=== PATIENT | female | born 1955 | race Caucasian/White ===

== ENCOUNTER 2018-04-22 00:53 | Outpatient (CLI) | payer OTHER | END 2018-04-22 00:54 | disposition critical access hospital (66) | LOC: EMS 00:53 | PROVIDERS: ATTEND Surgery | DX: R06.00 Dyspnea, unspecified (principal); R60.0 Localized edema | CPT/HCPCS: A0425; A0427 ==

== ENCOUNTER 2018-04-22 01:07 | Emergency (ER) | payer BC, OTHER ==
--- NOTE | 2018-04-22 01:58 | ED Physician Documentation ---
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 no apparent inciting event, BIBA, given iv benadryl 50 mg and IM epinephrine Review of Systems Constitutional: reports: Reviewed and negative Throat: reports: Sore throat (I think from coughing, per patient) Cardiac: reports: Reviewed and negative Respiratory: reports: Dyspnea, Cough GI: reports: Reviewed and negative Skin: denies: Rash PD PAST MEDICAL HISTORY - Past Medical History Cardiovascular: Hypertension, High cholesterol Respiratory: Asthma GI: GERD, GI bleed, Ulcers Musculoskeletal: Gout, Chronic back pain Derm: Rosacea - Past Surgical History General: Appendectomy HEENT: Tonsil/Adenoidectomy - Present Medications Home Medications: Ambulatory Orders Medication Instructions Recorded Confirmed Albuterol Sulfate [Proair Hfa 2 puffs IH Q4HR PRN 04/22/18 04/22/18 Inhaler] Carvedilol 1 tab PO BID 04/22/18 04/22/18 Epinephrine [Epipen 2-Zac] 0.3 mg IJ ONCE PRN #1 auto.injct 04/22/18 Fluticasone 220 Mcg [Flovent] 1 puffs IH BID PRN 04/22/18 04/22/18 Lisinopril 1 tab PO DAILY 04/22/18 04/22/18 predniSONE [Deltasone] 10 mg PO [id number] #42 tab 04/22/18 - Allergies Allergies/Adverse Reactions: Allergies Allergy/AdvReac Type Severity Reaction Status Date / Time No Known Drug Allergies Allergy Verified 04/22/18 01:14 PD ED PE NORMAL - Vitals Vital signs reviewed: Yes - General General: Alert and oriented X 3, No acute distress, Well developed/nourished, Other (speaks in quiet, muffled voice) - HEENT HEENT: Moist mucous membranes, Other (posterior pharyngeal edema without erythema or asymmetry) - Neck Neck: Supple, no meningeal sign, No adenopathy, Thyroid normal - Cardiac Cardiac: RRR, No murmur - Respiratory Respiratory: No respiratory distress, Other (transmitted breath sounds; mild stridor) - Abdomen Abdomen: Soft, Non tender - Derm Derm: Normal color, Warm and dry, No rash - Extremities Extremities: No edema Results - Vitals Vitals: Vital Signs - 24 hr 04/22/18 04/22/18 04/22/18 01:03 02:21 03:16 Temperature 36.2 C L Heart Rate 73 83 83 Respiratory 19 20 27 H Rate Blood Pressure 172/113 H 129/94 H 114/80 O2 Saturation 97 95 97 04/22/18 04:25 Temperature Heart Rate 71 Respiratory 16 Rate Blood Pressure 146/103 H O2 Saturation 95 Oxygen O2 Source Room air - Labs Labs: Laboratory Tests 04/22/18 04/22/18 04/22/18 02:25 02:25 02:25 WBC 7.9 RBC 4.06 L Hgb 14.3 Hct 42.1 MCV 103.8 H MCH 35.4 H MCHC 34.1 RDW 13.9 Plt Count 154 MPV 7.2 L Neut # (Auto) 5.7 Lymph # (Auto) 1.1 L [place] # (Auto) 0.4 Eos # (Auto) 0.3 Baso # (Auto) 0.3 H Absolute Nucleated RBC 0.00 Nucleated RBC % 0.0 Sodium 134 L Potassium 3.8 Chloride 96 L Carbon Dioxide 26 Anion Gap 12.0 BUN 20 Creatinine 0.9 Estimated GFR (MDRD) 63 L Glucose 146 H Calcium 9.5 TSH 5.02 - Rads (name of study) chest xray Radiology: Prelim report reviewed, See rad report PD MEDICAL DECISION MAKING - ED course Complexity details: reviewed results, re-evaluated patient, considered differential, d/w patient ED course: on reevaluation, after tests returned and iv decadron and pepcid, patient reports significant improvement. stridor has resolved and she speaks with quiet but clear voice (no longer muffled and noticeably greater volume than on initial presentation). posterior pharynx with mild residual symmetric swelling. Departure - Departure Disposition: 01 Home, Self Care Clinical Impression: Angioedema Condition: Good Instructions: ED Angioedema Follow-Up: HOANG TAMEZ [Primary Care Provider] - (Call this morning to arrange for next available appointment) Prescriptions: Epinephrine [Epipen 2-Zac] 0.3 mg IJ ONCE PRN #1 auto.injct PRN Reason: Anaphylaxis predniSONE [Deltasone] 10 mg PO [id number] #42 tab Comments: As we discussed, Lisinopril might have caused your symptoms tonight and thus I would recommend stopping the lisinopril until and unless your doctor recommends otherwise. I also recommend you take benadryl 25-50mg by mouth every 6 hours today, and then (starting tomorrow) every 6 hours as needed for symptoms. Discharge Date/Time: 04/22/18 04:39
[2018-04-22] MEDS ORDERED: FAMOTIDINE 20 MG/50 ML 50 ML IV STA (02:18)
[2018-04-22] MEDS ORDERED: DEXAMETHASONE 10 MG/ML VIAL IVP STA (02:18)
[2018-04-22 02:34] LABS: BASOPHILS # (AUTO) 0.3 10^3/uL (0.0-0.1); BASOPHILS % (AUTO) 3.9 %; EOSINOPHILS # (AUTO) 0.3 10^3/uL (0.0-0.7); EOSINOPHILS % (AUTO) 3.6 %; HGB - HEMOGLOBIN 14.3 g/dL (12.0-16.0); LYMPHOCYTES # (AUTO) 1.1 10^3/uL (1.5-3.5); MEAN CORPUSCULAR HEMOGLOBIN 35.4 pg (27.0-31.0); MEAN CORPUSCULAR HGB CONC 34.1 g/dL (32.0-36.0); MEAN CORPUSCULAR VOLUME 103.8 fL (81.0-99.0); MEAN PLATELET VOLUME 7.2 fL (7.9-10.8); MONOCYTES # (AUTO) 0.4 10^3/uL (0.0-1.0); MONOCYTES % (AUTO) 5.5 %; NEUTROPHILS # (AUTO) 5.7 10^3/uL (1.5-6.6); PLT - PLATELET COUNT 154 10^3/uL (130-450); RED BLOOD COUNT 4.06 10^6/uL (4.20-5.40); RED CELL DISTRIBUTION WIDTH 13.9 % (12.0-15.0); WHITE BLOOD COUNT 7.9 x10^3/uL (4.8-10.8)
[2018-04-22 02:40] LABS: CALCIUM 9.5 mg/dL (8.5-10.3); CREATININE 0.9 mg/dL (0.4-1.0)
--- NOTE | 2018-04-22 03:40 | XRAY Report ---
Reason: dyspnea Procedure Date: 04/22/2018 Accession Number: [id number] / [id number] Procedure: XR - Chest 2 View X-Ray CPT Code: 99605 FULL RESULT: EXAM: CHEST RADIOGRAPHY EXAM DATE: 04/22/2018 03:29 AM. CLINICAL HISTORY: Dyspnea. COMPARISON: None. TECHNIQUE: 2 views. FINDINGS: Lungs/Pleura: No focal opacities evident. No pleural effusion. No pneumothorax. Normal volumes. Mediastinum: Normal heart size. Questionably mildly enlarged central pulmonary arteries. Other: None. IMPRESSION: No acute process seen in the chest. RADIA
[2018-04-22 04:25] VITALS: BP 146/103
== END 2018-04-22 04:39 | disposition home or self-care (01) ==
LOC: EDUNIT# → ED 01:07
DX: T78.3XXA Angioneurotic edema, initial encounter (principal); I10 Essential (primary) hypertension; E78.00 Pure hypercholesterolemia, unspecified
CPT/HCPCS: 36415; 71046; 80048; 84443; 85025; 96374; 99283; 99284

== ENCOUNTER 2019-05-22 16:37 | Observation (INO) | payer MEDICARE, OTHER ==
[2019-05-22] MEDS ORDERED: methylPREDNISolone SUCCINATE 125 MG/2 ML VIAL IVP STA (16:46)
--- NOTE | 2019-05-22 16:49 | ED Physician Documentation ---
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 Her physician told her to continue using lisinopril as the problem was not persistent so does not feel like it was relevant. Today about 3 PM developed sudden right sided tongue swelling and some difficulty speaking without shortness of breath similar to prior episode.) Review of Systems Ten Systems: 10 systems reviewed and negative Constitutional: reports: Reviewed and negative Cardiac: reports: Reviewed and negative Respiratory: reports: Reviewed and negative PD PAST MEDICAL HISTORY - Past Medical History Cardiovascular: Hypertension, High cholesterol Respiratory: Asthma GI: GERD, GI bleed, Ulcers Musculoskeletal: Gout, Chronic back pain Derm: Rosacea - Past Surgical History General: Appendectomy HEENT: Tonsil/Adenoidectomy - Present Medications Home Medications: Ambulatory Orders Medication Instructions Recorded Confirmed Albuterol Sulfate [Proair Hfa 2 puffs IH Q4HR PRN 04/22/18 05/22/19 Inhaler] Fluticasone 220 Mcg [Flovent] 1 puffs IH BID PRN 04/22/18 05/22/19 Lisinopril 1 tab PO DAILY 04/22/18 05/22/19 carvediloL [Carvedilol] 1 tab PO BID 04/22/18 05/22/19 - Allergies Allergies/Adverse Reactions: Allergies Allergy/AdvReac Type Severity Reaction Status Date / Time No Known Drug Allergies Allergy Verified 04/22/18 01:14 - Social History Does the pt smoke?: Yes Smoking Status: Current every day smoker Does the pt drink ETOH?: No Does the pt have substance abuse?: No - Immunizations Immunizations are current?: Yes - POLST Patient has POLST: No PD ED PE NORMAL - Vitals Vital signs reviewed: Yes - General General: Alert and oriented X 3, Other (Slightly muffled voice, the right side of the tongue is edematous and elevated, maintaining her airway currently.) - HEENT HEENT: PERRL, EOMI - Neck Neck: Supple, no meningeal sign, No bony TTP - Cardiac Cardiac: RRR, No murmur - Respiratory Respiratory: No respiratory distress, Clear bilaterally - Abdomen Abdomen: Soft, Non tender - Back Back: No CVA TTP, No spinal TTP - Derm Derm: Normal color, Warm and dry - Extremities Extremities: No edema, No calf tenderness / cord - Neuro Neuro: Alert and oriented X 3, Normal speech Results - Vitals Vitals: Vital Signs - 24 hr 05/22/19 16:44 Heart Rate 85 Respiratory 18 Rate Blood Pressure 188/134 H O2 Saturation 98 Oxygen O2 Source Room air - Labs Labs: Laboratory Tests 05/22/19 05/22/19 05/22/19 16:54 16:54 16:54 WBC 7.0 RBC 4.22 Hgb 15.0 Hct 44.0 MCV 104.3 H MCH 35.5 H MCHC 34.1 RDW 13.3 Plt Count 121 L MPV 8.7 Neut # (Auto) 4.5 Lymph # (Auto) 1.7 [place] # (Auto) 0.5 Eos # (Auto) 0.1 Baso # (Auto) 0.0 Absolute Nucleated RBC 0.00 Nucleated RBC % 0.0 Sodium 131 L Potassium 4.6 Chloride 92 L Carbon Dioxide 26 Anion Gap 13.0 BUN 18 Creatinine 0.9 Estimated GFR (MDRD) 63 L Glucose 115 H Calcium 9.1 Blood Type Recheck O POSITIVE PD MEDICAL DECISION MAKING - ED course ED course: This is a 63-year-old woman with 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 She is administered Solu-Medrol here. Of note she already took 2 Benadryl prior to arrival. Given the significant angioedema she will be placed in observation for airway monitoring. Spoke with Dr. Medrano for same at 4:48 PM. Subsequent to my emergency department evaluation, I was called to the floor around 7 PM. The patient had lost her airway, anesthesia was there as well as the on-call surgeon. Anesthesia had already tried both direct laryngoscopy as well as video laryngoscopy and an attempt at nasal fiberoptic. We are able to bag her. I tried a couple of times at glide scope, her cords were so swollen that landmarks were basically invisible and there was a lot of blood in the airway. Several attempts were made without success. She never really signific antly desaturated and the decision was made to perform a cricothyrotomy. Most of this was performed by the on-call surgeon but I did assist. - Critical Care Time(min): 80 Time Includes: Direct patient care, Review records, Reassess patient, Document care, Coordinate care, Medical consult, Family consult for tx dec Data interpretation: Labs, Pulse ox Procedures excluded from critical care time: Intubation Departure - Departure Disposition: ED Place in Observation Clinical Impression: Angioedema Qualifiers: Encounter type: initial encounter Qualified Code(s): T78.3XXA - Angioneurotic edema, initial encounter Condition: Serious Discharge Date/Time: 05/22/19 17:26
[2019-05-22] MEDS ORDERED: SODIUM CHLORIDE FLUSH 0.9% 10 ML SYRINGE IVP PRN ×2 (16:55→18:13)
[2019-05-22 16:59] LABS: BASOPHILS % (AUTO) 0.4 %; EOSINOPHILS # (AUTO) 0.1 10^3/uL (0.0-0.7); EOSINOPHILS % (AUTO) 1.4 %; LYMPHOCYTES # (AUTO) 1.7 10^3/uL (1.5-3.5); LYMPHOCYTES % (AUTO) 24.9 %; MEAN CORPUSCULAR HEMOGLOBIN 35.5 pg (27.0-31.0); MEAN CORPUSCULAR HGB CONC 34.1 g/dL (32.0-36.0); MEAN CORPUSCULAR VOLUME 104.3 fL (81.0-99.0); MEAN PLATELET VOLUME 8.7 fL (7.9-10.8); MONOCYTES # (AUTO) 0.5 10^3/uL (0.0-1.0); MONOCYTES % (AUTO) 7.8 %; NEUTROPHILS # (AUTO) 4.5 10^3/uL (1.5-6.6); NEUTROPHILS % (AUTO) 64.8 %; PLT - PLATELET COUNT 121 10^3/uL (130-450); RED BLOOD COUNT 4.22 10^6/uL (4.20-5.40); RED CELL DISTRIBUTION WIDTH 13.3 % (12.0-15.0)
[2019-05-22] MEDS ORDERED: SODIUM CHLORIDE FLUSH 0.9% 10 ML SYRINGE IVP SCH (17:00)
[2019-05-22 17:07] LABS: CALCIUM 9.1 mg/dL (8.5-10.3); CREATININE 0.9 mg/dL (0.4-1.0)
--- NOTE | 2019-05-22 18:20 | HISTORY & PHYSICAL EXAMINATION ---
Chief Complaint - Chief Complaint Chief Complaint: Facial and tongue swelling History of Present Illness - Admitted From Admitted From:: Home - History Obtained From Records Reviewed: Yes History obtained from: Patient, Spouse, ER Physician, EMR Exam Limitations: Throat pain limiting ability to speak - History of Present Illness HPI Comment/Other: This is a 63-year-old female with a past medical history significant for ast hma/COPD and hypertension who presents today complaining of sudden onset facial swelling and tongue swelling. She reports she had similar episode approximately 1 year ago. This was attributed to her lisinopril. She was treated in the emergency department with Benadryl and steroids and discharged home. She was told to discontinue her lisinopril but her primary care physician continue to her on it. She states she has been on lisinopril for total of a year and a half now. She was doing well and has been taking it daily up until today. The swelling began around 3 PM when she first noticed her tongue was tingling. Then very quickly the right side of her face became swollen and she had difficulty speaking due to throat pain. She came to the emergency department where she was given Solu-Medrol 125 mg IV. She reports no fever, chills, chest pain. She denies shortness of breath but complains of throat swelling and pain with swallowing. She reports no known drug allergies. She reports no allergies to bees or animals. She denies any recent insect bites. She reports no recent sick contacts. Given her angioedema, medicine was consulted for admission to observe her overnight. History - Past Medical History Cardiovascular: reports: Hypertension, High cholesterol Respiratory: reports: Asthma GI: reports: GERD, GI bleed, Ulcers Musculoskeletal: reports: Gout, Chronic back pain Derm: reports: Rosacea MRSA Hx?: No Other Past Medical History: TIARA inhibitor induced angioedema - Past Surgical History General: reports: Appendectomy HEENT: reports: Tonsil/Adenoidectomy - Family & Social History Family History Comment/Other: She reports her mother had asthma and coronary artery disease. She from a myocardial infarction. Living arrangement: At home Living Situation: With spouse/s.o. 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 She lives at home with her . They have 1 dog. She reports smoking a pack a day for nearly 40 years. - Substance History Use: Uses substance without health or social issues: Tobacco - POLST Patient has POLST: No Meds/Allgy - Home Medications Home Medications: Ambulatory Orders Medication Instructions Recorded Confirmed Albuterol Sulfate [Proair Hfa 2 puffs IH Q4HR PRN 04/22/18 05/22/19 Inhaler] Fluticasone 220 Mcg [Flovent] 1 puffs IH BID PRN 04/22/18 05/22/19 Lisinopril 1 tab PO DAILY 04/22/18 05/22/19 carvediloL [Carvedilol] 1 tab PO BID 04/22/18 05/22/19 - Allergies Allergies/Adverse Reactions: Allergies Allergy/AdvReac Type Severity Reaction Status Date / Time No Known Drug Allergies Allergy Verified 04/22/18 01:14 Review of Systems - Constitutional Constitutional: denies: Fatigue, Fever, Chills, Weakness - Ears, Nose & Throat Ears, Nose & Throat: reports: Sore throat, Hoarseness, Other (Pain with swallowing. Throat swelling. Tongue swelling.) - Cardiovascular Cariovascular: denies: Chest pain - Respiratory Respiratory: denies: Cough, Wheezing, SOB at rest, SOB with exertion - Gastrointestinal Gastrointestinal: denies: Abdominal pain, Nausea, Vomiting - Genitourinary Genitourinary: denies: Dysuria, Frequency, Urgency - Musculoskeletal Musculoskeletal: denies: Muscle weakness - Integumentary Integumentary: denies: Rash - Neurological Neurological: denies: General weakness, Focal weakness - All Other Systems All Other Systems: reports: Reviewed and negative Prior Level of Functionality: She is independent with her ADLs Exam - Vital Signs Reviewed Vital Signs: Yes Vital Signs: Vital Signs x48h Temp Pulse Pulse Resp BP BP Pulse Ox 05/22/19 17:59 36.8 C 85 19 162/102 H 99 05/22/19 16:44 85 18 188/134 H 98 - Physical Exam General Appearance: positive: Alert, Mild distress Eyes Bilateral: positive: Normal inspection ENT: positive: ENT inspection nml, Other (She has right-sided tongue swelling. Unable to visualize the oropharynx well due to the swelling.) Neck: positive: Other (She has significant right-sided facial swelling across the mandible and inferior to it. She does have poor dentition. There is also left-sided mandibular swelling although this is not as prominent as the right side. The swelling is tender. No erythema noted.) Respiratory: positive: No respiratory distress, Other (No stridor.). negative: Wheezes, Rales Cardiovascular: positive: Regular rate & rhythm, No murmur. negative: Systolic murmur, Diastolic murmur Abdomen: positive: Non-tender, No distention. negative: Tenderness, Guarding, Rebound Skin: positive: No rash, Warm, Dry Extremities: positive: Full ROM, No pedal edema Neurologic/Psychiatric: positive: Oriented x3, Motor nml. 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 Her swelling continues to progress and although she initially was going to be observed on the floor, will transfer to the ICU due to her worsening swelling and symptoms. She is a very low threshold for intubation and will call anesthesia to discuss this. We will give her 2 units of fresh frozen plasma. We will continue IV steroids. Will consider obtaining a CT of the neck to rule out other causes of her edema. She should not be on an TIARA inhibitor on discharge. (2) Hypertension Conclusion/Plan: She is hypertensive. Will resume her home oral medications. (3) Asthma Conclusion/Plan: Stable and not in exacerbation. - Lab Results Lab results reviewed: Yes Eliseo Bones: 05/22/19 16:54 05/22/19 16:54 Core Measures - Anticipated LOS I expect patient to be DC'd or transferred within 96 hours.: Yes - Issues Hospital Issues and Management Plan: TIARA inhibitor induced angioedema requiring observation and possible airway protection. - DVT/VTE - Prophylaxis VTE/DVT Device ordered at admit?: Yes VTE/DVT Prophylaxis med ordered at admit?: Yes
[2019-05-22] MEDS ORDERED: LIDOCAINE MPF 2%-EPI 1:200000 20 ML VIAL ONE (19:27)
[2019-05-22] MEDS ORDERED: SUCCINYLCHOLINE 200 MG/10 ML VIAL ONE (19:29)
[2019-05-22] MEDS: PROPOFOL 1000 MG/100 ML 100 ML IV SCH ×2 (20:05→22:39)
[2019-05-22] MEDS ORDERED: SODIUM CHLORIDE 0.9% 1,000 ML IV ONE ×2 (20:33→22:20)
--- NOTE | 2019-05-22 20:43 | POST OP PROGRESS NOTE ---
Subjective - General Admit Date: 05/22/19 Procedure Date: 05/22/19 Post Op Days: 0 Procedure Performed: Emergency tracheostomy / 7Fr Shiley trach tube - Review of Systems Wound/Incisions: positive: Dressing dry and intact Drain Type: NGT General: positive: Other (Acute respiratory failure secondary to allergic angioedema Re: Lisinopril) Pulmonary: positive: Other (Acute respiratory failure / obstructive) All Other Systems: positive: Reviewed and negative Surgery Impression Plan - FEN FEN: Acute airway compromise requiring emergency tracheostomy. 7 Shiley trach tube placed following emergency access via cricothyroid membrane.
[2019-05-22] MEDS ORDERED: CHLORHEXIDINE GLUCONATE 15 ML UDC PO SCH (21:00)
[2019-05-22] MEDS ORDERED: HEPARIN 5,000 UNIT/ML VIAL SUBQ SCH (21:00)
--- NOTE | 2019-05-22 21:01 | Discharge Plan ---
Discharge Plan Problem Reviewed?: Yes Disposition: 02 Transfer Acute Care Hosp Condition: Stable No Smoking: If you smoke, Please STOP! Call for help.
--- NOTE | 2019-05-22 21:06 | DISCHARGE SUMMARY ---
"Discharge Summary Admit Date: 05/22/19 Discharge Date: 05/22/19 Discharging Provider: Sejal Cristobal Primary Care Provider: THOMAS Ortega Code Status: Attempt Resuscitation Condition at Discharge: Serious Discharge Disposition: 02 Transfer Acute Care Hosp - DIAGNOSES Discharge Diagnoses with Status of Each Condition: 1. Airway Compromise 2. Angioneurotic edema due to TIARA 3. HTN 4. Asthma without exacerbation - HPI History of Present Illness: This is a 63-year-old female with a past medical history significant for asthma/COPD and hypertension who presents today complaining of sudden onset facial swelling and tongue swelling. She reports she had similar episode approximately 1 year ago. This was attributed to her lisinopril. She was treated in the emergency department with Benadryl and steroids and discharged home. She was told to discontinue her lisinopril but her primary care physician continue to her on it. She states she has been on lisinopril for total of a year and a half now. She was doing well and has been taking it daily up until today. The swelling began around 3 PM when she first noticed her tongue was tingling. Then very quickly the right side of her face became swollen and she had difficulty speaking due to throat pain. She came to the emergency department where she was given Solu-Medrol 125 mg IV. She reports no fever, chills, chest pain. She denies shortness of breath but complains of throat swelling and pain with swallowing. She reports no known drug allergies. She reports no allergies to bees or animals. She denies any recent insect bites. She reports no recent sick contacts. Given her angioedema, medicine was consulted for admission to observe her overnight. History - Past Medical History Cardiovascular: reports: Hypertension, High cholesterol Respiratory: reports: Asthma GI: reports: GERD, GI bleed, Ulcers Musculoskeletal: reports: Gout, Chronic back pain Derm: reports: Rosacea MRSA Hx?: No Other Past Medical History: TIARA inhibitor induced angioedema - Past Surgical History General: reports: Appendectomy HEENT: reports: Tonsil/Adenoidectomy - CONSULTS | PROCEDURES Consultations: 1. Anesthesia 2. General Surgery Procedures: 1. Failed ET intubation 2. Emergency tracheostomy - HOSPITAL COURSE Hospital Course: After receiving steroids and oxygen in the ER she was transferred to ICU for airway monitoring. As she was speaking to the admitting hospitalist she described worsening throat tightening now on both sides of throat with increased pain. She was speaking less and less with more tachycardia and as such we requested urgent intubation from anesthesia. Both anesthesia and General surgery responded to our request and 2-3 attempts were made with a Strunk Scope to intubated. Emergency room physician also came to the bedside to make an attempt. She eventually had to have an emergency tracheostomy placed. At all times her oxygen saturations were adequate. A 7 cuffed devika was placed and Surgery asked for transfer to a higher level of care with ER MD concurring. As such I contacted Alexa Yung and she was transferred to the care of Dr. Fuchs who accepted the patient in transfer. She has received solumedrol in the ER and Dr. Fuchs requested decadron 4 mg IV q6h. She is now on versed and propofol to keep her sedated. - ALLERGIES Allergies/Adverse Reactions: Allergies Allergy/AdvReac Type Severity Reaction Status Date / Time No Known Drug Allergies Allergy Verified 04/22/18 01:14 - MEDICATIONS Home Medications: Ambulatory Orders Medication Instructions Recorded Confirmed Albuterol Sulfate [Proair Hfa 2 puffs IH Q4HR PRN 04/22/18 05/22/19 Inhaler] Fluticasone 220 Mcg [Flovent] 1 puffs IH BID PRN 04/22/18 05/22/19 Lisinopril 1 tab PO DAILY 04/22/18 05/22/19 carvediloL [Carvedilol] 1 tab PO BID 04/22/18 05/22/19 - PHYSICAL EXAM AT DISCHARGE General Appearance: positive: Other (on propofol and still trying to sit up so versed being added) Eyes Bilateral: positive: PERRL, EOMI ENT: positive: Other (left lower facial edema with tongue severely enlarged.) Neck: positive: No JVD, Other (tracheostomy in place) Respiratory: positive: Chest non-tender, Rhonchi (bilateral and diffuse (she may have had blood into her lungs from the trach)). negative: Wheezes, Rales Cardiovascular: positive: Regular rate & rhythm. negative: Systolic murmur, Gallop/S4 Peripheral Pulses: positive: 1+ Abdomen: positive: Non-tender, No organomegaly, Nml bowel sounds, No distention Extremities: positive: Full ROM, No pedal edema Neurologic/Psychiatric: positive: Other (on versed and propofol, moving all extrem with purpose.) - LABS Result Diagrams: 05/22/19 16:54 05/22/19 16:54 - TIME SPENT Time Spent in Discharge (Minutes): 35"
[2019-05-22] MEDS ORDERED: DEXAMETHASONE 4 MG/ML VIAL IVP STA (21:10)
[2019-05-22] MEDS ORDERED: MIDAZOLAM 50 MG/10 ML VIAL ONE (21:23)
--- NOTE | 2019-05-22 21:44 | CONSULTATION NOTE ---
Consultation Report: call or contact centre coach anesthesia provider received a call from Dr Medrano at about 1800 requesting to see the patient who may need endotracheal intubation secondary to increasing air way edema due to to allergic reaction to lisinopril. up on examining the patient, pt is sitting up, spontaneously breathing, reporting increasing difficulty speaking and breathing. mumbling when trying to speak. Patient has some facial edema and has unilateral edema to her tongue able to follow commands, opens her mouth well and appeared to be mallapati 2. Anesthesia provider and the Dr Medrano spoke with the patient and her and made them aware that it is very important to secure the airway before the edema gets any worse. Consent was signed and patient was connected to the standard monitors. preoxygenated her 5 minutes. Gave propopfol 250mg ( in incremental doses) versed 10 mg, ketamine 50 mg for sedation and succinylcholine 140. DL attempted x2 with a Mackey failed and then we moved to FO, but with significant edematous airway tissue FO attempt failed to secure the airway as well. We were able to mask the patient and maintain her sats adequately. But it was increasing getting difficult to des her. ER doc came into and attemped DL with Glidescope a few times with out any success. General surgeon was called in and the patient eventually had to have an emergency tracheostomy placed. At all times her oxygen saturations were adequately mainted. Her vital signed were continuously monitored and maintained. Pt is stable on the vent in the icu.
[2019-05-22] MEDS ORDERED: methylPREDNISolone SUCCINATE 40 MG/ML VIAL IVP SCH (22:00)
[2019-05-22] MEDS ORDERED: MIDAZOLAM DRIP 50 MG/100 ML BAG IV SCH (22:00)
--- NOTE | 2019-05-22 22:01 | XRAY Report ---
Reason: trach Procedure Date: 05/22/2019 Accession Number: [id number] / [id number] Procedure: XR - Chest for Line Placement CPT Code: Final Report FULL RESULT: EXAM: CHEST RADIOGRAPHY EXAM DATE: 05/22/2019 09:27 PM. CLINICAL HISTORY: Tracheostomy. COMPARISON: CHEST 2 VIEW 04/22/2018 2:41 AM. TECHNIQUE: 1 view. FINDINGS: Lungs/Pleura: There is pulmonary vascular distention. No overt edema or focal consolidation. No pleural effusion or pneumothorax. Mediastinum: Within exam limitations, the cardiomediastinal contour is normal. Other: Interval tracheostomy. There is subcutaneous emphysema at the base of the neck. IMPRESSION: 1. Interval tracheostomy noting subcutaneous emphysema at the base of the neck. 2. No definite pneumothorax or pneumomediastinum. 3. Pulmonary venous congestion without overt edema or focal airspace disease. RADIA
[2019-05-22 22:19] VITALS: BP 78/51
[2019-05-22] MEDS ORDERED: SODIUM CHLORIDE 0.9% 500 ML IV ONE (22:19)
[2019-05-23] MEDS ORDERED: PANTOPRAZOLE 40 MG VIAL IVP SCH (07:00)
--- NOTE | 2019-05-23 18:26 | OPERATIVE REPORT ---
DATE OF SERVICE: 05/23/2019 Physician: Gustavo Morrow DO HISTORY: The patient is a 63-year-old white female who was having respiratory distress based on obst ructive airway as the result of angioedema, allergic reaction to lisinopril, apparently. I was manley d to come and see the patient in the intensive care unit to evaluate for the possible need of a crico thyroidotomy and/or tracheostomy. Upon arrival, the patient was in significant distress, but was being oxygenated by bag valve mask wit h an oropharyngeal airway in place. Anesthesia was actively trying to intubate the patient and using a small flexible scope to assist in visualization. This had been going on for some time apparently and to no avail. I asked that the emergency room physician, Dr. Iniguez, come to assist me and he the n attempted several intubations. Again, the patient was maintained at an oxygen level between 85 and 95 at all the times I observed the monitor. After a prolonged and unfruitful endotracheal tube intu bation, we decided it was best to go ahead and do a bedside tracheostomy. PROCEDURE IN DETAIL: The tracheostomy tray was opened as was the disposable cricothyroidotomy tray. After sterile prep and drape, the patient's larynx was identified and a Xylocaine local instilled jus t below this. Incision was made and carried down through the skin and subcutaneous tissue until the trachea was digitally felt. The cricothyroid membrane was identified digitally and a Jelco catheter placed through this and a wire through the Jelco catheter down into the trachea. The Jelco was then removed, the dilator placed over the wire and a cricoid tube placed. This, however, did not have a b alloon associated with it, and so I ended up removing that and replacing it with a 7-Vietnamese Shiley tr acheostomy tube. This was quite satisfactory. The patient was then ventilated easily through this, and the capnography was positive. Subsequently, the tracheostomy tube was sutured in place with 0 si lk. The tracheostomy tube was then secured with a Velcro strap, specific for this purpose. At this time, the patient was then deemed to be in satisfactory condition and I left the intensive ca re unit room to do the charting. The patient was then flown to [facility] in [place] to my understanding. TD: 05/23/2019 12:07
--- NOTE | 2019-05-26 11:10 | ANESTHESIA PROCEDURE NOTE ---
Anesthesia Intubation Template - Intubation Blade: positive: Mackey Tube: Other Route: Oral, Nasal Placement Confirmation: End tidal CO2 Complications: Other (This is a late note for intubation attempts on 05/22/19. I was called by my Fatmata OXIDATION OPERATOR to assist him with this difficult airway secondary to casimiro inhibior induced angioedema. Patient was awake with adequate oxygenation upon my arrival. I assisted Fatmata Hsu with Mackey view and then did one DVL myself with MGrath, tissues very swollen, one attempt at intubation by me that was esophageal. Easy FM, maintaining O2 sats. Airway localized with 4cc 4% atomizer via right nare. 30 Nasal trumpet to right nare. Attempts at FOB with poor view due to swollen anatomy and some nasal bleeding. Sats above 90, patient spontaonously breathing and sedated. I asked Hospitalist to call General Surgeon sustainability consultant for back up tracheotomy. Dr. Molina and Dr. Iniguez at bedside. After prolonged attempts at FOB intubation Dr. Iniguez made attempts with ER Glidescope to no avail, esophageal tube left in place and stomach emptied. FOB again attempted while neck was prepped for percutanous tracheotomy that was placed by Dr. Molina and Dr. Iniguez assisting. Patients sats did not go below high 80's throughout entire procedure. I spoke with patients family and oncoming hospitalist. I accessed the chart on 05/23/19 to see if there was any complications from this difficult airway management and for peer proctoring reasons.)
== END 2019-05-22 22:30 | disposition short-term general hospital (02) ==
LOC: ED 16:37 → MS2 16:55 → ICU 18:28
PROVIDERS: ADMIT Internal Medicine; ATTEND Specialist
DX: T78.3XXA Angioneurotic edema, initial encounter (principal); T46.4X5A Adverse effect of angiotensin-converting-enzyme inhibitors, initial encounter; Y92.9 Unspecified place or not applicable; I10 Essential (primary) hypertension; J44.9 Chronic obstructive pulmonary disease, unspecified; F17.200 Nicotine dependence, unspecified, uncomplicated; E78.00 Pure hypercholesterolemia, unspecified; K21.9 Gastro-esophageal reflux disease without esophagitis; M10.9 Gout, unspecified; G89.29 Other chronic pain; M54.9 Dorsalgia, unspecified; Z79.51 Long term (current) use of inhaled steroids
CPT/HCPCS: 31605; 36415; 80048; 85025; 86850; 86900; 86901; 87150; 94002; 96374; 99291; 99292; G0378; J0330; P9017; 71045; 82803; 94770; 96365; 96375; 96376

== ENCOUNTER 2019-05-22 22:22 | Outpatient (CLI) | payer MEDICARE, OTHER | END 2019-05-22 22:23 | disposition short-term general hospital (02) | LOC: EMS 22:22 | PROVIDERS: ATTEND Surgery | DX: T78.3XXA Angioneurotic edema, initial encounter (principal); T46.4X5A Adverse effect of angiotensin-converting-enzyme inhibitors, initial encounter | CPT/HCPCS: A0425; A0426 ==

== ENCOUNTER 2019-06-06 20:08 | Outpatient (CLI) | payer MEDICARE, OTHER | END 2019-06-06 20:09 | disposition critical access hospital (66) | LOC: EMS 20:08 | PROVIDERS: ATTEND Surgery | DX: R42 Dizziness and giddiness (principal); R53.1 Weakness; K92.1 Melena | CPT/HCPCS: A0425; A0427 ==

== ENCOUNTER 2019-06-06 20:18 | Inpatient (IN) | payer MEDICARE, OTHER ==
--- NOTE | 2019-06-06 20:25 | ED Physician Documentation ---
History of Present Illness - Stated complaint Stated Complaint: TRACH REMOVED, DIZZY, BLOODY STOOLS, HYPOTENSIVE - History obtained from History obtained from: Patient, Family, EMS - History of Present Illness Timing: Yesterday Pain level now: 4 (abdominal pain) Improved by: nothing Worsened by: movement, exertion Associated symptoms: generalized weakness, dizziness/lightheadedness, fatigue, - Additonal information Additional information: BIBA. c/o fatigue, dizziness, generalized weakness since yesterday. These symptoms have progressed since yesterday such that she is unable to sit up tonight. Patient was admitted to [facility] 2 weeks ago for angioedema thought to be due to ACEI. Shortly after admission, she had rapid worsening of symptoms with unsuccessful attempts at intubation, and thus required cricothyrotomy and subsequently was transferred to [facility]. She was discharged from [facility] this past Friday (5 days ago), and trach was removed prior to discharge. Family says patient has been slowly recuperating at home but since yesterday has had the above symptoms and tonight was too weak to even sit up in bed. EMS found patient to be hypotensive on their arrival with SBP in the 70s, but improved to 100s on ED arrival after 1 liter IV fluid (two IVs have been established and NS is running through both of these). EMS also reports that patient had large, bloody BM during their assessment. Patient says she had bloody diarrhea as a single episode 2 days ago. Review of Systems Constitutional: reports: Fatigue. denies: Fever, Chills, Sweats Eyes: reports: Reviewed and negative Ears: reports: Reviewed and negative Nose: reports: Reviewed and negative Throat: reports: Reviewed and negative Cardiac: reports: Reviewed and negative Respiratory: reports: Reviewed and negative GI: reports: Abdominal Pain, Bloody / black stool. denies: Nausea, Vomiting : reports: Hematuria. denies: Dysuria, Frequency Skin: reports: Reviewed and negative Musculoskeletal: reports: Reviewed and negative Neurologic: reports: Generalized weakness. denies: Focal weakness, Numbness PD PAST MEDICAL HISTORY - Past Medical History Cardiovascular: Hypertension, High cholesterol Respiratory: Asthma GI: GERD, GI bleed, Ulcers Musculoskeletal: Gout, Chronic back pain Derm: Rosacea - Past Surgical History General: Appendectomy HEENT: Tonsil/Adenoidectomy - Present Medications Home Medications: Ambulatory Orders Medication Instructions Recorded Confirmed Albuterol Sulfate [Proair Hfa 2 puffs IH Q4HR PRN 04/22/18 05/22/19 Inhaler] carvediloL [Carvedilol] 1 tab PO BID 04/22/18 05/22/19 - Allergies Allergies/Adverse Reactions: Allergies Allergy/AdvReac Type Severity Reaction Status Date / Time lisinopril Allergy Severe Respiratory Verified 06/06/19 22:40 - Social History Does the pt smoke?: Yes Smoking Status: Current every day smoker Does the pt drink ETOH?: No Does the pt have substance abuse?: No - Immunizations Immunizations are current?: Yes - POLST Patient has POLST: No PD ED PE NORMAL - Vitals Vital signs reviewed: Yes - General General: Alert and oriented X 3, Well developed/nourished, Other (markedly pale, appears anxious, answers slowly and quietly but appropriately ) - HEENT HEENT: PERRL, EOMI, Moist mucous membranes - Neck Neck: Supple, no meningeal sign - Cardiac Cardiac: No murmur - Respiratory Respiratory: No respiratory distress, Clear bilaterally - Abdomen Abdomen: Soft, Non distended, Other (mild generalized tenderness) - Extremities Extremities: No edema PD ED PE EXPANDED - HEENT HEENT: Other (pale conjunctiva) - Cardiac Cardiac: Tachy, Irregularly irregular - Rectal Rectal: Other (small BM which is grossly bloody (dark red); as central supply is no longer stocking hemoccult in the emergency department, I was unable to test sample at bedside. she subsequently passed small/moderate amount of liquid dark red/maroon material that appeared to be blood) - Derm Derm: Pale Results - Vitals Vitals: Vital Signs - 24 hr 06/06/19 06/06/19 20:21 21:01 Temperature 36.9 C Heart Rate 103 H 99 Respiratory 16 22 Rate Blood Pressure 101/51 L 96/51 L O2 Saturation 100 98 Oxygen O2 Source Room air - Labs Labs: Microbiology 06/06/19 21:06 Occult Blood - Final Stool Laboratory Tests 06/06/19 06/06/19 06/06/19 00:00 20:30 20:30 WBC 12.1 H RBC 1.19 L Hgb 4.1 L* Hct 13.3 L* MCV 111.8 H MCH 34.5 H MCHC 30.8 L RDW 13.2 Plt Count 213 MPV 8.9 Neut # (Auto) 9.9 H Lymph # (Auto) 1.0 L Rush # (Auto) 0.7 Eos # (Auto) 0.1 Baso # (Auto) 0.0 Absolute Nucleated RBC 0.00 Nucleated RBC % 0.0 Manual Slide Review Indicated Platelet Estimate NORMAL (130-450,000) Platelet Morphology NORMAL APPEARANCE RBC Morph Micro Appear 2+ MACROCYTOSIS PT 15.5 H INR 1.4 H APTT 23.9 L Sodium Potassium Chloride Carbon Dioxide Anion Gap BUN Creatinine Estimated GFR (MDRD) Glucose Calcium Total Bilirubin AST ALT Alkaline Phosphatase Total Protein Albumin Globulin Albumin/Globulin Ratio Lipase Nasal Screen MRSA (PCR) NEGATIVE Blood Type Antibody Screen Crossmatch IS Only 06/06/19 06/06/19 06/06/19 20:30 21:05 21:05 WBC RBC Hgb Hct MCV MCH MCHC RDW Plt Count MPV Neut # (Auto) Lymph # (Auto) Rush # (Auto) Eos # (Auto) Baso # (Auto) Absolute Nucleated RBC Nucleated RBC % Manual Slide Review Platelet Estimate Platelet Morphology RBC Morph Micro Appear PT INR APTT Sodium 133 L Potassium 3.9 Chloride 103 Carbon Dioxide 26 Anion Gap 4.0 L BUN 23 H Creatinine 0.9 Estimated GFR (MDRD) 63 L Glucose 139 H Calcium 6.9 L Total Bilirubin 0.5 AST 17 ALT 11 Alkaline Phosphatase 57 Total Protein 4.3 L Albumin 1.5 L Globulin 2.8 Albumin/Globulin Ratio 0.5 L Lipase 82 H Nasal Screen MRSA (PCR) Blood Type O POSITIVE Cancelled Antibody Screen NEGATIVE Cancelled Crossmatch IS Only See Detail See Detail - Rads (name of study) CT A/P angio Radiology: Prelim report reviewed, See rad report PD MEDICAL DECISION MAKING - ED course Complexity details: reviewed old records, reviewed results, re-evaluated patient, considered differential, d/w patient, d/w family - Critical Care Time(min): 60 Time Includes: Direct patient care, Review records, Reassess patient, Document care, Coordinate care, Medical consult, Family consult for tx dec, See progress note Data interpretation: Labs, Pulse ox, See progress note Procedures included in critical care time: See progress note Procedures excluded from critical care time: EKG, See progress note Departure - Departure Disposition: 66 [facility] DC/Xfer Clinical Impression: Lower gastrointestinal bleeding Condition: Serious Discharge Date/Time: 06/06/19 23:07
[2019-06-06 20:54] LABS: ALBUMIN 1.5 g/dL (3.2-5.5); ALBUMIN/GLOBULIN RATIO 0.5 (1.0-2.2); BILIRUBIN,TOTAL 0.5 mg/dL (0.2-1.0); CALCIUM 6.9 mg/dL (8.5-10.3); CREATININE 0.9 mg/dL (0.4-1.0); TOTAL PROTEIN 4.3 g/dL (6.7-8.2)
[2019-06-06] MEDS ORDERED: IOVERSOL 320 100 ML VIAL IVP ONE ×2 (20:54→21:36)
[2019-06-06 21:11] LABS: BASOPHILS % (AUTO) 0.2 %; EOSINOPHILS # (AUTO) 0.1 10^3/uL (0.0-0.7); EOSINOPHILS % (AUTO) 0.8 %; LYMPHOCYTES % (AUTO) 8.6 %; MEAN CORPUSCULAR HEMOGLOBIN 34.5 pg (27.0-31.0); MEAN CORPUSCULAR HGB CONC 30.8 g/dL (32.0-36.0); MEAN CORPUSCULAR VOLUME 111.8 fL (81.0-99.0); MEAN PLATELET VOLUME 8.9 fL (7.9-10.8); MONOCYTES # (AUTO) 0.7 10^3/uL (0.0-1.0); MONOCYTES % (AUTO) 5.9 %; NEUTROPHILS # (AUTO) 9.9 10^3/uL (1.5-6.6); PLT - PLATELET COUNT 213 10^3/uL (130-450); RED BLOOD COUNT 1.19 10^6/uL (4.20-5.40); RED CELL DISTRIBUTION WIDTH 13.2 % (12.0-15.0); WHITE BLOOD COUNT 12.1 x10^3/uL (4.8-10.8)
[2019-06-06 21:14] LABS: HGB - HEMOGLOBIN 4.1 g/dL (12.0-16.0)
[2019-06-06 21:20] LABS: INR 1.4 (0.8-1.2); PT - PROTHROMBIN TIME 15.5 secs (9.9-12.6)
[2019-06-06 21:27] LABS: PARTIAL THROMBOPLASTIN TIME 23.9 secs (24.9-33.3)
[2019-06-06 21:36] LABS: PLATELET ESTIMATE, MANUAL NORMAL (130-450,000) (NORMAL); PLATELET MORPHOLOGY NORMAL APPEARANCE (NORMAL)
--- NOTE | 2019-06-06 22:07 | CT Report ---
Reason: abd. pain, gi bleed Procedure Date: 06/06/2019 Accession Number: [id number] / [id number] Procedure: CT - ANGIO ABDOMEN/PELVIS W CPT Code: Final Report FULL RESULT: EXAM: CT ANGIOGRAM ABDOMEN AND PELVIS WITH CONTRAST EXAM DATE: 06/06/2019 09:30 PM. CLINICAL HISTORY: Abdominal pain COMPARISONS: None. TECHNIQUE: Routine helical CT angiogram imaging was performed through the abdomen and pelvis in the arterial phase. IV contrast: OPTI 320 100ML. Enteric contrast: No. Reconstructions: Coronal, sagittal, and 3D MIP reconstructions. In accordance with CT protocol optimization, one or more of the following dose reduction techniques were utilized for this exam: automated exposure control, adjustment of mA and/or KV based on patient size, or use of iterative reconstructive technique. 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 The superior mesenteric artery and its visualized branches are within normal limits. No acute renal artery abnormalities are seen. The aorta demonstrates no evidence of aneurysm or dissection. The iliac and visualized femoral arteries are within normal limits. Lung Bases: There is a small left pleural effusion. Abdominal Solid Organs: The liver demonstrates no acute abnormality. There are splenic calcifications. There is heterogeneous hypodensity within the pancreatic head region. There is some adjacent fat stranding. The adrenal glands and kidneys demonstrate no acute abnormality. Peritoneal Cavity: There is suggestion of mild duodenal wall thickening. There is adjacent fat stranding. There is wall thickening of the sigmoid colon. There is no evidence of appendicitis. No small bowel obstruction. No enlarged mesenteric or retroperitoneal lymph nodes are seen. Pelvic Organs: No acute pelvic organ abnormalities. Bones: Remote L4 compression fracture with vertebroplasty. Other: None. IMPRESSION: 1. There is heterogeneous hypodensity of the pancreatic head with some adjacent fat stranding. This could represent pancreatitis. Differential consideration would be pancreatic head mass. 2. Differential consideration for the peripancreatic fat stranding would be duodenitis; there is suggestion of mild duodenal wall thickening. 3. There is likely mild wall thickening of the sigmoid colon with some adjacent fat stranding (for example image 159 series 4). Differential considerations include colitis or diverticulitis. 4. There is no definite intraluminal enteric arterial enhancement. 5. 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 The superior mesenteric artery and branches are within normal limits. There is no evidence of aortic dissection or aneurysm. 6. There is a small left pleural effusion. RADIA
[2019-06-06] MEDS ORDERED: ONDANSETRON 4 MG/2 ML VIAL IVP PRN (22:32)
[2019-06-06] MEDS ORDERED: MORPHINE 2 MG/ML CARPUJECT IVP PRN (22:32)
--- NOTE | 2019-06-06 23:33 | HISTORY & PHYSICAL EXAMINATION ---
Chief Complaint - Chief Complaint Chief Complaint: Blood in stool History of Present Illness - Admitted From Admitted From:: Home - History Obtained From Records Reviewed: Yes History obtained from: Patient, Family, ER Physician, EMR - History of Present Illness HPI Comment/Other: This is a 63-year-old female with a past medical history significant for atrial fibrillation, hypertension, asthma who presents today complaining of bleeding. She was admitted here on the 22 of May for angioedema. Her edema progressed quickly and there was concern for airway compromise and a tracheostomy was emergently placed as anesthesia was unable to intubate her due to the significant edema. She was then transferred to [facility] in [place] where she was hospitalized until this past Friday. She states her trach was removed exactly 1 week ago. She has a bandage in place over her stoma which she is replacing as needed and usually this is done twice a day. Since she has been home, she has been eating a little bit more each day. Today, she became dizzy and lightheaded. She was also complaining of abdominal pain and nausea. She then noticed she had blood in her stool. She cannot recall if it was a lot of blood or not. Her family reports that she had significant bleeding and more than one episode. They are concerned it may have been going on for longer than today but that the patient did not report it. Her tells me that there was concern for bleeding while she is at [facility] and they noticed blood in her urine. It was attributed to a catheter which was removed. The patient does have a history of gastric ulcers many years ago which required hospitalization for significant bleed. At that time she was taking a lot of ibuprofen. She reports no recent NSAID use. She also reports no blood thinners including aspirin. She states she did have a little nosebleed a couple of days ago but otherwise no other bleeding. She has never had a colonoscopy. She does not drink alcohol. She reports no chest pain, dyspnea, fevers. When EMS first evaluated the patient, she is on the hypotensive with systolic blood pressure in the 70s. She was given IV fluids and brought to emergency department. Upon initial evaluation here, she was hypotensive with systolics in the 90s. Tachycardic in the low 100s. She was afebrile and not tachypneic. She is also saturating well on room air. She was given a total of 2 L of saline. Her labs revealed a hemoglobin of 4.1. Her INR was 1.4. Her BUN was elevated at 23 with a normal creatinine. Lactic acid is normal. An angiogram T of the abdomen and pelvis was performed which did not show active extravasation. There was concern for possible pancreatitis as well as duodenitis. There is also mild wall thickening of the sigmoid colon. Given these findings, medicine was consulted for admission. I did discuss goals of care with the patient and she would like to be a full code. History - Past Medical History Cardiovascular: reports: Hypertension, High cholesterol, Atrial fibrillation Respiratory: reports: Asthma GI: reports: GERD, GI bleed, Ulcers Musculoskeletal: reports: Gout, Chronic back pain Derm: reports: Rosacea MRSA Hx?: No - Past Surgical History General: reports: Appendectomy HEENT: reports: Tonsil/Adenoidectomy, Tracheostomy - Family & Social History Family History Comment/Other: She reports her mother had asthma and coronary artery disease. She from a myocardial infarction. Social History Notes: She is currently retired but was previously employed at a [employer]. She lives at home with her . They have 1 dog. She reports smoking a pack a day for nearly 50 years. Denies alcohol use. - Substance History Use: Uses substance without health or social issues: Tobacco - POLST Patient has POLST: No Meds/Allgy - Home Medications Home Medications: Ambulatory Orders Medication Instructions Recorded Confirmed Albuterol Sulfate [Proair Hfa 2 puffs IH Q4HR PRN 04/22/18 05/22/19 Inhaler] carvediloL [Carvedilol] 1 tab PO BID 04/22/18 05/22/19 - Allergies Allergies/Adverse Reactions: Allergies Allergy/AdvReac Type Severity Reaction Status Date / Time lisinopril Allergy Severe Respiratory Verified 06/06/19 22:40 Review of Systems - Constitutional Constitutional: reports: Fatigue, Malaise, Weakness. denies: Fever, Chills - Cardiovascular Cariovascular: reports: Lightheadedness. denies: Palpitations, Chest pain, Edema, Exertional dyspnea, Decr. exercise tolerance - Respiratory Respiratory: denies: Cough, SOB at rest, SOB with exertion - Gastrointestinal Gastrointestinal: reports: Abdominal pain, Rectal bleeding, Bloody stools, Nausea, Poor appetite. denies: Diarrhea, Vomiting, Rom blood emesis, Coffee grounds emesis - Genitourinary Genitourinary: denies: Dysuria, Frequency - Musculoskeletal Musculoskeletal: denies: Muscle weakness - Integumentary Integumentary: denies: Rash - Neurological Neurological: reports: General weakness, Dizziness. denies: Focal weakness - All Other Systems All Other Systems: reports: Reviewed and negative Prior Level of Functionality: She is independent with her ADLs. Exam - Vital Signs Vital Signs: Vital Signs x48h Temp Pulse Resp BP Pulse Ox 06/06/19 22:50 37.1 C 91 21 95/51 L 06/06/19 22:41 36.9 C 91 23 85/43 L 06/06/19 21:01 99 22 96/51 L 98 06/06/19 20:21 36.9 C 103 H 16 101/51 L 100 - Physical Exam General Appearance: positive: Alert, Mild distress Eyes Bilateral: positive: Normal inspection, Conjunctivae nml ENT: positive: ENT inspection nml Neck: positive: Nml inspection, Other (Stoma is present with dressing in place. The area surrounding the stoma is without erythema and the incision appears to be healing well.) Respiratory: positive: No respiratory distress, Other (Diminished breath sounds.). negative: Wheezes, Rales Cardiovascular: positive: No murmur, Irregularly irregular, Tachycardia. negative: Systolic murmur, Diastolic murmur Abdomen: positive: No organomegaly, Tenderness (Diffuse tenderness that is most severe in right lower quadrant.), Abnml bowel sounds (Hyperactive). negative: Guarding, Rebound, Hepatomegaly, Splenomegaly Skin: positive: No rash, Warm, Dry, Pallor Extremities: positive: Full ROM, No pedal edema Neurologic/Psychiatric: positive: Oriented x3, Motor nml. negative: Disoriented to person, Disoriented to place, Disoriented to time, Weakness Conclusion/Plan - Problem List (1) Lower gastrointestinal bleeding Conclusion/Plan: Suspect this bleed is diverticular in nature or possibly ischemic colitis although her lactic acid is normal. She presents with maroon-colored stool per rectum. She does have a history of upper GI bleed secondary to NSAID use in the past. She continues to have bleeding in the emergency department but the volume of blood has decreased. A CT angiogram of the abdomen and pelvis did not show an active bleed. There was concern for possible mild colitis and mild duodenitis. Given the duodenitis, will start her on Protonix 40 mg IV twice a day. Given the colitis, will also start her on Zosyn IV prophylactically. She will be n.p.o. Continue IV hydration and morphine as needed for pain control. Consult general surgery. (2) Acute blood loss anemia Conclusion/Plan: This is secondary to the GI bleed. She presents with hypotension and a hemoglobin of 4.1. She is currently being transfused 3 units of packed red blood cells. We will transfuse her to a goal hemoglobin of 7. Will monitor H&H every 8 hours. 2 more units of blood will be on hold. Will use SCDs for DVT prophylaxis. No chemical DVT prophylaxis. (3) Hypotension due to blood loss Conclusion/Plan: She initially presented hypotensive and tachycardic. This is believed to be secondary to her lower GI bleed. She has received 2 L of IV fluids and her blood pressure is relatively stable in the 90s/50s. Her heart rate has also slightly improved from arrival to the emergency department after receiving fluid and blood. Will monitor her in the ICU and continue IV hydration. Continue to transfuse packed red blood cells for goal hemoglobin greater than 7. Will try and hold off on initiating vasopressors unless her hypertension becomes more severe and she does not respond to transfusions. (4) Paroxysmal atrial fibrillation Conclusion/Plan: She was initially in sinus tachycardia with heart rate in the low 100s. She is now in atrial fibrillation but is rate controlled after receiving IV fluids and one packed red blood cell. She is on carvedilol at home which she will continue to hold given the hypotension. We can consider the use of amiodarone if she develops rapid ventricular response. She is not a candidate for anti- coagulation at this time. (5) Asthma Conclusion/Plan: Stable and not in exacerbation. Continue albuterol as needed. (6) Hypertension Conclusion/Plan: She is currently hypotensive secondary to the GI bleed. We will continue to hold her home antihypertensives at this time. (7) History of tracheostomy Conclusion/Plan: She had a tracheostomy emergently placed approximately 2 weeks ago for angioedema. She was decannulated about 1 week ago. We will continue dressing changes as needed. - Lab Results Lab results reviewed: Yes Fish Bones: 06/06/19 20:30 06/06/19 20:30 - Diagnostic Imaging Results Diagnostic Imaging Results: positive: Final report reviewed - EKG Results EKG Interpreted Independently: Yes EKG Findings: EKG showed sinus tachycardia with heart rate in the low 100s. QTC is 466. There are nonspecific ST segment changes in leads V4 to V6. Core Measures - Anticipated LOS I expect patient to be DC'd or transferred within 96 hours.: Yes - Issues Hospital Issues and Management Plan: Hemorrhagic shock secondary to lower GI bleed. Suspect diverticular source. Also has acute blood loss anemia requiring multiple transfusions of packed red blood cells. - DVT/VTE - Prophylaxis VTE/DVT Device ordered at admit?: Yes VTE/DVT Prophylaxis med ordered at admit?: No Not Ordered - Medical Reason: Contraindicated
[2019-06-06] MEDS ORDERED: SODIUM CHLORIDE 0.9% 500 ML IV PRN (23:57)
[2019-06-06] MEDS: SODIUM CHLORIDE 0.9% 1,000 ML IV SCH (23:59)
[2019-06-07] MEDS: PANTOPRAZOLE 40 MG VIAL IVP SCH ×3 (00:02→20:37)
[2019-06-07] MEDS: SODIUM CHLORIDE FLUSH 0.9% 10 ML SYRINGE IVP PRN ×3 (00:02→09:19)
[2019-06-07] MEDS: PIPERACILLIN/TAZOBACTAM 3.375 GM in SODIUM CHLORIDE 0.9% MINIBAG 100 ML IV SCH ×5 (00:04→22:42)
[2019-06-07] MEDS: SODIUM CHLORIDE FLUSH 0.9% 10 ML SYRINGE IVP SCH ×3 (00:05→16:34)
[2019-06-07] MEDS ORDERED: ALBUTEROL NEB 2.5 MG/3 ML INH PRN (00:32)
[2019-06-07] MEDS: SODIUM CHLORIDE 0.9% 1,000 ML IV SCH ×2 (04:01→15:33)
[2019-06-07 04:35] LABS: BASOPHILS % (AUTO) 0.3 %; EOSINOPHILS # (AUTO) 0.1 10^3/uL (0.0-0.7); EOSINOPHILS % (AUTO) 0.6 %; LYMPHOCYTES # (AUTO) 1.3 10^3/uL (1.5-3.5); LYMPHOCYTES % (AUTO) 11.7 %; MEAN CORPUSCULAR HGB CONC 32.3 g/dL (32.0-36.0); MEAN CORPUSCULAR VOLUME 99.1 fL (81.0-99.0); MEAN PLATELET VOLUME 9.2 fL (7.9-10.8); MONOCYTES # (AUTO) 0.8 10^3/uL (0.0-1.0); MONOCYTES % (AUTO) 6.9 %; NEUTROPHILS # (AUTO) 8.8 10^3/uL (1.5-6.6); PLT - PLATELET COUNT 209 10^3/uL (130-450); RED BLOOD COUNT 2.19 10^6/uL (4.20-5.40); RED CELL DISTRIBUTION WIDTH 18.2 % (12.0-15.0); WHITE BLOOD COUNT 11.3 x10^3/uL (4.8-10.8)
[2019-06-07 04:40] LABS: INR 1.3 (0.8-1.2); PT - PROTHROMBIN TIME 14.3 secs (9.9-12.6)
[2019-06-07 05:04] LABS: MAGNESIUM 1.7 mg/dL (1.7-2.8); PHOSPHORUS 4.3 mg/dL (2.5-4.6)
[2019-06-07 05:12] LABS: ALBUMIN 1.6 g/dL (3.2-5.5); CALCIUM 7.7 mg/dL (8.5-10.3)
[2019-06-07 07:14] LABS: CALCIUM 7.5 mg/dL (8.5-10.3); CREATININE 0.8 mg/dL (0.4-1.0)
--- NOTE | 2019-06-07 07:18 | CONSULTATION NOTE ---
Referring Provider Name of Referring Provider:: Dr. Андрей Toney Consult Date: 06/07/19 Chief Complaint - Chief Complaint Chief Complaint: GI Hemorrhage/Colitis History of Present Illness - Admitted From Admitted From:: ED - History Obtained From Records Reviewed: Providers reports, prior admissions History obtained from: Patient and providers Exam Limitations: None - History of Present Illness HPI Comment/Other: This is a 63-year-old female with a past medical history significant for atrial fibrillation, hypertension, asthma who presents today complaining of bleeding. She was admitted here on the 22 of May for angioedema. Her edema progressed quickly and there was concern for airway compromise and a tracheostomy was emergently placed as anesthesia was unable to intubate her due to the significant edema. She was then transferred to [facility] in [place] where she was hospitalized until this past Friday. She states her trach was removed exactly 1 week ago. She has a bandage in place over her stoma which she is replacing as needed and usually this is done twice a day. Since she has been home, she has been eating a little bit more each day. Today, she became dizzy and lightheaded. She was also complaining of abdominal pain and nausea. She then noticed she had blood in her stool. She cannot recall if it was a lot of blood or not. Her family reports that she had significant bleeding and more than one episode. They are concerned it may have been going on for longer than today but that the patient did not report it. Her tells me that there was concern for bleeding while she is at [facility] and they noticed blood in her urine. It was attributed to a catheter which was removed. The patient does have a history of gastric ulcers many years ago which required hospitalization for significant bleed. At that time she was taking a lot of ibuprofen. She reports no recent NSAID use. She also reports no blood thinners including aspirin. She states she did have a little nosebleed a couple of days ago but otherwise no other bleeding. She has never had a colonoscopy. She does not drink alcohol. She reports no chest pain, dyspnea, fevers. When EMS first evaluated the patient, she is on the hypotensive with systolic blood pressure in the 70s. She was given IV fluids and brought to emergency department. Upon initial evaluation here, she was hypotensive with systolics in the 90s. Tachycardic in the low 100s. She was afebrile and not tachypneic. She is also saturating well on room air. She was given a total of 2 L of saline. Her labs revealed a hemoglobin of 4.1. Her INR was 1.4. Her BUN was elevated at 23 with a normal creatinine. Lactic acid is normal. An CT angiogram of the abdomen and pelvis was performed which did not show active extravasation. There was concern for possible pancreatitis as well as duodenitis. There is also mild wall thickening of the sigmoid colon. She reports she has never had a colonoscopy and has no family history of colon cancer. She reports her abdomen feels "sore and painful" and hurts when she coughs. She is in good spirits and laughing and talking during our examination. History - Past Medical History Cardiovascular: reports: Hypertension, High cholesterol, Atrial fibrillation Respiratory: reports: Asthma Neuro: reports: None Endocrine/Autoimmune: reports: None GI: reports: GERD, GI bleed, Ulcers : reports: None Psych: reports: None Musculoskeletal: reports: Gout, Chronic back pain Derm: reports: Rosacea MRSA Hx?: No - Past Surgical History General: reports: Appendectomy HEENT: reports: Tonsil/Adenoidectomy, Tracheostomy - Family & Social History Family History Comment/Other: She reports her mother had asthma and coronary artery disease. She from a myocardial infarction. 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 She lives at home with her . They have 1 dog. She reports smoking a pack a day for nearly 50 years. Denies alcohol use. - Substance History Use: Uses substance without health or social issues: Tobacco - POLST Patient has POLST: No Meds/Allgy - Home Medications Home Medications: Ambulatory Orders Medication Instructions Recorded Confirmed Albuterol Sulfate [Proair Hfa 2 puffs IH Q4HR PRN 04/22/18 05/22/19 Inhaler] carvediloL [Carvedilol] 1 tab PO BID 04/22/18 05/22/19 - Allergies Allergies/Adverse Reactions: Allergies Allergy/AdvReac Type Severity Reaction Status Date / Time lisinopril Allergy Severe Respiratory Verified 06/06/19 22:40 Review of Systems - Constitutional Constitutional: reports: Fatigue, Weakness, Poor appetite - Eyes Eyes: denies: Pain, Blurred vision - Ears, Nose & Throat Ears, Nose & Throat: reports: Vertigo. denies: Tinnitus - Cardiovascular Cariovascular: reports: Irregular heart rate, Palpitations, Lightheadedness, Exertional dyspnea, Decr. exercise tolerance. denies: Chest pain, Edema, Syncope, Orthopnea - Respiratory Respiratory: reports: Cough. denies: Wheezing, Snoring, Orthopnea - Gastrointestinal Gastrointestinal: reports: Abdominal pain, Diarrhea, Change in bowel habits, Black stools, Bloody stools. denies: Nausea, Vomiting - Genitourinary Genitourinary: denies: Dysuria, Frequency - Musculoskeletal Musculoskeletal: denies: Back pain - Integumentary Integumentary: denies: Rash, Pruritis - Neurological Neurological: denies: Focal weakness - Endocrine Endocrine: denies: Polyuria, Polydypsia - All Other Systems All Other Systems: reports: Reviewed and negative Exam - Vital Signs Reviewed Vital Signs: Yes Vital Signs: Vital Signs x48h Temp Pulse Pulse Resp BP BP Pulse Ox 06/07/19 07:16 37.0 C 89 21 104/61 06/07/19 06:00 37.1 C 85 22 101/72 96 06/07/19 05:00 37.3 C 85 19 105/66 96 06/07/19 04:45 37.3 C 85 19 105/66 06/07/19 04:35 37.3 C 90 18 106/63 96 06/07/19 04:30 37.3 C 90 85 18 106/63 110/56 L 96 06/07/19 04:28 37.3 C 85 21 110/56 L 06/07/19 04:00 37.3 C 82 19 97/64 96 06/07/19 03:57 37.3 C 76 76 18 104/60 104/60 96 06/07/19 03:00 79 18 102/59 L 97 06/07/19 02:00 84 17 103/59 L 97 06/07/19 01:25 79 17 88/50 L 97 06/07/19 00:40 36.8 C 84 84 19 96/63 96/63 99 06/07/19 00:30 36.8 C 85 85 20 81/61 L 81/61 L 99 06/07/19 00:21 37.2 C 87 87 24 94/57 L 94/57 L 100 06/07/19 00:12 37.2 C 87 87 17 90/50 L 90/50 L 98 - Physical Exam General Appearance: positive: Alert, Mild distress Eyes Bilateral: positive: Normal inspection, PERRL, EOMI ENT: positive: ENT inspection nml, Pharynx nml, No signs of dehydration Neck: positive: Nml inspection, Thyroid nml, No JVD, Trachea midline, Thyromegaly Respiratory: positive: Chest non-tender, No respiratory distress, Breath sounds nml Cardiovascular: positive: Regular rate & rhythm, No murmur Peripheral Pulses: positive: 0 Abdomen: positive: Tenderness (Tender to palpation in the right upper and lower quadrants as well as the suprapubic region and left lower quadrant. Minimal voluntary guarding.) Back: negative: CVA tenderness (R), CVA tenderness (L) Skin: positive: Color nml, No rash Extremities: positive: Non-tender Neurologic/Psychiatric: positive: Oriented x3, CN's nml (2-12) Conclusion and Plan - Lab Results Microbiology Results 06/06/19 21:06 Stool Occult Blood - Final Laboratory Results 06/07/19 04:57: Sodium 136, Potassium 4.1, Chloride 107, Carbon Dioxide 22, Anion Gap 7.0, BUN 28 H, Creatinine 0.8, Estimated GFR (MDRD) 72 L, Glucose 105 H, Calcium 7.5 L 06/07/19 04:26: Potassium 4.1, Calcium 7.7 L, Albumin 1.6 L 06/07/19 04:26: Phosphorus 4.3, Magnesium 1.7 06/07/19 04:26: PT 14.3 H, INR 1.3 H 06/07/19 04:26: WBC 11.3 H, RBC 2.19 L, Hgb 7.0 L*, Hct 21.7 L, MCV 99.1 H, MCH 32.0 H, MCHC 32.3, RDW 18.2 H, Plt Count 209, MPV 9.2, Neut # (Auto) 8.8 H, Lymph # (Auto) 1.3 L, Winn # (Auto) 0.8, Eos # (Auto) 0.1, Baso # (Auto) 0.0, Absolute Nucleated RBC 0.00, Nucleated RBC % 0.0 06/06/19 22:52: Lactic Acid 1.4 06/06/19 21:05: Blood Type Cancelled, Antibody Screen Cancelled, Crossmatch IS Only See Detail 06/06/19 21:05: Blood Type O POSITIVE, Antibody Screen NEGATIVE, Crossmatch IS Only See Detail 06/06/19 20:30: Sodium 133 L, Potassium 3.9, Chloride 103, Carbon Dioxide 26, Anion Gap 4.0 L, BUN 23 H, Creatinine 0.9, Estimated GFR (MDRD) 63 L, Glucose 139 H, Calcium 6.9 L, Total Bilirubin 0.5, AST 17, ALT 11, Alkaline Phosphatase 57, Total Protein 4.3 L, Albumin 1.5 L, Globulin 2.8, Albumin/Globulin Ratio 0.5 L, Lipase 82 H 06/06/19 20:30: PT 15.5 H, INR 1.4 H, APTT 23.9 L 06/06/19 20:30: WBC 12.1 H, RBC 1.19 L, Hgb 4.1 L*, Hct 13.3 L*, MCV 111.8 H, MCH 34.5 H, MCHC 30.8 L, RDW 13.2, Plt Count 213, MPV 8.9, Neut # (Auto) 9.9 H, Lymph # (Auto) 1.0 L, Winn # (Auto) 0.7, Eos # (Auto) 0.1, Baso # (Auto) 0.0, Absolute Nucleated RBC 0.00, Nucleated RBC % 0.0, Manual Slide Review Indicated, Platelet Estimate NORMAL (130-450,000), Platelet Morphology NORMAL APPEARANCE, RBC Morph Micro Appear 2+ MACROCYTOSIS 06/06/19 00:00: Nasal Screen MRSA (PCR) NEGATIVE - Diagnostic Imaging Results Diagnostic Imaging Results: positive: Final report reviewed Diagnostic Imaging Results Comments: Final Report PT NAME: MARIELY LEBLANC MR#: [id number] REG ER/ED AGE: 63 CI DT/TM: 06[birth year]/1907/25/2106 PCP: : 1955 ATT: SEX: F ORD: Castro pepe MD EXAM: [id number] CT/ABPEANG ([id number]) Reason: abd. pain, gi bleed Procedure Date: 06/06/2019 Accession Number: [id number] / [id number] Procedure: CT - ANGIO ABDOMEN/PELVIS W CPT Code: Final Report FULL RESULT: EXAM: CT ANGIOGRAM ABDOMEN AND PELVIS WITH CONTRAST EXAM DATE: 06/06/2019 09:30 PM. CLINICAL HISTORY: Abdominal pain COMPARISONS: None. TECHNIQUE: Routine helical CT angiogram imaging was performed through the abdomen and pelvis in the arterial phase. IV contrast: OPTI 320 100ML. Enteric contrast: No. Reconstructions: Coronal, sagittal, and 3D MIP reconstructions. In accordance with CT protocol optimization, one or more of the following dose reduction techniques were utilized for this exam: automated exposure control, adjustment of mA and/or KV based on patient size, or use of iterative reconstructive technique. 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 The superior mesenteric artery and its visualized branches are within normal limits. No acute renal artery abnormalities are seen. The aorta demonstrates no evidence of aneurysm or dissection. The iliac and visualized femoral arteries are within normal limits. Lung Bases: There is a small left pleural effusion. Abdominal Solid Organs: The liver demonstrates no acute abnormality. There are splenic calcifications. There is heterogeneous hypodensity within the pancreatic head region. There is some adjacent fat stranding. The adrenal glands and kidneys demonstrate no acute abnormality. Peritoneal Cavity: There is suggestion of mild duodenal wall thickening. There is adjacent fat stranding. There is wall thickening of the sigmoid colon. There is no evidence of appendicitis. No small bowel obstruction. No enlarged mesenteric or retroperitoneal lymph nodes are seen. Pelvic Organs: No acute pelvic organ abnormalities. Bones: Remote L4 compression fracture with vertebroplasty. Other: None. IMPRESSION: 1. There is heterogeneous hypodensity of the pancreatic head with some adjacent fat stranding. This could represent pancreatitis. Differential consideration would be pancreatic head mass. 2. Differential consideration for the peripancreatic fat stranding would be duodenitis; there is suggestion of mild duodenal wall thickening. 3. There is likely mild wall thickening of the sigmoid colon with some adjacent fat stranding (for example image 159 series 4). Differential considerations include colitis or diverticulitis. 4. There is no definite intraluminal enteric arterial enhancement. 5. 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 The superior mesenteric artery and branches are within normal limits. There is no evidence of aortic dissection or aneurysm. 6. There is a small left pleural effusion. [facility] Laboratory Equipment: Reading Radiologist: Devante Krishna MD Releasing Radiologist: Devante Krishna MD Released Date Time: 06/06/192158 Report 58 cc: Castro Benitez MD - Diagnosis Diagnosis: Gastrointestinal hemorrhage - likely lower GI tract origin. - Plan Plan: 1. History of ulcer in the past with findings on the recent CT that could be consistent with duodenitis. Recommend EGD when the patient is medically stable. This could certainly be done as an outpatient 2. Lower GI hemorrhage - CT confirms thickening of the sigmoid colon with findings consistent with colitis or diverticulitis. Differential includes malignancy, diverticulitis with diverticular hemorrhage, and colitis - either infectious or ishcemic. I agree with trasfusion and broad spectrum antibiotic therapy. Recommend colonoscopy at some appropriate time in the future, either during this admission or as an outpatient. She has responded appropriately to transfusion though she continues to have blood per rectum. If the problem becomes more acute, consider transfer for bleeding scan and possible IR procedure.
[2019-06-07 09:56] LABS: HGB - HEMOGLOBIN 8.9 g/dL (12.0-16.0)
--- NOTE | 2019-06-07 13:14 | PROVIDER PROGRESS NOTE ---
Subjective - Prog Note Date Prog Note Date: 06/07/19 Prog Note Time: 13:10 - Subjective Pt reports feeling: Improved Subjective: she feels less dizzy. Did get up to bathroom and one BM with clots. mild right sided abd pain but more diffuse now that admission. denies cp, sob Current Medications - Current Medications Current Medications: Active Medications Albuterol () 2.5 mg INH RTQ4H PRN PRN Reason: Wheezing Sodium Chloride (Normal Saline 0.9%) 1,000 mls @ 100 mls/hr IV .Q10H [facility] [place] Last Infusion: 06/07/19 11:32 Dose: 100 mls/hr Piperacillin Sod/Tazobactam (Sod 3.375 gm/ Sodium Chloride) 100 mls @ 200 mls/hr IV Q6H [facility] [place] Last Infusion: 06/07/19 11:32 Dose: Infused Sodium Chloride (Normal Saline 0.9%) 500 mls @ 0 mls/hr IV Q24H PRN PRN Reason: TKO RATE Morphine Sulfate (Morphine (Carpuject)) 2 mg IVP Q2HR PRN PRN Reason: Pain 8 to 10 Ondansetron HCl (Zofran Inj) 4 mg IVP Q6HR PRN PRN Reason: Nausea / Vomiting Pantoprazole Sodium (Protonix) 40 mg IVP BID [facility] [place] Last Admin: 06/07/19 09:19 Dose: 40 mg Sodium Chloride (Normal Saline Flush 0.9%) 10 ml IVP 0100,0900,1700 [facility] [place] Last Admin: 06/07/19 09:19 Dose: 10 ml Sodium Chloride (Normal Saline Flush 0.9%) 10 ml IVP PRN PRN PRN Reason: NEEDED PER PROVIDER ORDERS Last Admin: 06/07/19 09:19 Dose: 10 ml Albuterol Sulfate [Proair Hfa Inhaler] 2 puffs IH Q4HR PRN 04/22/18 carvediloL [Carvedilol] 1 tab PO BID 04/22/18 Objective - Vital Signs/Intake & Output Reviewed Vital Signs: Yes Vital Signs: Vital Signs Temp Pulse Resp BP BP Pulse Ox 06/07/19 12:00 36.7 C 89 20 97/59 L 98 06/07/19 11:00 91 25 H 101/66 98 06/07/19 10:00 76 18 100/64 95 Intake & Output: Intake & Output 06/04/19 06/05/19 06/06/19 06/07/19 23:59 23:59 23:59 23:59 Intake Total 2496.666 Output Total 1200 Balance 1296.666 - Objective General Appearance: positive: No acute distress, Alert Eyes Bilateral: positive: PERRL ENT: positive: Other (trach hole closing. no redness or drainage. vocalizing) Neck: positive: No JVD. negative: Stiff neck Respiratory: positive: Chest non-tender, Rhonchi (from her trach). negative: Wheezes, Rales Cardiovascular: positive: Regular rate & rhythm, Systolic murmur. negative: Gallop/S4, Friction rub Abdomen: positive: No organomegaly, No distention, Tenderness (right abd > left abdomen but it's less than last night), Abnml bowel sounds (hypoactive). negative: Guarding, Rebound Skin: positive: Warm, Dry Extremities: positive: Non-tender, Full ROM, No pedal edema Neurologic/Psychiatric: positive: Oriented x3, CN's nml (2-12), Motor nml, Sensation nml - Lab Results Fish Bones: 06/07/19 09:50 06/07/19 04:57 Other Labs: Lab Results x24hrs 06/07/19 06/07/19 06/07/19 Range/Units 09:50 04:57 04:26 WBC (4.8-10.8) x10^3/uL RBC (4.20-5.40) 10^6/uL Hgb 8.9 L (12.0-16.0) g/dL Hct 26.6 L (37.0-47.0) % MCV (81.0-99.0) fL MCH (27.0-31.0) pg MCHC (32.0-36.0) g/dL RDW (12.0-15.0) % Plt Count (130-450) 10^3/uL MPV (7.9-10.8) fL Neut # (Auto) (1.5-6.6) 10^3/uL Lymph # (Auto) (1.5-3.5) 10^3/uL [place] # (Auto) (0.0-1.0) 10^3/uL Eos # (Auto) (0.0-0.7) 10^3/uL Baso # (Auto) (0.0-0.1) 10^3/uL Absolute Nucleated RBC x10^3/uL Nucleated RBC % /100WBC Manual Slide Review Platelet Estimate (NORMAL) Platelet Morphology (NORMAL) RBC Morph Micro Appear (NORMAL) PT (9.9-12.6) secs INR (0.8-1.2) APTT (24.9-33.3) secs Sodium 136 (135-145) mmol/L Potassium 4.1 4.1 (3.5-5.0) mmol/L Chloride 107 (101-111) mmol/L Carbon Dioxide 22 (21-32) mmol/L Anion Gap 7.0 (6-13) BUN 28 H (6-20) mg/dL Creatinine 0.8 (0.4-1.0) mg/dL Estimated GFR (MDRD) 72 L (>89) Glucose 105 H (70-100) mg/dL Lactic Acid (0.5-2.2) mmol/L Calcium 7.5 L 7.7 L (8.5-10.3) mg/dL Phosphorus (2.5-4.6) mg/dL Magnesium (1.7-2.8) mg/dL Total Bilirubin (0.2-1.0) mg/dL AST (10-42) IU/L ALT (10-60) IU/L Alkaline Phosphatase (42-121) IU/L Total Protein (6.7-8.2) g/dL Albumin 1.6 L (3.2-5.5) g/dL Globulin (2.1-4.2) g/dL Albumin/Globulin Ratio (1.0-2.2) Lipase (22-51) U/L Nasal Screen MRSA (PCR) (NEGATIVE) Blood Type Antibody Screen Crossmatch IS Only 06/07/19 06/07/19 06/07/19 Range/Units 04:26 04:26 04:26 WBC 11.3 H (4.8-10.8) x10^3/uL RBC 2.19 L (4.20-5.40) 10^6/uL Hgb 7.0 L* (12.0-16.0) g/dL Hct 21.7 L (37.0-47.0) % MCV 99.1 H (81.0-99.0) fL MCH 32.0 H (27.0-31.0) pg MCHC 32.3 (32.0-36.0) g/dL RDW 18.2 H (12.0-15.0) % Plt Count 209 (130-450) 10^3/uL MPV 9.2 (7.9-10.8) fL Neut # (Auto) 8.8 H (1.5-6.6) 10^3/uL Lymph # (Auto) 1.3 L (1.5-3.5) 10^3/uL [place] # (Auto) 0.8 (0.0-1.0) 10^3/uL Eos # (Auto) 0.1 (0.0-0.7) 10^3/uL Baso # (Auto) 0.0 (0.0-0.1) 10^3/uL Absolute Nucleated RBC 0.00 x10^3/uL Nucleated RBC % 0.0 /100WBC Manual Slide Review Platelet Estimate (NORMAL) Platelet Morphology (NORMAL) RBC Morph Micro Appear (NORMAL) PT 14.3 H (9.9-12.6) secs INR 1.3 H (0.8-1.2) APTT (24.9-33.3) secs Sodium (135-145) mmol/L Potassium (3.5-5.0) mmol/L Chloride (101-111) mmol/L Carbon Dioxide (21-32) mmol/L Anion Gap (6-13) BUN (6-20) mg/dL Creatinine (0.4-1.0) mg/dL Estimated GFR (MDRD) (>89) Glucose (70-100) mg/dL Lactic Acid (0.5-2.2) mmol/L Calcium (8.5-10.3) mg/dL Phosphorus 4.3 (2.5-4.6) mg/dL Magnesium 1.7 (1.7-2.8) mg/dL Total Bilirubin (0.2-1.0) mg/dL AST (10-42) IU/L ALT (10-60) IU/L Alkaline Phosphatase (42-121) IU/L Total Protein (6.7-8.2) g/dL Albumin (3.2-5.5) g/dL Globulin (2.1-4.2) g/dL Albumin/Globulin Ratio (1.0-2.2) Lipase (22-51) U/L Nasal Screen MRSA (PCR) (NEGATIVE) Blood Type Antibody Screen Crossmatch IS Only 06/06/19 06/06/19 06/06/19 Range/Units 22:52 21:05 21:05 WBC (4.8-10.8) x10^3/uL RBC (4.20-5.40) 10^6/uL Hgb (12.0-16.0) g/dL Hct (37.0-47.0) % MCV (81.0-99.0) fL MCH (27.0-31.0) pg MCHC (32.0-36.0) g/dL RDW (12.0-15.0) % Plt Count (130-450) 10^3/uL MPV (7.9-10.8) fL Neut # (Auto) (1.5-6.6) 10^3/uL Lymph # (Auto) (1.5-3.5) 10^3/uL [place] # (Auto) (0.0-1.0) 10^3/uL Eos # (Auto) (0.0-0.7) 10^3/uL Baso # (Auto) (0.0-0.1) 10^3/uL Absolute Nucleated RBC x10^3/uL Nucleated RBC % /100WBC Manual Slide Review Platelet Estimate (NORMAL) Platelet Morphology (NORMAL) RBC Morph Micro Appear (NORMAL) PT (9.9-12.6) secs INR (0.8-1.2) APTT (24.9-33.3) secs Sodium (135-145) mmol/L Potassium (3.5-5.0) mmol/L Chloride (101-111) mmol/L Carbon Dioxide (21-32) mmol/L Anion Gap (6-13) BUN (6-20) mg/dL Creatinine (0.4-1.0) mg/dL Estimated GFR (MDRD) (>89) Glucose (70-100) mg/dL Lactic Acid 1.4 (0.5-2.2) mmol/L Calcium (8.5-10.3) mg/dL Phosphorus (2.5-4.6) mg/dL Magnesium (1.7-2.8) mg/dL Total Bilirubin (0.2-1.0) mg/dL AST (10-42) IU/L ALT (10-60) IU/L Alkaline Phosphatase (42-121) IU/L Total Protein (6.7-8.2) g/dL Albumin (3.2-5.5) g/dL Globulin (2.1-4.2) g/dL Albumin/Globulin Ratio (1.0-2.2) Lipase (22-51) U/L Nasal Screen MRSA (PCR) (NEGATIVE) Blood Type Cancelled O POSITIVE Antibody Screen Cancelled NEGATIVE Crossmatch IS Only See Detail See Detail 06/06/19 06/06/19 06/06/19 Range/Units 20:30 20:30 20:30 WBC 12.1 H (4.8-10.8) x10^3/uL RBC 1.19 L (4.20-5.40) 10^6/uL Hgb 4.1 L* (12.0-16.0) g/dL Hct 13.3 L* (37.0-47.0) % MCV 111.8 H (81.0-99.0) fL MCH 34.5 H (27.0-31.0) pg MCHC 30.8 L (32.0-36.0) g/dL RDW 13.2 (12.0-15.0) % Plt Count 213 (130-450) 10^3/uL MPV 8.9 (7.9-10.8) fL Neut # (Auto) 9.9 H (1.5-6.6) 10^3/uL Lymph # (Auto) 1.0 L (1.5-3.5) 10^3/uL [place] # (Auto) 0.7 (0.0-1.0) 10^3/uL Eos # (Auto) 0.1 (0.0-0.7) 10^3/uL Baso # (Auto) 0.0 (0.0-0.1) 10^3/uL Absolute Nucleated RBC 0.00 x10^3/uL Nucleated RBC % 0.0 /100WBC Manual Slide Review Indicated Platelet Estimate NORMAL (130-450,000) (NORMAL) Platelet Morphology NORMAL APPEARANCE (NORMAL) RBC Morph Micro Appear 2+ MACROCYTOSIS (NORMAL) PT 15.5 H (9.9-12.6) secs INR 1.4 H (0.8-1.2) APTT 23.9 L (24.9-33.3) secs Sodium 133 L (135-145) mmol/L Potassium 3.9 (3.5-5.0) mmol/L Chloride 103 (101-111) mmol/L Carbon Dioxide 26 (21-32) mmol/L Anion Gap 4.0 L (6-13) BUN 23 H (6-20) mg/dL Creatinine 0.9 (0.4-1.0) mg/dL Estimated GFR (MDRD) 63 L (>89) Glucose 139 H (70-100) mg/dL Lactic Acid (0.5-2.2) mmol/L Calcium 6.9 L (8.5-10.3) mg/dL Phosphorus (2.5-4.6) mg/dL Magnesium (1.7-2.8) mg/dL Total Bilirubin 0.5 (0.2-1.0) mg/dL AST 17 (10-42) IU/L ALT 11 (10-60) IU/L Alkaline Phosphatase 57 (42-121) IU/L Total Protein 4.3 L (6.7-8.2) g/dL Albumin 1.5 L (3.2-5.5) g/dL Globulin 2.8 (2.1-4.2) g/dL Albumin/Globulin Ratio 0.5 L (1.0-2.2) Lipase 82 H (22-51) U/L Nasal Screen MRSA (PCR) (NEGATIVE) Blood Type Antibody Screen Crossmatch IS Only 06/06/19 Range/Units 00:00 WBC (4.8-10.8) x10^3/uL RBC (4.20-5.40) 10^6/uL Hgb (12.0-16.0) g/dL Hct (37.0-47.0) % MCV (81.0-99.0) fL MCH (27.0-31.0) pg MCHC (32.0-36.0) g/dL RDW (12.0-15.0) % Plt Count (130-450) 10^3/uL MPV (7.9-10.8) fL Neut # (Auto) (1.5-6.6) 10^3/uL Lymph # (Auto) (1.5-3.5) 10^3/uL [place] # (Auto) (0.0-1.0) 10^3/uL Eos # (Auto) (0.0-0.7) 10^3/uL Baso # (Auto) (0.0-0.1) 10^3/uL Absolute Nucleated RBC x10^3/uL Nucleated RBC % /100WBC Manual Slide Review Platelet Estimate (NORMAL) Platelet Morphology (NORMAL) RBC Morph Micro Appear (NORMAL) PT (9.9-12.6) secs INR (0.8-1.2) APTT (24.9-33.3) secs Sodium (135-145) mmol/L Potassium (3.5-5.0) mmol/L Chloride (101-111) mmol/L Carbon Dioxide (21-32) mmol/L Anion Gap (6-13) BUN (6-20) mg/dL Creatinine (0.4-1.0) mg/dL Estimated GFR (MDRD) (>89) Glucose (70-100) mg/dL Lactic Acid (0.5-2.2) mmol/L Calcium (8.5-10.3) mg/dL Phosphorus (2.5-4.6) mg/dL Magnesium (1.7-2.8) mg/dL Total Bilirubin (0.2-1.0) mg/dL AST (10-42) IU/L ALT (10-60) IU/L Alkaline Phosphatase (42-121) IU/L Total Protein (6.7-8.2) g/dL Albumin (3.2-5.5) g/dL Globulin (2.1-4.2) g/dL Albumin/Globulin Ratio (1.0-2.2) Lipase (22-51) U/L Nasal Screen MRSA (PCR) NEGATIVE (NEGATIVE) Blood Type Antibody Screen Crossmatch IS Only Assessment/Plan - Problem List (1) Lower gastrointestinal bleeding Impression: Suspect this bleed is diverticular in nature or possibly ischemic colitis although her lactic acid is normal. She presents with maroon-colored stool per rectum. She does have a history of upper GI bleed secondary to NSAID use in the past. She continues to have bleeding in the emergency department but the volume of blood has decreased. Had one more clot filled BM this am. A CT angiogram of the abdomen and pelvis did not show an active bleed. There was concern for possible mild colitis and mild duodenitis. Given the duodenitis, will start her on Protonix 40 mg IV twice a day. Given the colitis, will also start her on Zosyn IV prophylactically. She will be n.p.o. Continue IV hydr ation and morphine as needed for pain control. General Surgery saw her this am, and Dr. Pollock hoping to avoid intervention while she is here. Does feel it's lower GI as well. Plan for outpatient colonoscopy. -continue to monitor Hgb/Hct. If she has no more bleeding and stable Hgb/Hct today, may be able to go home tomorrow. She will need outpat cipro and flagyl -continue protonix -continue zosyn Day #2 (2) Acute blood loss anemia Conclusion/Plan: This is secondary to the GI bleed. She presents with hypotension and a hemoglobin of 4.1. She is currently being transfused 3 units of packed red blood cells. We will transfuse her to a goal hemoglobin of 7. Hgb 4.1> 7.0> 8.9 Will monitor H&H every 8 hours. 2 more units of blood still on hold. Will use SCDs for DVT prophylaxis. No chemical DVT prophylaxis. (3) Hypotension due to blood loss Conclusion/Plan: She initially presented hypotensive and tachycardic. This is believed to be secondary to her lower GI bleed. She has received 2 L of IV fluids and her blood pressure is relatively stable in the 90s/50s. Her heart rate has also slightly improved from arrival to the emergency department after receiving fluid and blood. Will monitor her in the ICU and continue IV hydration. Even after 3 units she is 90's systolic but UOP adequate and she is not dizzy. Will try and hold off on initiating vasopressors unless her hypertension becomes more severe and she does not respond to transfusions. (4) Paroxysmal atrial fibrillation, present on admission. Not a new diagnosis. Conclusion/Plan: She was initially in sinus tachycardia with heart rate in the low 100s. She is now in atrial fibrillation but is rate controlled after receiving IV fluids and one packed red blood cell. She is on carvedilol at home which we will continue to hold given the hypotension. We can consider the use of amiodarone if she develops rapid ventricular response. She is not a candidate for anti- coagulation at this time. (5) Asthma Conclusion/Plan: Stable and not in exacerbation. Continue albuterol as needed. (6) Hypertension Conclusion/Plan: She is currently hypotensive secondary to the GI bleed. We will continue to hold her home antihypertensives at this time. (7) History of tracheostomy Conclusion/Plan: She had a tracheostomy emergently placed approximately 2 weeks ago for angioedema. She was decannulated about 1 week ago. We will continue dressing changes as needed.
[2019-06-07] MEDS: MAGNESIUM OXIDE 400 MG TABLET PO SCH ×2 (15:31→20:37)
[2019-06-07 18:35] LABS: HGB - HEMOGLOBIN 8.2 g/dL (12.0-16.0)
[2019-06-08] MEDS: SODIUM CHLORIDE FLUSH 0.9% 10 ML SYRINGE IVP SCH ×4 (00:28→22:52)
[2019-06-08 02:11] LABS: HGB - HEMOGLOBIN 7.3 g/dL (12.0-16.0)
[2019-06-08] MEDS: PIPERACILLIN/TAZOBACTAM 3.375 GM in SODIUM CHLORIDE 0.9% MINIBAG 100 ML IV SCH ×4 (04:44→22:15)
[2019-06-08 04:50] LABS: BASOPHILS % (AUTO) 0.2 %; EOSINOPHILS # (AUTO) 0.1 10^3/uL (0.0-0.7); EOSINOPHILS % (AUTO) 0.8 %; HGB - HEMOGLOBIN 7.3 g/dL (12.0-16.0); LYMPHOCYTES # (AUTO) 1.2 10^3/uL (1.5-3.5); LYMPHOCYTES % (AUTO) 14.6 %; MEAN CORPUSCULAR HEMOGLOBIN 30.7 pg (27.0-31.0); MEAN CORPUSCULAR HGB CONC 32.3 g/dL (32.0-36.0); MEAN PLATELET VOLUME 8.7 fL (7.9-10.8); MONOCYTES # (AUTO) 0.6 10^3/uL (0.0-1.0); NEUTROPHILS # (AUTO) 6.2 10^3/uL (1.5-6.6); NEUTROPHILS % (AUTO) 75.6 %; PLT - PLATELET COUNT 214 10^3/uL (130-450); RED BLOOD COUNT 2.38 10^6/uL (4.20-5.40); RED CELL DISTRIBUTION WIDTH 20.1 % (12.0-15.0); WHITE BLOOD COUNT 8.3 x10^3/uL (4.8-10.8)
[2019-06-08 05:04] LABS: ALBUMIN 1.7 g/dL (3.2-5.5); CALCIUM 7.5 mg/dL (8.5-10.3); CREATININE 0.8 mg/dL (0.4-1.0); MAGNESIUM 1.5 mg/dL (1.7-2.8); PHOSPHORUS 3.8 mg/dL (2.5-4.6)
[2019-06-08 05:07] LABS: PLATELET ESTIMATE, MANUAL NORMAL (130-450,000) (NORMAL); PLATELET MORPHOLOGY NORMAL APPEARANCE (NORMAL)
[2019-06-08] MEDS: SODIUM CHLORIDE FLUSH 0.9% 10 ML SYRINGE IVP PRN ×4 (05:22→20:19)
[2019-06-08] MEDS: MAGNESIUM OXIDE 400 MG TABLET PO SCH ×2 (05:57→11:40)
[2019-06-08] MEDS: PANTOPRAZOLE 40 MG VIAL IVP SCH ×2 (09:07→20:19)
--- NOTE | 2019-06-08 12:47 | PROVIDER PROGRESS NOTE ---
Assessment/Plan - Problem List (1) Acute blood loss anemia Assessment/Plan: She required several U of blood transfused at admission for Hgb of 4. The Hgb tray and is starting to drop again. RN is reporting she is still having maroon BMs. Will transfer out of ICU. Monitor Hgb daily. General surgery (Dr Campbell) following along and will schedule scope while here, prep to start tonight. (2) Lower gastrointestinal bleeding Assessment/Plan: Related to presumed diverticulitis. (3) Diverticulitis Assessment/Plan: She is on iv antibx. Will plan for po Cipro and Flagyl eventually (4) History of tracheostomy Assessment/Plan: This has been decannulated, but has a cloth protective cover. (5) Paroxysmal atrial fibrillation Assessment/Plan: When she is in Afib, her HR has been controlled, ever since resuming Carvedilol Continue telemetry (6) Hypertension Assessment/Plan: She was hypotensive and required admission to ICU, all BP meds were on hold, until Carvedilol resumed today. (7) History of angioedema Assessment/Plan: She developed angioedema to Lisinopril, and even needed an emergency tracheostomy done here, approx 2 weeks ago. Today, I reviewed with her, the and a sister at bedside, that she should not ever take an TIARA-I in the future. She had not heard this recommendation yet. I printed the recommendation, as stated in UpToDate and wrote up a list of TIARA- I's that are used in the [facility], with their generic and trade names, and gave her the list. - Current Meds Current Meds: Current Medications Generic Name Dose Route Start Last Admin Trade Name Freq PRN Reason Stop Dose Admin Piperacillin Sod/Tazobactam 100 mls @ 200 mls/hr 06/06/19 23:00 06/08/19 12:05 Sod 3.375 gm/ Sodium Chloride IV Infused Q6H [facility] Infusion Pantoprazole Sodium 40 mg 06/06/19 23:00 06/08/19 09:07 Protonix IVP 40 mg BID [facility] Administration Sodium Chloride 10 ml 06/07/19 01:00 06/08/19 09:09 Normal Saline Flush 0.9% IVP 20 ml 0100,0900,1700 [facility] Administration Sodium Chloride 10 ml 06/06/19 22:32 06/08/19 12:15 Normal Saline Flush 0.9% IVP 10 ml PRN PRN Administration NEEDED PER PROVIDER ORDERS - Lab Result Fish Bone Diagrams: 06/08/19 10:18 06/08/19 04:41 Subjective - Subjective Patient Reports: Feeling Better Nursing Reports: Other (RN reported a morning maroon stool) Objective Vital Signs: Vital Signs - 24 hr 06/07/19 06/07/19 06/07/19 13:00 14:00 15:00 Temperature Heart Rate [ 93 96 78 Monitoring electrodes] Respiratory 21 21 21 Rate Blood Pressure 111/62 92/54 L 94/50 L [Left Brachial artery] O2 Saturation 92 98 96 06/07/19 06/07/19 06/07/19 16:00 17:00 18:00 Temperature 36.6 C Heart Rate [ 83 92 83 Monitoring electrodes] Respiratory 21 17 23 Rate Blood Pressure 93/46 L 102/75 113/53 L [Left Brachial artery] O2 Saturation 99 95 100 06/07/19 06/07/19 06/07/19 19:00 19:33 20:00 Temperature 37.0 C Heart Rate [ 90 91 89 Monitoring electrodes] Respiratory 21 21 23 Rate Blood Pressure 103/63 111/61 [Left Brachial artery] O2 Saturation 99 100 100 06/07/19 06/07/19 06/07/19 21:00 22:00 23:00 Temperature Heart Rate [ 91 91 91 Monitoring electrodes] Respiratory 20 20 17 Rate Blood Pressure 102/69 104/69 99/61 [Left Brachial artery] O2 Saturation 100 96 95 06/08/19 06/08/19 06/08/19 00:00 01:00 02:00 Temperature Heart Rate [ 88 89 93 Monitoring electrodes] Respiratory 19 17 22 Rate Blood Pressure 94/56 L 115/60 115/72 [Left Brachial artery] O2 Saturation 96 94 96 06/08/19 06/08/19 06/08/19 03:00 04:00 05:00 Temperature Heart Rate [ 92 90 87 Monitoring electrodes] Respiratory 16 18 20 Rate Blood Pressure 108/57 L 112/65 112/69 [Left Brachial artery] O2 Saturation 93 95 97 06/08/19 06/08/19 06/08/19 06:00 07:00 08:00 Temperature 37.1 C Heart Rate [ 94 86 100 Monitoring electrodes] Respiratory 20 21 22 Rate Blood Pressure 96/79 112/65 126/76 [Left Brachial artery] O2 Saturation 100 97 98 06/08/19 06/08/19 06/08/19 09:00 10:00 11:00 Temperature Heart Rate [ 97 86 75 Monitoring electrodes] Respiratory 16 19 19 Rate Blood Pressure 106/71 127/67 97/47 L [Left Brachial artery] O2 Saturation 98 99 97 06/08/19 12:00 Temperature 37.3 C Heart Rate [ 101 H Monitoring electrodes] Respiratory 25 H Rate Blood Pressure 97/47 L [Left Brachial artery] O2 Saturation 92 Oxygen O2 Source Room air I&O (Last 24 Hrs): Intake and Output Totals x24h 06/06/19 06/07/19 06/08/19 23:59 23:59 23:59 Intake Total 3993.333 1260 Output Total 2095 1 Balance 4752.924 9003 General: Alert, Oriented x3 HEENT: Mucous membr. moist/pink, Other (Poor dentition) Neck: Other (Cloth cover on anterior neck, over trach) Neuro: Non Focal Cardiovascular: Other (Irreg) Respiratory: No respiratory distress Abdomen: Soft Extremities: No edema - Results Results: Laboratory Results WBC 8.3 x10^3/uL (4.8-10.8) 06/08/19 04:41 RBC 2.38 10^6/uL (4.20-5.40) L 06/08/19 04:41 Hgb 8.0 g/dL (12.0-16.0) L 06/08/19 10:18 Hct 24.5 % (37.0-47.0) L 06/08/19 10:18 MCV 95.0 fL (81.0-99.0) 06/08/19 04:41 MCH 30.7 pg (27.0-31.0) 06/08/19 04:41 MCHC 32.3 g/dL (32.0-36.0) 06/08/19 04:41 RDW 20.1 % (12.0-15.0) H 06/08/19 04:41 Plt Count 214 10^3/uL (130-450) 06/08/19 04:41 MPV 8.7 fL (7.9-10.8) 06/08/19 04:41 Neut # (Auto) 6.2 10^3/uL (1.5-6.6) 06/08/19 04:41 Lymph # (Auto) 1.2 10^3/uL (1.5-3.5) L 06/08/19 04:41 [place] # (Auto) 0.6 10^3/uL (0.0-1.0) 06/08/19 04:41 Eos # (Auto) 0.1 10^3/uL (0.0-0.7) 06/08/19 04:41 Baso # (Auto) 0.0 10^3/uL (0.0-0.1) 06/08/19 04:41 Absolute Nucleated RBC 0.00 x10^3/uL 06/08/19 04:41 Nucleated RBC % 0.0 /100WBC 06/08/19 04:41 Manual Slide Review Indicated 06/08/19 04:41 WBC Morphology NORMAL APPEARANCE (NORMAL) 06/08/19 04:41 Platelet Estimate NORMAL (130-450,000) (NORMAL) 06/08/19 04:41 Platelet Morphology NORMAL APPEARANCE (NORMAL) 06/08/19 04:41 RBC Morph Micro Appear 2+ HYPOCHROMASIA (NORMAL) 2+ MACROCYTOSIS (NORMAL) 06/06/19 20:30 RBC Morph Micro Appear 1+ HYPOCHROMASIA (NORMAL) 1+ MICROCYTOSIS (NORMAL) 1+ POLYCHROMASIA (NORMAL) 06/08/19 04:41 RBC Morph Micro Appear 1+ HYPOCHROMASIA (NORMAL) 1+ MICROCYTOSIS (NORMAL) 1+ POLYCHROMASIA (NORMAL) 06/08/19 04:41 RBC Morph Micro Appear 1+ HYPOCHROMASIA (NORMAL) 1+ MICROCYTOSIS (NORMAL) 1+ POLYCHROMASIA (NORMAL) 06/08/19 04:41 PT 14.3 secs (9.9-12.6) H 06/07/19 04:26 INR 1.3 (0.8-1.2) H 06/07/19 04:26 APTT 23.9 secs (24.9-33.3) L 06/06/19 20:30 Sodium 137 mmol/L (135-145) 06/08/19 04:41 Potassium 3.9 mmol/L (3.5-5.0) 06/08/19 04:41 Chloride 109 mmol/L (101-111) 06/08/19 04:41 Carbon Dioxide 22 mmol/L (21-32) 06/08/19 04:41 Anion Gap 6.0 (6-13) 06/08/19 04:41 BUN 19 mg/dL (6-20) 06/08/19 04:41 Creatinine 0.8 mg/dL (0.4-1.0) 06/08/19 04:41 Estimated GFR (MDRD) 72 (>89) L 06/08/19 04:41 Glucose 90 mg/dL (70-100) 06/08/19 04:41 Lactic Acid 1.4 mmol/L (0.5-2.2) 06/06/19 22:52 Calcium 7.5 mg/dL (8.5-10.3) L 06/08/19 04:41 Phosphorus 3.8 mg/dL (2.5-4.6) 06/08/19 04:41 Magnesium 1.5 mg/dL (1.7-2.8) L 06/08/19 04:41 Total Bilirubin 0.5 mg/dL (0.2-1.0) 06/06/19 20:30 AST 17 IU/L (10-42) 06/06/19 20:30 ALT 11 IU/L (10-60) 06/06/19 20:30 Alkaline Phosphatase 57 IU/L (42-121) 06/06/19 20:30 Total Protein 4.3 g/dL (6.7-8.2) L 06/06/19 20:30 Albumin 1.7 g/dL (3.2-5.5) L 06/08/19 04:41 Globulin 2.8 g/dL (2.1-4.2) 06/06/19 20:30 Albumin/Globulin Ratio 0.5 (1.0-2.2) L 06/06/19 20:30 Lipase 82 U/L (22-51) H 06/06/19 20:30 Nasal Screen MRSA (PCR) NEGATIVE (NEGATIVE) 06/06/19 00:00 Stl C. diff Tox B Gene NEGATIVE (NEGATIVE) 06/07/19 11:30 Blood Type O POSITIVE 06/06/19 21:05 Antibody Screen NEGATIVE 06/06/19 21:05 Crossmatch IS Only See Detail 06/06/19 21:05
[2019-06-08] MEDS ORDERED: PEG 3350/NA SULF,BICARB,CL/KCL 4,000 ML BOTTLE PO ONE (13:59)
--- NOTE | 2019-06-08 17:34 | PROVIDER PROGRESS NOTE ---
Subjective - Prog Note Date Prog Note Date: 06/08/19 Prog Note Time: 17:29 - Subjective Pt reports feeling: Improved Subjective: Snehal says she is feeling better. She denies any abdominal pain now and says her stools have decreased in frequency and are more normal in color today. She is in good spirits. Objective - Vital Signs/Intake & Output Reviewed Vital Signs: Yes Vital Signs: Vital Signs x48h Temp Pulse Resp BP BP Pulse Ox 06/08/19 16:41 37 C 85 25 H 130/79 98 06/08/19 12:00 37.3 C 101 H 25 H 97/47 L 92 06/08/19 11:00 75 19 97/47 L 97 06/08/19 10:00 86 19 127/67 99 Intake & Output: Intake & Output 06/05/19 06/06/19 06/07/19 06/08/19 23:59 23:59 23:59 23:59 Intake Total 3993.333 1390 Output Total 2095 1 Balance 9088.760 0566 - Objective General Appearance: positive: No acute distress, Alert Eyes Bilateral: positive: Normal inspection, PERRL, EOMI Abdomen: positive: Non-tender, Nml bowel sounds, No distention. negative: Guarding, Rebound - Lab Results Fish Bones: 06/08/19 10:18 06/08/19 04:41 Other Labs: Lab Results x24hrs 06/08/19 06/08/19 06/08/19 Range/Units 10:18 04:41 04:41 WBC 8.3 (4.8-10.8) x10^3/uL RBC 2.38 L (4.20-5.40) 10^6/uL Hgb 8.0 L 7.3 L (12.0-16.0) g/dL Hct 24.5 L 22.6 L (37.0-47.0) % MCV 95.0 (81.0-99.0) fL MCH 30.7 (27.0-31.0) pg MCHC 32.3 (32.0-36.0) g/dL RDW 20.1 H (12.0-15.0) % Plt Count 214 (130-450) 10^3/uL MPV 8.7 (7.9-10.8) fL Neut # (Auto) 6.2 (1.5-6.6) 10^3/uL Lymph # (Auto) 1.2 L (1.5-3.5) 10^3/uL [place] # (Auto) 0.6 (0.0-1.0) 10^3/uL Eos # (Auto) 0.1 (0.0-0.7) 10^3/uL Baso # (Auto) 0.0 (0.0-0.1) 10^3/uL Absolute Nucleated RBC 0.00 x10^3/uL Nucleated RBC % 0.0 /100WBC Manual Slide Review Indicated WBC Morphology NORMAL APPEARANCE (NORMAL) Platelet Estimate NORMAL (130-450,000) (NORMAL) Platelet Morphology NORMAL APPEARANCE (NORMAL) RBC Morph Micro Appear 1+ POLYCHROMASIA (NORMAL) Sodium 137 (135-145) mmol/L Potassium 3.9 (3.5-5.0) mmol/L Chloride 109 (101-111) mmol/L Carbon Dioxide 22 (21-32) mmol/L Anion Gap 6.0 (6-13) BUN 19 (6-20) mg/dL Creatinine 0.8 (0.4-1.0) mg/dL Estimated GFR (MDRD) 72 L (>89) Glucose 90 (70-100) mg/dL Calcium 7.5 L (8.5-10.3) mg/dL Phosphorus 3.8 (2.5-4.6) mg/dL Magnesium 1.5 L (1.7-2.8) mg/dL Albumin 1.7 L (3.2-5.5) g/dL 06/08/19 06/07/19 Range/Units 01:59 18:27 WBC (4.8-10.8) x10^3/uL RBC (4.20-5.40) 10^6/uL Hgb 7.3 L 8.2 L (12.0-16.0) g/dL Hct 23.1 L 25.5 L (37.0-47.0) % MCV (81.0-99.0) fL MCH (27.0-31.0) pg MCHC (32.0-36.0) g/dL RDW (12.0-15.0) % Plt Count (130-450) 10^3/uL MPV (7.9-10.8) fL Neut # (Auto) (1.5-6.6) 10^3/uL Lymph # (Auto) (1.5-3.5) 10^3/uL [place] # (Auto) (0.0-1.0) 10^3/uL Eos # (Auto) (0.0-0.7) 10^3/uL Baso # (Auto) (0.0-0.1) 10^3/uL Absolute Nucleated RBC x10^3/uL Nucleated RBC % /100WBC Manual Slide Review WBC Morphology (NORMAL) Platelet Estimate (NORMAL) Platelet Morphology (NORMAL) RBC Morph Micro Appear (NORMAL) Sodium (135-145) mmol/L Potassium (3.5-5.0) mmol/L Chloride (101-111) mmol/L Carbon Dioxide (21-32) mmol/L Anion Gap (6-13) BUN (6-20) mg/dL Creatinine (0.4-1.0) mg/dL Estimated GFR (MDRD) (>89) Glucose (70-100) mg/dL Calcium (8.5-10.3) mg/dL Phosphorus (2.5-4.6) mg/dL Magnesium (1.7-2.8) mg/dL Albumin (3.2-5.5) g/dL Assessment/Plan - Problem List (1) Lower gastrointestinal bleeding Impression: I have recommended EGD and colonoscopy. This could be done as an inpatient or as an outpatient but, given the severity of symptoms and degree of blood loss, I would favor completing the study while she is admitted. I have discussed the risks and benefits of the procedure with the patient and she has expressed a desire to follow through. I have written for bowel prep and NPO status.
[2019-06-08 18:31] LABS: HGB - HEMOGLOBIN 8.2 g/dL (12.0-16.0)
[2019-06-09 02:29] LABS: HGB - HEMOGLOBIN 7.7 g/dL (12.0-16.0)
[2019-06-09] MEDS: SODIUM CHLORIDE FLUSH 0.9% 10 ML SYRINGE IVP PRN ×4 (04:22→20:54)
[2019-06-09] MEDS: PIPERACILLIN/TAZOBACTAM 3.375 GM in SODIUM CHLORIDE 0.9% MINIBAG 100 ML IV SCH ×4 (04:22→20:58)
[2019-06-09 04:57] LABS: ALBUMIN 1.8 g/dL (3.2-5.5); CALCIUM 7.9 mg/dL (8.5-10.3); CREATININE 0.8 mg/dL (0.4-1.0); MAGNESIUM 1.5 mg/dL (1.7-2.8); PHOSPHORUS 3.7 mg/dL (2.5-4.6)
[2019-06-09 05:03] LABS: BASOPHILS % (AUTO) 0.1 %; EOSINOPHILS # (AUTO) 0.1 10^3/uL (0.0-0.7); EOSINOPHILS % (AUTO) 1.1 %; HGB - HEMOGLOBIN 7.3 g/dL (12.0-16.0); LYMPHOCYTES # (AUTO) 1.2 10^3/uL (1.5-3.5); LYMPHOCYTES % (AUTO) 16.6 %; MEAN CORPUSCULAR HEMOGLOBIN 30.8 pg (27.0-31.0); MEAN CORPUSCULAR VOLUME 96.2 fL (81.0-99.0); MONOCYTES # (AUTO) 0.5 10^3/uL (0.0-1.0); MONOCYTES % (AUTO) 6.3 %; NEUTROPHILS # (AUTO) 5.6 10^3/uL (1.5-6.6); NEUTROPHILS % (AUTO) 74.6 %; PLT - PLATELET COUNT 243 10^3/uL (130-450); RED BLOOD COUNT 2.37 10^6/uL (4.20-5.40); RED CELL DISTRIBUTION WIDTH 19.5 % (12.0-15.0); WHITE BLOOD COUNT 7.5 x10^3/uL (4.8-10.8)
[2019-06-09] MEDS ORDERED: SODIUM CHLORIDE 0.9% 500 ML ONE (08:12)
[2019-06-09] MEDS ORDERED: LIDOCAINE 2% 10 ML MDV SUBQ ONE (08:58)
[2019-06-09] MEDS ORDERED: MIDAZOLAM 2 MG/2 ML VIAL IVP ONE (08:58)
[2019-06-09] MEDS ORDERED: NEOSTIGMINE 1 MG/1 ML 10 ML MDV IVP ONE (08:58)
[2019-06-09] MEDS: PANTOPRAZOLE 40 MG VIAL IVP SCH ×2 (09:28→20:54)
[2019-06-09] MEDS ORDERED: PHENYLEPHRINE 10 MG/ML VIAL IV ONE (09:37)
--- NOTE | 2019-06-09 11:13 | ANESTHESIA ---
Pre-Anesthesia VS, & Labs - Diagnosis Diagnosis Gastrointestinal hemorrhage - likely lower GI tract origin. - Procedure colonoscopy, EGD Vital Signs: Temp Pulse Resp BP Pulse Ox 37.2 C 78 24 113/67 100 06/09/19 10:09 06/09/19 10:09 06/09/19 10:09 06/09/19 10:09 06/09/19 09:17 Height 5 ft 5 in Weight (kg) 80 kg Body Mass Index 30.9 - Is Patient ?: No - Lab Results Current Lab Results: Laboratory Tests 06/09/19 04:30: Sodium 140, Potassium 3.4 L, Chloride 107, Carbon Dioxide 25, Anion Gap 8.0, BUN 10, Creatinine 0.8, Estimated GFR (MDRD) 72 L, Glucose 90, Calcium 7.9 L, Phosphorus 3.7, Magnesium 1.5 L, Albumin 1.8 L 06/09/19 04:30: WBC 7.5, RBC 2.37 L, Hgb 7.3 L, Hct 22.8 L, MCV 96.2, MCH 30.8, MCHC 32.0, RDW 19.5 H, Plt Count 243, MPV 9.0, Neut # (Auto) 5.6, Lymph # (Auto) 1.2 L, [place] # (Auto) 0.5, Eos # (Auto) 0.1, Baso # (Auto) 0.0, Absolute Nucleated RBC 0.00, Nucleated RBC % 0.0 06/09/19 02:20: Hgb 7.7 L, Hct 24.5 L 06/08/19 18:26: Hgb 8.2 L, Hct 25.2 L 06/08/19 10:18: Hgb 8.0 L, Hct 24.5 L 06/08/19 04:41: Sodium 137, Potassium 3.9, Chloride 109, Carbon Dioxide 22, Anion Gap 6.0, BUN 19, Creatinine 0.8, Estimated GFR (MDRD) 72 L, Glucose 90, Calcium 7.5 L, Phosphorus 3.8, Magnesium 1.5 L, Albumin 1.7 L 06/08/19 04:41: WBC 8.3, RBC 2.38 L, Hgb 7.3 L, Hct 22.6 L, MCV 95.0, MCH 30.7, MCHC 32.3, RDW 20.1 H, Plt Count 214, MPV 8.7, Neut # (Auto) 6.2, Lymph # (Auto) 1.2 L, [place] # (Auto) 0.6, Eos # (Auto) 0.1, Baso # (Auto) 0.0, Absolute Nucleated RBC 0.00, Nucleated RBC % 0.0, Manual Slide Review Indicated, WBC Morphology NORMAL APPEARANCE, Platelet Estimate NORMAL (130-450,000), Platelet Morphology NORMAL APPEARANCE, RBC Morph Micro Appear 1+ POLYCHROMASIA 06/08/19 01:59: Hgb 7.3 L, Hct 23.1 L 06/07/19 18:27: Hgb 8.2 L, Hct 25.5 L 06/07/19 09:50: Hgb 8.9 L, Hct 26.6 L 06/07/19 04:57: Sodium 136, Potassium 4.1, Chloride 107, Carbon Dioxide 22, Anion Gap 7.0, BUN 28 H, Creatinine 0.8, Estimated GFR (MDRD) 72 L, Glucose 105 H, Calcium 7.5 L 06/07/19 04:26: Potassium 4.1, Calcium 7.7 L, Albumin 1.6 L 06/07/19 04:26: Phosphorus 4.3, Magnesium 1.7 06/07/19 04:26: PT 14.3 H, INR 1.3 H 06/07/19 04:26: WBC 11.3 H, RBC 2.19 L, Hgb 7.0 L*, Hct 21.7 L, MCV 99.1 H, MCH 32.0 H, MCHC 32.3, RDW 18.2 H, Plt Count 209, MPV 9.2, Neut # (Auto) 8.8 H, Lymph # (Auto) 1.3 L, [place] # (Auto) 0.8, Eos # (Auto) 0.1, Baso # (Auto) 0.0, Absolute Nucleated RBC 0.00, Nucleated RBC % 0.0 06/06/19 22:52: Lactic Acid 1.4 06/06/19 21:05: Blood Type Cancelled, Antibody Screen Cancelled, Crossmatch IS Only See Detail 06/06/19 21:05: Blood Type O POSITIVE, Antibody Screen NEGATIVE, Crossmatch IS Only See Detail 06/06/19 20:30: Sodium 133 L, Potassium 3.9, Chloride 103, Carbon Dioxide 26, Anion Gap 4.0 L, BUN 23 H, Creatinine 0.9, Estimated GFR (MDRD) 63 L, Glucose 139 H, Calcium 6.9 L, Total Bilirubin 0.5, AST 17, ALT 11, Alkaline Phosphatase 57, Total Protein 4.3 L, Albumin 1.5 L, Globulin 2.8, Albumin/Globulin Ratio 0.5 L, Lipase 82 H 06/06/19 20:30: PT 15.5 H, INR 1.4 H, APTT 23.9 L 06/06/19 20:30: WBC 12.1 H, RBC 1.19 L, Hgb 4.1 L*, Hct 13.3 L*, MCV 111.8 H, MCH 34.5 H, MCHC 30.8 L, RDW 13.2, Plt Count 213, MPV 8.9, Neut # (Auto) 9.9 H, Lymph # (Auto) 1.0 L, [place] # (Auto) 0.7, Eos # (Auto) 0.1, Baso # (Auto) 0.0, Absolute Nucleated RBC 0.00, Nucleated RBC % 0.0, Manual Slide Review Indicated, Platelet Estimate NORMAL (130-450,000), Platelet Morphology NORMAL APPEARANCE, RBC Morph Micro Appear 2+ MACROCYTOSIS Fish Bones: 06/09/19 04:30 06/09/19 04:30 Home Medications and Allergies Active Medications Albuterol () 2.5 mg INH RTQ4H PRN PRN Reason: Wheezing Piperacillin Sod/Tazobactam (Sod 3.375 gm/ Sodium Chloride) 100 mls @ 200 mls/hr IV Q6H [facility] Last Infusion: 06/09/19 05:10 Dose: Infused Morphine Sulfate (Morphine (Carpuject)) 2 mg IVP Q2HR PRN PRN Reason: Pain 8 to 10 Ondansetron HCl (Zofran Inj) 4 mg IVP Q6HR PRN PRN Reason: Nausea / Vomiting Pantoprazole Sodium (Protonix) 40 mg IVP BID [facility] Last Admin: 06/09/19 09:28 Dose: 40 mg Sodium Chloride (Normal Saline Flush 0.9%) 10 ml IVP 0100,0900,1700 [facility] Last Admin: 06/08/19 22:52 Dose: 10 ml Sodium Chloride (Normal Saline Flush 0.9%) 10 ml IVP PRN PRN PRN Reason: NEEDED PER PROVIDER ORDERS Last Admin: 06/09/19 09:28 Dose: 20 ml Albuterol Sulfate [Proair Hfa Inhaler] 2 puffs IH Q4HR PRN 04/22/18 carvediloL [Carvedilol] 1 tab PO BID 04/22/18 Allergies/Adverse Reactions: Allergies Allergy/AdvReac Type Severity Reaction Status Date / Time TIARA Inhibitors Allergy Severe Respiratory Verified 06/09/19 08:08 lisinopril Allergy Severe Respiratory Verified 06/06/19 22:40 Anes History & Medical History - Anesthetic History Anesthesia Complications: reports: No previous complications Family history of Anesthesia Complications: Denies Family history of Malignant Hyperthermia: Denies - Medical History Cardiovascular: reports: Hypertension, High cholesterol, Atrial fibrillation Pulmonary: reports: Asthma Gastrointestinal: reports: GERD, GI bleed, Ulcers Urinary: reports: None Neuro: reports: None Musculoskeletal: reports: Gout, Chronic back pain Endocrine/Autoimmune: reports: None Blood Disorders: reports: None Skin: reports: Rosacea Smoking Status: Current every day smoker Psychosocial: reports: No issues indicated - Surgical History General: Appendectomy Eyes Ears Nose Throat (EENT): Tonsil/Adenoidectomy Exam General: Alert, Oriented x3, Cooperative, No acute distress Dental: WNL Mouth Openin Fingerbreadth Neck Mobility: Normal Mallampati classification: II Thyromental Distance: 4-6 cm Respiratory: Lungs clear, Normal breath sounds, No respiratory distress, No accessory muscle use Cardiovascular: Other (irregular HR/rhythm) Abdomen: Normal bowel sounds, Soft, No tenderness, No hepatospenomegaly, No masses Extremities: No clubbing, No cyanosis, No edema, Normal pulses, No tenderness/swelling Neurological: Normal gait, Normal speech, Strength at 5/5 X4 ext, Normal tone, Sensation intact, Cranial nerves 3-12 NL, Reflexes 2+ Mental/Cognitive Status: Alert/Oriented X3, Normal for patient Cognitive Status: Within normal limits Plan Anesthesia Type: MAC Consent for Procedure(s) Verified and Reviewed: Yes Code Status: Attempt Resuscitation ASA classification: 2-Mild systemic disease Is this case an emergency?: Yes
[2019-06-09] MEDS: SODIUM CHLORIDE FLUSH 0.9% 10 ML SYRINGE IVP SCH ×2 (11:35→16:29)
[2019-06-09] MEDS: LACTATED RINGERS 1,000 ML IV ONE (11:38)
[2019-06-09] MEDS ORDERED: LACTATED RINGERS 1,000 ML IV ONE (11:52)
--- NOTE | 2019-06-09 14:17 | PROVIDER PROGRESS NOTE ---
Assessment/Plan - Problem List (1) Acute blood loss anemia Assessment/Plan: Hgb dropped to 7.3 this a.m, another 1U of PRBCs was ordered to be transfused. Follow CBC daily, until stabilized. Start po iron replacement after scopes are done (2) Lower gastrointestinal bleeding Assessment/Plan: She had a prep for scoping today, and underwent colonoscopy and EGD. There were no active sites of bleeding anywhere, there were colonic polyps which were biopsied, and there was diverticulosis seen, and also a DEYA test was sent. The general surgeon did recommend a repeat colonoscopy in 3-4 mos. Will transition to o antibiotics. (3) Diverticulitis Assessment/Plan: Will transition to po antibiotics. Probable discharge tomorrow. (4) History of tracheostomy Assessment/Plan: Decannulated and has a cloth covering the opened site (5) Paroxysmal atrial fibrillation Assessment/Plan: NSR currently (6) Hypertension Assessment/Plan: BP was low and BP meds have been on hold (7) History of angioedema Assessment/Plan: This was a recent event. Yesterday, she was told about the TIARA-I's class to never be on. - Current Meds Current Meds: Current Medications Generic Name Dose Route Start Last Admin Trade Name Freq PRN Reason Stop Dose Admin Piperacillin Sod/Tazobactam 100 mls @ 200 mls/hr 06/06/19 23:00 06/09/19 14:15 Sod 3.375 gm/ Sodium Chloride IV 200 mls/hr Q6H PEDRO Administration Pantoprazole Sodium 40 mg 06/06/19 23:00 06/09/19 09:28 Protonix IVP 40 mg BID PEDRO Administration Sodium Chloride 10 ml 06/07/19 01:00 06/09/19 11:35 Normal Saline Flush 0.9% IVP 10 ml 0100,0900,1700 PEDRO Administration Sodium Chloride 10 ml 06/06/19 22:32 06/09/19 11:26 Normal Saline Flush 0.9% IVP 10 ml PRN PRN Administration NEEDED PER PROVIDER ORDERS - Lab Result Fish Bone Diagrams: 06/09/19 04:30 06/09/19 04:30 - Additional Planning My Orders: My Active Orders 06/08/19 16:54 Telemetry- [RC] Q4HR 06/09/19 16:00 Lactobacillus Rhamnosus GG [Culturelle] 1 cap PO DAILY 06/09/19 Lunch DIET [Regular Diet] [DIET] Subjective - Subjective Patient Reports: Feeling Better, Resting Comfortably Objective Vital Signs: Vital Signs - 24 hr 06/08/19 06/08/19 06/08/19 16:41 18:00 20:09 Temperature 37 C Heart Rate Heart Rate [ 85 84 108 H Monitoring electrodes] Respiratory 25 H 22 24 Rate Blood Pressure Blood Pressure [Left Brachial artery] Blood Pressure 130/79 136/78 H 123/77 [Right Brachial artery] O2 Saturation 98 96 06/09/19 06/09/19 06/09/19 02:36 04:25 09:17 Temperature 36.9 C 37.1 C 37.1 C Heart Rate Heart Rate [ 79 91 96 Monitoring electrodes] Respiratory 20 20 18 Rate Blood Pressure Blood Pressure [Left Brachial artery] Blood Pressure 119/63 118/75 118/65 [Right Brachial artery] O2 Saturation 96 96 100 06/09/19 06/09/19 06/09/19 09:45 09:51 10:09 Temperature 37.1 C 37.2 C Heart Rate 77 80 78 Heart Rate [ Monitoring electrodes] Respiratory 16 20 24 Rate Blood Pressure 113/67 Blood Pressure [Left Brachial artery] Blood Pressure [Right Brachial artery] O2 Saturation 06/09/19 13:00 Temperature 36.5 C Heart Rate Heart Rate [ 82 Monitoring electrodes] Respiratory 16 Rate Blood Pressure Blood Pressure 121/72 [Left Brachial artery] Blood Pressure [Right Brachial artery] O2 Saturation 98 Oxygen O2 Source Room air I&O (Last 24 Hrs): Intake and Output Totals x24h 06/07/19 06/08/19 06/09/19 23:59 23:59 23:59 Intake Total 3993.333 0 100 Output Total 2094 1 Balance 9455.363 9447 100 General: Alert, Oriented x3 HEENT: Mucous membr. moist/pink Neck: Other (Trach, covered by a cloth) Neuro: Alert, Non Focal Cardiovascular: Regular rate Respiratory: No respiratory distress Abdomen: Normal bowel sounds, Soft, No tenderness Extremities: No edema - Results Results: Laboratory Results WBC 7.5 x10^3/uL (4.8-10.8) 06/09/19 04:30 RBC 2.37 10^6/uL (4.20-5.40) L 06/09/19 04:30 Hgb 7.3 g/dL (12.0-16.0) L 06/09/19 04:30 Hct 22.8 % (37.0-47.0) L 06/09/19 04:30 MCV 96.2 fL (81.0-99.0) 06/09/19 04:30 MCH 30.8 pg (27.0-31.0) 06/09/19 04:30 MCHC 32.0 g/dL (32.0-36.0) 06/09/19 04:30 RDW 19.5 % (12.0-15.0) H 06/09/19 04:30 Plt Count 243 10^3/uL (130-450) 06/09/19 04:30 MPV 9.0 fL (7.9-10.8) 06/09/19 04:30 Neut # (Auto) 5.6 10^3/uL (1.5-6.6) 06/09/19 04:30 Lymph # (Auto) 1.2 10^3/uL (1.5-3.5) L 06/09/19 04:30 [place] # (Auto) 0.5 10^3/uL (0.0-1.0) 06/09/19 04:30 Eos # (Auto) 0.1 10^3/uL (0.0-0.7) 06/09/19 04:30 Baso # (Auto) 0.0 10^3/uL (0.0-0.1) 06/09/19 04:30 Absolute Nucleated RBC 0.00 x10^3/uL 06/09/19 04:30 Nucleated RBC % 0.0 /100WBC 06/09/19 04:30 Manual Slide Review Indicated 06/08/19 04:41 WBC Morphology NORMAL APPEARANCE (NORMAL) 06/08/19 04:41 Platelet Estimate NORMAL (130-450,000) (NORMAL) 06/08/19 04:41 Platelet Morphology NORMAL APPEARANCE (NORMAL) 06/08/19 04:41 RBC Morph Micro Appear 2+ HYPOCHROMASIA (NORMAL) 2+ MACROCYTOSIS (NORMAL) 06/06/19 20:30 RBC Morph Micro Appear 1+ HYPOCHROMASIA (NORMAL) 1+ MICROCYTOSIS (NORMAL) 1+ POLYCHROMASIA (NORMAL) 06/08/19 04:41 RBC Morph Micro Appear 1+ HYPOCHROMASIA (NORMAL) 1+ MICROCYTOSIS (NORMAL) 1+ POLYCHROMASIA (NORMAL) 06/08/19 04:41 RBC Morph Micro Appear 1+ HYPOCHROMASIA (NORMAL) 1+ MICROCYTOSIS (NORMAL) 1+ POLYCHROMASIA (NORMAL) 06/08/19 04:41 PT 14.3 secs (9.9-12.6) H 06/07/19 04:26 INR 1.3 (0.8-1.2) H 06/07/19 04:26 APTT 23.9 secs (24.9-33.3) L 06/06/19 20:30 Sodium 140 mmol/L (135-145) 06/09/19 04:30 Potassium 3.4 mmol/L (3.5-5.0) L 06/09/19 04:30 Chloride 107 mmol/L (101-111) 06/09/19 04:30 Carbon Dioxide 25 mmol/L (21-32) 06/09/19 04:30 Anion Gap 8.0 (6-13) 06/09/19 04:30 BUN 10 mg/dL (6-20) 06/09/19 04:30 Creatinine 0.8 mg/dL (0.4-1.0) 06/09/19 04:30 Estimated GFR (MDRD) 72 (>89) L 06/09/19 04:30 Glucose 90 mg/dL (70-100) 06/09/19 04:30 Lactic Acid 1.4 mmol/L (0.5-2.2) 06/06/19 22:52 Calcium 7.9 mg/dL (8.5-10.3) L 06/09/19 04:30 Phosphorus 3.7 mg/dL (2.5-4.6) 06/09/19 04:30 Magnesium 1.5 mg/dL (1.7-2.8) L 06/09/19 04:30 Total Bilirubin 0.5 mg/dL (0.2-1.0) 06/06/19 20:30 AST 17 IU/L (10-42) 06/06/19 20:30 ALT 11 IU/L (10-60) 06/06/19 20:30 Alkaline Phosphatase 57 IU/L (42-121) 06/06/19 20:30 Total Protein 4.3 g/dL (6.7-8.2) L 06/06/19 20:30 Albumin 1.8 g/dL (3.2-5.5) L 06/09/19 04:30 Globulin 2.8 g/dL (2.1-4.2) 06/06/19 20:30 Albumin/Globulin Ratio 0.5 (1.0-2.2) L 06/06/19 20:30 Lipase 82 U/L (22-51) H 06/06/19 20:30 Nasal Screen MRSA (PCR) NEGATIVE (NEGATIVE) 06/06/19 00:00 Stl C. diff Tox B Gene NEGATIVE (NEGATIVE) 06/07/19 11:30 Blood Type O POSITIVE 06/06/19 21:05 Antibody Screen NEGATIVE 06/06/19 21:05 Crossmatch IS Only See Detail 06/06/19 21:05
[2019-06-09] MEDS: LACTOBACILLUS RHAMNOSUS GG CAPSULE PO SCH (16:29)
[2019-06-09] MEDS: FERROUS GLUCONATE 324 MG TABLET PO SCH (17:10)
[2019-06-10] MEDS: SODIUM CHLORIDE FLUSH 0.9% 10 ML SYRINGE IVP SCH ×2 (01:14→10:08)
[2019-06-10] MEDS: PIPERACILLIN/TAZOBACTAM 3.375 GM in SODIUM CHLORIDE 0.9% MINIBAG 100 ML IV SCH ×2 (05:23→13:15)
[2019-06-10 05:48] LABS: CALCIUM 7.9 mg/dL (8.5-10.3); CREATININE 0.8 mg/dL (0.4-1.0)
[2019-06-10 06:03] LABS: BASOPHILS % (AUTO) 0.2 %; EOSINOPHILS # (AUTO) 0.1 10^3/uL (0.0-0.7); EOSINOPHILS % (AUTO) 1.1 %; HGB - HEMOGLOBIN 8.8 g/dL (12.0-16.0); LYMPHOCYTES # (AUTO) 1.1 10^3/uL (1.5-3.5); LYMPHOCYTES % (AUTO) 13.8 %; MEAN CORPUSCULAR HEMOGLOBIN 29.7 pg (27.0-31.0); MEAN CORPUSCULAR HGB CONC 31.4 g/dL (32.0-36.0); MEAN CORPUSCULAR VOLUME 94.6 fL (81.0-99.0); MEAN PLATELET VOLUME 8.9 fL (7.9-10.8); MONOCYTES # (AUTO) 0.5 10^3/uL (0.0-1.0); MONOCYTES % (AUTO) 6.1 %; NEUTROPHILS # (AUTO) 6.3 10^3/uL (1.5-6.6); NEUTROPHILS % (AUTO) 77.7 %; PLT - PLATELET COUNT 240 10^3/uL (130-450); RED BLOOD COUNT 2.96 10^6/uL (4.20-5.40); WHITE BLOOD COUNT 8.2 x10^3/uL (4.8-10.8)
[2019-06-10] MEDS ORDERED: PROPOFOL 200 MG/20 ML VIAL IVP ONE (09:20)
--- NOTE | 2019-06-10 09:26 | Discharge Plan ---
Discharge Plan Problem Reviewed?: Yes Disposition: Home, Self Care Condition: Stable Diet: Regular Shower Restrictions: No Driving Restrictions: No Weight Bearing: Full Weight Instruction Topics: Diverticulosis Diverticulitis, Anemia Iron Deficiency Ch Health Concerns: You were admitted with low blood pressure from GI blood loss anemia. The endoscopies done yesterday showed diverticulitis, but no bleeding source. Plan of Treatment: Finish a course of antibiotics for the diverticulitis. Two antibiotics (Cipro a nd Flagyl) have been ordered for this plus a probiotic. The prescriptions have been electronically sent to your pharmacy. Resume your inhaler medication, but do not go back on your Carvedilol for high blood pressure treatment, because your BP has been low. See your PCP in follow-up, before resuming Carvedilol, and for a potential referral to a GI specialist. Care Goals: Healing and stabilization of symptoms are the goals. Assessment: The patient understands. Additional Instructions or Follow Up instructions: See your PCP at [facility] in follow-up in the next 5-10 days. No Smoking: If you smoke, Please STOP! Call for help. Follow-up with: HASEEB PARDO ARNP [Primary Care Provider] -
[2019-06-10] MEDS: LACTOBACILLUS RHAMNOSUS GG CAPSULE PO SCH (09:29)
[2019-06-10] MEDS: FERROUS GLUCONATE 324 MG TABLET PO SCH (09:30)
[2019-06-10] MEDS: PANTOPRAZOLE 40 MG VIAL IVP SCH (10:08)
--- NOTE | 2019-06-10 10:08 | PHARMACY PROGRESS NOTE ---
- Best Possible Medication History Admit Date and Time: 06/06/198 Processed by: Pharmacy Medication History completed: Yes Patient Interview: Completed As the person ultimately responsible for medication therapy, providers are able to order a medication from an existing home medication list in [facility] via the "Reconcile Routine" prior to Confirmation of that medication by telecommunications support. Such practice is discouraged except when the physician, in their clinical arnoldo gment, deems that a medical need exists for a medication without regard to previous use.
[2019-06-10] MEDS ORDERED: PROCHLORPERAZINE 10 MG/2 ML VIAL IVP PRN (12:17)
[2019-06-10 12:44] LABS: BASOPHILS % (AUTO) 0.3 %; EOSINOPHILS # (AUTO) 0.1 10^3/uL (0.0-0.7); HGB - HEMOGLOBIN 7.6 g/dL (12.0-16.0); LYMPHOCYTES % (AUTO) 11.5 %; MEAN CORPUSCULAR HGB CONC 31.9 g/dL (32.0-36.0); MEAN CORPUSCULAR VOLUME 97.1 fL (81.0-99.0); MEAN PLATELET VOLUME 8.8 fL (7.9-10.8); MONOCYTES # (AUTO) 0.5 10^3/uL (0.0-1.0); MONOCYTES % (AUTO) 5.6 %; NEUTROPHILS # (AUTO) 7.2 10^3/uL (1.5-6.6); NEUTROPHILS % (AUTO) 80.5 %; PLT - PLATELET COUNT 230 10^3/uL (130-450); RED BLOOD COUNT 2.45 10^6/uL (4.20-5.40); RED CELL DISTRIBUTION WIDTH 19.8 % (12.0-15.0); WHITE BLOOD COUNT 8.9 x10^3/uL (4.8-10.8)
[2019-06-10] MEDS ORDERED: FAMOTIDINE 20 MG/2 ML VIAL IVP SCH (13:00)
[2019-06-10] MEDS ORDERED: DEXTROSE 5%-0.9% NACL 1,000 ML IV SCH (13:00)
--- NOTE | 2019-06-10 13:42 | Discharge Plan ---
Discharge Plan Problem Reviewed?: Yes Disposition: 02 Transfer Acute Care Hosp Condition: Serious No Smoking: If you smoke, Please STOP! Call for help. Follow-up with: HASEEB PARDO ARNP [Primary Care Provider] -
--- NOTE | 2019-06-10 13:43 | DISCHARGE SUMMARY ---
"Discharge Summary Admit Date: 06/06/19 Discharge Date: 06/10/19 Discharging Provider: Dr Seda Padron Primary Care Provider: PUNEET Rodriguez Code Status: Attempt Resuscitation Condition at Discharge: Serious Discharge Disposition: 02 Transfer Acute Care Hosp Discharge Facility Name: [facility] - DIAGNOSES Admission Diagnoses: (1) Lower gastrointestinal bleeding (2) Acute blood loss anemia (3) Hypotension due to blood loss (4) Paroxysmal atrial fibrillation (5) Asthma (6) Hx of hypertension (7) History of tracheostomy Discharge Diagnoses with Status of Each Condition: See below - HPI History of Present Illness: From the admission H&P of Dr нАдрей Toney: This is a 63-year-old female with a past medical history significant for atrial fibrillation, hypertension, and asthma who presents today complaining of bleeding. She was admitted here on the 22 of May for angioedema. Her throat swelling progressed quickly and there was concern for airway compromise and a tracheostomy was emergently placed as anesthesia was unable to intubate her due to the significant edema. She was then transferred to [facility] where she was hospitalized until this past Friday. She states her trach was removed exactly 1 week ago. She has a bandage in place over her stoma which she is replacing as needed and usually this is done twice a day. Since she has been home, she has been eating a little bit more each day. Today, she became dizzy and lightheaded. She was also complaining of abdominal pain and nausea. She then noticed she had blood in her stool. She cannot recall if it was a lot of blood or not. Her family reports that she had significant bleeding and more than one episode. They are concerned it may have been going on for longer than today but that the patient did not report it. Her tells me that there was concern for bleeding while she was at [facility] and they noticed blood in her urine. It was attributed to a catheter which was removed. The patient does have a history of gastric ulcers many years ago which required hospitalization for significant bleed. At that time she was taking a lot of ibuprofen. She reports no recent NSAID use or blood thinners including aspirin. She states she did have a little nosebleed a couple of days ago but otherwise no other bleeding. She has never had a colonoscopy. She does not drink alcohol. She reports no chest pain, dyspnea, fevers. When EMS first evaluated the patient, she was hypotensive with systolic blood pressure in the 70s. She was given IV fluids and brought to emergency department. Upon initial evaluation here, she was still hypotensive with systolics in the 90s, tachycardic in the low 100s. She was afebrile and not tachypneic and saturating well on room air. She was given a total of 2 L of saline. Her labs revealed a hemoglobin of 4.1. Her INR was 1.4. Her BUN was elevated at 23 with a normal creatinine. Lactic acid was normal. An CT angiogram of the abdomen and pelvis was performed which did not show active extravasation. There was concern for possible pancreatitis as well as duodenitis. There was also mild wall thickening of the sigmoid colon. She was initially in sinus tachycardia, then went into atrial fibrillation but is rate controlled, after receiving IV fluids and one packed red blood cell, and she was taking Carvedilol (for HTN). She was admitted to the ICU. - CONSULTS | PROCEDURES Consultations: Dr Linda Campbell Procedures: EGD and colonoscopy - HOSPITAL COURSE Hospital Course: 1) Hemorrhagic shock Her BP stabilized to 100-120's systolic with saline and several blood transfusions. 2) Acute blood loss anemia She received 4U PRBCs and Hgb improved to 8. The CBC was monitored daily. The Hgb again dropped to 7.3 and she got another Unit. On the day of transfer (see below), 2 more U of PRBCs were ordered. 3) Recurrent GI bleed After admission, she had no BMs for several days. Her diet was advanced. When her Hgb dropped again, she was seen in consult by Dr Campbell who planned upper endocopy and colonoscopy. These were done and showed no areas of bleeding, she had 3 polyps in the colon which were biopsied. On the day of planned discharge, she complained of queeziness, then dizziness when she was on the toilet, and had a brown-red bowel movement. Orthostatic BP check showed she dropped to 69 systolic with standing. She had another BM 5 min later which was a large volume of current-jelly, maroon stool. This Hospitalist called several hospitals to have her transferred for higher level of care (many hospitals had no open beds). We had no nuclear compound to perform a tagged RBC scan, which was recommended by the GI specialist, who was contacted at [facility]. And she was accepted in urgent transfer to [facility], where she was sent by helicopter, with stable VS. 4) Diverticulitis Since the first CT imaging suggested colon wall edema, she was treated empirically with iv Zosyn and Flagyl. 5) Paroxysmal Afib There were no episodes of RVR. She was not on her Carvedilol, due to low BP, and on no blood thinners while here. 6) Hx of tracheostomy Her trach site was managed as before this admission. 7) Hx of angioedema She was advised to avoid all TIARA-I's, as per UpToDate, and got reading material on this. 8) Hx HTN All her home BP meds were on hold while here. 9) Hx asthma There was no exacerbation and inhalers were only ordered prn. - ALLERGIES Allergies/Adverse Reactions: Allergies Allergy/AdvReac Type Severity Reaction Status Date / Time TIARA Inhibitors Allergy Severe Respiratory Verified 06/09/19 08:08 lisinopril Allergy Severe Respiratory Verified 06/06/19 22:40 - MEDICATIONS Home Medications: Ambulatory Orders Medication Instructions Recorded Confirmed Albuterol Sulfate [Proair Hfa 2 puffs IH Q4HR PRN 04/22/18 06/07/19 Inhaler] carvediloL [Carvedilol] 1 tab PO BID 04/22/18 06/07/19 - PHYSICAL EXAM AT DISCHARGE General Appearance: positive: Mild distress Eyes Bilateral: positive: Normal inspection, PERRL, EOMI ENT: positive: Other (Cloth bandage loosely covering her trach site) Neck: positive: No JVD Respiratory: positive: No respiratory distress, Breath sounds nml Cardiovascular: positive: Regular rate & rhythm, No murmur Abdomen: positive: Nml bowel sounds, No distention, Other (Mildy tender in mid- abdomen) Skin: positive: Pallor Extremities: positive: No pedal edema Neurologic/Psychiatric: positive: Oriented x3, Depressed mood/affect, Other (Grossly intact ) - LABS Result Diagrams: 06/10/19 12:33 06/10/19 05:20 - DIAGNOSTIC IMAGING Diagnostic Imaging Results: Final report reviewed - FOLLOW UP Follow Up: This will be determined after her stay at [facility]. - TIME SPENT Time Spent in Discharge (Minutes): 70"
[2019-06-10 14:25] VITALS: BP 112/65
== END 2019-06-10 15:45 | disposition short-term general hospital (02) | DRG 811 ==
LOC: EDUNIT# → ED 20:18 → ICU 22:32 → MS2 06-08 12:05 → ICU 06-09 13:22 → MS2 06-09 13:22 → ICU 06-10 12:31 → MS2 06-10 12:31 → UNDODISIN 06-10 15:45
PROVIDERS: ADMIT Internal Medicine; ATTEND Internal Medicine
PROC: 30233N1 Transfusion of Nonautologous Red Blood Cells into Peripheral Vein, Percutaneous Approach (ICD-10-PCS; principal; 2019-06-07)
PROC: 0DBL8ZZ Excision of Transverse Colon, Via Natural or Artificial Opening Endoscopic (ICD-10-PCS; 2019-06-09)
PROC: 0DB98ZX Excision of Duodenum, Via Natural or Artificial Opening Endoscopic, Diagnostic (ICD-10-PCS; 2019-06-09)
PROC: 0DB78ZX Excision of Stomach, Pylorus, Via Natural or Artificial Opening Endoscopic, Diagnostic (ICD-10-PCS; 2019-06-09)
PROC: 0DBH8ZZ Excision of Cecum, Via Natural or Artificial Opening Endoscopic (ICD-10-PCS; 2019-06-09 12:15)
DX: K92.1 Melena (principal); D62 Acute posthemorrhagic anemia; E78.00 Pure hypercholesterolemia, unspecified; R57.8 Other shock; F17.200 Nicotine dependence, unspecified, uncomplicated; K57.32 Diverticulitis of large intestine without perforation or abscess without bleeding; I48.0 Paroxysmal atrial fibrillation; I10 Essential (primary) hypertension; J45.909 Unspecified asthma, uncomplicated; F17.210 Nicotine dependence, cigarettes, uncomplicated; D12.0 Benign neoplasm of cecum; D12.3 Benign neoplasm of transverse colon; K64.4 Residual hemorrhoidal skin tags; K64.8 Other hemorrhoids; K21.9 Gastro-esophageal reflux disease without esophagitis; M10.9 Gout, unspecified; G89.29 Other chronic pain; M54.9 Dorsalgia, unspecified; Z88.8 Allergy status to other drugs, medicaments and biological substances; Z79.51 Long term (current) use of inhaled steroids; Z79.899 Other long term (current) drug therapy; Z87.11 Personal history of peptic ulcer disease
CPT/HCPCS: 36415; 74174; 80048; 80053; 82040; 82272; 82310; 83605; 83690; 83735; 84100; 84132; 85014; 85018; 85025; 85610; 85730; 86850; 86900; 86901; 86920; 87081; 87150; 87493; 93005; 99285; 99291; A9270; J7120; P9016; Q9967; 85027

== ENCOUNTER 2022-03-07 22:57 | Outpatient (CLI) | payer MEDICARE, OTHER | END 2022-03-07 22:58 | disposition left against medical advice (07) | LOC: EMS 22:57 | DX: R53.1 Weakness (principal) ==

== ENCOUNTER 2022-04-26 19:00 | Outpatient (CLI) | payer MEDICARE, OTHER | END 2022-04-26 19:01 | disposition critical access hospital (66) | LOC: EMS 19:00 | DX: K92.1 Melena (principal) | CPT/HCPCS: A0425; A0429 ==

== ENCOUNTER 2022-04-26 19:11 | Inpatient (IN) | payer MEDICARE, OTHER ==
[2022-04-26 19:29] LABS: BASOPHILS % (AUTO) 0.3 %; EOSINOPHILS % (AUTO) 0.5 %; HCT - HEMATOCRIT 23.6 % (37.0-47.0); HGB - HEMOGLOBIN 7.2 g/dL (12.0-16.0); LYMPHOCYTES % (AUTO) 11.4 %; MEAN CORPUSCULAR HGB CONC 30.5 g/dL (32.0-36.0); MEAN CORPUSCULAR VOLUME 108.3 fL (81.0-99.0); MEAN PLATELET VOLUME 8.5 fL (7.9-10.8); MONOCYTES # (AUTO) 0.7 10^3/uL (0.0-1.0); MONOCYTES % (AUTO) 7.3 %; PLT - PLATELET COUNT 165 10^3/uL (130-450); RED BLOOD COUNT 2.18 10^6/uL (4.20-5.40); RED CELL DISTRIBUTION WIDTH 14.4 % (12.0-15.0); WHITE BLOOD COUNT 8.9 x10^3/uL (4.8-10.8)
[2022-04-26 19:37] LABS: INR 1.2 (0.8-1.2); PT - PROTHROMBIN TIME 12.8 secs (9.9-12.6)
[2022-04-26 19:42] LABS: ALBUMIN 2.2 g/dL (3.2-5.5); ALBUMIN/GLOBULIN RATIO 0.6 (1.0-2.2); BILIRUBIN,TOTAL 0.7 mg/dL (0.2-1.0); CALCIUM 8.2 mg/dL (8.5-10.3); CREATININE 0.9 mg/dL (0.4-1.0); POTASSIUM 4.8 mmol/L (3.5-5.0); TOTAL PROTEIN 6.1 g/dL (6.7-8.2)
[2022-04-26 19:44] LABS: PARTIAL THROMBOPLASTIN TIME 29.2 secs (24.9-33.3)
--- NOTE | 2022-04-26 20:00 | ED Physician Documentation ---
PD HPI GI BLEED - Stated complaint Stated Complaint: GI BLEED - Chief complaint Chief Complaint: Abd Pain - History obtained from History obtained from: Patient - History of Present Illness Timing - onset: Today Timing - duration: Days (1/2) Timing - details: Abrupt onset, Still present Associated symptoms: Maroon stool, Black/tarry stool (initially melena several times over few hours, then maroon to dark purple color. General feeling of weakness and lightheaded. No near syncope. Mild upper abd pains.). No: Vomiting, Coffee ground emesis, Constipation, Fever Contributing factors: NSAID use (Ibuprofen 1-2 daily for back pain.). No: Sick contact, Bad food, Recent antibiotics Improved by: No: Eating, Vomiting Worsened by: No: Eating Similar symptoms before: Diagnosis (duodenal ulcer treated with EGD and clips/cautery at [facility] after EGD/colonoscopy here did not find bleeding source. This was Jun 2019. discharge summary obtained.) Recently seen: Not recently seen Review of Systems Constitutional: denies: Fever, Chills Nose: denies: Rhinorrhea / runny nose, Congestion Throat: denies: Sore throat Respiratory: denies: Cough GI: reports: Abdominal Pain (mild epigastric), Bloody / black stool. denies: Nausea, Vomiting, Constipation, Diarrhea : denies: Dysuria, Frequency Neurologic: reports: Generalized weakness. denies: Focal weakness, Numbness, Near syncope, Altered mental status Psychiatric: denies: Depressed, Anxiety PD PAST MEDICAL HISTORY - Past Medical History Cardiovascular: Hypertension, High cholesterol, Atrial fibrillation Respiratory: Asthma Neuro: None Endocrine/Autoimmune: None GI: GERD, GI bleed, Ulcers : None Psych: None Musculoskeletal: Gout, Chronic back pain Derm: Rosacea - Past Surgical History General: Appendectomy HEENT: Tonsil/Adenoidectomy - Present Medications Home Medications: Ambulatory Orders Medication Instructions Recorded Confirmed Albuterol Sulfate [Proair Hfa 2 puffs IH Q4HR PRN 04/22/18 06/07/19 Inhaler] carvediloL [Carvedilol] 1 tab PO BID 04/22/18 06/07/19 - Allergies Allergies/Adverse Reactions: Allergies Allergy/AdvReac Type Severity Reaction Status Date / Time TIARA Inhibitors Allergy Severe Respiratory Verified 04/26/22 19:30 lisinopril Allergy Severe Respiratory Verified 04/26/22 19:30 - Living Situation Living Situation: reports: With family Living Arrangement: reports: At home - Social History Does the pt smoke?: Yes Smoking Status: Current every day smoker Does the pt drink ETOH?: No Does the pt have substance abuse?: No - Family History Family history: reports: Non contributory - Immunizations Immunizations are current?: Yes - POLST Patient has POLST: No PD ED PE NORMAL - Vitals Vital signs reviewed: Yes - General General: Alert and oriented X 3, No acute distress, Well developed/nourished - HEENT HEENT: Pharynx benign - Neck Neck: Supple, no meningeal sign, No adenopathy - Cardiac Cardiac: RRR, No murmur - Respiratory Respiratory: No respiratory distress, Clear bilaterally - Abdomen Abdomen: Normal bowel sounds, Soft, Non distended, No organomegaly, Other (some tenderness epigastric to mid abd area without guarding nor percussion tenderness. ) - Rectal Rectal: Deferred, Other (she had small stool output in toilet hat and it was purple/black and sample sent to lab. ) - Derm Derm: Normal color, Warm and dry - Extremities Extremities: Normal ROM s pain, No edema, No calf tenderness / cord - Neuro Neuro: Alert and oriented X 3, No motor deficit, Normal speech Eye Opening: Spontaneous Motor: Obeys Commands Verbal: Oriented GCS Score: 15 Results - Vitals Vitals: Vital Signs - 24 hr 04/26/22 04/26/22 04/26/22 19:23 19:30 20:00 Temperature 36.1 C L Heart Rate 75 76 74 Respiratory 22 22 23 Rate Blood Pressure 137/66 H 127/66 121/72 O2 Saturation 96 97 96 04/26/22 04/26/22 04/26/22 20:30 21:00 21:41 Temperature Heart Rate 76 78 78 Respiratory 23 21 22 Rate Blood Pressure 139/78 H 136/78 H 117/79 O2 Saturation 97 97 96 04/26/22 04/26/22 22:00 22:30 Temperature Heart Rate 76 77 Respiratory 21 22 Rate Blood Pressure 127/58 L 110/52 L O2 Saturation 97 99 Oxygen O2 Source Room air - Labs Labs: Microbiology 04/26/22 21:35 Occult Blood - Final Stool Laboratory Tests 04/26/22 04/26/22 04/26/22 19:22 19:22 19:22 WBC 8.9 RBC 2.18 L Hgb 7.2 L Hct 23.6 L MCV 108.3 H MCH 33.0 H MCHC 30.5 L RDW 14.4 Plt Count 165 MPV 8.5 Neut # (Auto) 7.0 H Lymph # (Auto) 1.0 L [facility] # (Auto) 0.7 Eos # (Auto) 0.0 Baso # (Auto) 0.0 Absolute Nucleated RBC 0.00 Nucleated RBC % 0.0 PT 12.8 H INR 1.2 APTT 29.2 Sodium Potassium Chloride Carbon Dioxide Anion Gap BUN Creatinine Estimated GFR (MDRD) Glucose Calcium Total Bilirubin AST ALT Alkaline Phosphatase Total Protein Albumin Globulin Albumin/Globulin Ratio Lipase SARS-CoV-2 (PCR) Blood Type O POSITIVE Antibody Screen NEGATIVE Crossmatch IS Only See Detail 04/26/22 04/26/22 04/26/22 19:22 21:12 21:13 WBC RBC Hgb 6.4 L* Hct 20.8 L MCV MCH MCHC RDW Plt Count MPV Neut # (Auto) Lymph # (Auto) [facility] # (Auto) Eos # (Auto) Baso # (Auto) Absolute Nucleated RBC Nucleated RBC % PT INR APTT Sodium 135 Potassium 4.8 Chloride 99 L Carbon Dioxide 27 Anion Gap 9.0 BUN 39 H Creatinine 0.9 Estimated GFR (MDRD) 62 L Glucose 163 H Calcium 8.2 L Total Bilirubin 0.7 AST 34 ALT 14 Alkaline Phosphatase 201 H Total Protein 6.1 L Albumin 2.2 L Globulin 3.9 Albumin/Globulin Ratio 0.6 L Lipase 73 H SARS-CoV-2 (PCR) NOT DETECTED Blood Type Antibody Screen Crossmatch IS Only - Rads (name of study) abd/pelvic CT Radiology: Prelim report reviewed (wall thickening of gastrum, duodenum, and proximal jujenum. Possible peripancreatic stranding. ), See rad report PD MEDICAL DECISION MAKING - ED course Complexity details: reviewed results, re-evaluated patient, d/w client care consultant (Surgery, Dr. Heaton, who will consult on patient. Available overnight if needed, otherwise plan scope tomorrow. ) - Critical Care Time(min): 45 Comments: assess vitals, exam, repeated blood count, need for transfusion. Consult surgery and hospitalist. Reassess patient often. Time Includes: Direct patient care, Reassess patient, Document care, Coordinate care Data interpretation: Labs, Pulse ox Procedures excluded from critical care time: EKG Departure - Departure Disposition: 66 [facility] DC/Xfer Clinical Impression: Anemia, Acute upper abdominal pain GI bleeding Qualifiers: GI bleed type/associated pathology: melena Qualified Code(s): K92.1 - Melena Condition: Stable
[2022-04-26] MEDS ORDERED: SODIUM CHLORIDE 0.9% 1,000 ML IV STA (20:03)
[2022-04-26] MEDS ORDERED: PANTOPRAZOLE 40 MG VIAL IVP STA (20:16)
[2022-04-26] MEDS ORDERED: iohexoL-300 100 ML VIAL ONE (20:29)
[2022-04-26] MEDS ORDERED: iohexoL-300 100 ML VIAL IVP ONE (21:01)
[2022-04-26 21:18] LABS: HCT - HEMATOCRIT 20.8 % (37.0-47.0)
[2022-04-26 21:21] LABS: HGB - HEMOGLOBIN 6.4 g/dL (12.0-16.0)
--- NOTE | 2022-04-26 21:31 | CT Report ---
PROCEDURE: ABDOMEN/PELVIS W INDICATIONS: upper abd pain; GI bleeding CONTRAST: 100 ml OMNI 300 TECHNIQUE: After the administration of IV contrast, 5 mm thick sections acquired from the diaphragms to the symp hysis. 5 mm thick coronal and sagittal reformats were acquired. For radiation dose reduction, the f ollowing was used: automated exposure control, adjustment of mA and/or kV according to patient size. COMPARISON: CT angiogram of abdomen and pelvis dated 06/06/[address] of abdomen and pelvis dated . FINDINGS: Image quality: Excellent. ABDOMEN: Lung bases: Lung bases are clear. Heart size is mildly enlarged. Solid organs: There is hepatomegaly. Moderate hepatic steatosis is seen, no discrete hepatic lesions. Spleen is normal in size. Numerous calcified granulomata are seen scattered in splenic parenchyma. G allbladder is contracted and shows no gross abnormality. Biliary system is non dilated. Pancreas en hances normally. Questionable mild peripancreatic fat stranding is seen, no definite peripancreatic fluid collection or discrete pancreatic mass is noted. No adrenal nodules. Kidneys demonstrate mila l size and enhancement, without hydronephrosis. Peritoneum and bowel: There is a small hiatal hernia. Questionable mild diffuse gastric wall thickeni ng is seen. There is suggestion of wall thickening involving the duodenum and proximal jejunum. No ot her area of abnormal small bowel wall thickening. There is suggestion of colonic wall thickening invo lving ascending colon and hepatic flexure. No abscess collection. No free fluid or free air. A few si gmoid diverticuli are seen, no definite sigmoid colon wall thickening or pericolonic fat stranding. Nodes and vessels: No retroperitoneal or mesenteric adenopathy by size criteria. Aorta and inferior vena cava are normal in size. Moderate atherosclerotic calcifications in abdominal aorta and bilate ral iliac arteries are seen. Miscellaneous: No ventral hernias. PELVIS: Genitourinary: Bladder wall thickness is normal. Miscellaneous: No inguinal hernias or adenopathy. Bones: No suspicious bony lesions. No acute vertebral body compression fractures. Degenerative dis c disease throughout lower thoracic and lumbar spine is again seen. Chronic appearing anterior wedge compression deformity at L4 vertebral body is again seen and unchanged. IMPRESSION: 1. Questionable peripancreatic fat stranding concerning for pancreatitis, please correlate with patie nt's amylase and lipase levels. No peripancreatic fluid collection. 2. Wall thickening involving stomach, duodenum and proximal jejunum, which may indicate reactive infl ammatory changes from adjacent pancreatitis versus gastroenteritis. 3. Suggestion of right-sided colonic wall thickening and may represent mild colitis. No abscess colle ction. No bowel obstruction. No free fluid or free air. 4. Hepatomegaly and moderate hepatic steatosis. 5. Chronic anterior wedge compression deformity at L4 level. No acute vertebral body compression frac ture. Reviewed by: Aguilar Francois MD on 04/26/2022 9:30 PM PDT Approved by: Aguilar Francois MD on 04/26/2022 9:30 PM PDT Station ID: [id number]
[2022-04-26] MEDS ORDERED: TRANEXAMIC ACID 1,000 MG in SODIUM CHLORIDE 0.9% 100ML 100 ML IV STA (22:08)
[2022-04-26] MEDS ORDERED: TRANEXAMIC ACID 1,000 MG/10 ML VIAL ONE (22:12)
--- NOTE | 2022-04-26 22:28 | HISTORY & PHYSICAL EXAMINATION ---
Chief Complaint - Chief Complaint Chief Complaint: Abdominal pain and bleeding in stool History of Present Illness - Admitted From Admitted From:: ER - History Obtained From Records Reviewed: Yes History obtained from: Patient Exam Limitations: Telemedicine - History of Present Illness HPI Comment/Other: Snehal is a pleasant 66 year old elderly woman who comes to the ER with complaints of abdominal pain and some nausea which started at around noon time today patient also had some bloody bowel movements. Patient has had history of lower GI bleed in the past period patient started feeling weak and tired with any chest pain no shortness of breath no dizziness she comes to the yard due to this. Patient has got a complex medical history which includes history of [employer] axis to asymmetries causing angioedema and requiring intuition three years ago, history of: polyps, history of GI bleed, history of non stemi, history of obesity, A fib, HTN, Dyslipidemia, Hypoalbuminemia .patient is retired lives with her has got two grown up children. Patient sister Alise is with her in the ER. Patient does not drive. [place] device any other active complaints she does take medicines for her heart which includes carvedilol and Cardizem. patient does not take any antacids she has been using a lot of ibu profen because of chronic back pain she has been having over 15 years she has seen a lot of physicians. 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 Add a nice lengthy discussion with the patient and her sister had to inform them the plan of care for tonight History - Past Medical History Cardiovascular: reports: Hypertension, High cholesterol, Atrial fibrillation Respiratory: reports: Asthma Neuro: reports: None Endocrine/Autoimmune: reports: None GI: reports: GERD, GI bleed, Ulcers : reports: None Psych: reports: None Musculoskeletal: reports: Gout, Chronic back pain Derm: reports: Rosacea MRSA Hx?: No - Past Surgical History General: reports: Appendectomy HEENT: reports: Tonsil/Adenoidectomy - Family & Social History Family History Comment/Other: She reports her mother had asthma and coronary artery disease. She from a myocardial infarction. 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 She lives at home with her . They have 1 dog. She reports smoking a pack a day for nearly 50 years. Denies alcohol use. - Substance History Use: Uses substance without health or social issues: Tobacco - POLST Patient has POLST: No Meds/Allgy - Home Medications Home Medications: Ambulatory Orders Medication Instructions Recorded Confirmed Albuterol Sulfate [Proair Hfa 2 puffs IH Q4HR PRN 04/22/18 06/07/19 Inhaler] carvediloL [Carvedilol] 1 tab PO BID 04/22/18 06/07/19 - Allergies Allergies/Adverse Reactions: Allergies Allergy/AdvReac Type Severity Reaction Status Date / Time TIARA Inhibitors Allergy Severe Respiratory Verified 04/26/22 19:30 lisinopril Allergy Severe Respiratory Verified 04/26/22 19:30 Review of Systems - Constitutional Constitutional: reports: Fatigue, Weakness - Cardiovascular Cariovascular: reports: Palpitations - Gastrointestinal Gastrointestinal: reports: Abdominal pain, Black stools, Bloody stools, Nausea - Musculoskeletal Musculoskeletal: reports: Back pain Prior Level of Functionality: Independent with ADL Exam - Vital Signs Vital Signs: Vital Signs x48h Temp Pulse Resp BP Pulse Ox 04/26/22 22:00 76 21 127/58 L 97 04/26/22 21:41 78 22 117/79 96 04/26/22 21:00 78 21 136/78 H 97 04/26/22 20:30 76 23 139/78 H 97 04/26/22 20:00 74 23 121/72 96 04/26/22 19:30 76 22 127/66 97 04/26/22 19:23 36.1 C L 75 22 137/66 H 96 - Physical Exam General Appearance: positive: No acute distress Eyes Bilateral: positive: Normal inspection, PERRL, EOMI ENT: positive: Pharynx nml, No signs of dehydration Neck: positive: No JVD, Trachea midline Respiratory: positive: No respiratory distress, Breath sounds nml Cardiovascular: positive: Tachycardia Abdomen: positive: Non-tender Skin: positive: Color nml, Pallor Extremities: positive: Non-tender Neurologic/Psychiatric: positive: Oriented x3, CN's nml (2-12) Sepsis Event Note (H) - Evaluation Current Stage of Sepsis: Ruled out Conclusion/Plan - Problem List (1) Acute upper abdominal pain Conclusion/Plan: NPO and pain meds if needed would use morphine or oxycodone (2) GI bleeding Conclusion/Plan: Admit to ICU. IV protonix NPO except meds will need EGD+/_ colonoscopy 2 big bore 20 g IV line, gentle hydratration, transfuse 2 untis of PRB check CEA work up for hypoalbuminemia Qualifiers: GI bleed type/associated pathology: melena Qualified Code(s): K92.1 - Melena (3) Acute blood loss anemia Conclusion/Plan: Transfuse PRBC (4) Angioedema Conclusion/Plan: No ACEI or ARB as patient has Anaphylaxis Qualifiers: Encounter type: initial encounter Qualified Code(s): T78.3XXA - Angion eurotic edema, initial encounter (5) Asthma Conclusion/Plan: No Wheezing appreciated sats are good, continue to monitor, mild intermittent Asthma Albuterol PRN (6) CAD (coronary artery disease) Conclusion/Plan: Baselin eEKG to be obtained by ER MD discussed with Dr Scott Continue Coreg (7) Diverticulitis Conclusion/Plan: Currently stable her CT scan is concerning for pancreatitis check lipase and amylase and discuss with radiology in am (8) Hypertension Conclusion/Plan: Coreg (9) Paroxysmal atrial fibrillation Conclusion/Plan: CHeck Baseline EKG (10) DVT prophylaxis Conclusion/Plan: SCD (11) Obesity (BMI 30.0-34.9) Conclusion/Plan: Diet and Lifestyle modification - Lab Results Fish Bones: 04/26/22 21:12 04/26/22 19:22 - Diagnostic Imaging Results Diagnostic Imaging Results: positive: Final report reviewed - EKG Results EKG Interpreted Independently: No Telemedicine Consult Details - Provider Location & Consult Time Telemedicine consultation conducted via videoconferencing?: Yes List names and roles of persons who participated in consult:: Patient her bedside nurse, her sister Alise and myself Telemedicine provider location:: [place] Time Telemedicine consult began:: 21:43 Time Telemedicine consult completed:: 23:10
[2022-04-26] MEDS ORDERED: oxyCODONE 5 MG TABLET PO PRN (22:47)
[2022-04-26] MEDS ORDERED: TEMAZEPAM 15 MG CAPSULE PO PRN (22:47)
[2022-04-26] MEDS ORDERED: MORPHINE 2 MG/ML CARPUJECT IVP PRN (22:47)
[2022-04-26] MEDS ORDERED: ACETAMINOPHEN 325 MG TABLET PO PRN (22:47)
[2022-04-26] MEDS ORDERED: ONDANSETRON 4 MG/2 ML VIAL IVP PRN (22:47)
[2022-04-26] MEDS ORDERED: ALBUTEROL NEB 2.5 MG/3 ML INH PRN (22:47)
--- NOTE | 2022-04-26 23:24 | PROVIDER PROGRESS NOTE ---
Hospitalist Cross-cover Note - Cross-Cover Note Cross-Cover Note: I was called by ER stating we are out of ICU beds and ok to admit patient to [facility] with Telemetry, patient vital signs have been stable, ok to downgrade to telemetry, please call our team if any hemodyanmic changes or concerns overnight.
[2022-04-27] MEDS: SODIUM CHLORIDE FLUSH 0.9% 10 ML SYRINGE IVP SCH ×3 (03:25→15:37)
[2022-04-27] MEDS: SODIUM CHLORIDE 0.9% 1,000 ML IV SCH ×2 (03:25→17:03)
--- NOTE | 2022-04-27 03:34 | PROVIDER PROGRESS NOTE ---
Hospitalist Cross-cover Note - Cross-Cover Note Cross-Cover Note: Updated admission order per RN request to "med surg" as indicated by Dr Crandall and ER physician conversation at time of admission. Discussed with nursing gasket supervisor.
[2022-04-27 04:25] LABS: BASOPHILS % (AUTO) 0.3 %; EOSINOPHILS # (AUTO) 0.1 10^3/uL (0.0-0.7); HCT - HEMATOCRIT 22.5 % (37.0-47.0); HGB - HEMOGLOBIN 7.2 g/dL (12.0-16.0); LYMPHOCYTES # (AUTO) 1.2 10^3/uL (1.5-3.5); LYMPHOCYTES % (AUTO) 14.6 %; MEAN CORPUSCULAR HEMOGLOBIN 33.2 pg (27.0-31.0); MEAN CORPUSCULAR VOLUME 103.7 fL (81.0-99.0); MEAN PLATELET VOLUME 8.7 fL (7.9-10.8); MONOCYTES # (AUTO) 0.7 10^3/uL (0.0-1.0); MONOCYTES % (AUTO) 8.9 %; NEUTROPHILS # (AUTO) 5.8 10^3/uL (1.5-6.6); NEUTROPHILS % (AUTO) 73.9 %; NRBC ABSOLUTE COUNT (AUTO) 0.02 x10^3/uL; NUCLEATED RED BLOOD CELLS AUTO 0.3 /100WBC; PLT - PLATELET COUNT 124 10^3/uL (130-450); RED BLOOD COUNT 2.17 10^6/uL (4.20-5.40); RED CELL DISTRIBUTION WIDTH 15.7 % (12.0-15.0); WHITE BLOOD COUNT 7.9 x10^3/uL (4.8-10.8)
[2022-04-27 04:40] LABS: ALBUMIN/GLOBULIN RATIO 0.6 (1.0-2.2); BILIRUBIN,TOTAL 0.9 mg/dL (0.2-1.0); CREATININE 0.9 mg/dL (0.4-1.0); MAGNESIUM 1.3 mg/dL (1.7-2.8); PHOSPHORUS 2.5 mg/dL (2.5-4.6); POTASSIUM 4.3 mmol/L (3.5-5.0); TOTAL PROTEIN 5.4 g/dL (6.7-8.2)
[2022-04-27] MEDS ORDERED: MAGNESIUM SULFATE 2 GRAM 2 GM/50 ML BAG IV ONE (07:26)
--- NOTE | 2022-04-27 07:44 | CONSULTATION NOTE ---
Surgery Consult - Admit Date Hospital Admission Date: 04/26/22 - Consult Date Consult Date: 04/27/22 Requesting Provider: Dr. Gaming - Chief Complaint Chief Complaint: Acute GI blood loss - Home Meds/Allergies Home Medications: Patient History Medication Instructions Recorded Confirmed Albuterol Sulfate [Proair Hfa 2 puffs IH Q4HR PRN 04/22/18 06/07/19 Inhaler] carvediloL [Carvedilol] 1 tab PO BID 04/22/18 06/07/19 Allergies/Adverse Reactions: Allergies Allergy/AdvReac Type Severity Reaction Status Date / Time TIARA Inhibitors Allergy Severe Respiratory Verified 04/26/22 19:30 lisinopril Allergy Severe Respiratory Verified 04/26/22 19:30 - Vital Signs Vital Signs: Last Vital Signs Temp 98.4 F 04/27/22 07:15 Pulse 93 04/27/22 07:15 Resp 19 04/27/22 07:15 BP 131/83 H 04/27/22 07:15 Pulse Ox 96 04/27/22 07:15 O2 Flow Rate Intake & Output: Intake & Output 04/24/22 04/25/22 04/26/22 04/27/22 23:59 23:59 23:59 23:59 Intake Total 1110 300 Balance 1110 300 - Lab Results Result Diagrams: 04/27/22 04:14 04/27/22 04:14 - Consultation Note Consultation Note: S: Snehal is a 66 year old female whom I am asked to see in consultation from Dr. Gaming for clinical evidence of a recurrent UGI bleed. Snehal has chronic back pain and has been using Ibprofen for several weeks. recently she has felt tired and weak and yesterday she notice that her stools were somewhat black and blood stained. She denies abdominal pain, SOB, Chest pain, or emesis. She came to the ED and was found to be hemodynamically stable but anemic (Hgb 6.4). She was admitted to the [facility] and transfused a unit of blood which has elevated her HGB to 7.2). I am asked to assist in her evaluation and management. Snehal has a history of previous UGI bleeding due to a duodenal ulcer that was treated with endoscopic clips. She was also found to have angiodysplasia of the small bowel identified on capsule endoscopy and she tells me these were also treated endoscopically. She does not take antacids with her use of Ibuprofen. 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 O: VSS, afeb; HEENT normal; Neck with healed anterior surgical scar; Lungs clear; Heart - NSR; Radial pulse 2+; Abdomen soft, non-distended, no mass; Extremities normal A: Acute GI blood loss likely due to chronic NSAID ulcer. There is no clinical evidence that she is actively bleeding at this point in time. Recommendations: 1) Transfuse a second unit of blood 2) IV PPI 3) EGD this morning Consent: Snehal has been counseled for the procedure (Upper endoscopy), it's indications, risks, benefits and expected outcome as well as alternative therapies. We specifically discussed risks associated with anesthesia, respiratory issues, and possible injuries to the UGI tract. We also discussed the possible need for a blood transfusion with its risks and benefits. Leah requests that we proceed with the procedure as outlined in our discussion. In my medical opinion, considering (1) the potential harm to the patient's health and well-being, including the risks associated with the patient u ndergoing a procedure and delaying the procedure during the COVID-19 pandemic, and (2) the health care resources available to the patient in the hospital and the broader community during and after the procedure, I recommend that the patient proceed with the procedure. Leah understands, agrees, and consents to the proposed operative strategy and requests that we proceed with the procedure as outlined in our discussion. Danielito Heaton MD, [facility] General Surgery Service
[2022-04-27] MEDS ORDERED: CARVEDILOL 25 MG PO SCH (09:00)
[2022-04-27] MEDS ORDERED: carvediloL 12.5 MG TABLET PO SCH (09:00)
[2022-04-27] MEDS ORDERED: PANTOPRAZOLE 40 MG VIAL IVP SCH (09:00)
--- NOTE | 2022-04-27 10:10 | PROVIDER PROGRESS NOTE ---
Assessment/Plan - Problem List (1) GI bleeding Qualifiers: GI bleed type/associated pathology: melena Qualified Code(s): K92.1 - Melena Assessment/Plan: There is a history of a prior bleeding duodenal ulcer and bleeding AVMs (in 2019, when she needed to be transferred from here to a larger hospital ). She presented now with melanotic BMs then maroon and red stools. She is still having red BMs today. General surgery is consulting and will take her for EGD today. Will transfuse her another 1U, while she is actively bleeding and follow hemoglobin every 6 hours. Will give IV Protonix bid empirically. Will avoid antiplatelet agents and anticoagulants. 2) Symptomatic anemia Will transfuse her another 1U today, while she is actively bleeding and follow hemoglobin every 6 hours. 3) HTN BP meds are on hold since she is bleeding. 4) Hx CAD She has not been on antiplatelet agents. We are holding blood pressure meds. 5) Alcohol use Daughter informed the pt's RN that the patient's alcohol abuse is not known or is not being addressed, as a potential component of her recurring ulcers. The daughter stated that she falls frequently at home and it is mostly related to alcohol use. I then questioned the patient regarding her EtOH use: She said she drinks rum, 2-4 drinks a day and that she has never gone through withdrawal. Her LFTs, plts and INR are unremarkable, but her MCV is very high Will order a CIWA protocol. Will order daily Thiamine Will order B12 & folate levels with a.m. labs Will order PT evaluation regarding her balance - Current Meds Current Meds: Current Medications Generic Name Dose Route Start Last Admin Trade Name Dave PRN Reason Stop Dose Admin Sodium Chloride 1,000 mls @ 100 mls/hr 04/26/22 23:00 04/27/22 03:25 Normal Saline 0.9% IV 100 mls/hr .Q10H PEDRO Administration Sodium Chloride 10 ml 04/27/22 01:00 04/27/22 03:25 Sodium Chloride Flush 0.9% 10 Ml Syringe IVP 10 ml 0100,0900,1700 PEDRO Administration - Lab Result Fish Bone Diagrams: 04/27/22 14:01 04/27/22 04:14 - Additional Planning My Orders: My Active Orders 04/27/22 07:25 Miscellaenous Nursing Order [RC] ONCE 04/27/22 10:00 CBC W/O DIFF (HEMOGRAM) [HEME] Q8H 04/27/22 18:00 CBC W/O DIFF (HEMOGRAM) [HEME] Q8H 04/28/22 02:00 CBC W/O DIFF (HEMOGRAM) [HEME] Q8H 04/28/22 10:00 CBC W/O DIFF (HEMOGRAM) [HEME] Q8H Subjective - Subjective Patient Reports: Diarrhea (red and maroon BMs continue) Objective Vital Signs: Vital Signs - 24 hr 04/26/22 04/26/22 04/26/22 19:23 19:30 20:00 Temperature 36.1 C L Heart Rate 75 76 74 Heart Rate [ Brachial] Heart Rate [ Monitoring electrodes] Respiratory 23 Rate Blood Pressure 137/66 H 127/66 121/72 Blood Pressure [Left Brachial artery] Blood Pressure [Right Brachial artery] O2 Saturation 96 97 96 04/26/22 04/26/22 04/26/22 20:30 21:00 21:41 Temperature Heart Rate 76 78 78 Heart Rate [ Brachial] Heart Rate [ Monitoring electrodes] Respiratory Rate Blood Pressure 139/78 H 136/78 H 117/79 Blood Pressure [Left Brachial artery] Blood Pressure [Right Brachial artery] O2 Saturation 97 97 96 04/26/22 04/26/22 04/26/22 22:00 22:30 22:56 Temperature 36.9 C Heart Rate 76 77 Heart Rate [ Brachial] Heart Rate [ 75 Monitoring electrodes] Respiratory Rate Blood Pressure 127/58 L 110/52 L Blood Pressure [Left Brachial artery] Blood Pressure 128/86 H [Right Brachial artery] O2 Saturation 97 99 97 04/26/22 04/26/22 04/26/22 23:12 23:27 23:57 Temperature 36.9 C 36.8 C 36.9 C Heart Rate Heart Rate [ Brachial] Heart Rate [ 78 79 76 Monitoring electrodes] Respiratory Rate Blood Pressure Blood Pressure [Left Brachial artery] Blood Pressure 132/104 H 123/54 L 148/83 H [Right Brachial artery] O2 Saturation 96 97 95 04/27/22 04/27/22 04/27/22 00:27 00:57 01:57 Temperature 36.8 C 36.9 C 36.8 C Heart Rate Heart Rate [ 86 Brachial] Heart Rate [ 83 72 Monitoring electrodes] Respiratory 22 17 22 Rate Blood Pressure Blood Pressure 159/73 H [Left Brachial artery] Blood Pressure 141/79 H 136/68 H [Right Brachial artery] O2 Saturation 94 96 95 04/27/22 04/27/22 04/27/22 02:15 05:00 07:15 Temperature 36.7 C 36.8 C 36.9 C Heart Rate Heart Rate [ 79 93 Brachial] Heart Rate [ 93 Monitoring electrodes] Respiratory 20 20 19 Rate Blood Pressure Blood Pressure 135/76 H [Left Brachial artery] Blood Pressure 127/53 L 131/83 H [Right Brachial artery] O2 Saturation 94 95 96 04/27/22 04/27/22 09:39 09:46 Temperature 36.8 C Heart Rate Heart Rate [ 92 93 Brachial] Heart Rate [ Monitoring electrodes] Respiratory 18 18 Rate Blood Pressure Blood Pressure [Left Brachial artery] Blood Pressure 140/58 H 138/59 H [Right Brachial artery] O2 Saturation 96 95 Oxygen O2 Source Room air I&O (Last 24 Hrs): Intake and Output Totals x24h 04/25/22 04/26/22 04/27/22 23:59 23:59 23:59 Intake Total 1110 300 Balance 1110 300 General: Alert, Oriented x3, Other (Pale) HEENT: Mucous membr. moist/pink Neck: Supple Neuro: Alert, Non Focal Cardiovascular: Regular rate Respiratory: No respiratory distress Abdomen: Soft, No tenderness Extremities: No clubbing, No edema - Results Results: Laboratory Results WBC 7.9 x10^3/uL (4.8-10.8) 04/27/22 04:14 RBC 2.17 10^6/uL (4.20-5.40) L 04/27/22 04:14 Hgb 7.2 g/dL (12.0-16.0) L 04/27/22 04:14 Hct 22.5 % (37.0-47.0) L 04/27/22 04:14 MCV 103.7 fL (81.0-99.0) H 04/27/22 04:14 MCH 33.2 pg (27.0-31.0) H 04/27/22 04:14 MCHC 32.0 g/dL (32.0-36.0) 04/27/22 04:14 RDW 15.7 % (12.0-15.0) H 04/27/22 04:14 Plt Count 124 10^3/uL (130-450) L 04/27/22 04:14 MPV 8.7 fL (7.9-10.8) 04/27/22 04:14 Neut # (Auto) 5.8 10^3/uL (1.5-6.6) 04/27/22 04:14 Lymph # (Auto) 1.2 10^3/uL (1.5-3.5) L 04/27/22 04:14 [place] # (Auto) 0.7 10^3/uL (0.0-1.0) 04/27/22 04:14 Eos # (Auto) 0.1 10^3/uL (0.0-0.7) 04/27/22 04:14 Baso # (Auto) 0.0 10^3/uL (0.0-0.1) 04/27/22 04:14 Absolute Nucleated RBC 0.02 x10^3/uL 04/27/22 04:14 Nucleated RBC % 0.3 /100WBC 04/27/22 04:14 PT 12.8 secs (9.9-12.6) H 04/26/22 19:22 INR 1.2 (0.8-1.2) 04/26/22 19:22 APTT 29.2 secs (24.9-33.3) 04/26/22 19:22 Sodium 138 mmol/L (135-145) 04/27/22 04:14 Potassium 4.3 mmol/L (3.5-5.0) 04/27/22 04:14 Chloride 104 mmol/L (101-111) 04/27/22 04:14 Carbon Dioxide 25 mmol/L (21-32) 04/27/22 04:14 Anion Gap 9.0 (6-13) 04/27/22 04:14 BUN 44 mg/dL (6-20) H 04/27/22 04:14 Creatinine 0.9 mg/dL (0.4-1.0) 04/27/22 04:14 Estimated GFR (MDRD) 62 (>89) L 04/27/22 04:14 Glucose 114 mg/dL (70-100) H 04/27/22 04:14 Calcium 8.0 mg/dL (8.5-10.3) L 04/27/22 04:14 Phosphorus 2.5 mg/dL (2.5-4.6) 04/27/22 04:14 Magnesium 1.3 mg/dL (1.7-2.8) L 04/27/22 04:14 Total Bilirubin 0.9 mg/dL (0.2-1.0) 04/27/22 04:14 AST 26 IU/L (10-42) 04/27/22 04:14 ALT 12 IU/L (10-60) 04/27/22 04:14 Alkaline Phosphatase 161 IU/L (42-121) H 04/27/22 04:14 Troponin I High Sens 10.4 ng/L (2.3-14.8) 04/26/22 23:06 Total Protein 5.4 g/dL (6.7-8.2) L 04/27/22 04:14 Albumin 2.0 g/dL (3.2-5.5) L 04/27/22 04:14 Globulin 3.4 g/dL (2.1-4.2) 04/27/22 04:14 Albumin/Globulin Ratio 0.6 (1.0-2.2) L 04/27/22 04:14 Lipase 73 U/L (22-51) H 04/26/22 19:22 Carcinoembryonic Ag 4.8 ng/mL 04/26/22 23:06 SARS-CoV-2 (PCR) NOT DETECTED 04/26/22 21:13 Blood Type O POSITIVE 04/26/22 19:22 Antibody Screen NEGATIVE 04/26/22 19:22 Crossmatch IS Only See Detail 04/26/22 19:22 - Procedures Procedures: Procedures EXCISION OF CECUM, ENDO (06/06/19) EXCISION OF DUODENUM, ENDO, DIAGN (06/06/19) EXCISION OF STOMACH, PYLORUS, ENDO, DIAGN (06/06/19) EXCISION OF TRANSVERSE COLON, ENDO (06/06/19) TRANSFUSE NONAUT RED BLOOD CELLS IN PERIPH VEIN, PERC (06/06/19) Sepsis Event Note (H) - Evaluation Current Stage of Sepsis: Ruled out
--- NOTE | 2022-04-27 11:27 | ANESTHESIA ---
Pre-Anesthesia VS, & Labs - Diagnosis GI bleed - Procedure EGD Vital Signs: Temp Pulse Resp BP Pulse Ox O2 Flow Rate 36.9 C 86 18 140/56 H 92 04/27/22 10:37 04/27/22 10:15 04/27/22 10:15 04/27/22 10:15 04/27/22 10:15 Height: 5 ft 5 in Weight (kg): 86.5 kg Body Mass Index: 31.7 BMI Classification: Obese - NPO >8 hours - Is Patient ?: No - Lab Results Current Lab Results: Laboratory Tests 04/27/22 04:14: Sodium 138, Potassium 4.3, Chloride 104, Carbon Dioxide 25, Anion Gap 9.0, BUN 44 H, Creatinine 0.9, Estimated GFR (MDRD) 62 L, Glucose 114 H, Calcium 8.0 L, Phosphorus 2.5, Magnesium 1.3 L, Total Bilirubin 0.9, AST 26, ALT 12, Alkaline Phosphatase 161 H, Total Protein 5.4 L, Albumin 2.0 L, Globulin 3.4, Albumin/Globulin Ratio 0.6 L 04/27/22 04:14: WBC 7.9, RBC 2.17 L, Hgb 7.2 L, Hct 22.5 L, MCV 103.7 H, MCH 33.2 H, MCHC 32.0, RDW 15.7 H, Plt Count 124 L, MPV 8.7, Neut # (Auto) 5.8, Lymph # (Auto) 1.2 L, [place] # (Auto) 0.7, Eos # (Auto) 0.1, Baso # (Auto) 0.0, Absolute Nucleated RBC 0.02, Nucleated RBC % 0.3 04/26/22 23:06: Carcinoembryonic Ag 4.8 04/26/22 23:06: Troponin I High Sens 10.4 04/26/22 21:12: Hgb 6.4 L*, Hct 20.8 L 04/26/22 19:22: Sodium 135, Potassium 4.8, Chloride 99 L, Carbon Dioxide 27, An ion Gap 9.0, BUN 39 H, Creatinine 0.9, Estimated GFR (MDRD) 62 L, Glucose 163 H, Calcium 8.2 L, Total Bilirubin 0.7, AST 34, ALT 14, Alkaline Phosphatase 201 H, Total Protein 6.1 L, Albumin 2.2 L, Globulin 3.9, Albumin/Globulin Ratio 0.6 L, Lipase 73 H 04/26/22 19:22: PT 12.8 H, INR 1.2, APTT 29.2 04/26/22 19:22: WBC 8.9, RBC 2.18 L, Hgb 7.2 L, Hct 23.6 L, MCV 108.3 H, MCH 33.0 H, MCHC 30.5 L, RDW 14.4, Plt Count 165, MPV 8.5, Neut # (Auto) 7.0 H, Lymph # (Auto) 1.0 L, [place] # (Auto) 0.7, Eos # (Auto) 0.0, Baso # (Auto) 0.0, Absolute Nucleated RBC 0.00, Nucleated RBC % 0.0 04/26/22 19:22: Blood Type O POSITIVE, Antibody Screen NEGATIVE, Crossmatch IS Only See Detail Fish Bones: 04/27/22 04:14 04/27/22 04:14 Home Medications and Allergies Active Medications Acetaminophen (Acetaminophen 325 Mg Tablet) 650 mg PO Q4HR PRN PRN Reason: Pain 1 to 4, or Fever Albuterol (Albuterol Neb 2.5 Mg/3 Ml) 2.5 mg INH Q4HR PRN PRN Reason: Wheezing Carvedilol (Carvedilol 12.5 Mg Tablet) 25 mg PO BID [facility] Last Admin: 04/27/22 10:40 Dose: Not Given Sodium Chloride (Normal Saline 0.9%) 1,000 mls @ 100 mls/hr IV .Q10H [facility] Last Infusion: 04/27/22 09:45 Dose: 15 mls/hr Morphine Sulfate (Morphine 2 Mg/Ml Carpuject) 2 mg IVP Q2HR PRN PRN Reason: Pain 8 to 10 Ondansetron HCl (Ondansetron 4 Mg/2 Ml Vial) 4 mg IVP Q6HR PRN PRN Reason: Nausea / Vomiting Oxycodone HCl (Oxycodone 5 Mg Tablet) 5 mg PO Q4HR PRN PRN Reason: Pain 5 to 7 Pantoprazole Sodium (Pantoprazole 40 Mg Vial) 40 mg IVP BID [facility] Last Admin: 04/27/22 10:45 Dose: 40 mg Sodium Chloride (Sodium Chloride Flush 0.9% 10 Ml Syringe) 10 ml IVP 0100,0900,1700 PEDRO Last Admin: 04/27/22 10:45 Dose: 10 ml Sodium Chloride (Sodium Chloride Flush 0.9% 10 Ml Syringe) 10 ml IVP PRN PRN PRN Reason: NEEDED PER PROVIDER ORDERS Temazepam (Temazepam 15 Mg Capsule) 15 mg PO QPM PRN PRN Reason: Insomnia Albuterol Sulfate [Proair Hfa Inhaler] 2 puffs IH Q4HR PRN 04/22/18 carvediloL [Carvedilol] 1 tab PO BID 04/22/18 Allergies/Adverse Reactions: Allergies Allergy/AdvReac Type Severity Reaction Status Date / Time TIARA Inhibitors Allergy Severe Respiratory Verified 04/26/22 19:30 lisinopril Allergy Severe Respiratory Verified 04/26/22 19:30 Anes History & Medical History - Anesthetic History Anesthesia Complications: reports: No previous complications - Medical History Cardiovascular: reports: Hypertension, High cholesterol, Atrial fibrillation Pulmonary: reports: Asthma Gastrointestinal: reports: GERD, GI bleed, Ulcers Urinary: reports: None Neuro: reports: None Musculoskeletal: reports: Gout, Chronic back pain Endocrine/Autoimmune: reports: None Blood Disorders: reports: None Skin: reports: Rosacea Smoking Status: Current every day smoker - Surgical History General: reports: Appendectomy Eyes Ears Nose Throat (EENT): reports: Tonsil/Adenoidectomy Exam General: Alert, Oriented x3 Dental: WNL Mouth Opening: Greater than 4 Fingerbreadths Neck Mobility: Normal Mallampati classification: II Respiratory: Lungs clear Cardiovascular: Regular rate Plan Anesthesia Type: Total IV Consent for Procedure(s) Verified and Reviewed: Yes Code Status: Attempt Resuscitation ASA classification: 3-Severe systemic disease Is this case an emergency?: Yes
[2022-04-27] MEDS ORDERED: LIDOCAINE-PF 2% 10 ML AMP SUBQ ONE (11:30)
[2022-04-27] MEDS ORDERED: PROPOFOL 200 MG/20 ML VIAL IVP ONE ×2 (11:30→11:55)
[2022-04-27] MEDS ORDERED: EPINEPHrine ABBOJECT 1 MG/10 ML SYRINGE ONE (11:57)
[2022-04-27] MEDS ORDERED: EPINEPHrine 1 MG/ML AMP IJ ONE (11:58)
--- NOTE | 2022-04-27 12:10 | OPERATIVE REPORT ---
Operative Report - General Admit Date: 04/26/22 Procedure Date: 04/27/22 Planned Procedure: EGD Pre-Op Diagnosis: UGI bleed Procedure Performed: EGD, epi injection of ulcer, biopsy antrum x 4 Post Op Diagnosis: Non-actively bleeding duodenal ulcer - Procedure Note Primary Surgeon: Mehdi Heaton MD Anesthesia Technique: Moderate sedation Indications: Acute blood loss anemia (melena) while on NSAID with history of PUD Findings: Non-actively bleeding duodenal ulcer - Other Other Information/Narrative: PROCEDURE DATE: 04/27/2022 SURGEON: Danielito Heaton MD, FACS PREOPERATIVE DIAGNOSIS: Acute GI blood loss anemia - suspect PUD POSTOPERATIVE DIAGNOSIS: Non-actively bleeding duodenal ulcer NAME OF PROCEDURE: Esophagogastroduodenoscopy with raymundo-ulcer epinephrine injection and random biopsy of the gastric antrum to search for HP ANESTHESIA: IV sedation DESCRIPTION OF PROCEDURE FOLLOWS: After consent for the procedure was obtained, the patient was brought to the operating room where, in the supine position moderate IV sedation was administered. The patient was placed into the left lateral decubitus position with the head of the bed raised. The throat was anesthetized with Cetacaine. A Pentax upper endoscope was gently inserted into the esophagus and the examination was begun. The esophageal mucosa was normal. The Z line was at 38 cm. There was no evidence of esophagitis, neoplasms, tumors, ulcers, erosions, strictures, varices, fresh or old blood, or Muniz's. The stomach was entered and insufflated. There was no fresh or old blood in the gastric lumen. The antrum was normal. The pylorus was intubated and in the first portion of the duodenum was an 8 cm, deep ulceration without active bleeding or clot. There appeared to be a lesion in the center of the ulcer that might represent a visible vessel but there was no pulsation or bleeding from this area. The second portion of the duodenum was normal. I decided to inject epinephrine in 3 quadrants about the ulcer to minimize the risk of re-bleeding during her healing process. I chose to not use clips as I was unsure if the lesion in the center of the ulcer was actually a vessel. The scope was brought back into the stomach and retroflexed view of the gastroesophageal junction was unremarkable. The scope was reflexed into normal position. Four mucosal biopsy specimens were taken from the gastric antrum for HP evaluation. The stomach was deflated of air. The scope was removed. The patient tolerated the procedure well. ASSESSMENT: Recurrent duodenal ulcer likely due to NSAID use. No active bleeding RECOMMENDATION: 1) PPI IV then switch to oral 2) Carafate orally 3) May have clear liquids 4) Avoid NSAIDs 5) If re-bleeding occurs, attempt at endoscopic control will be offered. If that fails, exploratory laparotomy with oversew of the ulcer will be performed.
--- NOTE | 2022-04-27 12:56 | ANESTHESIA POST OP EVALUATION ---
Anesthesia Post Eval - Post Anesthesia Eval Vitals: Last Vital Signs Temp 37.2 C 04/27/22 12:23 Pulse 85 04/27/22 12:23 Resp 18 04/27/22 12:23 BP 95/45 L 04/27/22 12:23 Pulse Ox 93 04/27/22 12:23 O2 Flow Rate CV Function Including HR & BP: Stable Pain Control: Satisfactory Nausea & Vomiting: Negative Mental Status: Baseline Respiratory Status: Airway Patent Hydration Status: Satisfactory Anesthesia Complications: None
[2022-04-27] MEDS ORDERED: MORPHINE 2 MG/ML CARPUJECT IVP PRN (13:47)
[2022-04-27 14:04] LABS: HGB - HEMOGLOBIN 8.3 g/dL (12.0-16.0); MEAN CORPUSCULAR HEMOGLOBIN 32.7 pg (27.0-31.0); MEAN CORPUSCULAR HGB CONC 33.2 g/dL (32.0-36.0); MEAN CORPUSCULAR VOLUME 98.4 fL (81.0-99.0); MEAN PLATELET VOLUME 8.8 fL (7.9-10.8); RED BLOOD COUNT 2.54 10^6/uL (4.20-5.40); RED CELL DISTRIBUTION WIDTH 16.6 % (12.0-15.0); WHITE BLOOD COUNT 8.6 x10^3/uL (4.8-10.8)
[2022-04-27] MEDS ORDERED: LORazepam 2 MG/ML VIAL IVP PRN (16:24)
--- NOTE | 2022-04-27 16:36 | PHARMACY PROGRESS NOTE ---
- Best Possible Medication History Admit Date and Time: 04/26/22 2240 Processed by: Pharmacy Medication History completed: Yes Patient Interview: Completed Secondary Source(s): Insurance records As the person ultimately responsible for medication therapy, providers are able to order a medication from an existing home medication list in [facility] via the "Reconcile Routine" prior to Confirmation of that medication by office support. Such practice is discouraged except when the physician, in their clinical judgment, deems that a medical need exists for a medication without regard to previous use.
[2022-04-27] MEDS: SUCRALFATE 1 GM/10 ML UDC PO SCH ×2 (17:11→21:03)
--- NOTE | 2022-04-27 19:59 | PROVIDER PROGRESS NOTE ---
Progress Note Snehal is comfortable. She has no abdominal pain. Her VSS; Abd is soft and nontender. Hgb after 2nd unit of blood is ~8. A: Acute GI blood loss due to NSAID associated duodenal ulcer - clinically stable. P: Continue IV PPI; serial H&H; Offer EGD if re-bleds. Mehdi Heaton MD General Surgery Service
[2022-04-27] MEDS: PANTOPRAZOLE 40 MG VIAL IV SCH (21:03)
[2022-04-27] MEDS: carvediloL 12.5 MG TABLET PO SCH (21:03)
[2022-04-27 23:05] LABS: HCT - HEMATOCRIT 22.3 % (37.0-47.0); HGB - HEMOGLOBIN 7.2 g/dL (12.0-16.0); MEAN CORPUSCULAR HEMOGLOBIN 32.7 pg (27.0-31.0); MEAN CORPUSCULAR HGB CONC 32.3 g/dL (32.0-36.0); MEAN CORPUSCULAR VOLUME 101.4 fL (81.0-99.0); MEAN PLATELET VOLUME 8.8 fL (7.9-10.8); RED BLOOD COUNT 2.2 10^6/uL (4.20-5.40); RED CELL DISTRIBUTION WIDTH 17.1 % (12.0-15.0); WHITE BLOOD COUNT 7.1 x10^3/uL (4.8-10.8)
[2022-04-28] MEDS: SODIUM CHLORIDE 0.9% 1,000 ML IV SCH ×3 (03:05→23:14)
[2022-04-28] MEDS: SODIUM CHLORIDE FLUSH 0.9% 10 ML SYRINGE IVP SCH ×4 (03:53→23:27)
[2022-04-28 05:01] LABS: HGB - HEMOGLOBIN 7.2 g/dL (12.0-16.0); MEAN CORPUSCULAR HEMOGLOBIN 32.3 pg (27.0-31.0); MEAN CORPUSCULAR HGB CONC 31.3 g/dL (32.0-36.0); MEAN CORPUSCULAR VOLUME 103.1 fL (81.0-99.0); MEAN PLATELET VOLUME 8.9 fL (7.9-10.8); RED BLOOD COUNT 2.23 10^6/uL (4.20-5.40); RED CELL DISTRIBUTION WIDTH 17.4 % (12.0-15.0); WHITE BLOOD COUNT 7.8 x10^3/uL (4.8-10.8)
[2022-04-28 05:42] LABS: FOLATE 6.34 ng/mL (5.90 - >24.8)
[2022-04-28] MEDS: SUCRALFATE 1 GM/10 ML UDC PO SCH ×4 (06:26→21:07)
--- NOTE | 2022-04-28 07:45 | PROVIDER PROGRESS NOTE ---
Assessment/Plan - Problem List (1) GI bleeding Qualifiers: GI bleed type/associated pathology: melena Qualified Code(s): K92.1 - Melena Assessment/Plan: There is a history of a prior bleeding duodenal ulcer and bleeding AVMs (in 2019, when she needed to be transferred from here to a larger hospital ). She presented now with melanotic BMs then maroon and red stools. General surgery is consulting and took her for EGD yesterday and found a non-bleeding duodenal ulcer, that was injected. Antral bx done to check for H pylori and were sent out, are pending. Etiology was suspected to be NSAID use, but last night the daughter shared that the pt drinks alot of alcohol. Surg recommended IV Protonix bid, will continue this Avoid antiplatelet agents and anticoagulants. Surg recommended clear liquids,they were started after surg. Today, because of nausea, Surg recommends continue with clear liquids and add Ensure. 2) Symptomatic anemia She received 2U of blood yesterday, while she was actively bleeding. We are following Hgb every 6-12 hours yet today. If Hgb falls below 7, will again order a transfusion. Will order OOB to start and orthostatic VS checks. 3) HTN BP meds are ordered with holding parameters. 4) Hx CAD She has not been on antiplatelet agents because of Hx of GI bleed. 5) Alcohol use Daughter informed the pt's RN yesterday, that the patient's alcohol abuse is not known or is not being addressed, as a potential component of her recurring ulcers. The daughter stated that she falls frequently at home and it is mostly related to alcohol use. I then questioned the patient regarding her EtOH use: She said she drinks rum, 2-4 drinks a day and that she has never gone through withdrawal. Her LFTs, plts and INR are unremarkable, but her MCV is very high Ordered a CIWA protocol Started daily Thiamine po B12 & folate levels are OK Will check an ammonia level, given her slow response when we discussed alcohol, which may have been reluctance to speak about it, since she said "My daughter makes too much out of it". Will order PT evaluation regarding her Hx of falls (today is Sun and no PT here, except Mon-Sat) 6) Hypomagnesemia She needed iv Mg rider replaced yesterday for Mg level of 1.3. Following Mg, Ca and PO4 intermittently now and replace if low. - Current Meds Current Meds: Current Medications Generic Name Dose Route Start Last Admin Trade Name Dave PRN Reason Stop Dose Admin Carvedilol 25 mg 04/27/22 13:46 04/27/22 21:03 Carvedilol 12.5 Mg Tablet PO 25 mg BID PEDRO Administration Sodium Chloride 1,000 mls @ 100 mls/hr 04/26/22 23:00 04/28/22 03:05 Normal Saline 0.9% IV 100 mls/hr .Q10H PEDRO Administration Pantoprazole Sodium 40 mg 04/27/22 21:00 04/27/22 21:03 Pantoprazole 40 Mg Vial IV 40 mg BID PEDRO Administration Sodium Chloride 10 ml 04/27/22 01:00 04/28/22 03:53 Sodium Chloride Flush 0.9% 10 Ml Syringe IVP Not Given 0100,0900,1700 PEDRO Sucralfate 1 gm 04/27/22 16:00 04/28/22 06:26 Sucralfate 1 Gm/10 Ml Udc PO 1 gm 0700,1100,1600,2200 PEDRO Administration - Lab Result Fish Bone Diagrams: 04/28/22 09:57 04/28/22 08:08 - Additional Planning My Orders: My Active Orders 04/27/22 13:46 carvediloL [Coreg] 25 mg PO BID 04/27/22 13:47 Morphine Inj (Carpuject) [Morphine (Carpuject)] 2 mg IVP Q6HR PRN 04/27/22 16:24 CIWA - AR Score Card [RC] Q4HR Social Work Consult [CONS] Routine LORazepam INJ [Ativan Inj (Vial)] 1 mg IVP Q30M PRN 04/27/22 21:00 Pantoprazole [Protonix] 40 mg IV BID 04/28/22 07:34 Miscellaenous Nursing Order [RC] QSHIFT 04/28/22 07:36 Orthostatic [Vital Signs - Orthostatic] [RC] DAILY 04/28/22 09:00 Thiamine [Vitamin B-1] 100 mg PO DAILY 04/28/22 10:00 CBC W/O DIFF (HEMOGRAM) [HEME] Q8H 04/28/22 Lunch DIET [Dysphagia - Puree] [DIET] 04/28/22 Dinner DIET [Soft (Low Fiber) Diet] [DIET] 04/29/22 Evaluate and Treat PT [PT] Routine 04/29/22 05:00 BMP - BASIC METABOLIC PANEL [CHEM] DAILYLAB CBC - COMP BLD CT W/AUTO DIFF [HEME] DAILYLAB Subjective - Subjective Patient Reports: Nausea, Pain (slt pain in abd after clear liquid breakfast) Objective Vital Signs: Vital Signs - 24 hr 04/27/22 04/27/22 04/27/22 09:39 09:46 10:15 Temperature 36.8 C Heart Rate [ 92 93 86 Brachial] Heart Rate [ Monitoring electrodes] Respiratory 18 18 18 Rate Blood Pressure 140/58 H 138/59 H 140/56 H [Right Brachial artery] O2 Saturation 96 95 92 04/27/22 04/27/22 04/27/22 10:37 12:23 15:36 Temperature 36.9 C 37.2 C 37.1 C Heart Rate [ 86 94 Brachial] Heart Rate [ 85 Monitoring electrodes] Respiratory 18 16 Rate Blood Pressure 95/45 L 151/98 H [Right Brachial artery] O2 Saturation 93 95 04/27/22 04/27/22 04/28/22 21:02 23:41 04:16 Temperature 37.3 C 37.0 C 37.0 C Heart Rate [ 95 88 91 Brachial] Heart Rate [ Monitoring electrodes] Respiratory 16 20 20 Rate Blood Pressure 135/58 H 123/61 132/62 H [Right Brachial artery] O2 Saturation 94 91 L 91 L 04/28/22 07:26 Temperature 37.0 C Heart Rate [ 89 Brachial] Heart Rate [ Monitoring electrodes] Respiratory 18 Rate Blood Pressure 132/56 H [Right Brachial artery] O2 Saturation 95 Oxygen O2 Source Room air I&O (Last 24 Hrs): Intake and Output Totals x24h 04/26/22 04/27/22 04/28/22 23:59 23:59 23:59 Intake Total 1110 2002.75 1000 Output Total 0 Balance 1110 2002.75 1000 General: Alert, Oriented x3 HEENT: EOMI, Mucous membr. moist/pink Neck: Supple, No JVD Neuro: Alert, Non Focal Cardiovascular: Regular rate, No murmurs Respiratory: No respiratory distress, Breath sounds nml Abdomen: Soft, No tenderness Extremities: No clubbing, No edema - Results Results: Laboratory Results WBC 7.8 x10^3/uL (4.8-10.8) 04/28/22 04:23 RBC 2.23 10^6/uL (4.20-5.40) L 04/28/22 04:23 Hgb 7.2 g/dL (12.0-16.0) L 04/28/22 04:23 Hct 23.0 % (37.0-47.0) L 04/28/22 04:23 MCV 103.1 fL (81.0-99.0) H 04/28/22 04:23 MCH 32.3 pg (27.0-31.0) H 04/28/22 04:23 MCHC 31.3 g/dL (32.0-36.0) L 04/28/22 04:23 RDW 17.4 % (12.0-15.0) H 04/28/22 04:23 Plt Count 130 10^3/uL (130-450) 04/28/22 04:23 MPV 8.9 fL (7.9-10.8) 04/28/22 04:23 Neut # (Auto) 5.8 10^3/uL (1.5-6.6) 04/27/22 04:14 Lymph # (Auto) 1.2 10^3/uL (1.5-3.5) L 04/27/22 04:14 [place] # (Auto) 0.7 10^3/uL (0.0-1.0) 04/27/22 04:14 Eos # (Auto) 0.1 10^3/uL (0.0-0.7) 04/27/22 04:14 Baso # (Auto) 0.0 10^3/uL (0.0-0.1) 04/27/22 04:14 Absolute Nucleated RBC 0.02 x10^3/uL 04/27/22 04:14 Nucleated RBC % 0.3 /100WBC 04/27/22 04:14 PT 12.8 secs (9.9-12.6) H 04/26/22 19:22 INR 1.2 (0.8-1.2) 04/26/22 19:22 APTT 29.2 secs (24.9-33.3) 04/26/22 19:22 Sodium 138 mmol/L (135-145) 04/27/22 04:14 Potassium 4.3 mmol/L (3.5-5.0) 04/27/22 04:14 Chloride 104 mmol/L (101-111) 04/27/22 04:14 Carbon Dioxide 25 mmol/L (21-32) 04/27/22 04:14 Anion Gap 9.0 (6-13) 04/27/22 04:14 BUN 44 mg/dL (6-20) H 04/27/22 04:14 Creatinine 0.9 mg/dL (0.4-1.0) 04/27/22 04:14 Estimated GFR (MDRD) 62 (>89) L 04/27/22 04:14 Glucose 114 mg/dL (70-100) H 04/27/22 04:14 Calcium 8.0 mg/dL (8.5-10.3) L 04/27/22 04:14 Phosphorus 2.5 mg/dL (2.5-4.6) 04/27/22 04:14 Magnesium 1.3 mg/dL (1.7-2.8) L 04/27/22 04:14 Total Bilirubin 0.9 mg/dL (0.2-1.0) 04/27/22 04:14 AST 26 IU/L (10-42) 04/27/22 04:14 ALT 12 IU/L (10-60) 04/27/22 04:14 Alkaline Phosphatase 161 IU/L (42-121) H 04/27/22 04:14 Troponin I High Sens 10.4 ng/L (2.3-14.8) 04/26/22 23:06 Total Protein 5.4 g/dL (6.7-8.2) L 04/27/22 04:14 Albumin 2.0 g/dL (3.2-5.5) L 04/27/22 04:14 Globulin 3.4 g/dL (2.1-4.2) 04/27/22 04:14 Albumin/Globulin Ratio 0.6 (1.0-2.2) L 04/27/22 04:14 Lipase 73 U/L (22-51) H 04/26/22 19:22 Carcinoembryonic Ag 4.8 ng/mL 04/26/22 23:06 Vitamin B12 235 pg/mL (180-914) 04/28/22 04:23 Folate 6.34 ng/mL (5.90 - >24.8) 04/28/22 04:23 SARS-CoV-2 (PCR) NOT DETECTED 04/26/22 21:13 Blood Type O POSITIVE 04/26/22 19:22 Antibody Screen NEGATIVE 04/26/22 19:22 Crossmatch IS Only See Detail 04/26/22 19:22 - Procedures Procedures: Procedures EXCISION OF CECUM, ENDO (06/06/19) EXCISION OF DUODENUM, ENDO, DIAGN (06/06/19) EXCISION OF STOMACH, PYLORUS, ENDO, DIAGN (06/06/19) EXCISION OF TRANSVERSE COLON, ENDO (06/06/19) TRANSFUSE NONAUT RED BLOOD CELLS IN PERIPH VEIN, PERC (06/06/19) Sepsis Event Note (H) - Evaluation Current Stage of Sepsis: Ruled out
[2022-04-28 08:39] LABS: CALCIUM 8.4 mg/dL (8.5-10.3); CREATININE 0.8 mg/dL (0.4-1.0); POTASSIUM 3.6 mmol/L (3.5-5.0)
[2022-04-28] MEDS: PANTOPRAZOLE 40 MG VIAL IV SCH ×2 (08:58→21:08)
[2022-04-28] MEDS: THIAMINE 100 MG TABLET PO SCH (08:59)
[2022-04-28] MEDS: carvediloL 12.5 MG TABLET PO SCH ×2 (08:59→21:08)
[2022-04-28 10:02] LABS: HCT - HEMATOCRIT 22.2 % (37.0-47.0); MEAN CORPUSCULAR HEMOGLOBIN 32.1 pg (27.0-31.0); MEAN CORPUSCULAR HGB CONC 31.1 g/dL (32.0-36.0); MEAN CORPUSCULAR VOLUME 103.3 fL (81.0-99.0); MEAN PLATELET VOLUME 8.6 fL (7.9-10.8); RED BLOOD COUNT 2.15 10^6/uL (4.20-5.40); RED CELL DISTRIBUTION WIDTH 17.3 % (12.0-15.0); WHITE BLOOD COUNT 7.1 x10^3/uL (4.8-10.8)
[2022-04-28 10:11] LABS: HGB - HEMOGLOBIN 6.9 g/dL (12.0-16.0)
--- NOTE | 2022-04-28 10:36 | PROVIDER PROGRESS NOTE ---
Subjective - General Admit Date: 04/26/22 Procedure Date: 04/27/22 Post Op Days: 1 Procedure Performed: EGD with epi injection of duodenal ulcer - Other Other Information/Narrative: Patient denies abdominal pain but states she continues to feel weak. She states she has felt week for several months, and when she presented to the hospital could not even sit up. Today, she is resting comfortably on the side of the bed. Denies feeling lightheaded. Some nausea with PO intake last night and this morning. No vomiting. Objective - Patient Data Reviewed Vital Signs: Yes Vital Signs: Vital Signs x48h Temp Pulse Resp BP Pulse Ox 04/28/22 07:26 37.0 C 89 18 132/56 H 95 04/28/22 04:16 37.0 C 91 20 132/62 H 91 L Weight: Weight 04/26/22 04/27/22 04/28/22 23:59 23:59 23:59 Weight (kg) 90.265 kg 86.5 kg 85.5 kg Intake & Output: Intake and Output Totals x24h 04/26/22 04/27/22 04/28/22 23:59 23:59 23:59 Intake Total 1110 2003.75 1480 Output Total 0 Balance 1110 2003.75 1480 - Lab Results Lab Results: 04/28/22 09:57 04/28/22 08:08 Other Lab Results: Lab Results x24hrs 04/28/22 04/28/22 04/28/22 Range/Units 09:57 08:08 08:08 WBC 7.1 (4.8-10.8) x10^3/uL RBC 2.15 L (4.20-5.40) 10^6/uL Hgb 6.9 L* (12.0-16.0) g/dL Hct 22.2 L (37.0-47.0) % MCV 103.3 H (81.0-99.0) fL MCH 32.1 H (27.0-31.0) pg MCHC 31.1 L (32.0-36.0) g/dL RDW 17.3 H (12.0-15.0) % Plt Count 103 L (130-450) 10^3/uL MPV 8.6 (7.9-10.8) fL Sodium (135-145) mmol/L Potassium (3.5-5.0) mmol/L Chloride (101-111) mmol/L Carbon Dioxide (21-32) mmol/L Anion Gap (6-13) BUN (6-20) mg/dL Creatinine (0.4-1.0) mg/dL Estimated GFR (MDRD) (>89) Glucose (70-100) mg/dL Calcium (8.5-10.3) mg/dL Phosphorus 3.5 (2.5-4.6) mg/dL Magnesium (1.7-2.8) mg/dL Ammonia 36.8 H (7-35) umol/L Vitamin B12 (180-914) pg/mL Folate (5.90 - >24.8) ng/mL Blood Type Antibody Screen Crossmatch IS Only 04/28/22 04/28/22 04/28/22 Range/Units 08:08 08:08 04:23 WBC (4.8-10.8) x10^3/uL RBC (4.20-5.40) 10^6/uL Hgb (12.0-16.0) g/dL Hct (37.0-47.0) % MCV (81.0-99.0) fL MCH (27.0-31.0) pg MCHC (32.0-36.0) g/dL RDW (12.0-15.0) % Plt Count (130-450) 10^3/uL MPV (7.9-10.8) fL Sodium 142 (135-145) mmol/L Potassium 3.6 (3.5-5.0) mmol/L Chloride 108 (101-111) mmol/L Carbon Dioxide 25 (21-32) mmol/L Anion Gap 9.0 (6-13) BUN 24 H (6-20) mg/dL Creatinine 0.8 (0.4-1.0) mg/dL Estimated GFR (MDRD) 71 L (>89) Glucose 99 (70-100) mg/dL Calcium 8.4 L (8.5-10.3) mg/dL Phosphorus (2.5-4.6) mg/dL Magnesium 1.4 L (1.7-2.8) mg/dL Ammonia (7-35) umol/L Vitamin B12 235 (180-914) pg/mL Folate 6.34 (5.90 - >24.8) ng/mL Blood Type Antibody Screen Crossmatch IS Only 04/28/22 04/27/22 04/27/22 Range/Units 04:23 22:43 14:01 WBC 7.8 7.1 8.6 (4.8-10.8) x10^3/uL RBC 2.23 L 2.20 L 2.54 L (4.20-5.40) 10^6/uL Hgb 7.2 L 7.2 L 8.3 L (12.0-16.0) g/dL Hct 23.0 L 22.3 L 25.0 L (37.0-47.0) % MCV 103.1 H 101.4 H 98.4 (81.0-99.0) fL MCH 32.3 H 32.7 H 32.7 H (27.0-31.0) pg MCHC 31.3 L 32.3 33.2 (32.0-36.0) g/dL RDW 17.4 H 17.1 H 16.6 H (12.0-15.0) % Plt Count 130 120 L 143 (130-450) 10^3/uL MPV 8.9 8.8 8.8 (7.9-10.8) fL Sodium (135-145) mmol/L Potassium (3.5-5.0) mmol/L Chloride (101-111) mmol/L Carbon Dioxide (21-32) mmol/L Anion Gap (6-13) BUN (6-20) mg/dL Creatinine (0.4-1.0) mg/dL Estimated GFR (MDRD) (>89) Glucose (70-100) mg/dL Calcium (8.5-10.3) mg/dL Phosphorus (2.5-4.6) mg/dL Magnesium (1.7-2.8) mg/dL Ammonia (7-35) umol/L Vitamin B12 (180-914) pg/mL Folate (5.90 - >24.8) ng/mL Blood Type Antibody Screen Crossmatch IS Only 04/26/22 Range/Units 19:22 WBC (4.8-10.8) x10^3/uL RBC (4.20-5.40) 10^6/uL Hgb (12.0-16.0) g/dL Hct (37.0-47.0) % MCV (81.0-99.0) fL MCH (27.0-31.0) pg MCHC (32.0-36.0) g/dL RDW (12.0-15.0) % Plt Count (130-450) 10^3/uL MPV (7.9-10.8) fL Sodium (135-145) mmol/L Potassium (3.5-5.0) mmol/L Chloride (101-111) mmol/L Carbon Dioxide (21-32) mmol/L Anion Gap (6-13) BUN (6-20) mg/dL Creatinine (0.4-1.0) mg/dL Estimated GFR (MDRD) (>89) Glucose (70-100) mg/dL Calcium (8.5-10.3) mg/dL Phosphorus (2.5-4.6) mg/dL Magnesium (1.7-2.8) mg/dL Ammonia (7-35) umol/L Vitamin B12 (180-914) pg/mL Folate (5.90 - >24.8) ng/mL Blood Type O POSITIVE Antibody Screen NEGATIVE Crossmatch IS Only See Detail - Current Medications Current Medications: Current Medications Generic Name Dose Route Start Last Admin Trade Name Kamarq PRN Reason Stop Dose Admin Carvedilol 25 mg 04/27/22 13:46 04/28/22 08:59 Carvedilol 12.5 Mg Tablet PO 25 mg BID PEDRO Administration Sodium Chloride 1,000 mls @ 100 mls/hr 04/26/22 23:00 04/28/22 03:05 Normal Saline 0.9% IV 100 mls/hr .Q10H PEDRO Administration Pantoprazole Sodium 40 mg 04/27/22 21:00 04/28/22 08:58 Pantoprazole 40 Mg Vial IV 40 mg BID PEDRO Administration Sodium Chloride 10 ml 04/27/22 01:00 04/28/22 08:59 Sodium Chloride Flush 0.9% 10 Ml Syringe IVP 10 ml 0100,0900,1700 PEDRO Administration Sucralfate 1 gm 04/27/22 16:00 04/28/22 06:26 Sucralfate 1 Gm/10 Ml Udc PO 1 gm 0700,1100,1600,2200 PEDRO Administration Thiamine HCl 100 mg 04/28/22 09:00 04/28/22 08:59 Thiamine 100 Mg Tablet PO 100 mg DAILY PEDRO Administration - Physical Exam General Appearance: positive: No acute distress, Alert Eyes Bilateral: positive: PERRL, EOMI Respiratory: positive: Chest non-tender, No respiratory distress, Wheezes (B inspiratory) Cardiovascular: positive: Regular rate & rhythm, No murmur Abdomen: positive: Non-tender. negative: Guarding, Rebound Extremities: positive: Non-tender, Full ROM Neurologic/Psychiatric: positive: Oriented x3 Impression/Plan - Problem List Problem List: A: 66 y/o F with Acute GI blood loss and anemia due to NSAID associated duodenal ulcer - s/p EGD with epi injection on 04/[address] Heaton. No active bleeding at time of procedure - clinically stable. P: Continue IV PPI, PO carafate; serial H&H; recommend transfusion of 1 unit pRBC's this AM (suspect hgb around 7 is equilibration and not sign of active bleeding as it's been stable for more than 12 hours). Offer EGD vs ex lap if re-bleeds. Continue liquid diet until nausea improves. Recommend adding Ensure to improve nutrition. Patient will need to avoid NSAIDs, EtOH on discharge, recommend continued PPI and carafate on discharge. I also recommend repeat EGD in 6 weeks to assess for improvement of ulcer.
[2022-04-28] MEDS ORDERED: diphenhydrAMINE INJ 50 MG/ML VIAL IVP STA (13:10)
--- NOTE | 2022-04-28 13:20 | PROVIDER PROGRESS NOTE ---
Hospitalist Cross-cover Note - Cross-Cover Note Cross-Cover Note: At about 1315, her RN noticed that she is getting red blotchiness around her eyes and the patient complained of itching there. There is no other itching anywhere else and no other complaints. Vital signs were done and showed temperature 36.4, heart rate 84, respiratory rate 18, saturation 96%, blood pressure 143/71. I examined the patient and saw hives around her eyes but no other place. Her chest auscultation had no wheezing. Impression: Allergic transfusion reaction Plan: Stop this transfusion Give iv Benadryl 25 mg now STAT. Monitor closer for the next few hours.
[2022-04-28 18:24] LABS: HCT - HEMATOCRIT 24.3 % (37.0-47.0); HGB - HEMOGLOBIN 7.8 g/dL (12.0-16.0)
[2022-04-29 06:19] LABS: CALCIUM 7.7 mg/dL (8.5-10.3); CREATININE 0.7 mg/dL (0.4-1.0); POTASSIUM 3.1 mmol/L (3.5-5.0)
[2022-04-29 06:23] LABS: BASOPHILS % (AUTO) 0.3 %; EOSINOPHILS # (AUTO) 0.2 10^3/uL (0.0-0.7); EOSINOPHILS % (AUTO) 3.1 %; HCT - HEMATOCRIT 23.3 % (37.0-47.0); HGB - HEMOGLOBIN 7.3 g/dL (12.0-16.0); LYMPHOCYTES # (AUTO) 0.8 10^3/uL (1.5-3.5); LYMPHOCYTES % (AUTO) 12.2 %; MEAN CORPUSCULAR HEMOGLOBIN 32.7 pg (27.0-31.0); MEAN CORPUSCULAR HGB CONC 31.3 g/dL (32.0-36.0); MEAN CORPUSCULAR VOLUME 104.5 fL (81.0-99.0); MONOCYTES # (AUTO) 0.4 10^3/uL (0.0-1.0); NEUTROPHILS # (AUTO) 4.7 10^3/uL (1.5-6.6); NEUTROPHILS % (AUTO) 76.9 %; PLT - PLATELET COUNT 107 10^3/uL (130-450); RED BLOOD COUNT 2.23 10^6/uL (4.20-5.40); RED CELL DISTRIBUTION WIDTH 17.2 % (12.0-15.0); WHITE BLOOD COUNT 6.2 x10^3/uL (4.8-10.8)
[2022-04-29] MEDS: SUCRALFATE 1 GM/10 ML UDC PO SCH ×4 (06:37→21:22)
--- NOTE | 2022-04-29 07:20 | PROVIDER PROGRESS NOTE ---
Subjective - General Admit Date: 04/26/22 Procedure Date: 04/27/22 Post Op Days: 2 Procedure Performed: EGD with epi injection of duodenal ulcer - Other Other Information/Narrative: Patient continues to feel nauseated with PO intake and notes an increase in pain after eating. Denies vomiting. +BM. States she feels bloated this AM. Endorses little ambulation yesterday, and does feel lightheaded with standing. Objective - Patient Data Vital Signs: Vital Signs x48h Temp Pulse Resp BP BP Pulse Ox 04/29/22 05:14 37.0 C 80 18 135/84 H 91 L 04/28/22 23:37 36.8 C 80 18 134/82 H 94 Weight: Weight 04/27/22 04/28/22 04/29/22 23:59 23:59 23:59 Weight (kg) 86.5 kg 85.5 kg 87 kg Intake & Output: Intake and Output Totals x24h 04/27/22 04/28/22 04/29/22 23:59 23:59 23:59 Intake Total 2002.75 4006.667 Output Total 0 300 Balance 75 3706.667 - Lab Results Lab Results: 04/29/22 05:36 04/29/22 05:36 Other Lab Results: Lab Results x24hrs 04/29/22 04/29/22 04/28/22 Range/Units 05:36 05:36 18:20 WBC 6.2 (4.8-10.8) x10^3/uL RBC 2.23 L (4.20-5.40) 10^6/uL Hgb 7.3 L 7.8 L (12.0-16.0) g/dL Hct 23.3 L 24.3 L (37.0-47.0) % MCV 104.5 H (81.0-99.0) fL MCH 32.7 H (27.0-31.0) pg MCHC 31.3 L (32.0-36.0) g/dL RDW 17.2 H (12.0-15.0) % Plt Count 107 L (130-450) 10^3/uL MPV 9.0 (7.9-10.8) fL Neut # (Auto) 4.7 (1.5-6.6) 10^3/uL Lymph # (Auto) 0.8 L (1.5-3.5) 10^3/uL [place] # (Auto) 0.4 (0.0-1.0) 10^3/uL Eos # (Auto) 0.2 (0.0-0.7) 10^3/uL Baso # (Auto) 0.0 (0.0-0.1) 10^3/uL Absolute Nucleated RBC 0.00 x10^3/uL Nucleated RBC % 0.0 /100WBC Sodium 140 (135-145) mmol/L Potassium 3.1 L (3.5-5.0) mmol/L Chloride 107 (101-111) mmol/L Carbon Dioxide 23 (21-32) mmol/L Anion Gap 10.0 (6-13) BUN 15 (6-20) mg/dL Creatinine 0.7 (0.4-1.0) mg/dL Estimated GFR (MDRD) 83 L (>89) Glucose 95 (70-100) mg/dL Calcium 7.7 L (8.5-10.3) mg/dL Phosphorus (2.5-4.6) mg/dL Magnesium (1.7-2.8) mg/dL Ammonia (7-35) umol/L Blood Type Antibody Screen Crossmatch IS Only 04/28/22 04/28/22 04/28/22 Range/Units 09:57 08:08 08:08 WBC 7.1 (4.8-10.8) x10^3/uL RBC 2.15 L (4.20-5.40) 10^6/uL Hgb 6.9 L* (12.0-16.0) g/dL Hct 22.2 L (37.0-47.0) % MCV 103.3 H (81.0-99.0) fL MCH 32.1 H (27.0-31.0) pg MCHC 31.1 L (32.0-36.0) g/dL RDW 17.3 H (12.0-15.0) % Plt Count 103 L (130-450) 10^3/uL MPV 8.6 (7.9-10.8) fL Neut # (Auto) (1.5-6.6) 10^3/uL Lymph # (Auto) (1.5-3.5) 10^3/uL [place] # (Auto) (0.0-1.0) 10^3/uL Eos # (Auto) (0.0-0.7) 10^3/uL Baso # (Auto) (0.0-0.1) 10^3/uL Absolute Nucleated RBC x10^3/uL Nucleated RBC % /100WBC Sodium (135-145) mmol/L Potassium (3.5-5.0) mmol/L Chloride (101-111) mmol/L Carbon Dioxide (21-32) mmol/L Anion Gap (6-13) BUN (6-20) mg/dL Creatinine (0.4-1.0) mg/dL Estimated GFR (MDRD) (>89) Glucose (70-100) mg/dL Calcium (8.5-10.3) mg/dL Phosphorus 3.5 (2.5-4.6) mg/dL Magnesium (1.7-2.8) mg/dL Ammonia 36.8 H (7-35) umol/L Blood Type Antibody Screen Crossmatch IS Only 04/28/22 04/28/22 04/26/22 Range/Units 08:08 08:08 19:22 WBC (4.8-10.8) x10^3/uL RBC (4.20-5.40) 10^6/uL Hgb (12.0-16.0) g/dL Hct (37.0-47.0) % MCV (81.0-99.0) fL MCH (27.0-31.0) pg MCHC (32.0-36.0) g/dL RDW (12.0-15.0) % Plt Count (130-450) 10^3/uL MPV (7.9-10.8) fL Neut # (Auto) (1.5-6.6) 10^3/uL Lymph # (Auto) (1.5-3.5) 10^3/uL [place] # (Auto) (0.0-1.0) 10^3/uL Eos # (Auto) (0.0-0.7) 10^3/uL Baso # (Auto) (0.0-0.1) 10^3/uL Absolute Nucleated RBC x10^3/uL Nucleated RBC % /100WBC Sodium 142 (135-145) mmol/L Potassium 3.6 (3.5-5.0) mmol/L Chloride 108 (101-111) mmol/L Carbon Dioxide 25 (21-32) mmol/L Anion Gap 9.0 (6-13) BUN 24 H (6-20) mg/dL Creatinine 0.8 (0.4-1.0) mg/dL Estimated GFR (MDRD) 71 L (>89) Glucose 99 (70-100) mg/dL Calcium 8.4 L (8.5-10.3) mg/dL Phosphorus (2.5-4.6) mg/dL Magnesium 1.4 L (1.7-2.8) mg/dL Ammonia (7-35) umol/L Blood Type O POSITIVE Antibody Screen NEGATIVE Crossmatch IS Only See Detail - Current Medications Current Medications: Current Medications Generic Name Dose Route Start Last Admin Trade Name Freq PRN Reason Stop Dose Admin Carvedilol 25 mg 04/27/22 13:46 04/28/22 21:08 Carvedilol 12.5 Mg Tablet PO 25 mg BID PEDRO Administration Sodium Chloride 1,000 mls @ 100 mls/hr 04/26/22 23:00 04/28/22 23:14 Normal Saline 0.9% IV 100 mls/hr .Q10H PEDRO Administration Pantoprazole Sodium 40 mg 04/27/22 21:00 04/28/22 21:08 Pantoprazole 40 Mg Vial IV 40 mg BID PEDRO Administration Sodium Chloride 10 ml 04/27/22 01:00 04/28/22 23:27 Sodium Chloride Flush 0.9% 10 Ml Syringe IVP Not Given 0100,0900,1700 PEDRO Sucralfate 1 gm 04/27/22 16:00 04/29/22 06:37 Sucralfate 1 Gm/10 Ml Udc PO 1 gm 0700,1100,1600,2200 PEDRO Administration Thiamine HCl 100 mg 04/28/22 09:00 04/28/22 08:59 Thiamine 100 Mg Tablet PO 100 mg DAILY PEDRO Administration - Physical Exam General Appearance: positive: Mild distress (uncomfortable) Eyes Bilateral: positive: PERRL, EOMI Respiratory: positive: Wheezes (B inspiratory) Cardiovascular: positive: Irregularly irregular Abdomen: positive: Tenderness (mild, diffuse), Guarding (voluntary), Other (distended). negative: Rebound Extremities: positive: Full ROM Neurologic/Psychiatric: positive: Oriented x3 Impression/Plan - Problem List Problem List: A: 66 y/o F with Acute GI blood loss and anemia due to NSAID associated duodenal ulcer - s/p EGD with epi injection on 04/[address] Heaton. No active bleeding at time of procedure - increased discomfort this AM P: - obtain upright cxr and kub this AM to r/o perforation - labs wnl - Continue IV PPI, PO carafate; serial H&H; Offer EGD vs ex lap if re-bleeds. - Continue liquid diet until nausea improves. Recommend adding Ensure to improve nutrition. - Patient will need to avoid NSAIDs, EtOH on discharge, recommend continued PPI and carafate on discharge. I also recommend repeat EGD in 6 weeks to assess for improvement of ulcer.
--- NOTE | 2022-04-29 08:04 | XRAY Report ---
PROCEDURE: Chest 1 View X-Ray INDICATIONS: distension, increased abdominal pain TECHNIQUE: One view of the chest was acquired. COMPARISON: 05/22/2019 FINDINGS: Surgical changes and devices: None. Lungs and pleura: Pulmonary vascular congestion is present with perihilar airspace opacities consist ent with CHF. Mediastinum: The heart is enlarged, similar to prior x-ray. Bones and chest wall: No suspicious bony lesions. Overlying soft tissues appear unremarkable. IMPRESSION: Cardiomegaly and pulmonary vascular congestion consistent with CHF. Reviewed by: Andrei Levy on 04/29/2022 8:02 AM PDT Approved by: Andrei Levy on 04/29/2022 8:02 AM PDT Station ID: [id number]
--- NOTE | 2022-04-29 08:05 | XRAY Report ---
PROCEDURE: Abdomen 1 View X-Ray INDICATIONS: distension, abdominal pain TECHNIQUE: One view of the abdomen acquired. COMPARISON: None FINDINGS: Surgical changes and devices: Vertebral plasty changes are seen in the lumbar spine. Bowel: Bowel gas pattern is normal. No free air, pneumatosis, or portal venous gas. Soft tissues: No suspicious abdominal calcifications. Visualized solid organ contours appear normal in size. Bones: No suspicious bony lesions. IMPRESSION: No acute plain film abnormality. No free air is identified Reviewed by: Andrei Levy on 04/29/2022 8:04 AM PDT Approved by: Andrei Levy on 04/29/2022 8:04 AM PDT Station ID: [id number]
[2022-04-29] MEDS ORDERED: SIMETHICONE CHEW 80 MG TABLET PO PRN (08:17)
[2022-04-29] MEDS ORDERED: ACETAMINOPHEN 325 MG TABLET PO ONE (08:21)
[2022-04-29] MEDS ORDERED: diphenhydrAMINE 25 MG CAPSULE PO ONE (08:22)
--- NOTE | 2022-04-29 08:24 | PROVIDER PROGRESS NOTE ---
Assessment/Plan - Problem List (1) UGI bleed Assessment/Plan: There is a history of a prior bleeding duodenal ulcer and bleeding AVMs (in 2019, when she needed to be transferred from here to a larger hospital ). She presented now with abd pain and melanotic BMs then had maroon and red stools. General surgery took her for an EGD and a duodenal ulcer was found (2) Duodenal ulcer EGD found a non-bleeding duodenal ulcer, that was injected. Antral bx done to check for H pylori and were sent out, are pending. Etiology was suspected to be NSAID use, but the daughter shared that the pt drinks alot of alcohol. Surg recommended IV Protonix bid, will continue this Avoid antiplatelet agents and anticoagulants. Surg recommended clear liquids and not to advance yet due to abd pain. Today, because of abd pain, Gen Surg Dr Collazo obtained KUB and chest x-rays to check for complications (perforation). This showed no free air. The General surgeon recommends we add simethicone for gassy bloating pain 3) Symptomatic anemia She is orthostatic today with a 20 mmHg drop in syst BP when standing She initially received 2U of blood. She was getting a third U of blood yesterday, for Hgb 6.9, and had a transfusion rxn and only got 1/2 the unit transfused. We are following Hgb every 6-12 hours yet today. Gen Surg recommends that if she is orthostatic today, to give another Unit of blood or if Hgb falls below 7, will again order a transfusion. Will order OOB to start with PT today and continue orthostatic VS checks. (4) Transfusion reaction During her blood transfusion yesterday, she developed hives around her eyes. She received IV Benadryl x1, there was no further spread of the hives and she had no wheezing or hypotension. The blood bank was informed and did its entire evaluation and I was contacted that everything was done correctly. She will need a unit of blood transfused today. She will be premedicated with Benadryl and Tylenol (5) CHF Her chest x-ray today showed volume overload in the lungs. We will stop her IV fluids, Which she was getting for hypotension and orthostasisespecially since she is getting a transfusion today. Will give Lasix after the transfusion. Will order an Echo since she may have a cardiomyopathy given her alcohol abuse. 6) Alcohol abuse Daughter informed the pt's RN, that the patient's alcohol abuse is not known or is not being addressed, as a potential component of her recurring ulcers. The daughter stated that she falls frequently at home, needs to call 911 for lift assist, and ithe falls are mostly related to alcohol use. I then questioned the patient regarding her EtOH use: She slowly answered that she drinks rum, 2-4 drinks a day and that she has never gone through withdrawal. Her LFTs, plts and INR are unremarkable, but her MCV is very high We ordered a CIWA protocol with prn Ativan Started daily Thiamine po B12 & folate levels were checked, due to her elevated MCV, and are OK. Will order a vitamin Will follow ammonia level, given her slow responses when we discussed alcohol. This may have been reluctance to speak about it, since she said "My daughter makes too much out of it" and today she told Dr Collazo she has 1 drink a week. Will order PT evaluation regarding her Hx of falls as I suspect she may have alcohol-induced balance problems Will also ask SW to see re: alcohol use 7) Hx HTN BP meds were ordered, her Coreg dose was decreased and with holding parameters written. 8) Hx CAD She has not been on antiplatelet agents because of Hx of GI bleed. 9) Hypomagnesemia She needed iv Mg rider replaced yesterday for Mg level of 1.3. Following Mg, Ca and PO4 intermittently now and replace if low. 10) Hypokalemia Will replace with K riders [place] BMP at least daily - Current Meds Current Meds: Current Medications Generic Name Dose Route Start Last Admin Trade Name Dave PRN Reason Stop Dose Admin Carvedilol 25 mg 04/27/22 13:46 04/28/22 21:08 Carvedilol 12.5 Mg Tablet PO 25 mg BID PEDRO Administration Sodium Chloride 1,000 mls @ 100 mls/hr 04/26/22 23:00 04/28/22 23:14 Normal Saline 0.9% IV 100 mls/hr .Q10H PEDRO Administration Pantoprazole Sodium 40 mg 04/27/22 21:00 04/28/22 21:08 Pantoprazole 40 Mg Vial IV 40 mg BID PEDRO Administration Sodium Chloride 10 ml 04/27/22 01:00 04/28/22 23:27 Sodium Chloride Flush 0.9% 10 Ml Syringe IVP Not Given 0100,0900,1700 PEDRO Sucralfate 1 gm 04/27/22 16:00 04/29/22 06:37 Sucralfate 1 Gm/10 Ml Udc PO 1 gm 0700,1100,1600,2200 PEDRO Administration Thiamine HCl 100 mg 04/28/22 09:00 04/28/22 08:59 Thiamine 100 Mg Tablet PO 100 mg DAILY PEDRO Administration - Lab Result Fish Bone Diagrams: 04/29/22 05:36 04/29/22 05:36 - Diagnostic Imaging Results Diagnostic Imaging Results: Final report reviewed - Additional Planning My Orders: My Active Orders 04/28/22 07:34 Miscellaenous Nursing Order [RC] QSHIFT 04/28/22 07:36 Orthostatic [Vital Signs - Orthostatic] [RC] DAILY 04/28/22 09:00 Thiamine [Vitamin B-1] 100 mg PO DAILY 04/28/22 14:00 POST TX RXN HEMOLYSIS CHECK Routine POST TXRXN TEMP>37C REFLEX? Routine PRE TX RXN HEMOLYSIS CHECK Routine TXRX DISCREPANCIES Routine TXRX NOTIFICATIONS Routine TXRX PATH REVIEW COMMENT Routine TXRX PASTORA BLD COMPONENT Routine TXRX TECH/LEAD REVIEW Routine TXRXN BEDSIDE CLERICAL RECHECK Routine TXRXN XM PAPERWORK RECHECK Routine 04/29/22 Evaluate and Treat PT [PT] Routine 04/29/22 08:17 Simethicone [Mylicon] 80 mg PO 0900,1300,1800,2100 PRN 04/29/22 08:21 Transfuse RBCs Leukoreduced [RC] .ONCE Acetaminophen [Tylenol] 650 mg PO ONCE ONE 04/29/22 08:22 diphenhydrAMINE [Benadryl] 25 mg PO ONCE ONE 04/29/22 12:00 FUROSEMIDE INJ 20mg VIAL [LASIX INJ 20mg VIAL] 20 mg IVP ONCE 04/29/22 18:00 HEMOGLOBIN AND HEMATOCRIT [HEME] Timed 04/30/22 07:00 Echo Transthoracic Complete [ECHO] Routine Subjective - Subjective Patient Reports: Pain (Abd pain, unchanged from waht she had at admission. Less nausea.) Objective Vital Signs: Vital Signs - 24 hr 04/28/22 04/28/22 04/28/22 11:48 11:52 12:00 Temperature 36.8 C 36.9 C 36.7 C Heart Rate [ 83 84 87 Brachial] Heart Rate [ Monitoring electrodes] Respiratory 18 18 18 Rate Blood Pressure 127/63 132/66 H 135/69 H [Left Brachial artery] Blood Pressure [Right Brachial artery] O2 Saturation 93 94 95 04/28/22 04/28/22 04/28/22 13:00 13:13 15:46 Temperature 36.4 C L 36.4 C L 36.9 C Heart Rate [ 84 84 83 Brachial] Heart Rate [ 18 L Monitoring electrodes] Respiratory 18 18 16 Rate Blood Pressure 143/71 H [Left Brachial artery] Blood Pressure 143/71 H 139/64 H [Right Brachial artery] O2 Saturation 96 96 95 04/28/22 04/28/22 04/29/22 20:26 23:37 05:14 Temperature 37.3 C 36.8 C 37.0 C Heart Rate [ 87 80 80 Brachial] Heart Rate [ Monitoring electrodes] Respiratory 22 18 18 Rate Blood Pressure 134/82 H [Left Brachial artery] Blood Pressure 148/82 H 135/84 H [Right Brachial artery] O2 Saturation 94 94 91 L Oxygen O2 Source Room air I&O (Last 24 Hrs): Intake and Output Totals x24h 04/27/22 04/28/22 04/29/22 23:59 23:59 23:59 Intake Total 4006.667 Output Total 0 300 Balance 3706.667 General: Alert, Oriented x3, Other (Pale) HEENT: Mucous membr. moist/pink Neck: Supple, No JVD Neuro: Alert, Non Focal, Other (No asterixis or nystagmus, but has a flat affect) Cardiovascular: Regular rate Respiratory: No respiratory distress Abdomen: Soft, No tenderness Extremities: No clubbing, No edema - Results Results: Laboratory Results WBC 6.2 x10^3/uL (4.8-10.8) 04/29/22 05:36 RBC 2.23 10^6/uL (4.20-5.40) L 04/29/22 05:36 Hgb 7.3 g/dL (12.0-16.0) L 04/29/22 05:36 Hct 23.3 % (37.0-47.0) L 04/29/22 05:36 MCV 104.5 fL (81.0-99.0) H 04/29/22 05:36 MCH 32.7 pg (27.0-31.0) H 04/29/22 05:36 MCHC 31.3 g/dL (32.0-36.0) L 04/29/22 05:36 RDW 17.2 % (12.0-15.0) H 04/29/22 05:36 Plt Count 107 10^3/uL (130-450) L 04/29/22 05:36 MPV 9.0 fL (7.9-10.8) 04/29/22 05:36 Neut # (Auto) 4.7 10^3/uL (1.5-6.6) 04/29/22 05:36 Lymph # (Auto) 0.8 10^3/uL (1.5-3.5) L 04/29/22 05:36 [place] # (Auto) 0.4 10^3/uL (0.0-1.0) 04/29/22 05:36 Eos # (Auto) 0.2 10^3/uL (0.0-0.7) 04/29/22 05:36 Baso # (Auto) 0.0 10^3/uL (0.0-0.1) 04/29/22 05:36 Absolute Nucleated RBC 0.00 x10^3/uL 04/29/22 05:36 Nucleated RBC % 0.0 /100WBC 04/29/22 05:36 PT 12.8 secs (9.9-12.6) H 04/26/22 19:22 INR 1.2 (0.8-1.2) 04/26/22 19:22 APTT 29.2 secs (24.9-33.3) 04/26/22 19:22 Sodium 140 mmol/L (135-145) 04/29/22 05:36 Potassium 3.1 mmol/L (3.5-5.0) L 04/29/22 05:36 Chloride 107 mmol/L (101-111) 04/29/22 05:36 Carbon Dioxide 23 mmol/L (21-32) 04/29/22 05:36 Anion Gap 10.0 (6-13) 04/29/22 05:36 BUN 15 mg/dL (6-20) 04/29/22 05:36 Creatinine 0.7 mg/dL (0.4-1.0) 04/29/22 05:36 Estimated GFR (MDRD) 83 (>89) L 04/29/22 05:36 Glucose 95 mg/dL (70-100) 04/29/22 05:36 Calcium 7.7 mg/dL (8.5-10.3) L 04/29/22 05:36 Phosphorus 3.5 mg/dL (2.5-4.6) 04/28/22 08:08 Magnesium 1.4 mg/dL (1.7-2.8) L 04/28/22 08:08 Total Bilirubin 0.9 mg/dL (0.2-1.0) 04/27/22 04:14 AST 26 IU/L (10-42) 04/27/22 04:14 ALT 12 IU/L (10-60) 04/27/22 04:14 Alkaline Phosphatase 161 IU/L (42-121) H 04/27/22 04:14 Ammonia 36.8 umol/L (7-35) H 04/28/22 08:08 Troponin I High Sens 10.4 ng/L (2.3-14.8) 04/26/22 23:06 Total Protein 5.4 g/dL (6.7-8.2) L 04/27/22 04:14 Albumin 2.0 g/dL (3.2-5.5) L 04/27/22 04:14 Globulin 3.4 g/dL (2.1-4.2) 04/27/22 04:14 Albumin/Globulin Ratio 0.6 (1.0-2.2) L 04/27/22 04:14 Lipase 73 U/L (22-51) H 04/26/22 19:22 Carcinoembryonic Ag 4.8 ng/mL 04/26/22 23:06 Vitamin B12 235 pg/mL (180-914) 04/28/22 04:23 Folate 6.34 ng/mL (5.90 - >24.8) 04/28/22 04:23 SARS-CoV-2 (PCR) NOT DETECTED 04/26/22 21:13 Blood Type O POSITIVE 04/26/22 19:22 Antibody Screen NEGATIVE 10/21/22 19:22 Crossmatch IS Only See Detail 04/26/22 19:22 - Procedures Procedures: Procedures EXCISION OF CECUM, ENDO (06/06/19) EXCISION OF DUODENUM, ENDO, DIAGN (06/06/19) EXCISION OF STOMACH, PYLORUS, ENDO, DIAGN (06/06/19) EXCISION OF TRANSVERSE COLON, ENDO (06/06/19) TRANSFUSE NONAUT RED BLOOD CELLS IN PERIPH VEIN, PERC (06/06/19) Sepsis Event Note (H) - Evaluation Current Stage of Sepsis: Ruled out
[2022-04-29] MEDS ORDERED: carvediloL 12.5 MG TABLET PO SCH (08:48)
[2022-04-29] MEDS: carvediloL 12.5 MG TABLET PO SCH ×2 (09:05→21:21)
[2022-04-29] MEDS: PANTOPRAZOLE 40 MG VIAL IV SCH ×2 (09:05→21:21)
[2022-04-29] MEDS: THIAMINE 100 MG TABLET PO SCH (09:06)
[2022-04-29] MEDS: SODIUM CHLORIDE FLUSH 0.9% 10 ML SYRINGE IVP SCH ×2 (09:06→18:47)
[2022-04-29] MEDS ORDERED: MAGNESIUM SULFATE 2 GRAM 2 GM/50 ML BAG IV ONE (10:09)
[2022-04-29] MEDS ORDERED: FUROSEMIDE 20 MG/2 ML VIAL IVP SCH (12:00)
[2022-04-29] MEDS ORDERED: CYANOCOBALAMIN 500 MCG TABLET PO SCH (12:00)
[2022-04-29] MEDS: POTASSIUM CHLOR 10 MEQ/100 ML 10 MEQ/100 ML BAG IV SCH ×4 (13:15→16:39)
[2022-04-29] MEDS: PRENATAL VITAMIN TABLET PO SCH (17:18)
[2022-04-29] MEDS ORDERED: POTASSIUM CHLORIDE 10 MEQ CAPSULE PO ONE (19:00)
[2022-04-29] MEDS ORDERED: MAGNESIUM OXIDE 400 MG TABLET PO ONE (19:00)
[2022-04-29] MEDS: SODIUM CHLORIDE FLUSH 0.9% 10 ML SYRINGE IVP PRN (21:22)
[2022-04-30] MEDS: SODIUM CHLORIDE FLUSH 0.9% 10 ML SYRINGE IVP SCH ×3 (02:38→16:12)
[2022-04-30 05:18] LABS: HCT - HEMATOCRIT 27.2 % (37.0-47.0); HGB - HEMOGLOBIN 8.4 g/dL (12.0-16.0); MEAN CORPUSCULAR HEMOGLOBIN 32.4 pg (27.0-31.0); MEAN CORPUSCULAR HGB CONC 30.9 g/dL (32.0-36.0); MEAN PLATELET VOLUME 8.9 fL (7.9-10.8); RED BLOOD COUNT 2.59 10^6/uL (4.20-5.40); RED CELL DISTRIBUTION WIDTH 18.3 % (12.0-15.0); WHITE BLOOD COUNT 6.1 x10^3/uL (4.8-10.8)
[2022-04-30 05:37] LABS: ALBUMIN 2.1 g/dL (3.2-5.5); BILIRUBIN,DIRECT 0.2 mg/dL (0.1-0.5); BILIRUBIN,TOTAL 0.6 mg/dL (0.2-1.0); CALCIUM 7.8 mg/dL (8.5-10.3); CREATININE 0.8 mg/dL (0.4-1.0); MAGNESIUM 1.6 mg/dL (1.7-2.8); POTASSIUM 3.5 mmol/L (3.5-5.0); TOTAL PROTEIN 5.8 g/dL (6.7-8.2)
[2022-04-30] MEDS: SUCRALFATE 1 GM/10 ML UDC PO SCH ×4 (06:20→21:48)
--- NOTE | 2022-04-30 07:45 | PROVIDER PROGRESS NOTE ---
Subjective - Prog Note Date Prog Note Date: 04/30/22 Prog Note Time: 15:47 - Subjective Subjective: She was seen this morning and this afternoon. This morning she described a steady type of burning pain in her upper abdomen, and on top of that would be in termittent fleeting stabbing pain that was quite severe and would take her breath away. She had clear liquids in front of her and she says that eating made the stabbing pain worse. Yesterday she had severe bloating and surgery was worried about free air under the diaphragm. That evaluation showed no free air. The patient otherwise has no new complaints. Stools are still black and loose. She had 3 overnight and 1 this morning. She is supposed to be taking 4 ounces of clear Ensure in addition to a clear liquid diet. There is disagreement on the patient's part with regards to her alcohol abuse. She states that her daughter is over reaching and overstating. That she only drinks about 1 drink a week not to the extent that her daughter states. Physical therapy documents that she is a fall risk. Unstable on her feet due to being off balance. Current Medications - Current Medications Current Medications: Active Medications Acetaminophen (Acetaminophen 325 Mg Tablet) 650 mg PO Q4HR PRN PRN Reason: Pain 1 to 4, or Fever Carvedilol (Carvedilol 12.5 Mg Tablet) 12.5 mg PO BID [facility] Last Admin: 04/29/22 21:21 Dose: Not Given Furosemide (Furosemide 20 Mg/2 Ml Vial) 20 mg IVP ONCE [facility] Stop: 04/30/22 11:59 Last Admin: 04/29/22 12:27 Dose: 20 mg Lorazepam (Lorazepam 2 Mg/Ml Vial) 1 mg IVP Q30M PRN; Protocol PRN Reason: CIWA >8 Morphine Sulfate (Morphine 2 Mg/Ml Carpuject) 2 mg IVP Q6HR PRN PRN Reason: Pain 8 to 10 Ondansetron HCl (Ondansetron 4 Mg/2 Ml Vial) 4 mg IVP Q6HR PRN PRN Reason: Nausea / Vomiting Last Admin: 04/29/22 09:05 Dose: 4 mg Oxycodone HCl (Oxycodone 5 Mg Tablet) 5 mg PO Q4HR PRN PRN Reason: Pain 5 to 7 Pantoprazole Sodium (Pantoprazole 40 Mg Vial) 40 mg IV BID PEDRO Last Admin: 04/29/22 21:21 Dose: 40 mg Multivit/Folic Acid/Iron ( Vitamin Tablet) 1 tab PO DAILYWM [facility] Last Admin: 04/29/22 17:18 Dose: 1 tab Simethicone (Simethicone Chew 80 Mg Tablet) 80 mg PO 0900,1300,1800,2100 PRN PRN Reason: Gas Sodium Chloride (Sodium Chloride Flush 0.9% 10 Ml Syringe) 10 ml IVP 0100,0900,1700 [facility] Last Admin: 04/30/22 02:38 Dose: 10 ml Sodium Chloride (Sodium Chloride Flush 0.9% 10 Ml Syringe) 10 ml IVP PRN PRN PRN Reason: NEEDED PER PROVIDER ORDERS Last Admin: 04/29/22 21:22 Dose: 20 ml Sucralfate (Sucralfate 1 Gm/10 Ml Udc) 1 gm PO 0700,1100,1600,2200 [facility] Last Admin: 04/30/22 06:20 Dose: 1 gm Temazepam (Temazepam 15 Mg Capsule) 15 mg PO QPM PRN PRN Reason: Insomnia Thiamine HCl (Thiamine 100 Mg Tablet) 100 mg PO DAILY [facility] Last Admin: 04/29/22 09:06 Dose: 100 mg Albuterol Sulfate [Proair Hfa Inhaler] 2 puffs IH Q4HR PRN 04/22/18 carvediloL [Carvedilol] 12.5 mg PO BID 04/22/18 Fluticasone/Salmeterol [Advair Hfa 115-21 Mcg Inhaler] 2 puffs INH BID 04/27/22 dilTIAZem HCL [Diltiazem 24Hr ER (Xr)] 180 mg PO DAILY 04/27/22 Objective - Vital Signs/Intake & Output Reviewed Vital Signs: Yes Vital Signs: Vital Signs x48h Temp Pulse Resp BP Pulse Ox 04/30/22 05:00 36.6 C 57 L 16 110/58 L 92 04/30/22 00:08 36.8 C 90 16 127/73 92 Intake & Output: Intake & Output 04/27/22 04/28/22 04/29/22 04/30/22 23:59 23:59 23:59 23:59 Intake Total 4006.667 3379 Output Total 0 300 Balance 3496.667 3379 - Objective General Appearance: positive: No acute distress, Alert, Other (She was sitting upright in her chair this morning. This afternoon she was laying in bed asleep and I had to wake her up) Eyes Bilateral: positive: PERRL ENT: positive: No signs of dehydration Neck: positive: No JVD. negative: Stiff neck Respiratory: positive: No respiratory distress. negative: Wheezes, Rales, Rhonchi Cardiovascular: positive: Regular rate & rhythm Abdomen: positive: No organomegaly, Nml bowel sounds, Tenderness (Not quite epigastrium but mcc between the umbilicus and epigastrium. Mild. No rebound or guarding.) Skin: positive: Warm, Dry Extremities: positive: Full ROM, No pedal edema Neurologic/Psychiatric: positive: Oriented x3, CN's nml (2-12). negative: Motor nml (Slow to move. Sways when she stands to take the 2 steps back to bed) - Lab Results Fish Bones: 04/30/22 05:11 04/30/22 05:11 Other Labs: Lab Results x24hrs 04/30/22 04/30/22 04/30/22 Range/Units 05:11 05:11 05:11 WBC 6.1 (4.8-10.8) x10^3/uL RBC 2.59 L (4.20-5.40) 10^6/uL Hgb 8.4 L (12.0-16.0) g/dL Hct 27.2 L (37.0-47.0) % MCV 105.0 H (81.0-99.0) fL MCH 32.4 H (27.0-31.0) pg MCHC 30.9 L (32.0-36.0) g/dL RDW 18.3 H (12.0-15.0) % Plt Count 94 L (130-450) 10^3/uL MPV 8.9 (7.9-10.8) fL Sodium 136 (135-145) mmol/L Potassium 3.5 (3.5-5.0) mmol/L Chloride 106 (101-111) mmol/L Carbon Dioxide 22 (21-32) mmol/L Anion Gap 8.0 (6-13) BUN 12 (6-20) mg/dL Creatinine 0.8 (0.4-1.0) mg/dL Estimated GFR (MDRD) 71 L (>89) Glucose 98 (70-100) mg/dL Calcium 7.8 L (8.5-10.3) mg/dL Magnesium 1.6 L (1.7-2.8) mg/dL Total Bilirubin 0.6 (0.2-1.0) mg/dL Direct Bilirubin 0.2 (0.1-0.5) mg/dL AST 37 (10-42) IU/L ALT 11 (10-60) IU/L Alkaline Phosphatase 160 H (42-121) IU/L Ammonia 49.3 H (7-35) umol/L Total Protein 5.8 L (6.7-8.2) g/dL Albumin 2.1 L (3.2-5.5) g/dL Globulin 3.7 (2.1-4.2) g/dL Blood Type Antibody Screen Crossmatch IS Only 04/29/22 04/29/22 04/29/22 Range/Units 18:28 18:28 18:28 WBC (4.8-10.8) x10^3/uL RBC (4.20-5.40) 10^6/uL Hgb 9.0 L (12.0-16.0) g/dL Hct 29.0 L (37.0-47.0) % MCV (81.0-99.0) fL MCH (27.0-31.0) pg MCHC (32.0-36.0) g/dL RDW (12.0-15.0) % Plt Count (130-450) 10^3/uL MPV (7.9-10.8) fL Sodium (135-145) mmol/L Potassium 3.3 L (3.5-5.0) mmol/L Chloride (101-111) mmol/L Carbon Dioxide (21-32) mmol/L Anion Gap (6-13) BUN (6-20) mg/dL Creatinine (0.4-1.0) mg/dL Estimated GFR (MDRD) (>89) Glucose (70-100) mg/dL Calcium (8.5-10.3) mg/dL Magnesium 1.6 L (1.7-2.8) mg/dL Total Bilirubin (0.2-1.0) mg/dL Direct Bilirubin (0.1-0.5) mg/dL AST (10-42) IU/L ALT (10-60) IU/L Alkaline Phosphatase (42-121) IU/L Ammonia (7-35) umol/L Total Protein (6.7-8.2) g/dL Albumin (3.2-5.5) g/dL Globulin (2.1-4.2) g/dL Blood Type Antibody Screen Crossmatch IS Only 04/29/22 04/26/22 Range/Units 05:36 19:22 WBC (4.8-10.8) x10^3/uL RBC (4.20-5.40) 10^6/uL Hgb (12.0-16.0) g/dL Hct (37.0-47.0) % MCV (81.0-99.0) fL MCH (27.0-31.0) pg MCHC (32.0-36.0) g/dL RDW (12.0-15.0) % Plt Count (130-450) 10^3/uL MPV (7.9-10.8) fL Sodium (135-145) mmol/L Potassium (3.5-5.0) mmol/L Chloride (101-111) mmol/L Carbon Dioxide (21-32) mmol/L Anion Gap (6-13) BUN (6-20) mg/dL Creatinine (0.4-1.0) mg/dL Estimated GFR (MDRD) (>89) Glucose (70-100) mg/dL Calcium (8.5-10.3) mg/dL Magnesium 1.4 L (1.7-2.8) mg/dL Total Bilirubin (0.2-1.0) mg/dL Direct Bilirubin (0.1-0.5) mg/dL AST (10-42) IU/L ALT (10-60) IU/L Alkaline Phosphatase (42-121) IU/L Ammonia (7-35) umol/L Total Protein (6.7-8.2) g/dL Albumin (3.2-5.5) g/dL Globulin (2.1-4.2) g/dL Blood Type O POSITIVE Antibody Screen NEGATIVE Crossmatch IS Only See Detail ABX Reporting Has patient been on IV antibiotics over the past 48 hours?: No Sepsis Event Note (H) - Evaluation Current Stage of Sepsis: Ruled out Assessment/Plan - Problem List (1) UGI bleed Impression: There is a history of a prior bleeding duodenal ulcer and bleeding AVMs (in 2019, when she needed to be transferred from here to a larger hospital ). She presented now with abd pain and melanotic BMs then had maroon and red stools. General surgery took her for an EGD and a duodenal ulcer was found Hemoglobin was 7.2 on admission. Dropped to 6.4. Transfused and went up to 8.3. Drop back down to 6.9 and transfused again. She has been transfused a total of 4 units. Yesterday hemoglobin was 9. Today hemoglobin is 8.4. Still having black stools. Still having abdominal pain. Plan: She is anxious to go home but I explained to her that she needs to prove to us that she is eating. She can even tolerate a clear liquid diet right now with clear Ensure. I explained that if she can demonstrate eating even a mechanical soft diet, and maintain calories, she can go home. In the meantime continue treating the duodenal ulcer, follow her for acute blood loss anemia (2) Duodenal ulcer EGD found a non-bleeding duodenal ulcer, that was injected. Antral bx done to check for H pylori and were sent out, are still pending. Etiology was suspected to be NSAID use, but the daughter shared that the pt drinks alot of alcohol. Surg recommended IV Protonix bid, will continue this Avoid antiplatelet agents and anticoagulants. Surg recommended continue the clear liquids and not to advance yet due to continued abd pain that is most likely from her ulcer. General surgery and I both spoke to nursing and the patient that we wanted to take her sucralfate at least 45 minutes before eating. Maybe this will help the abdominal pain. 3) Symptomatic anemia She was orthostatic 04/29 with a 20 mmHg drop in syst BP when standing She initially received 2U of blood. She was getting a third U of blood 04/29, for Hgb 6.9, and had a transfusion rxn and only got 1/2 the unit transfused. Anther was ordered later in the day. We are following Hgb every 6-12 hours Gen Surg recommends that if she is orthostatic, to give another Unit of blood or if Hgb falls below 7 Today Supine blood pressure 128/72. Sitting blood pressure is 123/100. Standing blood pressure is 110/66. I think the middle blood pressure reading is an anomaly. Orthostatic blood pressure is improving. She is not tachycardic with this. Physical therapy is recommending physical therapy when she is discharged to home with home health PT and follow-up. They feel that she is a fall risk. I have ordered home health and home health PT. (4) Transfusion reaction During her blood transfusion 04/29, she developed hives around her eyes. She received IV Benadryl x1, there was no further spread of the hives and she had no wheezing or hypotension. The blood bank was informed and did its entire evaluation and I was contacted that everything was done correctly. She will need a unit of blood transfused today. She will be premedicated with Benadryl and Tylenol (5) CHF Her chest x-ray 04/29 showed volume overload in the lungs. Her IV fluids were stopped. She was getting them for hypotension and orthostatic changes. She received Lasix after that transfusion yesterday. Echo was done today and she has mild concentric left ventricular hypertrophy. Ejection fraction 55 to 60%. Calculated left ventricular ejection fraction is 59%. Mild right ventricular enlargement. Systolic function normal. Left atrial volume index is large. Mild to moderate right atrial enlargement. This is all preliminary and I will await the final report. So the fluid overload we saw on chest x-ray is not due to reduced ejection fraction. We will continue to monitor her fluid balance and give Lasix as needed 6) Alcohol abuse Daughter informed the pt's RN, that the patient's alcohol abuse is not known or is not being addressed, as a potential component of her recurring ulcers. The daughter stated that she falls frequently at home, needs to call 911 for lift assist, and ithe falls are mostly related to alcohol use. Hospitalist on service April 29 questioned the patient regarding her EtOH use: She slowly answered that she drinks rum, 2-4 drinks a day and that she has never gone through withdrawal. Her LFTs, plts and INR are unremarkable, but her MCV is very high CIWA protocol with prn Ativan ordered, started on thiamine. B12 & folate levels were checked, due to her elevated MCV, and are OK. Will order a vitamin Ammonia level on April 28 was 36.8. Today it is 49.3. We could not tell if she was just reluctant to talk about alcohol abuse or if she had encephalopathy. She said "My daughter makes too much out of it" and she told Dr Collazo she has 1 drink a week. Physical therapy has seen the patient. They recommended home health with PT due to her fall risk. Social work has been unable to see the patient so far. They last saw her April 27. Right now social work is understaffed and there is one social organization professor in the ED and 1 social organization professor on the floor 7) Hx HTN BP meds were ordered, her Coreg dose was decreased and with holding parameters written. 8) Hx CAD She has not been on antiplatelet agents because of Hx of GI bleed. 9) Hypomagnesemia She needed iv Mg rider replaced yesterday for Mg level of 1.3. Following Mg, Ca and PO4 intermittently now and replace if low. 10) Hypokalemia Will replace with K riders Follow BMP at least daily
[2022-04-30] MEDS: carvediloL 12.5 MG TABLET PO SCH ×2 (07:55→21:47)
[2022-04-30] MEDS: PRENATAL VITAMIN TABLET PO SCH (07:58)
[2022-04-30] MEDS: THIAMINE 100 MG TABLET PO SCH (07:58)
[2022-04-30] MEDS: PANTOPRAZOLE 40 MG VIAL IV SCH ×2 (07:58→21:47)
[2022-04-30] MEDS: SODIUM CHLORIDE FLUSH 0.9% 10 ML SYRINGE IVP PRN (07:59)
[2022-04-30] MEDS ORDERED: ALBUTEROL NEB 2.5 MG/3 ML INH PRN (08:30)
--- NOTE | 2022-04-30 11:32 | PROVIDER PROGRESS NOTE ---
Subjective - General Admit Date: 04/26/22 Procedure Date: 04/27/22 Post Op Days: 3 Procedure Performed: EGD with epi injection of duodenal ulcer - Other Other Information/Narrative: Patient tolerating clear liquids in small amounts. She tells me she has a lot of bloating and discomfort after eating. She also reports she has not been waiting long between receiving her carafate and eating her meals. No n/v. No acute events overnight. Objective - Patient Data Vital Signs: Vital Signs x48h Temp Pulse Pulse Resp BP Pulse Ox 04/30/22 11:18 36.3 C L 74 20 116/58 L 97 04/30/22 10:49 86 18 04/30/22 07:54 36.7 C 86 22 128/72 94 04/30/22 05:00 36.6 C 57 L 16 110/58 L 92 Weight: Weight 04/28/22 04/29/22 04/30/22 23:59 23:59 23:59 Weight (kg) 85.5 kg 87 kg 87 kg Intake & Output: Intake and Output Totals x24h 04/28/22 04/29/22 04/30/22 23:59 23:59 23:59 Intake Total 4006.667 3379 960 Output Total 300 Balance 3706.667 3379 960 - Lab Results Lab Results: 04/30/22 05:11 04/30/22 05:11 Other Lab Results: Lab Results x24hrs 04/30/22 04/30/22 04/30/22 Range/Units 05:11 05:11 05:11 WBC 6.1 (4.8-10.8) x10^3/uL RBC 2.59 L (4.20-5.40) 10^6/uL Hgb 8.4 L (12.0-16.0) g/dL Hct 27.2 L (37.0-47.0) % MCV 105.0 H (81.0-99.0) fL MCH 32.4 H (27.0-31.0) pg MCHC 30.9 L (32.0-36.0) g/dL RDW 18.3 H (12.0-15.0) % Plt Count 94 L (130-450) 10^3/uL MPV 8.9 (7.9-10.8) fL Sodium 136 (135-145) mmol/L Potassium 3.5 (3.5-5.0) mmol/L Chloride 106 (101-111) mmol/L Carbon Dioxide 22 (21-32) mmol/L Anion Gap 8.0 (6-13) BUN 12 (6-20) mg/dL Creatinine 0.8 (0.4-1.0) mg/dL Estimated GFR (MDRD) 71 L (>89) Glucose 98 (70-100) mg/dL Calcium 7.8 L (8.5-10.3) mg/dL Magnesium 1.6 L (1.7-2.8) mg/dL Total Bilirubin 0.6 (0.2-1.0) mg/dL Direct Bilirubin 0.2 (0.1-0.5) mg/dL AST 37 (10-42) IU/L ALT 11 (10-60) IU/L Alkaline Phosphatase 160 H (42-121) IU/L Ammonia 49.3 H (7-35) umol/L Total Protein 5.8 L (6.7-8.2) g/dL Albumin 2.1 L (3.2-5.5) g/dL Globulin 3.7 (2.1-4.2) g/dL 04/29/22 04/29/22 04/29/22 Range/Units 18:28 18:28 18:28 WBC (4.8-10.8) x10^3/uL RBC (4.20-5.40) 10^6/uL Hgb 9.0 L (12.0-16.0) g/dL Hct 29.0 L (37.0-47.0) % MCV (81.0-99.0) fL MCH (27.0-31.0) pg MCHC (32.0-36.0) g/dL RDW (12.0-15.0) % Plt Count (130-450) 10^3/uL MPV (7.9-10.8) fL Sodium (135-145) mmol/L Potassium 3.3 L (3.5-5.0) mmol/L Chloride (101-111) mmol/L Carbon Dioxide (21-32) mmol/L Anion Gap (6-13) BUN (6-20) mg/dL Creatinine (0.4-1.0) mg/dL Estimated GFR (MDRD) (>89) Glucose (70-100) mg/dL Calcium (8.5-10.3) mg/dL Magnesium 1.6 L (1.7-2.8) mg/dL Total Bilirubin (0.2-1.0) mg/dL Direct Bilirubin (0.1-0.5) mg/dL AST (10-42) IU/L ALT (10-60) IU/L Alkaline Phosphatase (42-121) IU/L Ammonia (7-35) umol/L Total Protein (6.7-8.2) g/dL Albumin (3.2-5.5) g/dL Globulin (2.1-4.2) g/dL - Current Medications Current Medications: Current Medications Generic Name Dose Route Start Last Admin Trade Name Freq PRN Reason Stop Dose Admin Albuterol 2.5 mg 04/30/22 08:30 04/30/22 10:47 Albuterol Neb 2.5 Mg/3 Ml INH 2.5 mg RTQ4H PRN Administration Wheezing Carvedilol 12.5 mg 04/29/22 09:00 04/30/22 07:55 Carvedilol 12.5 Mg Tablet PO Not Given BID PEDRO Furosemide 20 mg 04/29/22 12:00 04/29/22 12:27 Furosemide 20 Mg/2 Ml Vial IVP 04/30/22 11:59 20 mg ONCE PEDRO Administration Ondansetron HCl 4 mg 04/26/22 22:47 04/29/22 09:05 Ondansetron 4 Mg/2 Ml Vial IVP 4 mg Q6HR PRN Administration Nausea / Vomiting Pantoprazole Sodium 40 mg 04/27/22 21:00 04/30/22 07:58 Pantoprazole 40 Mg Vial IV 40 mg BID PEDRO Administration Multivit/Folic Acid/Iron 1 tab 04/29/22 17:00 04/30/22 07:58 Vitamin Tablet PO 1 tab DAILYWM PEDRO Administration Sodium Chloride 10 ml 04/27/22 01:00 04/30/22 07:58 Sodium Chloride Flush 0.9% 10 Ml Syringe IVP 10 ml 0100,0900,1700 PEDRO Administration Sodium Chloride 10 ml 04/26/22 22:47 04/30/22 07:59 Sodium Chloride Flush 0.9% 10 Ml Syringe IVP 10 ml PRN PRN Administration NEEDED PER PROVIDER ORDERS Sucralfate 1 gm 04/27/22 16:00 04/30/22 11:15 Sucralfate 1 Gm/10 Ml Udc PO 1 gm 0700,1100,1600,2200 PEDRO Administration Thiamine HCl 100 mg 04/28/22 09:00 04/30/22 07:58 Thiamine 100 Mg Tablet PO 100 mg DAILY PEDRO Administration Impression/Plan - Problem List Problem List: A: 66 y/o F with Acute GI blood loss and anemia due to NSAID associated duodenal ulcer - s/p EGD with epi injection on 04/[address] Heaton. No active bleeding at time of procedure - more comfortable today P: - labs stable - carafate order clarified to help with post parandial discomfort - Continue PPI, PO carafate - Continue liquid diet until nausea improves. Recommend adding Ensure to improve nutrition. - From surgery standpoint, ok to discharge when tolerating at least three Ensure or meal equivalent daily. - Patient will need to avoid NSAIDs, EtOH on discharge (concern for EtOH abuse). Recommend continued PPI and carafate on discharge. I also recommend repeat EGD in 6 weeks to assess for improvement of ulcer.
[2022-05-01] MEDS: SODIUM CHLORIDE FLUSH 0.9% 10 ML SYRINGE IVP SCH ×2 (01:00→08:22)
[2022-05-01 04:54] LABS: HCT - HEMATOCRIT 26.6 % (37.0-47.0); HGB - HEMOGLOBIN 8.3 g/dL (12.0-16.0); MEAN CORPUSCULAR HEMOGLOBIN 32.8 pg (27.0-31.0); MEAN CORPUSCULAR HGB CONC 31.2 g/dL (32.0-36.0); MEAN CORPUSCULAR VOLUME 105.1 fL (81.0-99.0); MEAN PLATELET VOLUME 9.4 fL (7.9-10.8); RED BLOOD COUNT 2.53 10^6/uL (4.20-5.40); RED CELL DISTRIBUTION WIDTH 17.7 % (12.0-15.0); WHITE BLOOD COUNT 6.4 x10^3/uL (4.8-10.8)
[2022-05-01 05:09] LABS: CALCIUM 7.9 mg/dL (8.5-10.3); CREATININE 0.9 mg/dL (0.4-1.0); MAGNESIUM 1.6 mg/dL (1.7-2.8); POTASSIUM 3.2 mmol/L (3.5-5.0)
[2022-05-01] MEDS: SUCRALFATE 1 GM/10 ML UDC PO SCH (07:04)
--- NOTE | 2022-05-01 07:46 | PROVIDER PROGRESS NOTE ---
Subjective - General Admit Date: 04/26/22 Procedure Date: 04/27/22 Post Op Days: 4 Procedure Performed: EGD with epi injection of duodenal ulcer - Other Other Information/Narrative: Patient denies pain or nausea. She feels hungry for the first time in "weeks" and feels like the carafate is helping. She is hopeful she can go home today. Objective - Patient Data Reviewed Vital Signs: Yes Vital Signs: Vital Signs x48h Temp Pulse Pulse Resp BP Pulse Ox 05/01/22 04:29 36.8 C 82 16 125/66 92 05/01/22 00:09 36.7 C 92 16 130/79 92 04/30/22 23:45 86 20 Weight: Weight 04/29/22 04/30/22 05/01/22 23:59 23:59 23:59 Weight (kg) 87 kg 87 kg 87.5 kg Intake & Output: Intake and Output Totals x24h 04/29/22 04/30/22 05/01/22 23:59 23:59 23:59 Intake Total 3379 1590 200 Balance 3379 1590 200 - Lab Results Lab Results: 05/01/22 04:19 05/01/22 04:19 Other Lab Results: Lab Results x24hrs 05/01/22 05/01/22 Range/Units 04:19 04:19 WBC 6.4 (4.8-10.8) x10^3/uL RBC 2.53 L (4.20-5.40) 10^6/uL Hgb 8.3 L (12.0-16.0) g/dL Hct 26.6 L (37.0-47.0) % MCV 105.1 H (81.0-99.0) fL MCH 32.8 H (27.0-31.0) pg MCHC 31.2 L (32.0-36.0) g/dL RDW 17.7 H (12.0-15.0) % Plt Count 124 L (130-450) 10^3/uL MPV 9.4 (7.9-10.8) fL Sodium 137 (135-145) mmol/L Potassium 3.2 L (3.5-5.0) mmol/L Chloride 106 (101-111) mmol/L Carbon Dioxide 23 (21-32) mmol/L Anion Gap 8.0 (6-13) BUN 11 (6-20) mg/dL Creatinine 0.9 (0.4-1.0) mg/dL Estimated GFR (MDRD) 62 L (>89) Glucose 92 (70-100) mg/dL Calcium 7.9 L (8.5-10.3) mg/dL Magnesium 1.6 L (1.7-2.8) mg/dL - Current Medications Current Medications: Current Medications Generic Name Dose Route Start Last Admin Trade Name Freq PRN Reason Stop Dose Admin Albuterol 2.5 mg 04/30/22 08:30 04/30/22 10:47 Albuterol Neb 2.5 Mg/3 Ml INH 2.5 mg RTQ4H PRN Administration Wheezing Carvedilol 12.5 mg 04/29/22 09:00 04/30/22 21:47 Carvedilol 12.5 Mg Tablet PO Not Given BID PEDRO Ondansetron HCl 4 mg 04/26/22 22:47 04/29/22 09:05 Ondansetron 4 Mg/2 Ml Vial IVP 4 mg Q6HR PRN Administration Nausea / Vomiting Pantoprazole Sodium 40 mg 04/27/22 21:00 04/30/22 21:47 Pantoprazole 40 Mg Vial IV 40 mg BID PEDRO Administration Multivit/Folic Acid/Iron 1 tab 04/29/22 17:00 04/30/22 07:58 Vitamin Tablet PO 1 tab DAILYWM PEDRO Administration Sodium Chloride 10 ml 04/27/22 01:00 05/01/22 01:00 Sodium Chloride Flush 0.9% 10 Ml Syringe IVP 10 ml 0100,0900,1700 PEDRO Administration Sodium Chloride 10 ml 04/26/22 22:47 04/30/22 07:59 Sodium Chloride Flush 0.9% 10 Ml Syringe IVP 10 ml PRN PRN Administration NEEDED PER PROVIDER ORDERS Sucralfate 1 gm 04/30/22 11:31 05/01/22 07:04 Sucralfate 1 Gm/10 Ml Udc PO 1 gm 0700,1100,1600,2200 PEDRO Administration Thiamine HCl 100 mg 04/28/22 09:00 04/30/22 07:58 Thiamine 100 Mg Tablet PO 100 mg DAILY PEDRO Administration - Physical Exam General Appearance: positive: No acute distress, Alert Respiratory: positive: No respiratory distress Cardiovascular: positive: Regular rate & rhythm Abdomen: positive: Non-tender. negative: Guarding, Rebound Extremities: positive: Non-tender, Full ROM Neurologic/Psychiatric: positive: Oriented x3 Impression/Plan - Problem List Problem List: A: 66 y/o F with Acute GI blood loss and anemia due to NSAID associated duodenal ulcer - s/p EGD with epi injection on 04/[address] Heaton. No active bleeding at time of procedure - more comfortable today P: - labs stable - if tolerating diet well today, ok to discharge from surgery standpoint - Continue PPI, PO carafate on discharge - From surgery standpoint, ok to discharge when tolerating at least three Ensure or meal equivalent daily. - Patient will need to avoid NSAIDs, EtOH on discharge (concern for EtOH abuse). I would like patient to follow up with me in 2 weeks and plan repeat EGD in 6 weeks to assess for improvement of ulcer.
[2022-05-01] MEDS: THIAMINE 100 MG TABLET PO SCH (08:22)
[2022-05-01] MEDS: carvediloL 12.5 MG TABLET PO SCH (08:22)
[2022-05-01] MEDS: PRENATAL VITAMIN TABLET PO SCH (08:22)
[2022-05-01] MEDS: SODIUM CHLORIDE FLUSH 0.9% 10 ML SYRINGE IVP PRN (08:22)
--- NOTE | 2022-05-01 08:51 | Discharge Plan ---
Discharge Plan Problem Reviewed?: Yes Disposition: Home, Self Care Condition: Stable Prescriptions: Sucralfate [Carafate] 1 gm PO 0700,1100,1600,2200 #120 ea Ferrous Gluconate 324 mg PO BID #60 tablet Pantoprazole [Protonix] 40 mg PO DAILY #60 tablet Multivitamin [Theragran] 1 each PO DAILY #30 tablet Diet: Regular Activity Restrictions: Activity as Tolerated Shower Restrictions: No Driving Restrictions: No Instruction Topics: Gastric Duodenal Ulcer Ch Health Concerns: You called an ambulance and you were brought in by ambulance to the emergency room from home. You to had about 6 bowel movements that day that were black, tarry stools. And then finally the last bowel movement you had contained bright red blood mixed in with the dark stool. At that time he did not have any abdominal pain but you were very weak, and confused. In addition to this, your daughter reports that you may be abusing alcohol more than you admit to the doctors. You already have a history of ulcers from when your lisinopril blood pressure medicine gave you angioneurotic edema and caused your "insides to swell" and a stomach ulcer. We found you to have gastrointestinal bleeding. A normal amount of hemoglobin in a woman is approximately 12 g of hemoglobin. We found her to have 6.4. Overall you needed 4 units of blood transfused to keep your status stable. We were finally able to get your hemoglobin to 9 g on April 29. Today at discharge you were 8.3. To diagnose where the bleeding was from our general surgeon performed an esophagogastroduodenoscopy which is a video camera that goes down your esophagus into your stomach. The video camera found to have a large ulcer in the part of your stomach called the duodenum. We have given you medicine to heal your ulcer. And now you are stable enough to go home since you have tolerated your diet And you are no longer bleeding Plan of Treatment: 1. Because of your ulcer you can never take an anti-inflammatory. So over the counter antiinflammatory pain medicines such as ibuprofen, Aleve, Naprosyn, Motrin, aspirin, diclofenac, Voltaren, Excedrin of any kind can never be taken again. Please verify this with your primary care provider so they do not make the mistake of giving you an arthritis medicine and they forget to avoid giving this to you. The only pain medicine you can take [id number] is Tylenol/acetaminophen. 2. You have disagreed with your daughter's assessment of your drinking alcohol, But in any case, you cannot drink alcohol. You cannot drink wine, beer, or hard alcohol. 3. The general surgeon would like to see you in 2 weeks in their office. Please call their office to make an appointment. The surgeon plans on scheduling you for a repeat esophagogastroduodenoscopy in 6 weeks to make sure the ulcer is healed. 4. You cannot smoke. Smoking also leads to increased ulcer risk. 5. Please see your primary care provider in follow-up in the next 1 to 2 weeks. I would like them to do a CBC which would then let us know if your hemoglobin is getting better. 6. I have prescribed a multivitamin, thiamine, and an iron tablet. Please take these for another month. This will help your bone marrow build more blood to improve your anemia. Care Goals: To have your ulcer healed and to no longer be anemic Assessment: Patient states that she understands the treatment plan and promises to follow through with her primary care provider and general surgeon. She states that she understands that she cannot have any more alcohol nor can she have any anti- inflammatories No Smoking: If you smoke, Please STOP! Call for help.
[2022-05-01] MEDS ORDERED: PANTOPRAZOLE 40 MG VIAL IVP SCH (09:00)
[2022-05-01] MEDS ORDERED: POTASSIUM CHLORIDE 20 MEQ/15 ML UDC PO SCH (09:00)
--- NOTE | 2022-05-01 09:22 | DISCHARGE SUMMARY ---
"Discharge Summary Admit Date: 04/26/22 Discharge Date: 05/01/22 Discharging Provider: Sejal Cristobal MD Primary Care Provider: Dr. Brewster, [facility] Practice Code Status: Attempt Resuscitation Condition at Discharge: Stable Discharge Disposition: 01 Home, Self Care - DIAGNOSES Discharge Diagnoses with Status of Each Condition: 1. Upper GI bleed 2. Acute blood loss anemia secondary to #1 3. Duodenal ulcer 4. Transfusion reaction 5. Fluid overload 6. Alcohol abuse 7. Hypertension 8. History of coronary artery disease 9. Hypomagnesemia 10. Hypokalemia - HPI History of Present Illness: Snehal is a pleasant 66 year old elderly woman who comes to the ER with complaints of abdominal pain and some nausea which started at around noon time today patient also had some bloody bowel movements. Patient has had history of lower GI bleed in the past period patient started feeling weak and tired with any chest pain no shortness of breath no dizziness she comes to the yard due to this. Patient has got a complex medical history which includes history of [employer] axis to asymmetries causing angioedema and requiring intuition three years ago, history of: polyps, history of GI bleed, history of non stemi, history of obesity, A fib, HTN, Dyslipidemia, Hypoalbuminemia .patient is retired lives with her has got two grown up children. Patient sister Alise is with her in the ER. Patient does not drive. [place] device any other active complaints she does take medicines for her heart which includes carvedilol and Cardizem. patient does not take any antacids she has been using a lot of ibuprofen because of chronic back pain she has been having over 15 years she has seen a lot of physicians. 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 Add a nice lengthy discussion with the patient and her sister had to inform them the plan of care for omayra History - Past Medical History Cardiovascular: reports: Hypertension, High cholesterol, Atrial fibrillation Respiratory: reports: Asthma Neuro: reports: None Endocrine/Autoimmune: reports: None GI: reports: GERD, GI bleed, Ulcers : reports: None Psych: reports: None Musculoskeletal: reports: Gout, Chronic back pain Derm: reports: Rosacea MRSA Hx?: No - Past Surgical History General: reports: Appendectomy HEENT: reports: Tonsil/Adenoidectomy - CONSULTS | PROCEDURES Consultations: General surgery, Dr. Angelica Guzman Procedures: 1. Transfusion of 4 units of blood 2. Esophagogastroduodenoscopy with biopsy - HOSPITAL COURSE Hospital Course: She presented with bloody stool, melanotic stool. Hemoglobin was 7.2 on presentation. She then dropped to 6.4. In reviewing her medical record she has had chronic anemia since 2019. She states that she had a previous history of a GI bleed due to ulcers found in her stomach. The ulcers were secondary to angioneurotic edema from an TIARA inhibitor. In June 2019 her hemoglobin was 4.1. She was transfused over the course of her stay. She required 4 units of blood and had 1 transfusion reaction.At discharge her hemoglobin was 8.3. She was started on a proton pump inhibitor, Carafate, and an EGD revealed a large duodenal ulcer that was injected. She had sharp stabbing epigastric abdominal pain after EGD. Fearing perforation a KUB was done and there is no free air. Patient's diet was gradually advanced from clears to mechanical soft. She tolerated that well and by the time of discharge was no longer having abdominal pain or nausea. Black tarry stool had resolved. At discharge temperature was 36.9. Heart rate 86. Orthostatic blood pressure checks were done. Supine she was 131/68. Sitting 139/85. Standing 136/67. Heart rate went from 86-91 with this. She was 93% on room air. She is 5 foot 5 inches tall and weighs 87 kg. An alert, comfortable female. Abdomen was soft, nontender, and all of her epigastric pain had resolved. Normal bowel sounds. No masses. She is asked to follow through with her primary care provider and get a CBC. We have asked her to stop drinking. Daughter has stated that mom has alcohol abuse issues that she refuses to identify. The patient refutes that history. In any case asked her not to drink. I have also explained to her that she can never take anti-inflammatories. Only Tylenol [id number]. She needs to take Prilosec for the next month minimum. Sucralfate is before each meal and at bedtime. She should see her primary care provider for a CBC in the next week. Take a multivitamin, thiamine, and iron. Iron has been prescribed. She also needs to see the surgeon in 2 weeks we will then schedule her for a repeat EGD in 6 weeks. Greater than 30 minutes was spent coordinating discharge - ALLERGIES Allergies/Adverse Reactions: Allergies Allergy/AdvReac Type Severity Reaction Status Date / Time TIARA Inhibitors Allergy Severe Respiratory Verified 04/26/22 19:30 lisinopril Allergy Severe Respiratory Verified 04/26/22 19:30 - MEDICATIONS Home Medications: Ambulatory Orders Medication Instructions Recorded Confirmed Albuterol Sulfate [Proair Hfa 2 puffs IH Q4HR PRN 04/22/18 04/27/22 Inhaler] carvediloL [Carvedilol] 12.5 mg PO BID 04/22/18 04/27/22 Fluticasone/Salmeterol [Advair Hfa 2 puffs INH BID 04/27/22 04/27/22 115-21 Mcg Inhaler] dilTIAZem HCL [Diltiazem 24Hr ER 180 mg PO DAILY 04/27/22 04/27/22 (Xr)] Acetaminophen [Tylenol] 650 mg PO Q4HR PRN tab 05/01/22 Ferrous Gluconate 324 mg PO BID #60 tablet 05/01/22 Multivitamin [Theragran] 1 each PO DAILY #30 tablet 05/01/22 Pantoprazole [Protonix] 40 mg PO DAILY #60 tablet 05/01/22 Sucralfate [Carafate] 1 gm PO 0700,1100,1600,2200 #120 ea 05/01/22 Thiamine [Vitamin B-1] 100 mg PO DAILY tab 05/01/22 - LABS Result Diagrams: 05/01/22 04:19 05/01/22 04:19 - SEPSIS Current Stage of Sepsis: Ruled out"
[2022-05-01 10:20] VITALS: BP 121/67
== END 2022-05-01 10:45 | disposition home or self-care (01) | DRG 378 ==
LOC: EDUNIT# → ED 19:11 → MS2 22:47
PROVIDERS: ADMIT Internal Medicine; ATTEND Specialist
PROC: 0DB78ZX Excision of Stomach, Pylorus, Via Natural or Artificial Opening Endoscopic, Diagnostic (ICD-10-PCS; 2022-04-27)
PROC: 30233N1 Transfusion of Nonautologous Red Blood Cells into Peripheral Vein, Percutaneous Approach (ICD-10-PCS; 2022-04-27)
PROC: 3E0G8GC Introduction of Other Therapeutic Substance into Upper GI, Via Natural or Artificial Opening Endoscopic (ICD-10-PCS; principal; 2022-04-27 11:30)
DX: K92.1 Melena (principal); R10.10 Upper abdominal pain, unspecified; K26.4 Chronic or unspecified duodenal ulcer with hemorrhage; I10 Essential (primary) hypertension; D62 Acute posthemorrhagic anemia; K57.92 Diverticulitis of intestine, part unspecified, without perforation or abscess without bleeding; E87.70 Fluid overload, unspecified; F10.10 Alcohol abuse, uncomplicated; I25.10 Atherosclerotic heart disease of native coronary artery without angina pectoris; Z20.822 Contact with and (suspected) exposure to COVID-19; E83.42 Hypomagnesemia; E87.6 Hypokalemia; I25.2 Old myocardial infarction; E66.9 Obesity, unspecified; G89.29 Other chronic pain; M54.9 Dorsalgia, unspecified; E78.00 Pure hypercholesterolemia, unspecified; J45.909 Unspecified asthma, uncomplicated; K21.9 Gastro-esophageal reflux disease without esophagitis; M10.9 Gout, unspecified; R10.13 Epigastric pain; F17.200 Nicotine dependence, unspecified, uncomplicated; T78.3XXA Angioneurotic edema, initial encounter; I48.0 Paroxysmal atrial fibrillation; T39.315A Adverse effect of propionic acid derivatives, initial encounter; T80.89XA Other complications following infusion, transfusion and therapeutic injection, initial encounter; L50.0 Allergic urticaria; I11.0 Hypertensive heart disease with heart failure; I50.9 Heart failure, unspecified; I95.9 Hypotension, unspecified; Z68.31 Body mass index [BMI] 31.0-31.9, adult; Z79.899 Other long term (current) drug therapy
CPT/HCPCS: 36415; 71045; 74018; 74177; 80048; 80053; 80076; 82140; 82272; 82378; 82607; 82746; 83690; 83735; 84100; 84132; 84484; 85014; 85018; 85025; 85027; 85610; 85730; 86850; 86900; 86901; 86920; 87635; 93005; 93306; 94640; 96361; 96365; 96375; 97161; 97530; 99285; 99291; A9270; J1200; P9016; Q9967

== ENCOUNTER 2022-10-14 00:26 | Outpatient (CLI) | payer MEDICARE, OTHER | END 2022-10-14 00:27 | disposition EMS.NT | LOC: EMS 00:26 | DX: Z03.89 Encounter for observation for other suspected diseases and conditions ruled out (principal) ==

== ENCOUNTER 2022-10-29 12:14 | Outpatient (CLI) | payer MEDICARE, OTHER | END 2022-10-29 12:15 | disposition EMS.NT | LOC: EMS 12:14 | DX: R53.1 Weakness (principal) ==

== ENCOUNTER 2022-12-11 11:22 | Outpatient (CLI) | payer MEDICARE, OTHER | END 2022-12-11 11:23 | disposition EMS.NT | LOC: EMS 11:22 | DX: Z03.89 Encounter for observation for other suspected diseases and conditions ruled out (principal) ==

== ENCOUNTER 2023-01-30 00:49 | Outpatient (CLI) | payer MEDICARE, OTHER | END 2023-01-30 23:59 | disposition EMS.NT | LOC: EMS 00:49 | DX: R53.1 Weakness (principal) ==

== ENCOUNTER 2023-02-07 00:48 | Outpatient (CLI) | payer MEDICARE, OTHER | END 2023-02-07 23:59 | disposition critical access hospital (66) | LOC: EMS 00:48 | DX: S50.12XA Contusion of left forearm, initial encounter (principal); S50.11XA Contusion of right forearm, initial encounter; R42 Dizziness and giddiness; R53.1 Weakness; R03.1 Nonspecific low blood-pressure reading; W01.0XXA Fall on same level from slipping, tripping and stumbling without subsequent striking against object, initial encounter; Y92.009 Unspecified place in unspecified non-institutional (private) residence as the place of occurrence of the external cause | CPT/HCPCS: A0425; A0427 ==

== ENCOUNTER 2023-02-07 01:01 | Emergency (ER) | payer MEDICARE, OTHER ==
[2023-02-07 01:39] LABS: BASOPHILS % (AUTO) 0.4 %; EOSINOPHILS # (AUTO) 0.1 10^3/uL (0.0-0.7); EOSINOPHILS % (AUTO) 1.7 %; HCT - HEMATOCRIT 24.4 % (37.0-47.0); HGB - HEMOGLOBIN 7.9 g/dL (12.0-16.0); LYMPHOCYTES # (AUTO) 1.2 10^3/uL (1.5-3.5); LYMPHOCYTES % (AUTO) 22.1 %; MEAN CORPUSCULAR HEMOGLOBIN 33.1 pg (27.0-31.0); MEAN CORPUSCULAR HGB CONC 32.4 g/dL (32.0-36.0); MEAN CORPUSCULAR VOLUME 102.1 fL (81.0-99.0); MEAN PLATELET VOLUME 10.2 fL (7.9-10.8); MONOCYTES # (AUTO) 0.6 10^3/uL (0.0-1.0); MONOCYTES % (AUTO) 12.1 %; NEUTROPHILS # (AUTO) 3.3 10^3/uL (1.5-6.6); NEUTROPHILS % (AUTO) 62.8 %; PLT - PLATELET COUNT 100 10^3/uL (130-450); RED BLOOD COUNT 2.39 10^6/uL (4.20-5.40); RED CELL DISTRIBUTION WIDTH 16.9 % (12.0-15.0); WHITE BLOOD COUNT 5.3 x10^3/uL (4.8-10.8)
[2023-02-07 01:52] LABS: ALBUMIN 2.2 g/dL (3.2-5.5); ALBUMIN/GLOBULIN RATIO 0.5 (1.0-2.2); BILIRUBIN,TOTAL 1.7 mg/dL (0.2-1.0); CALCIUM 7.3 mg/dL (8.5-10.3); CREATININE 1.6 mg/dL (0.6-1.3); POTASSIUM 3.7 mmol/L (3.5-4.5); TOTAL PROTEIN 6.8 g/dL (6.4-8.9)
--- NOTE | 2023-02-07 02:39 | ED Physician Documentation ---
History of Present Illness - Stated complaint Stated Complaint: GLF - Chief complaint Chief Complaint: Abd Pain - History obtained from History obtained from: Patient, EMS - Additonal information Additional information: BIBA. Patient brought in from home after having a fall. Patient tells me she does not know why she fell, thinks she either tripped or lost her balance. She denies loss of consciousness, denies chest pain, denies headache. She also complains of generalized abdominal pain, on certain timeframe; she says she has been seeing a assembler latches and springs for 6 months and "no one can figure it out" (per patient). Review of Systems Constitutional: reports: Reviewed and negative Cardiac: reports: Reviewed and negative Respiratory: reports: Reviewed and negative GI: reports: Abdominal Pain, Abdominal Swelling. denies: Nausea, Vomiting : denies: Dysuria, Frequency Musculoskeletal: reports: Joint pain (right knee). denies: Neck pain, Back pain, Extremity pain, Extremity swelling, Joint swelling, Pain with weight beari ng Neurologic: reports: Generalized weakness. denies: Focal weakness, Numbness, Confused, Altered mental status, Headache, Head injury, LOC PD PAST MEDICAL HISTORY - Past Medical History Past Medical History: Yes Cardiovascular: Hypertension, High cholesterol, Atrial fibrillation Respiratory: Asthma Neuro: None Endocrine/Autoimmune: None GI: GERD, GI bleed, Ulcers : None Psych: None Musculoskeletal: Gout, Chronic back pain Derm: Rosacea - Past Surgical History Past Surgical History: Yes General: Appendectomy HEENT: Tonsil/Adenoidectomy - Present Medications Home Medications: Ambulatory Orders Medication Instructions Recorded Confirmed Albuterol Sulfate [Proair Hfa 2 puffs IH Q4HR PRN 04/22/18 02/07/23 Inhaler] carvediloL [Carvedilol] 12.5 mg PO BID 04/22/18 02/07/23 Fluticasone/Salmeterol [Advair Hfa 2 puffs INH BID 04/27/22 02/07/23 115-21 Mcg Inhaler] dilTIAZem HCL [Diltiazem 24Hr ER 180 mg PO DAILY 04/27/22 02/07/23 (Xr)] Acetaminophen [Tylenol] 650 mg PO Q4HR PRN tab 05/01/22 02/07/23 Ferrous Gluconate 324 mg PO BID #60 tablet 05/01/22 02/07/23 Multivitamin [Theragran] 1 each PO DAILY #30 tablet 05/01/22 02/07/23 Pantoprazole [Protonix] 40 mg PO DAILY #60 tablet 05/01/22 02/07/23 Sucralfate [Carafate] 1 gm PO 0700,1100,1600,2200 #120 ea 05/01/22 02/07/23 Thiamine [Vitamin B-1] 100 mg PO DAILY tab 05/01/22 02/07/23 Calcium Citrate 200 mg PO BID #15 tablet 02/07/23 Magnesium Oxide [Mag Ox] 400 mg PO BID #20 tablet 02/07/23 - Allergies Allergies/Adverse Reactions: Allergies Allergy/AdvReac Type Severity Reaction Status Date / Time TIARA Inhibitors Allergy Severe Respiratory Verified 02/07/23 01:09 lisinopril Allergy Severe Respiratory Verified 02/07/23 01:09 - Social History Does the pt smoke?: Yes Smoking Status: Current every day smoker Does the pt drink ETOH?: No Does the pt have substance abuse?: No - Immunizations Immunizations are current?: Yes - POLST Patient has POLST: No PD ED PE NORMAL - Vitals Vital signs reviewed: Yes - General General: Alert and oriented X 3, No acute distress, Well developed/nourished - HEENT HEENT: Atraumatic, PERRL, EOMI, Moist mucous membranes - Neck Neck: Supple, no meningeal sign - Cardiac Cardiac: RRR - Respiratory Respiratory: No respiratory distress, Clear bilaterally - Abdomen Abdomen: Soft, Non tender, Other (marked palpable hepatomegaly) - Back Back: No CVA TTP, No spinal TTP - Derm Derm: Normal color, Warm and dry - Extremities Extremities: Other (right knee: mild swelling, echymosis; no bony tenderness and ROM is intact) - Neuro Neuro: Alert and oriented X 3, business analytics manager 2-12 intact, No motor deficit, No sensory deficit, Normal speech Eye Opening: Spontaneous Motor: Obeys Commands Verbal: Oriented GCS Score: 15 Results - Vitals Vitals: Oxygen O2 Source Room air - Labs Labs: Laboratory Tests 02/07/23 02/07/23 02/07/23 01:31 01:31 01:31 WBC 5.3 RBC 2.39 L Hgb 7.9 L Hct 24.4 L MCV 102.1 H MCH 33.1 H MCHC 32.4 RDW 16.9 H Plt Count 100 L MPV 10.2 Neut # (Auto) 3.3 Lymph # (Auto) 1.2 L [place] # (Auto) 0.6 Eos # (Auto) 0.1 Baso # (Auto) 0.0 Absolute Nucleated RBC 0.00 Nucleated RBC % 0.0 INR (Fingerstick) Sodium 133 L Potassium 3.7 Chloride 103 Carbon Dioxide 17 L Anion Gap 13.0 BUN 18 Creatinine 1.6 H Estimated GFR (MDRD) 32 L Glucose 101 Calcium 7.3 L Magnesium Total Bilirubin 1.7 H AST 120 H ALT 33 Alkaline Phosphatase 537 H Ammonia Total Protein 6.8 Albumin 2.2 L Globulin 4.6 H Albumin/Globulin Ratio 0.5 L Lipase 35 Urine Color Urine Clarity Urine pH Ur Specific [place] Urine Protein Urine Glucose (UA) Urine Ketones Urine Occult Blood Urine Nitrite Urine Bilirubin Urine Urobilinogen Ur Leukocyte Esterase Ur Microscopic Review Urine Culture Comments Ethyl Alcohol 262.0 02/07/23 02/07/23 02/07/23 05:05 05:14 05:47 WBC 4.4 L RBC 2.47 L Hgb 8.2 L Hct 25.3 L MCV 102.4 H MCH 33.2 H MCHC 32.4 RDW 16.9 H Plt Count 87 L MPV 9.9 Neut # (Auto) 2.8 Lymph # (Auto) 0.9 L [place] # (Auto) 0.5 Eos # (Auto) 0.1 Baso # (Auto) 0.0 Absolute Nucleated RBC 0.00 Nucleated RBC % 0.0 INR (Fingerstick) 1.3 H Sodium Potassium Chloride Carbon Dioxide Anion Gap BUN Creatinine Estimated GFR (MDRD) Glucose Calcium Magnesium Total Bilirubin AST ALT Alkaline Phosphatase Ammonia 64.0 H Total Protein Albumin Globulin Albumin/Globulin Ratio Lipase Urine Color Urine Clarity Urine pH Ur Specific [place] Urine Protein Urine Glucose (UA) Urine Ketones Urine Occult Blood Urine Nitrite Urine Bilirubin Urine Urobilinogen Ur Leukocyte Esterase Ur Microscopic Review Urine Culture Comments Ethyl Alcohol 02/07/23 02/07/23 02/07/23 07:18 10:29 10:29 WBC RBC Hgb 8.0 L Hct 24.6 L MCV MCH MCHC RDW Plt Count MPV Neut # (Auto) Lymph # (Auto) [place] # (Auto) Eos # (Auto) Baso # (Auto) Absolute Nucleated RBC Nucleated RBC % INR (Fingerstick) Sodium 137 Potassium 3.7 Chloride 108 Carbon Dioxide 18 L Anion Gap 11.0 BUN 16 Creatinine 1.3 Estimated GFR (MDRD) 41 L Glucose 80 Calcium 7.0 L Magnesium 1.0 L* Total Bilirubin AST ALT Alkaline Phosphatase Ammonia Total Protein Albumin Globulin Albumin/Globulin Ratio Lipase Urine Color YELLOW Urine Clarity CLEAR Urine pH 6.0 Ur Specific [place] <=1.005 Urine Protein NEGATIVE Urine Glucose (UA) NEGATIVE Urine Ketones NEGATIVE Urine Occult Blood TRACE-INTA Urine Nitrite NEGATIVE Urine Bilirubin NEGATIVE Urine Urobilinogen 1 (NORMAL) Ur Leukocyte Esterase NEGATIVE Ur Microscopic Review NOT INDICATED Urine Culture Comments NOT INDICATED Ethyl Alcohol - Rads (name of study) CT A/P Relevant Findings:: Prelim report reviewed, See rad report, Other (radiologist's interpretation includes hepatomegaly, with differential for this appearance including diffuse hepatosteatosis, diffuse neoplastic infiltration) PD Medical Decision Making - ED course Complexity details: reviewed results, re-evaluated patient, considered differential, d/w patient ED course: Notable abnormalities on tonight's blood tests include hemoglobin of 7.9. Repeat a few hours later without specific intervention shows hemoglobin has improved to 8.2. Both of these results are consistent with her baseline, based on many previous such results. I note that she was inpatient last year for upper gastrointestinal bleeding and was discharged with a hemoglobin of 8.3. Also noted is normal BUN (18) with elevated creatinine (1.6). She has a serum alcohol level of 262. Patient was c/o generalized weakness for much of her stay during my shift; plan is to hold overnight until alcohol is metabolized so she can be reassessed when sober regarding c/o weakness versus able to stand, ambulate. Departure - Departure Disposition: 01 Home, Self Care Clinical Impression: Generalized weakness, Hypomagnesemia, Hypocalcemia, Liver disease, Hypotension due to medication, Alcohol abuse Condition: Stable Follow-Up: CECILIO CHAPARRO ARNP [Primary Care Provider] - Prescriptions: Calcium Citrate 200 mg PO BID #15 tablet Magnesium Oxide [Mag Ox] 400 mg PO BID #20 tablet Comments: Avoid alcohol. Stay well-hydrated otherwise. Your blood pressure was on the low side here and may be accounting for some of your lightheadedness and weakness. I believe it is related to your medication in combination with your electrolytes etc. being off. I would have you hold your diltiazem for the next week at least. Decrease your carvedilol from 12-1/2 mg twice a day to just once a day for the next several days to a week. Your magnesium and calcium were low and could add to your symptoms and weakness. I prescribed supplements of magnesium and calcium for the next 7 to 10 days. Follow-up with your primary care early next week for reevaluation and repeat blood tests. Call today for an appointment. Use walker when up and around to help support yourself. I would anticipate improvement in your symptoms through today and tomorrow as you are electrolytes and blood pressure improved with the above measures. Follow-up with your primary return to the ER as needed. Forms: PCP List Discharge Date/Time: 02/07/23 14:54
--- OUTSIDE RECORDS SUMMARY | 2023-02-07 03:41 | EXTERNAL MEDICAL SUMMARY RPT | Continuity of Care Document ---
Author Name Unknown Address [address] [place] [address] Phone Organization [facility] Address [address] [place], [place] [id number] Phone Problems date description facility 2022-11-29 13:38 Liver disease, unspecified [facility] 2022-11-29 13:39 Atrial premature depolarization [facility] Results/Labs test date facility value unit notes
[2023-02-07 05:51] LABS: BASOPHILS % (AUTO) 0.7 %; EOSINOPHILS # (AUTO) 0.1 10^3/uL (0.0-0.7); EOSINOPHILS % (AUTO) 1.6 %; HCT - HEMATOCRIT 25.3 % (37.0-47.0); HGB - HEMOGLOBIN 8.2 g/dL (12.0-16.0); LYMPHOCYTES # (AUTO) 0.9 10^3/uL (1.5-3.5); LYMPHOCYTES % (AUTO) 21.4 %; MEAN CORPUSCULAR HEMOGLOBIN 33.2 pg (27.0-31.0); MEAN CORPUSCULAR HGB CONC 32.4 g/dL (32.0-36.0); MEAN CORPUSCULAR VOLUME 102.4 fL (81.0-99.0); MEAN PLATELET VOLUME 9.9 fL (7.9-10.8); MONOCYTES # (AUTO) 0.5 10^3/uL (0.0-1.0); MONOCYTES % (AUTO) 11.4 %; NEUTROPHILS # (AUTO) 2.8 10^3/uL (1.5-6.6); NEUTROPHILS % (AUTO) 63.8 %; PLT - PLATELET COUNT 87 10^3/uL (130-450); RED BLOOD COUNT 2.47 10^6/uL (4.20-5.40); RED CELL DISTRIBUTION WIDTH 16.9 % (12.0-15.0); WHITE BLOOD COUNT 4.4 x10^3/uL (4.8-10.8)
[2023-02-07] MEDS ORDERED: SODIUM CHLORIDE 0.9% 1,000 ML IV STA ×2 (07:27→10:16)
[2023-02-07 07:34] LABS: BILIRUBIN,URINE NEGATIVE (NEGATIVE); GLUCOSE, URINE (UA) NEGATIVE (NEGATIVE); KETONES,URINE (UA) NEGATIVE (NEGATIVE); LEUKOCYTE ESTERASE, URINE NEGATIVE (NEGATIVE); NITRITE,URINE NEGATIVE (NEGATIVE); OCCULT BLOOD,URINE TRACE-INTA (NEGATIVE); PROTEIN,URINE NEGATIVE (NEGATIVE); UROBILINOGEN,URINE 1 (NORMAL) E.U./dL (NORMAL)
[2023-02-07 07:39] LABS: CLARITY,URINE CLEAR (CLEAR)
--- NOTE | 2023-02-07 08:51 | CT Report ---
PROCEDURE: ABDOMEN/PELVIS WO INDICATIONS: abdominal pain, hypotension TECHNIQUE: A CT scan of the abdomen and pelvis was performed without the use of intravenous contrast. Images we re recorded and evaluated at appropriate window settings. Reformats: coronal and sagittal. For radiat ion dose reduction, the following was used: automated exposure control, adjustment of mA and/or kV ac cording to patient size. COMPARISON: 04/26/2022 FINDINGS: Image quality: Excellent. Lung bases and heart: Small alveolar opacity in the right medial lower lobe, chronic. Heart is slight ly enlarged. Coarse mitral annular calcification and scattered coronary artery calcification. Liver: Hepatomegaly and marked heterogeneous attenuation with geographic areas of prominent hypodensi ty and band like relative hyperdensity throughout the liver. Caudate lobe hypertrophy. Scattered calc ifications. Gallbladder and biliary tree: Partially decompressed gallbladder. No visible biliary dilatation. Spleen: Normal size spleen with several coarse calcifications consistent with healed granulomas. Pancreas: Diminutive pancreas with mild peripancreatic inflammation, similar compared to the prior st y. Adrenals: No adrenal nodule. Kidneys and ureters: Occasional punctate, nonobstructing renal calculi bilaterally. No hydronephrosis . Small left upper pole cyst. Bowel and peritoneum: There is thickening of the anterior retroperitoneal fascia bilaterally. No free fluid or free air. Stomach and bowel loops are largely decompressed. Mild long segment wall thickeni ng and mural edema involving the ascending colon, likely reactive due to adjacent acute hepatic proce ss. Lymph nodes: No central or retroperitoneal adenopathy. Vessels: Normal caliber vasculature. Moderate to heavy atherosclerotic calcification. PELVIS Reproductive organs: Unremarkable. Bladder: Normal. Pelvic lymph nodes: No pelvic adenopathy by size criteria. Bones: Chronic L4 compression fracture. Decreased mineralization. Geographic sclerotic serpiginous ch anges lungs. Femoral heads consistent with avascular necrosis. Severe disc degeneration L5-S1. Other: No significant ventral or inguinal hernia. IMPRESSION: 1. Hepatomegaly and marked hepatic heterogeneity including steatosis. Consider acute hepatitis. 2. Peripancreatic inflammation and retroperitoneal inflammation indicating mild pancreatitis. Similar compared to the prior study. Consider recurrent or chronic pancreatitis 3. Ascending colon wall thickening is presumed reactive due to adjacent hepatic pathology. 4. Moderate to heavy atherosclerotic calcification. 5. Final interpretation concordant with preliminary report. Reviewed by: Rosette Vasquez MD on 02/07/2023 8:50 AM PDT Approved by: Rosette Vasquez MD on 02/07/2023 8:50 AM PDT Station ID: [id number]
[2023-02-07 10:34] LABS: HCT - HEMATOCRIT 24.6 % (37.0-47.0)
[2023-02-07 10:56] LABS: CREATININE 1.3 mg/dL (0.6-1.3); POTASSIUM 3.7 mmol/L (3.5-4.5)
[2023-02-07] MEDS ORDERED: CALCIUM GLUC 1,000MG/50ML-NACL 1,000 MG/50 ML BAG IV STA (11:19)
[2023-02-07] MEDS ORDERED: MAGNESIUM SULFATE 2 GRAM 2 GM/50 ML BAG IV ONE (11:19)
--- NOTE | 2023-02-07 12:22 | ED Physician Documentation ---
ED Addendum - Addendum Addendum: 02/07/23 12:19 Upon change of shift, the patient is comfortable and lying relaxed. She is conversant and seems to be alert and oriented. Apparently this is improved from overnight and by verbal report. The patient states she had had just 1 drink yesterday. Her blood alcohol level reflects a higher amount and presumably she is still drinking fairly regularly. She is advised to try to stop that and to seek help for detox. Her repeat blood count was showing stable level at now 8.0. Her blood pressure had been somewhat low overnight and given some IV fluids more her blood pressure is now over 100 systolic. We will likely have her hold her diltiazem and reduce her carvedilol I did check some more blood tests and her magnesium level is actually low at 1.0. Her calcium was low on prior testing earlier and is now a bit lower at 7.0 presume dilutional with IV fluids. Both of these could give her a feeling of general weakness with some lightheaded symptoms. We gave her some calcium gluconate as well as magnesium IV supplements. She is feeling improved and seems more oriented and alert. Some of that would have been alcohol level but also some hydration and electrolytes. At this point she should be able to be discharged from the department in stable condition. S he is agreeable to that plan. We will provide supplement prescriptions for her electrolytes magnesium and calcium. Continue her other medicines except for altering the blood pressure ones as above.
[2023-02-07 15:02] VITALS: BP 109/70
== END 2023-02-07 14:54 | disposition home or self-care (01) ==
LOC: EDUNIT# → ED 01:01
DX: R53.1 Weakness (principal); F10.129 Alcohol abuse with intoxication, unspecified; Y90.8 Blood alcohol level of 240 mg/100 ml or more; I95.2 Hypotension due to drugs; T44.7X5A Adverse effect of beta-adrenoreceptor antagonists, initial encounter; T46.1X5A Adverse effect of calcium-channel blockers, initial encounter; E83.42 Hypomagnesemia; E83.51 Hypocalcemia; K76.9 Liver disease, unspecified; F17.200 Nicotine dependence, unspecified, uncomplicated
CPT/HCPCS: 36415; 74176; 80048; 80053; 81003; 82140; 83690; 83735; 85014; 85018; 85025; 85610; 96361; 96365; 96368; 99284; G0480; 80320; 81001; 87086

== ENCOUNTER 2023-02-18 07:45 | Outpatient (CLI) | payer MEDICARE, OTHER | END 2023-02-18 07:46 | disposition EMS.NT | LOC: EMS 07:45 | DX: R53.1 Weakness (principal) ==

== ENCOUNTER 2023-02-18 20:39 | Outpatient (CLI) | payer MEDICARE, OTHER | END 2023-02-18 23:59 | disposition critical access hospital (66) | LOC: EMS 20:39 | DX: S91.302A Unspecified open wound, left foot, initial encounter (principal); M79.89 Other specified soft tissue disorders; R53.1 Weakness; X58.XXXA Exposure to other specified factors, initial encounter | CPT/HCPCS: A0425; A0429 ==

== ENCOUNTER 2023-02-18 21:41 | Observation (INO) | payer MEDICARE, OTHER ==
[2023-02-18 22:34] LABS: BASOPHILS % (AUTO) 0.6 %; EOSINOPHILS # (AUTO) 0.1 10^3/uL (0.0-0.7); EOSINOPHILS % (AUTO) 1.5 %; HCT - HEMATOCRIT 22.3 % (37.0-47.0); HGB - HEMOGLOBIN 7.1 g/dL (12.0-16.0); LYMPHOCYTES % (AUTO) 14.2 %; MEAN CORPUSCULAR HEMOGLOBIN 33.3 pg (27.0-31.0); MEAN CORPUSCULAR HGB CONC 31.8 g/dL (32.0-36.0); MEAN CORPUSCULAR VOLUME 104.7 fL (81.0-99.0); MEAN PLATELET VOLUME 10.1 fL (7.9-10.8); MONOCYTES # (AUTO) 0.6 10^3/uL (0.0-1.0); MONOCYTES % (AUTO) 8.5 %; NEUTROPHILS # (AUTO) 5.3 10^3/uL (1.5-6.6); NEUTROPHILS % (AUTO) 74.4 %; PLT - PLATELET COUNT 139 10^3/uL (130-450); RED BLOOD COUNT 2.13 10^6/uL (4.20-5.40); RED CELL DISTRIBUTION WIDTH 20.9 % (12.0-15.0); WHITE BLOOD COUNT 7.2 x10^3/uL (4.8-10.8)
--- OUTSIDE RECORDS SUMMARY | 2023-02-18 22:34 | EXTERNAL MEDICAL SUMMARY RPT | Continuity of Care Document ---
Author Name Unknown Address [address] [place] [address] Phone Organization [facility] Address [address] [place], [place] [phone] Phone Problems date description facility 2022-11-29 13:38 Liver disease, unspecified [facility] 2022-11-29 13:[address] [facility] Results/Labs test date facility value unit notes
[2023-02-18 22:47] LABS: ALBUMIN 1.5 g/dL (3.2-5.5); ALBUMIN/GLOBULIN RATIO 0.3 (1.0-2.2); ALKALINE PHOSPHATASE 318 IU/L (42-121); ALT ALANINE AMINOTRANSFERASE 26 IU/L (10-60); AST ASPARTATE AMINOTRANSFERASE 86 IU/L (10-42); BILIRUBIN,TOTAL 3.3 mg/dL (0.2-1.0); BUN - BLOOD UREA NITROGEN 14 mg/dL (6-20); CALCIUM 7.8 mg/dL (8.5-10.3); CARBON DIOXIDE - CO2 22 mmol/L (21-32); CHLORIDE 108 mmol/L (101-111); ETOH - ETHANOL < 10.0 mg/dL; GFR - MDRD 55 (>89); GLUCOSE 114 mg/dL (70-100); INR 1.6 (0.8-1.2); LIPASE 37 U/L (22-51); POTASSIUM 3.1 mmol/L (3.5-5.0); PT - PROTHROMBIN TIME 17.6 secs (9.9-12.6); SODIUM 137 mmol/L (135-145); TOTAL PROTEIN 6.2 g/dL (6.7-8.2)
[2023-02-18 22:48] LABS: SLIDE REVIEW? Indicated
[2023-02-18 23:09] LABS: PLATELET ESTIMATE, MANUAL NORMAL (130-450,000) (NORMAL)
--- NOTE | 2023-02-18 23:31 | ED Physician Documentation ---
History of Present Illness - Stated complaint Stated Complaint: L TOE INFECTION - Chief complaint Chief Complaint: Ext Problem - History obtained from History obtained from: Patient, Family (Sister) - Additonal information Additional information: Patient is a 67-year-old female presenting for evaluation of wound to her left foot that she noticed today. Wound was actually noticed by her sister. Stephanie early denies any injury or trauma. Per sister patient has been weaker over the past several weeks. She has been falling. No falls in the past several days. She was seen 11 days ago in our emergency department after a fall. She has not been out of bed today. Per patient she is being evaluated for a liver problem but reports that her GI doctor is unsure of the etiology. Patient denies alcohol or drug use to me but on review of her most recent ED record she had an elevated alcohol level in the 200s. Per her sister patient does have a history of alcohol abuse but has not had any alcohol she believes in 1 week.Patient history of GI bleeds. Denies Melena or hematochezia. Review of Systems Constitutional: denies: Fever Cardiac: denies: Chest pain / pressure Respiratory: denies: Dyspnea GI: denies: Abdominal Pain Skin: reports: Other (Abscess L foot) Neurologic: reports: Generalized weakness PD PAST MEDICAL HISTORY - Past Medical History Cardiovascular: Hypertension, High cholesterol, Atrial fibrillation Respiratory: Asthma Neuro: None Endocrine/Autoimmune: None GI: GERD, GI bleed, Ulcers : None Psych: None Musculoskeletal: Gout, Chronic back pain Derm: Rosacea - Past Surgical History Past Surgical History: Yes General: Appendectomy HEENT: Tonsil/Adenoidectomy - Present Medications Home Medications: Ambulatory Orders Medication Instructions Recorded Confirmed Albuterol Sulfate [Proair Hfa 2 puffs IH Q4HR PRN 04/22/18 02/07/23 Inhaler] carvediloL [Carvedilol] 12.5 mg PO BID 04/22/18 02/07/23 Fluticasone/Salmeterol [Advair Hfa 2 puffs INH BID 04/27/22 02/07/23 115-21 Mcg Inhaler] dilTIAZem HCL [Diltiazem 24Hr ER 180 mg PO DAILY 04/27/22 02/07/23 (Xr)] Acetaminophen [Tylenol] 650 mg PO Q4HR PRN tab 05/01/22 02/07/23 Ferrous Gluconate 324 mg PO BID #60 tablet 05/01/22 02/07/23 Multivitamin [Theragran] 1 each PO DAILY #30 tablet 05/01/22 02/07/23 Pantoprazole [Protonix] 40 mg PO DAILY #60 tablet 05/01/22 02/07/23 Sucralfate [Carafate] 1 gm PO 0700,1100,1600,2200 #120 ea 05/01/22 02/07/23 Thiamine [Vitamin B-1] 100 mg PO DAILY tab 05/01/22 02/07/23 Calcium Citrate 200 mg PO BID #15 tablet 02/07/23 Magnesium Oxide [Mag Ox] 400 mg PO BID #20 tablet 02/07/23 - Allergies Allergies/Adverse Reactions: Allergies Allergy/AdvReac Type Severity Reaction Status Date / Time TIARA Inhibitors Allergy Severe Respiratory Verified 02/18/23 21:55 lisinopril Allergy Severe Respiratory Verified 02/18/23 21:55 - Social History Does the pt smoke?: Yes Smoking Status: Current every day smoker Does the pt drink ETOH?: No Does the pt have substance abuse?: No - Immunizations Immunizations are current?: Yes - POLST Patient has POLST: No PD ED PE NORMAL - General General: Alert and oriented X 3, No acute distress, Well developed/nourished - HEENT HEENT: Atraumatic, Moist mucous membranes, Pharynx benign - Neck Neck: Supple, no meningeal sign - Cardiac Cardiac: RRR, No murmur - Respiratory Respiratory: No respiratory distress, Clear bilaterally - Abdomen Abdomen: Normal bowel sounds, Soft, Non tender, Non distended, Other (Hepatomegaly) - Rectal Rectal: Other (Chaperoned by TARA Kang, yellow-colored stool, no blood) - Derm Derm: Other (Jaundiced, pale appearing) - Extremities Extremities: Other (Swelling and redness to left first MTP joint with fluctuance, small opening with purulent drainage expressed) - Neuro Neuro: Alert and oriented X 3, No motor deficit, No sensory deficit, Normal speech Results - Vitals Vitals: Vital Signs - 24 hr 02/18/23 02/18/23 21:52 23:55 Temperature 36.1 C L Heart Rate 90 84 Respiratory 18 16 Rate Blood Pressure 111/98 H 121/72 O2 Saturation 100 98 Oxygen O2 Source Room air - EKG (time done) 0048 EKG releavant findings:: EKG personally interpreted by author of this note. Relevant findings are: Rate 85, normal sinus rhythm, no STEMI Rate: Rate (enter#) (85) Rhythm: NSR Ischemia: No: ST elevation c/w ischemia - Labs Labs: Microbiology 02/18/23 22:28 Wound Culture - Preliminary Foot - Left Laboratory Tests 02/18/23 02/18/23 02/18/23 22:27 22:27 22:27 WBC 7.2 RBC 2.13 L Hgb 7.1 L Hct 22.3 L MCV 104.7 H MCH 33.3 H MCHC 31.8 L RDW 20.9 H Plt Count 139 MPV 10.1 Neut # (Auto) 5.3 Lymph # (Auto) 1.0 L [place] # (Auto) 0.6 Eos # (Auto) 0.1 Baso # (Auto) 0.0 Absolute Nucleated RBC 0.00 Nucleated RBC % 0.0 Manual Slide Review Indicated Platelet Estimate NORMAL (130-450,000) RBC Morph Micro Appear 1+ OVALOCYTES PT 17.6 H INR 1.6 H Sodium 137 Potassium 3.1 L Chloride 108 Carbon Dioxide 22 Anion Gap 7.0 BUN 14 Creatinine 1.0 Estimated GFR (MDRD) 55 L Glucose 114 H Calcium 7.8 L Magnesium Total Bilirubin 3.3 H AST 86 H ALT 26 Alkaline Phosphatase 318 H Total Protein 6.2 L Albumin 1.5 L Globulin 4.7 H Albumin/Globulin Ratio 0.3 L Lipase 37 Ethyl Alcohol < 10.0 02/18/23 22:27 WBC RBC Hgb Hct MCV MCH MCHC RDW Plt Count MPV Neut # (Auto) Lymph # (Auto) [place] # (Auto) Eos # (Auto) Baso # (Auto) Absolute Nucleated RBC Nucleated RBC % Manual Slide Review Platelet Estimate RBC Morph Micro Appear PT INR Sodium Potassium Chloride Carbon Dioxide Anion Gap BUN Creatinine Estimated GFR (MDRD) Glucose Calcium Magnesium 1.4 L Total Bilirubin AST ALT Alkaline Phosphatase Total Protein Albumin Globulin Albumin/Globulin Ratio Lipase Ethyl Alcohol Procedures - Abscess I&D (location) Left foot Preparation: Betadine, Lidocaine 1% Incision: Incised with scalpel, Purulent drainage, Loculations broken, Culture obtained Other: Pt tolerated well, Dressing applied PD Medical Decision Making - ED course Complexity details: reviewed results, re-evaluated patient, d/w patient, d/w family ED course: Patient is a 67-year-old female presenting for evaluation of generalized weakness along with an abscess to the left foot. Patient has a small abscess to the left foot that was incised and drained with good expression of purulence. She has a history of alcohol abuse and liver cirrhosis. She appears chronically ill. CBC, chemistries, ethanol level, coags were obtained and reviewed. Kayden good has chronic anemia with hemoglobin today of 7.1 which is slightly lower than prior ED visit 11 days ago. Stool is normal colored and the patient denies any recent symptoms of hematochezia or melena. Patient's bilirubin is slightly elevated at 3.3 with mild elevation also in alk phos and AST. INR is elevated at 1.6. Calcium, magnesium and potassium are also noted to be slightly low. Madrey score was calculated out at 38. Based on the score patient would qualify for glucocorticoid therapy. Discussed recommendations for admission at this time for treatment of her alcoholic hepatitis, correction of electrolytes, trending her hemoglobin. Also reviewed the case with admitting hospitalist with this time felt that she does not need steroids and requested we hold off. He had also ordered IV antibiotics so I cancelled my PO antibiotic order. Departure - Departure Disposition: [facility] DC/Xfer Clinical Impression: Alcoholic hepatitis, Foot infection, Hypocalcemia, Hypomagnesemia, Hypokalemia, Alcohol abuse Condition: Fair Discharge Date/Time: 02/19/23 01:09
[2023-02-18] MEDS ORDERED: POTASSIUM CHLORIDE 20 MEQ TABLET PO STA (23:43)
[2023-02-18] MEDS ORDERED: MAGNESIUM SULFATE 2 GRAM 2 GM/50 ML BAG IV ONE (23:44)
[2023-02-18] MEDS ORDERED: SODIUM CHLORIDE 0.9% 1,000 ML IV SCH (23:45)
[2023-02-18] MEDS ORDERED: cephALEXin 250 MG CAPSULE PO STA (23:45)
[2023-02-18] MEDS ORDERED: SULFAMETH/TRIMETH DS 800/160 MG TABLET PO STA (23:46)
[2023-02-18] MEDS ORDERED: ONDANSETRON 4 MG/2 ML VIAL IVP PRN (23:58)
[2023-02-18] MEDS ORDERED: SODIUM CHLORIDE FLUSH 0.9% 10 ML SYRINGE IVP PRN (23:58)
--- NOTE | 2023-02-19 00:12 | HISTORY & PHYSICAL EXAMINATION ---
Chief Complaint - Chief Complaint Chief Complaint: Weakness History of Present Illness - History of Present Illness HPI Comment/Other: 67 y old female with PMH HTN, alcohol abuse, PUD was brought in to the ER due to generalized weakness. As per sister, patient has been weaker and falling recently. No syncopal episode. Pt also has infection in left foot for last few days. Denies fever, chest pain, cough, nausea, vomiting, diarrhea, symptoms On presentaion, pt is afebrile As per ER physician, she drained about 2 cc pus from the left foot wound. Labs showed normal WBC, Hb 7.1, Mag 1.4, T bili 3.4, elevated AST. Guaiac negative Patient is admitted due to left foot abscess s/p I & D, weakness, recurrent fall, anemia, alcoholic hepatitis, hypomagnesemia, dehydation. History - Past Medical History Cardiovascular: reports: Hypertension, High cholesterol, Atrial fibrillation Respiratory: reports: Asthma Neuro: reports: None Endocrine/Autoimmune: reports: None GI: reports: GERD, GI bleed, Ulcers : reports: None Psych: reports: None Musculoskeletal: reports: Gout, Chronic back pain Derm: reports: Rosacea MRSA Hx?: No - Past Surgical History General: reports: Appendectomy HEENT: reports: Tonsil/Adenoidectomy - Family & Social History Family History Comment/Other: She reports her mother had asthma and coronary artery disease. She from a myocardial infarction. 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 She lives at home with her . They have 1 dog. She reports smoking a pack a day for nearly 50 years. Denies alcohol use. - Substance History Use: Uses substance without health or social issues: Tobacco - POLST Patient has POLST: No Meds/Allgy - Home Medications Home Medications: Ambulatory Orders Medication Instructions Recorded Confirmed Albuterol Sulfate [Proair Hfa 2 puffs IH Q4HR PRN 04/22/18 02/07/23 Inhaler] carvediloL [Carvedilol] 12.5 mg PO BID 04/22/18 02/07/23 Fluticasone/Salmeterol [Advair Hfa 2 puffs INH BID 04/27/22 02/07/23 115-21 Mcg Inhaler] dilTIAZem HCL [Diltiazem 24Hr ER 180 mg PO DAILY 04/27/22 02/07/23 (Xr)] Acetaminophen [Tylenol] 650 mg PO Q4HR PRN tab 05/01/22 02/07/23 Ferrous Gluconate 324 mg PO BID #60 tablet 05/01/22 02/07/23 Multivitamin [Theragran] 1 each PO DAILY #30 tablet 05/01/22 02/07/23 Pantoprazole [Protonix] 40 mg PO DAILY #60 tablet 05/01/22 02/07/23 Sucralfate [Carafate] 1 gm PO 0700,1100,1600,2200 #120 ea 05/01/22 02/07/23 Thiamine [Vitamin B-1] 100 mg PO DAILY tab 05/01/22 02/07/23 Calcium Citrate 200 mg PO BID #15 tablet 02/07/23 Magnesium Oxide [Mag Ox] 400 mg PO BID #20 tablet 02/07/23 - Allergies Allergies/Adverse Reactions: Allergies Allergy/AdvReac Type Severity Reaction Status Date / Time TIARA Inhibitors Allergy Severe Respiratory Verified 02/18/23 21:55 lisinopril Allergy Severe Respiratory Verified 02/18/23 21:55 Review of Systems - Constitutional Constitutional: reports: Weakness - Other Findings Other Findings: 10 point systems were reviewed and were negative except mentioned in HPI Exam - Vital Signs Vital Signs: Vital Signs x48h Temp Pulse Resp BP Pulse Ox 02/18/23 21:52 36.1 C L 90 18 111/98 H 100 - Physical Exam General Appearance: positive: No acute distress Eyes Bilateral: positive: Normal inspection ENT: positive: ENT inspection nml Neck: positive: Nml inspection Conclusion/Plan - Lab Results Fish Bones: 02/18/23 22:27 02/18/23 22:27 - Other Other Results/Comments: A: Left foot abscess s/p I & D weakness Alcoholic hepatitis Anemia Dehydration Poor appetite Recurrent falls Hypomagnesmia HTN H/O alcohol abuse Plan; Admit to med surg with tele Follow cx Start Rocephin and vanco PT/OT Monitor LFT Start protonix 40 mg iv daily Monitor H/H NS @ 100 cc/h Replace mag Monitor for withdrawls DVT prophylaxic: SCD Full code Pt is admitted as inpatient as more than 2 midnight stay is expected
[2023-02-19] MEDS: SODIUM CHLORIDE FLUSH 0.9% 10 ML SYRINGE IVP SCH ×2 (01:20→08:30)
[2023-02-19] MEDS ORDERED: VANCOMYCIN INJ 1.5 GM in SODIUM CHLORIDE 0.9% 500 ML IV ONE (02:00)
[2023-02-19] MEDS ORDERED: VANCOMYCIN 1 GM VIAL ONE (02:59)
[2023-02-19 04:52] LABS: BASOPHILS % (AUTO) 0.5 %; EOSINOPHILS # (AUTO) 0.1 10^3/uL (0.0-0.7); EOSINOPHILS % (AUTO) 1.7 %; LYMPHOCYTES # (AUTO) 1.2 10^3/uL (1.5-3.5); LYMPHOCYTES % (AUTO) 19.2 %; MEAN CORPUSCULAR HEMOGLOBIN 33.5 pg (27.0-31.0); MEAN CORPUSCULAR HGB CONC 32.1 g/dL (32.0-36.0); MEAN CORPUSCULAR VOLUME 104.3 fL (81.0-99.0); MEAN PLATELET VOLUME 10.1 fL (7.9-10.8); MONOCYTES # (AUTO) 0.5 10^3/uL (0.0-1.0); NEUTROPHILS # (AUTO) 4.4 10^3/uL (1.5-6.6); NEUTROPHILS % (AUTO) 69.3 %; PLT - PLATELET COUNT 137 10^3/uL (130-450); RED BLOOD COUNT 1.88 10^6/uL (4.20-5.40); RED CELL DISTRIBUTION WIDTH 20.9 % (12.0-15.0); WHITE BLOOD COUNT 6.4 x10^3/uL (4.8-10.8)
[2023-02-19 04:59] LABS: HCT - HEMATOCRIT 19.6 % (37.0-47.0); HGB - HEMOGLOBIN 6.3 g/dL (12.0-16.0); SLIDE REVIEW? Indicated
[2023-02-19 05:08] LABS: ALBUMIN 1.8 g/dL (3.2-5.5); ALBUMIN/GLOBULIN RATIO 0.5 (1.0-2.2); BILIRUBIN,TOTAL 2.7 mg/dL (0.2-1.0); CALCIUM 7.8 mg/dL (8.5-10.3); CREATININE 0.9 mg/dL (0.6-1.3); POTASSIUM 3.1 mmol/L (3.5-4.5); TOTAL PROTEIN 5.7 g/dL (6.4-8.9)
[2023-02-19 05:20] LABS: PLATELET ESTIMATE, MANUAL NORMAL (130-450,000) (NORMAL)
--- NOTE | 2023-02-19 05:30 | PROVIDER PROGRESS NOTE ---
Hospitalist Cross-cover Note - Cross-Cover Note Cross-Cover Note: Consult Information Member Facility: [facility] Facility Requesting Clinician: Salbador Bae Patient Name: Snehal Lopez Date of : 1955 Gender: Female Reason for Consult Reason for Consult: Critical Lab Clinical Note Clinical Note: per rn - "Pt's labs @ 0400 Hemoglobin: 6.3 & Hematocrit: 19.6" transfuse 1 unit prbc
[2023-02-19] MEDS ORDERED: SODIUM CHLORIDE 0.9% 500 ML IV ONE (07:17)
[2023-02-19] MEDS ORDERED: SODIUM CHLORIDE 0.9% 1,000 ML IV SCH (08:07)
[2023-02-19] MEDS ORDERED: PANTOPRAZOLE 40 MG VIAL IV SCH (09:00)
[2023-02-19] MEDS ORDERED: cefTRIAXone 1 GM in SODIUM CHLORIDE 0.9% MINIBAG 100 ML IV SCH (09:00)
[2023-02-19] MEDS ORDERED: VANCOMYCIN INJ 1 GM in SODIUM CHLORIDE 0.9% 250 ML IV SCH (14:00)
--- NOTE | 2023-02-19 14:49 | Discharge Plan ---
Discharge Plan Problem Reviewed?: Yes Disposition: Home Health Service Condition: Fair Prescriptions: Sulfamethox/Trimeth 800/160 [Bactrim Ds] 1 tab PO BID #14 tab Diet: Regular Activity Restrictions: Activity as Tolerated Shower Restrictions: No Driving Restrictions: Yes Assistance Devices: Walker Weight Bearing: Full Weight Health Concerns: You were hospitalized to treat a foot infection that had an abscess and it was cleaned and dressed by the ER doctor. You are going home with an order to take oral antibiotics for a week. The prescription was electronically sent to the [facility] pharmacy in [place]. I will order your home health agency to have an RN to come and do wound care at your home. We will also resume the home health agency's physical therapist and occupational therapist to keep working with you at home. You may resume all your other pre-Hospital medications and diet. Please refrain from using alcohol, because it has already harmed your liver. Plan of Treatment: As above. Care Goals: Improvement in symptoms and stabilization are the goals. Assessment: These instructions are provided for you and your family as a reminder. Follow-Up Care: Home Health - RN, Home Health - PT, Home Health - OT No Smoking: If you smoke, Please STOP! Call for help. Follow-up with: CECILIO CHAPARRO ARNP [Primary Care Provider] -
--- NOTE | 2023-02-19 14:51 | PHARMACY PROGRESS NOTE ---
- Best Possible Medication History Admit Date and Time: 02/18/23 8260 Processed by: Pharmacy Medication History completed: Yes Patient Interview: Completed Secondary Source(s): Insurance records As the person ultimately responsible for medication therapy, providers are able to order a medication from an existing home medication list in [facility] via the "Reconcile Routine" prior to Confirmation of that medication by child support specialist. Such practice is discouraged except when the physician, in their clinical judgment, deems that a medical need exists for a medication without regard to previous use.
--- NOTE | 2023-02-19 15:41 | DISCHARGE SUMMARY ---
Discharge Summary Admit Date: 02/18/23 Discharge Date: 02/19/23 Discharging Provider: Seda Padron MD Primary Care Provider: PUNEET Nuñez Condition at Discharge: Fair Discharge Disposition: [facility] - [facility] History of Present Illness: 67 y old female who lives with her and has PMH of HTN, alcohol abuse, PUD was brought in to the ER due to generalized weakness. As per sister, patient has been weaker and falling recently. No syncopal episode. Pt also has infection in left foot for last few days. Denies fever, chest pain, cough, nausea, vom iting, diarrhea, symptoms On presentaion, pt is afebrile. As per ER physician, she drained about 2 cc pus from the left foot wound. Labs showed normal WBC, Hb 7.1, Mag 1.4, T bili 3.4, elevated AST. Guaiac negative Patient is admitted due to left foot abscess s/p I & D, weakness, recurrent fal l, anemia, alcoholic hepatitis, hypomagnesemia, dehydration. - HOSPITAL COURSE Hospital Course: 1) Left foot abscess s/p I & D Patient was admitted to inpatient status, however she did not qualify with no elevation of WBC, no fever, no AMS or signs of sepsis. She was transitioned to Observation status. The ER doctor had wanted to start her on oral antibiotics, but telemedicine gave her a dose of IV Rocephin and iv Vancomycin. She was discharged home on the oral antibiotic of Bactrim DS 1 p.o. twice daily to take for a week. The wound Gram stain showed many WBCs and no bacteria. The culture is pending at time of discharge. At discharge, an RN was added to the [facility] order, to check her wound and do dressing changes as needed. 2) Alcoholic hepatitis The patient had elevated bilirubin of 3.3, elevated INR of 1.6. She has mild leg edema and probable mild ascites on exam. The ER doctor calculated her Madrey score to be 38 but by my calculation, her Madrey score was 19 and MELD score 16. These were not adequate criteria to qualify for Inpatient status. Also not needed were IV steroids. He was kept on her daily oral thiamine and reminded about not drinking alcohol. 3) H/O alcohol abuse The patient initially told the ER doctor that she never drank alcohol, and that her GI doctor is not sure what caused her liver disease. But there are extensive records of her having alcohol abuse, trying to cover it or deny it, and she has elevated LFTs and sees a specialist. He was kept on her daily oral thiamine and reminded about not drinking alcohol. A CIWA protocol was ordered but she was not here long enough to be in the window for going through alcohol withdrawal. 4) Anemia Her admission hemoglobin was 7.1. She was ordered to get NS @ 100 cc/hr, causing hemodilution, and her next Hgb was 6.3. She received 1 unit of blood t ransfused. The follow-up hemoglobin was 8.3. At discharge, she was to continue her iron supplements. 5) Recurrent falls As per recent and remote Hx. Her anemia may have added to these falls. In the past she told me that being intoxicated added to the falls. We checked orthostatic vital signs which were within normal limits. We learned that she is getting [facility] PT and OT at home. At discharge, these were ordered to be resumed. 6) Hypomagnesmia Likely related to her alcohol use history. Magnesium was replaced 7) HTN She was kept on all her usual blood pressure meds. - ALLERGIES Allergies/Adverse Reactions: Allergies Allergy/AdvReac Type Severity Reaction Status Date / Time TIARA Inhibitors Allergy Severe Respiratory Verified 02/18/23 21:55 lisinopril Allergy Severe Respiratory Verified 02/18/23 21:55 - MEDICATIONS Home Medications: Ambulatory Orders Medication Instructions Recorded Confirmed carvediloL [Carvedilol] 12.5 mg PO BID 04/22/18 02/19/23 dilTIAZem HCL [Diltiazem 24Hr ER 180 mg PO DAILY 04/27/22 02/19/23 (Xr)] Pantoprazole [Protonix] 40 mg PO DAILY #60 tablet 05/01/22 02/19/23 Thiamine [Vitamin B-1] 100 mg PO DAILY tab 05/01/22 02/19/23 Calcium Citrate 200 mg PO BID #15 tablet 02/07/23 02/19/23 Magnesium Oxide [Mag Ox] 400 mg PO BID #20 tablet 02/07/23 02/19/23 Ferrous Gluconate 324 mg PO DAILY 02/19/23 02/19/23 Sulfamethox/Trimeth 800/160 1 tab PO BID #14 tab 02/19/23 [Bactrim Ds] - PHYSICAL EXAM AT DISCHARGE General Appearance: positive: No acute distress, Alert, Other (Pale) Eyes Bilateral: positive: Normal inspection, EOMI ENT: positive: ENT inspection nml, No signs of dehydration Neck: positive: Nml inspection, No JVD Respiratory: positive: No respiratory distress, Breath sounds nml Cardiovascular: positive: Regular rate & rhythm, No murmur Abdomen: positive: Non-tender, Other (Moderately distended, nontender, probable fluid wave and hepatomegaly.) Skin: positive: Warm, Dry, Other (Many bruises and skin abraisions diffusely.) Extremities: positive: Other (1+ edema to below knees. L inner foot has a large, dry bandage.) Neurologic/Psychiatric: positive: Oriented x3, Other (Poor memory. Has generalized weakness but no focal findings. Is minimally communicative.) - LABS Result Diagrams: 02/19/23 15:02 02/19/23 04:07 - DIAGNOSTIC IMAGING Diagnostic Imaging Results: Final report reviewed - FOLLOW UP Follow Up: See PCP in 1 to 2 weeks for hospital follow-up visit. - TIME SPENT Time Spent in Discharge (Minutes): 30
[2023-02-19 16:07] VITALS: BP 125/72; O2SAT 98
[2023-02-19] MEDS ORDERED: SULFAMETH/TRIMETH DS 800/160 MG TABLET PO SCH (21:00)
== END 2023-02-19 18:30 | disposition home health service (06) ==
LOC: EDUNIT# → ED 21:41 → MS2 23:58 → INTOOBSV 23:58
PROVIDERS: ADMIT Internal Medicine; ATTEND Internal Medicine
DX: L02.612 Cutaneous abscess of left foot (principal); F10.10 Alcohol abuse, uncomplicated; E83.51 Hypocalcemia; E87.6 Hypokalemia; K70.10 Alcoholic hepatitis without ascites; R53.1 Weakness; E80.6 Other disorders of bilirubin metabolism; E86.0 Dehydration; D64.9 Anemia, unspecified; I10 Essential (primary) hypertension; I48.91 Unspecified atrial fibrillation; E78.00 Pure hypercholesterolemia, unspecified; J45.909 Unspecified asthma, uncomplicated; K21.9 Gastro-esophageal reflux disease without esophagitis; G89.29 Other chronic pain; M10.9 Gout, unspecified; M54.9 Dorsalgia, unspecified; F17.200 Nicotine dependence, unspecified, uncomplicated; R63.0 Anorexia; R74.01 Elevation of levels of liver transaminase levels; R74.8 Abnormal levels of other serum enzymes; Z68.30 Body mass index [BMI] 30.0-30.9, adult; Z79.51 Long term (current) use of inhaled steroids; Z79.899 Other long term (current) drug therapy; Z88.8 Allergy status to other drugs, medicaments and biological substances; Z91.81 History of falling
CPT/HCPCS: 10060; 36415; 80053; 83690; 83735; 85018; 85025; 85610; 86850; 86900; 86901; 86920; 87070; 87205; 93005; 96365; 96366; 96367; 97162; 97530; 99285; A9270; G0378; G0480; J3370; P9016; 80320

== ENCOUNTER 2023-02-21 18:53 | Outpatient (CLI) | payer MEDICARE, OTHER | END 2023-02-21 23:59 | disposition critical access hospital (66) | LOC: EMS 18:53 | DX: R10.84 Generalized abdominal pain (principal); R10.817 Generalized abdominal tenderness; R14.0 Abdominal distension (gaseous); R32 Unspecified urinary incontinence; R15.9 Full incontinence of feces; R63.0 Anorexia; R11.0 Nausea | CPT/HCPCS: A0425; A0427 ==

== ENCOUNTER 2023-02-21 19:06 | Inpatient (IN) | payer MEDICARE, OTHER ==
[2023-02-21] MEDS ORDERED: SODIUM CHLORIDE 0.9% 250 ML IV STA (19:48)
--- OUTSIDE RECORDS SUMMARY | 2023-02-21 19:50 | EXTERNAL MEDICAL SUMMARY RPT | Continuity of Care Document ---
Author Name Unknown Address [address] [place] [address] Phone Organization [facility] Address [address] [place], [place] [id number] Phone Problems date description facility 2022-11-29 13:38 Liver disease, unspecified [facility] 2022-11-29 13:39 Atrial premature depolarization [facility] Results/Labs test date facility value unit notes
--- NOTE | 2023-02-21 19:58 | ED Physician Documentation ---
History of Present Illness - Stated complaint Stated Complaint: LEFT FOOT WOUND - Chief complaint Chief Complaint: General - History obtained from History obtained from: EMS - Additonal information Additional information: 67-year-old woman with history of A-fib, high blood pressure, hyperlipidemia, alcoholic cirrhosis with peptic ulcer disease and chronic GI bleed, just seen here in observation 02/18 to 02/19 status post 1 unit of PRBC with hemoglobin 8.3 upon discharge, presents with confusion, generalized weakness, decreased oral intake, and inability for caregivers to take care of her at home. She also has been having dark stools and has a left lower extremity wound that was treated with antibiotics in the hospital and is continuing to be treated with oral antibiotics. [facility] health PT/OT workers are not coming till next week per family. Review of Systems Unable to obtain: Dementia PD PAST MEDICAL HISTORY - Past Medical History Cardiovascular: Hypertension, High cholesterol, Atrial fibrillation Respiratory: Asthma Neuro: None Endocrine/Autoimmune: None GI: GERD, GI bleed, Ulcers : None Psych: None Musculoskeletal: Gout, Chronic back pain Derm: Rosacea - Past Surgical History Past Surgical History: Yes General: Appendectomy HEENT: Tonsil/Adenoidectomy - Present Medications Home Medications: Ambulatory Orders Medication Instructions Recorded Confirmed carvediloL [Carvedilol] 12.5 mg PO BID 04/22/18 02/19/23 dilTIAZem HCL [Diltiazem 24Hr ER 180 mg PO DAILY 04/27/22 02/19/23 (Xr)] Pantoprazole [Protonix] 40 mg PO DAILY #60 tablet 05/01/22 02/19/23 Thiamine [Vitamin B-1] 100 mg PO DAILY tab 05/01/22 02/19/23 Calcium Citrate 200 mg PO BID #15 tablet 02/07/23 02/19/23 Magnesium Oxide [Mag Ox] 400 mg PO BID #20 tablet 02/07/23 02/19/23 Ferrous Gluconate 324 mg PO DAILY 02/19/23 02/19/23 Sulfamethox/Trimeth 800/160 1 tab PO BID #14 tab 02/19/23 [Bactrim Ds] - Allergies Allergies/Adverse Reactions: Allergies Allergy/AdvReac Type Severity Reaction Status Date / Time TIARA Inhibitors Allergy Severe Respiratory Verified 02/18/23 21:55 lisinopril Allergy Severe Respiratory Verified 08/15/23 21:55 - Social History Does the pt smoke?: Yes Smoking Status: Current every day smoker Does the pt drink ETOH?: No Does the pt have substance abuse?: No - Immunizations Immunizations are current?: Yes - POLST Patient has POLST: No PD ED PE NORMAL - Vitals Vital signs reviewed: Yes - General General: No acute distress, Other (elderly appearing) - HEENT HEENT: Atraumatic, PERRL, EOMI, Pharynx benign, Other (dry MM) - Neck Neck: Supple, no meningeal sign - Cardiac Cardiac: RRR - Respiratory Respiratory: No respiratory distress, Clear bilaterally - Abdomen Abdomen: Non tender - Derm Derm: Normal color, Warm and dry - Extremities Extremities: Other (LLE wound with dressing in place) Results - Vitals Vitals: Vital Signs - 24 hr 02/21/23 02/21/23 02/21/23 19:17 21:28 21:30 Temperature 36.2 C L Heart Rate 89 86 Respiratory 18 18 24 Rate Blood Pressure 142/91 H 116/99 H O2 Saturation 90 L 91 L 88 L If not protocol : Oxygen Flow, liters/minute 02/21/23 21:46 Temperature Heart Rate 82 Respiratory 26 H Rate Blood Pressure O2 Saturation 95 If not protocol 2 : Oxygen Flow, liters/minute Oxygen O2 Source Nasal cannula - Labs Labs: Laboratory Tests 02/21/23 02/21/23 02/21/23 19:59 19:59 19:59 WBC 6.9 RBC 2.48 L Hgb 8.2 L Hct 25.9 L MCV 104.4 H MCH 33.1 H MCHC 31.7 L RDW 21.5 H Plt Count 155 MPV 9.7 Neut # (Auto) 4.8 Lymph # (Auto) 0.8 L [place] # (Auto) 1.0 Eos # (Auto) 0.1 Baso # (Auto) 0.0 Absolute Nucleated RBC 0.00 Nucleated RBC % 0.0 Manual Slide Review Indicated Platelet Estimate NORMAL (130-450,000) Platelet Morphology NORMAL APPEARANCE RBC Morph Micro Appear 1+ POLYCHROMASIA PT INR Sodium 135 Potassium 3.7 Chloride 106 Carbon Dioxide 23 Anion Gap 6.0 BUN 10 Creatinine 1.1 Estimated GFR (MDRD) 49 L Glucose 115 H Calcium 8.0 L Total Bilirubin 2.6 H AST 75 H ALT 21 Alkaline Phosphatase 338 H B-Natriuretic Peptide Total Protein 6.5 Albumin 2.0 L Globulin 4.5 H Albumin/Globulin Ratio 0.4 L Lipase 50 Urine Color Urine Clarity Urine pH Ur Specific [place] Urine Protein Urine Glucose (UA) Urine Ketones Urine Occult Blood Urine Nitrite Urine Bilirubin Urine Urobilinogen Ur Leukocyte Esterase Urine RBC Urine WBC Ur Squamous Epith Cells Urine Bacteria Ur Microscopic Review Urine Culture Comments Blood Type O POSITIVE Antibody Screen NEGATIVE 02/21/23 02/21/23 02/21/23 19:59 21:13 21:36 WBC RBC Hgb Hct MCV MCH MCHC RDW Plt Count MPV Neut # (Auto) Lymph # (Auto) [place] # (Auto) Eos # (Auto) Baso # (Auto) Absolute Nucleated RBC Nucleated RBC % Manual Slide Review Platelet Estimate Platelet Morphology RBC Morph Micro Appear PT 16.4 H INR 1.6 H Sodium Potassium Chloride Carbon Dioxide Anion Gap BUN Creatinine Estimated GFR (MDRD) Glucose Calcium Total Bilirubin AST ALT Alkaline Phosphatase B-Natriuretic Peptide 1986 H Total Protein Albumin Globulin Albumin/Globulin Ratio Lipase Urine Color DARK YELLOW Urine Clarity HAZY Urine pH 6.5 Ur Specific [place] 1.025 Urine Protein TRACE Urine Glucose (UA) NEGATIVE Urine Ketones TRACE Urine Occult Blood TRACE-INTA Urine Nitrite NEGATIVE Urine Bilirubin MODERATE H Urine Urobilinogen 1 (NORMAL) Ur Leukocyte Esterase NEGATIVE Urine RBC 0-5 Urine WBC 4-5 Ur Squamous Epith Cells FEW Squamous Urine Bacteria Rare Ur Microscopic Review INDICATED Urine Culture Comments NOT INDICATED Blood Type Antibody Screen PD Medical Decision Making - ED course ED course: 67yF presents with generalized weakness from home. recently admitted here and received 1 u prbc for gib. plan to recheck hb given her pale appearance and hx dark stools. cbc, abdominal panel, type and screen, pt/inr ordered. will f/u results. Added BNP given patient's hypoxia on cardiac monitoring with o2 sat with good waveform dipping into 80s repeatedly. no prior hx chf or copd. patient does have dependent crackles on exam. IVF held. CXR ordered and showing fluid overload. patient reports chronic soa, worsening over past few days. bnp elevated, c/w new onset chf exacerbation. She did receive IVF and 1 L PRBC on recent prior admission so this may have uncovered some latent heart disease. plan to admit to telehealth. Departure - Departure Disposition: 66 [facility] DC/Xfer Clinical Impression: Weakness, Anemia, Dark stools, New onset of congestive heart failure Condition: Serious Forms: PCP List
[2023-02-21 20:10] LABS: BASOPHILS % (AUTO) 0.6 %; EOSINOPHILS # (AUTO) 0.1 10^3/uL (0.0-0.7); HCT - HEMATOCRIT 25.9 % (37.0-47.0); HGB - HEMOGLOBIN 8.2 g/dL (12.0-16.0); LYMPHOCYTES # (AUTO) 0.8 10^3/uL (1.5-3.5); LYMPHOCYTES % (AUTO) 11.8 %; MEAN CORPUSCULAR HEMOGLOBIN 33.1 pg (27.0-31.0); MEAN CORPUSCULAR HGB CONC 31.7 g/dL (32.0-36.0); MEAN CORPUSCULAR VOLUME 104.4 fL (81.0-99.0); MEAN PLATELET VOLUME 9.7 fL (7.9-10.8); MONOCYTES % (AUTO) 15.2 %; NEUTROPHILS # (AUTO) 4.8 10^3/uL (1.5-6.6); NEUTROPHILS % (AUTO) 69.9 %; PLT - PLATELET COUNT 155 10^3/uL (130-450); RED BLOOD COUNT 2.48 10^6/uL (4.20-5.40); RED CELL DISTRIBUTION WIDTH 21.5 % (12.0-15.0); WHITE BLOOD COUNT 6.9 x10^3/uL (4.8-10.8)
[2023-02-21 20:15] LABS: INR 1.6 (0.8-1.2); PT - PROTHROMBIN TIME 16.4 secs (9.9-12.6)
[2023-02-21 20:20] LABS: ALBUMIN/GLOBULIN RATIO 0.4 (1.0-2.2); BILIRUBIN,TOTAL 2.6 mg/dL (0.2-1.0); CREATININE 1.1 mg/dL (0.6-1.3); POTASSIUM 3.7 mmol/L (3.5-4.5); TOTAL PROTEIN 6.5 g/dL (6.4-8.9)
[2023-02-21 20:36] LABS: SLIDE REVIEW? Indicated
[2023-02-21 20:38] LABS: PLATELET ESTIMATE, MANUAL NORMAL (130-450,000) (NORMAL); PLATELET MORPHOLOGY NORMAL APPEARANCE (NORMAL)
[2023-02-21] MEDS ORDERED: cefTRIAXone 1 GM in SODIUM CHLORIDE 0.9% MINIBAG 100 ML IV STA (21:22)
[2023-02-21 21:24] LABS: GLUCOSE, URINE (UA) NEGATIVE (NEGATIVE); KETONES,URINE (UA) TRACE mg/dL (NEGATIVE); LEUKOCYTE ESTERASE, URINE NEGATIVE (NEGATIVE); NITRITE,URINE NEGATIVE (NEGATIVE); OCCULT BLOOD,URINE TRACE-INTA (NEGATIVE); PH,URINE 6.5 PH (5.0-7.5); PROTEIN,URINE TRACE mg/dL (NEGATIVE); UROBILINOGEN,URINE 1 (NORMAL) E.U./dL (NORMAL)
[2023-02-21 21:33] LABS: BILIRUBIN,URINE MODERATE (NEGATIVE); CLARITY,URINE HAZY (CLEAR); ICTOTEST,URINE POSITIVE
[2023-02-21 21:34] LABS: BACTERIA,URINE Rare /HPF (None Seen); RBC,URINE 0-5 /HPF (0-5); SQUAMOUS EPITHELIAL CELL,UR FEW Squamous (<= Few)
[2023-02-21] MEDS ORDERED: cefTRIAXone 1 GM VIAL ONE (21:44)
[2023-02-21] MEDS ORDERED: FUROSEMIDE 20 MG TABLET PO STA (22:23)
--- NOTE | 2023-02-21 23:00 | XRAY Report ---
PROCEDURE: Chest 1 View X-Ray INDICATIONS: hypoxia TECHNIQUE: One view of the chest was acquired. COMPARISON: 04/29/2022. FINDINGS: Surgical changes and devices: None. Lungs and pleura: There is bilateral pulmonary vascular prominence with indistinct interstitial opac ities compatible with pulmonary edema. No focal consolidation. No pleural effusions or pneumothorax. Mediastinum: Mediastinal contours appear unchanged given rotation. Heart size is enlarged. Bones and chest wall: No suspicious bony lesions. Overlying soft tissues appear unremarkable. IMPRESSION: 1. Findings compatible with pulmonary edema. Reviewed by: Eduardo Hernandez MD on 02/21/2023 10:58 PM PDT Approved by: Eduardo Hernandez MD on 02/21/2023 10:58 PM PDT Station ID: [id number]
[2023-02-21 23:54] LABS: CRP - C-REACTIVE PROTEIN 5.3 mg/dL (0-1.0)
[2023-02-21 23:57] LABS: TROPONIN I HIGH SENSITIVITY 16.7 ng/L (2.3-14.8)
[2023-02-22] MEDS ORDERED: ONDANSETRON 4 MG/2 ML VIAL IVP PRN (00:32)
--- NOTE | 2023-02-22 00:52 | HISTORY & PHYSICAL EXAMINATION ---
Chief Complaint - Chief Complaint Chief Complaint: weakness and dyspnea History of Present Illness - History of Present Illness HPI Comment/Other: 67-year-old female who was recently discharged from the hospital after being treated for suspected acute blood loss anemia due to GI bleed and left foot infection status post incision and drainage was seen in the emergency room due to generalized weakness and shortness of breath. Patient does not use any oxygen at home but in the emergency room she required at least 2 L oxygen to keep her oxygen saturation above 90%.. She is alert and oriented at this time. Patient's sister is present at the bedside who mentioned that since the discharge, she progressively worsen as far as her weakness is concerned. She did not have any oral intake. She has bilateral lower extremity swelling as well as abdominal distention. She did not have any fever or chills. No cough or dysuria. She denies any chest pain. She denies any diaphoresis. Patient has previous history of alcoholism. She did not have any alcohol since last 10 days. In the emergency room earlier she was started on IV fluid but then pulmonary edema was seen in the chest x-ray therefore IV fluid was stopped and she was given 60 mg of IV Lasix. Hemoglobin is stable. History - Past Medical History Cardiovascular: reports: Hypertension, High cholesterol, Atrial fibrillation Respiratory: reports: Asthma Neuro: reports: None Endocrine/Autoimmune: reports: None GI: reports: GERD, GI bleed, Ulcers : reports: None Psych: reports: None Musculoskeletal: reports: Gout, Chronic back pain Derm: reports: Rosacea MRSA Hx?: No - Past Surgical History General: reports: Appendectomy HEENT: reports: Tonsil/Adenoidectomy - Family & Social History Family History Comment/Other: She reports her mother had asthma and coronary artery disease. She from a myocardial infarction. Living Situation: With family Social History Notes: She is currently retired but was previously employed at a [employer]. She lives at home with her . They have 1 dog. She reports smoking a pack a day for nearly 50 years. Denies alcohol use. - Substance History Use: Uses substance without health or social issues: Tobacco - POLST Patient has POLST: No Meds/Allgy - Home Medications Home Medications: Ambulatory Orders Medication Instructions Recorded Confirmed carvediloL [Carvedilol] 12.5 mg PO BID 04/22/18 02/19/23 dilTIAZem HCL [Diltiazem 24Hr ER 180 mg PO DAILY 04/27/22 02/19/23 (Xr)] Pantoprazole [Protonix] 40 mg PO DAILY #60 tablet 05/01/22 02/19/23 Thiamine [Vitamin B-1] 100 mg PO DAILY tab 05/01/22 02/19/23 Calcium Citrate 200 mg PO BID #15 tablet 02/07/23 02/19/23 Magnesium Oxide [Mag Ox] 400 mg PO BID #20 tablet 02/07/23 02/19/23 Ferrous Gluconate 324 mg PO DAILY 02/19/23 02/19/23 Sulfamethox/Trimeth 800/160 1 tab PO BID #14 tab 02/19/23 [Bactrim Ds] - Allergies Allergies/Adverse Reactions: Allergies Allergy/AdvReac Type Severity Reaction Status Date / Time TIARA Inhibitors Allergy Severe Respiratory Verified 02/18/23 21:55 lisinopril Allergy Severe Respiratory Verified 02/18/23 21:55 Review of Systems - Constitutional Constitutional: reports: Weakness - Cardiovascular Cariovascular: reports: Edema - Respiratory Respiratory: reports: SOB at rest - All Other Systems All Other Systems: reports: Reviewed and negative Exam - Vital Signs Vital Signs: Vital Signs x48h Temp Pulse Resp BP Pulse Ox O2 Flow Rate 02/22/23 00:24 76 18 108/70 92 2 02/21/23 22:37 86 18 134/95 H 94 2 02/21/23 21:46 82 26 H 95 2 02/21/23 21:30 24 88 L 02/21/23 21:28 86 18 116/99 H 91 L 02/21/23 19:17 36.2 C L 89 18 142/91 H 90 L - Physical Exam General Appearance: positive: Moderate distress Eyes Bilateral: positive: Normal inspection Neck: positive: Nml inspection Respiratory: positive: Rales (right lower lobe) Cardiovascular: positive: Regular rate & rhythm Peripheral Pulses: positive: 2+ Abdomen: positive: Non-tender, Other (distention) Extremities: positive: Pedal edema (right > left leg), Calf tenderness Neurologic/Psychiatric: positive: Oriented x3, Motor nml, Sensation nml, Mood/affect nml Conclusion/Plan - Lab Results Fish Bones: 02/21/23 19:59 02/21/23 19:59 - Diagnostic Imaging Results Diagnostic Imaging Results: positive: Prelim report reviewed - Other Other Results/Comments: Assessment 1. Acute respiratory failure with hypoxia 2. Suspected acute congestive heart failure, systolic 3. Ascites 4. Recent history of alcoholic hepatitis 5. Blood loss anemiasuspected peptic ulcer disease due to alcoholism. S/p 1 unit of PRBC transfusion before 2 days 6. Left foot abscess status post I&D. Patient was discharged on Bactrim for 2 days 7. Hypertension Plan Admit patient on telemetry EKG and troponin were ordered Troponin is mildly elevated. EKG did not show any acute abnormalities except nonspecific T wave abnormalities With possible upper GI bleed and blood loss anemia, patient may not be a candidate for aspirin or any other antiplatelets or anticoagulation indicated if she had non-ST elevation myocardial infarction Repeat troponin Repeat EKG in the morning Continue IV Lasix 20 mg twice a day Get 2D echocardiogram Check D-dimer as patient has bilateral lower extremity edema but more on the right side than left Check daily input output Check TSH IV Protonix 40 mg twice a day Consider GI and cardiology consultation in the morning CODE STATUS Full code Total time taken with this was 70 minutes. This was telemedicine evaluation using bedside telemedicine audiovisual cart with the help of bedside nursing staff. Verbal consent was taken before this encounter. I am located in [facility] and patient is located in emergency room at [facility] in [place] Telemedicine Consult Details - Provider Location & Consult Time List names and roles of persons who participated in consult:: TARA
[2023-02-22] MEDS ORDERED: FUROSEMIDE 20 MG/2 ML VIAL IVP STA (00:57)
[2023-02-22] MEDS: PANTOPRAZOLE 40 MG VIAL IVP SCH ×2 (02:10→13:47)
[2023-02-22] MEDS: SODIUM CHLORIDE FLUSH 0.9% 10 ML SYRINGE IVP SCH ×3 (02:11→16:49)
[2023-02-22 05:43] LABS: HCT - HEMATOCRIT 25.3 % (37.0-47.0); HGB - HEMOGLOBIN 8.2 g/dL (12.0-16.0); MEAN CORPUSCULAR HEMOGLOBIN 33.3 pg (27.0-31.0); MEAN CORPUSCULAR HGB CONC 32.4 g/dL (32.0-36.0); MEAN CORPUSCULAR VOLUME 102.8 fL (81.0-99.0); RED BLOOD COUNT 2.46 10^6/uL (4.20-5.40); RED CELL DISTRIBUTION WIDTH 21.2 % (12.0-15.0)
[2023-02-22] MEDS: FUROSEMIDE 20 MG/2 ML VIAL IVP SCH ×2 (05:53→13:47)
[2023-02-22 06:06] LABS: CALCIUM 8.4 mg/dL (8.5-10.3); POTASSIUM 3.4 mmol/L (3.5-4.5)
[2023-02-22] MEDS ORDERED: MAGNESIUM OXIDE 400 MG TABLET PO SCH (08:00)
[2023-02-22] MEDS: diltiaZEM CD 180 MG CAPSULE PO SCH (09:16)
[2023-02-22] MEDS: POTASSIUM CHLORIDE 10 MEQ CAPSULE PO SCH (09:16)
[2023-02-22] MEDS: SULFAMETH/TRIMETH DS 800/160 MG TABLET PO SCH ×2 (09:17→20:31)
--- NOTE | 2023-02-22 10:52 | PHARMACY PROGRESS NOTE ---
- Best Possible Medication History Admit Date and Time: 02/22/23 0032 Processed by: Pharmacy Medication History completed: Yes Patient Interview: Completed Secondary Source(s): Previous admit records As the person ultimately responsible for medication therapy, providers are able to order a medication from an existing home medication list in [facility] via the "Reconcile Routine" prior to Confirmation of that medication by network support engineer. Such practice is discouraged except when the physician, in their clinical judgment, deems that a medical need exists for a medication without regard to previous use.
[2023-02-22] MEDS: THIAMINE 100 MG TABLET PO SCH (11:52)
--- NOTE | 2023-02-22 15:00 | PROVIDER PROGRESS NOTE ---
Assessment/Plan - Problem List (1) Acute respiratory failure with hypoxia Assessment/Plan: Etiology appears to be pulmonary edema Plan: Continue with supplemental O2, target saturation to be 92% or above 2. Pulm edema She presents with a BNP of 1500. She has never had a BNP at this hospital before. 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 She is not tachycardic She does have chronic anemia Plan: Continue with IV twice daily diuretics, which are helping, she is not orthopneic or tachypneic today Obtain an Echo I updated the pt and her younger sister at bedside i room today 3. Ascites This is chronic, related to her liver failure from alcohol abuse. She has a manager mba Plan: The Lasix will also help her ascites We will also resume her daily thiamine 4. Alcoholic hepatitis As per history. She has mild elevation of LFTs. According to her sister, who told me today, the pt has not had alcohol in about 10 days Plan: Avoid hepatotoxins 5. Blood loss anemia We suspected peptic ulcer disease due to alcoholism, with a Hx of heme pos stool. S/p 1 unit of PRBC transfusion during previous hospital Observation admission, 2 days ago Pt does not describe black BMs Plan: Continue with her iron replacement Follow CBC daily, transfuse if hemoglobin goes under 7 I ordered NSAID to be given with meals for treating gout (see #8), so will monitor carefully 6. Left foot abscess Status post I&D in ER 4 days ago. That fluid was sent for culture and has shown only skin organisms. Patient was discharged on Bactrim after that Observation hospital stay Plan: Daily dressing changes by RN Continue with p.o. Bactrim for an empiric 7 day course. 7. Hypertension As per Hx. She was on carvedilol and Cardizem Plan: We will begin her BP meds 1 at a time, To avoid hypotension, since the Lasix she is getting is also providing BP control 8. Gouty attack Today she complains of swelling of her right distal index finger joint. It is red and swollen and consistent with gout. She knows she has Gout She takes an [id number] medicine for this. She reports to pharmacist and to me that colchicine is too hard on her stomach Plan: I start her on Motrin oral suspension 3 times daily with meals for 4-days then TID prn I will check her uric acid level to see if she needs Allopurinol - Current Meds Current Meds: Current Medications Generic Name Dose Route Start Last Admin Trade Name Dave PRN Reason Stop Dose Admin Diltiazem HCl 180 mg 02/22/23 09:00 02/22/23 09:16 Diltiazem Cd 180 Mg Capsule PO 180 mg DAILY PEDRO Administration Furosemide 20 mg 02/22/23 06:00 02/22/23 13:47 Furosemide 20 Mg/2 Ml Vial IVP 20 mg BIDDIURETIC PEDRO Administration Potassium Chloride 20 meq 02/22/23 08:00 02/22/23 09:16 Potassium Chloride 10 Meq Capsule PO 20 meq DAILYWM PEDRO Administration Sodium Chloride 10 ml 02/22/23 01:00 02/22/23 09:17 Sodium Chloride Flush 0.9% 10 Ml Syringe IVP 10 ml 0100,0900,1700 PEDRO Administration Thiamine HCl 100 mg 02/22/23 12:00 02/22/23 11:52 Thiamine 100 Mg Tablet PO 100 mg DAILY PEDRO Administration Trimethoprim/Sulfamethoxazole 1 tab 02/22/23 09:00 02/22/23 09:17 Sulfameth/Trimeth Ds 800/160 Mg Tablet PO 1 tab BID PEDRO Administration - Lab Result Fish Bone Diagrams: 02/22/23 05:05 02/22/23 05:05 - Additional Planning My Orders: My Active Orders 02/22/23 Evaluate and Treat OT [OT] Routine Evaluate and Treat PT [PT] Routine 02/22/23 07:51 Telemetry- [RC] Q4HR 02/22/23 07:59 Miscellaenous Nursing Order [RC] QSHIFT 02/22/23 08:00 Potassium Chloride [Micro-K] 20 meq PO DAILYWM 02/22/23 09:00 Sulfamethox/Trimeth 800/160 [Bactrim Ds 800/160] 1 tab PO BID diltiaZEM CD [Cardizem Cd] 180 mg PO DAILY 02/22/23 12:00 Thiamine [Vitamin B-1] 100 mg PO DAILY 02/22/23 17:00 Ibuprofen Oral Susp [Motrin Oral Susp] 100 mg PO TIDWM 02/22/23 21:00 Magnesium Oxide [Mag Ox] 400 mg PO BID 02/23/23 05:00 BMP - BASIC METABOLIC PANEL [CHEM] DAILYLAB BNP - B-NATRIURETIC PEPTIDE [CHEM] DAILYLAB CBC - COMP BLD CT W/AUTO DIFF [HEME] DAILYLAB LIVER PANEL [CHEM] DAILYLAB MAGNESIUM [CHEM] DAILYLAB PHOSPHORUS [CHEM] DAILYLAB 02/23/23 09:00 Ferrous Gluconate [Ferrous Gluconate] 324 mg PO DAILY 02/24/23 05:00 BMP - BASIC METABOLIC PANEL [CHEM] DAILYLAB BNP - B-NATRIURETIC PEPTIDE [CHEM] DAILYLAB CBC - COMP BLD CT W/AUTO DIFF [HEME] DAILYLAB LIVER PANEL [CHEM] DAILYLAB MAGNESIUM [CHEM] DAILYLAB 02/25/23 05:00 BMP - BASIC METABOLIC PANEL [CHEM] DAILYLAB BNP - B-NATRIURETIC PEPTIDE [CHEM] DAILYLAB CBC - COMP BLD CT W/AUTO DIFF [HEME] DAILYLAB LIVER PANEL [CHEM] DAILYLAB MAGNESIUM [CHEM] DAILYLAB Subjective - Subjective Patient Reports: Feeling Better (No as SOB) Objective Vital Signs: Vital Signs - 24 hr 02/21/23 02/21/23 02/21/23 19:17 21:28 21:30 Temperature 36.2 C L Heart Rate 89 86 Heart Rate [ Activity] Heart Rate [ Brachial] Heart Rate [ Monitoring electrodes] Heart Rate [ Sitting] Respiratory 18 18 24 Rate Blood Pressure 142/91 H 116/99 H Blood Pressure [Activity] Blood Pressure [Right Brachial artery] Blood Pressure [Sitting] O2 Saturation 90 L 91 L 88 L If not protocol : Oxygen Flow, liters/minute 02/21/23 02/21/23 02/22/23 21:46 22:37 00:24 Temperature Heart Rate 82 86 76 Heart Rate [ Activity] Heart Rate [ Brachial] Heart Rate [ Monitoring electrodes] Heart Rate [ Sitting] Respiratory 26 H 18 18 Rate Blood Pressure 134/95 H 108/70 Blood Pressure [Activity] Blood Pressure [Right Brachial artery] Blood Pressure [Sitting] O2 Saturation 95 94 92 If not protocol 2 2 2 : Oxygen Flow, liters/minute 02/22/23 02/22/23 02/22/23 01:00 01:03 01:26 Temperature 36.5 C Heart Rate 80 Heart Rate [ Activity] Heart Rate [ Brachial] Heart Rate [ 82 Monitoring electrodes] Heart Rate [ Sitting] Respiratory 24 16 Rate Blood Pressure 119/73 Blood Pressure [Activity] Blood Pressure 135/78 H [Right Brachial artery] Blood Pressure [Sitting] O2 Saturation 94 98 If not protocol 2 2 2 : Oxygen Flow, liters/minute 02/22/23 02/22/23 02/22/23 08:12 11:00 13:00 Temperature 36.6 C 36.4 C L Heart Rate Heart Rate [ 80 Activity] Heart Rate [ 87 Brachial] Heart Rate [ 92 Monitoring electrodes] Heart Rate [ 84 Sitting] Respiratory 18 18 Rate Blood Pressure Blood Pressure 128/65 [Activity] Blood Pressure 132/60 H 129/70 [Right Brachial artery] Blood Pressure 122/97 H [Sitting] O2 Saturation 100 100 If not protocol 2 2 : Oxygen Flow, liters/minute Oxygen O2 Source Nasal cannula I&O (Last 24 Hrs): Intake and Output Totals x24h 02/20/23 02/21/23 02/22/23 23:59 23:59 23:59 Intake Total 350 120 Output Total 2550 Balance 350 -2430 General: Alert, Oriented x3 HEENT: Mucous membr. moist/pink, Other (Anicteric.Pale.) Neck: Supple, No JVD Neuro: Alert, Non Focal Cardiovascular: Regular rate, No murmurs Respiratory: No respiratory distress, Breath sounds nml Abdomen: Normal bowel sounds, Soft, No tenderness Extremities: No clubbing, No edema, Other (Inner foot has bandage) - Results Results: Laboratory Results WBC 7.0 x10^3/uL (4.8-10.8) 02/22/23 05:05 RBC 2.46 10^6/uL (4.20-5.40) L 02/22/23 05:05 Hgb 8.2 g/dL (12.0-16.0) L 02/22/23 05:05 Hct 25.3 % (37.0-47.0) L 02/22/23 05:05 MCV 102.8 fL (81.0-99.0) H 02/22/23 05:05 MCH 33.3 pg (27.0-31.0) H 02/22/23 05:05 MCHC 32.4 g/dL (32.0-36.0) 02/22/23 05:05 RDW 21.2 % (12.0-15.0) H 02/22/23 05:05 Plt Count 164 10^3/uL (130-450) 02/22/23 05:05 MPV 10.0 fL (7.9-10.8) 02/22/23 05:05 Neut # (Auto) 4.8 10^3/uL (1.5-6.6) 02/21/23 19:59 Lymph # (Auto) 0.8 10^3/uL (1.5-3.5) L 02/21/23 19:59 Cook # (Auto) 1.0 10^3/uL (0.0-1.0) 02/21/23 19:59 Eos # (Auto) 0.1 10^3/uL (0.0-0.7) 02/21/23 19:59 Baso # (Auto) 0.0 10^3/uL (0.0-0.1) 02/21/23 19:59 Absolute Nucleated RBC 0.00 x10^3/uL 02/21/23 19:59 Nucleated RBC % 0.0 /100WBC 02/21/23 19:59 Manual Slide Review Indicated 02/21/23 19:59 Platelet Estimate NORMAL (130-450,000) (NORMAL) 02/21/23 19:59 Platelet Morphology NORMAL APPEARANCE (NORMAL) 02/21/23 19:59 RBC Morph Micro Appear 3+ ANISOCYTOSIS (NORMAL) 2+ MACROCYTOSIS (NORMAL) 1+ HYPOCHROMASIA (NORMAL) 1+ POLYCHROMASIA (NORMAL) 02/21/23 19:59 RBC Morph Micro Appear 3+ ANISOCYTOSIS (NORMAL) 2+ MACROCYTOSIS (NORMAL) 1+ HYPOCHROMASIA (NORMAL) 1+ POLYCHROMASIA (NORMAL) 02/21/23 19:59 RBC Morph Micro Appear 3+ ANISOCYTOSIS (NORMAL) 2+ MACROCYTOSIS (NORMAL) 1+ HYPOCHROMASIA (NORMAL) 1+ POLYCHROMASIA (NORMAL) 02/21/23 19:59 RBC Morph Micro Appear 3+ ANISOCYTOSIS (NORMAL) 2+ MACROCYTOSIS (NORMAL) 1+ HYPOCHROMASIA (NORMAL) 1+ POLYCHROMASIA (NORMAL) 02/21/23 19:59 ESR < 140 mm/Hr (0-30) H 02/22/23 09:12 PT 16.4 secs (9.9-12.6) H 02/21/23 19:59 INR 1.6 (0.8-1.2) H 02/21/23 19:59 D-Dimer 554.6 ng/mL (200.0-255.0) H 02/21/23 19:59 Sodium 137 mmol/L (135-145) 02/22/23 05:05 Potassium 3.4 mmol/L (3.5-4.5) L 02/22/23 05:05 Chloride 106 mmol/L (101-111) 02/22/23 05:05 Carbon Dioxide 23 mmol/L (21-32) 02/22/23 05:05 Anion Gap 8.0 (6-13) 02/22/23 05:05 BUN 10 mg/dL (6-20) 02/22/23 05:05 Creatinine 1.0 mg/dL (0.6-1.3) 02/22/23 05:05 Estimated GFR (MDRD) 55 (>89) L 02/22/23 05:05 Glucose 98 mg/dL (74-104) 02/22/23 05:05 Uric Acid 10.6 mg/dL (2.3-6.6) H 02/22/23 09:12 Calcium 8.4 mg/dL (8.5-10.3) L 02/22/23 05:05 Magnesium 1.6 mg/dL (1.7-2.8) L 02/22/23 00:29 Total Bilirubin 2.6 mg/dL (0.2-1.0) H 02/21/23 19:59 AST 75 IU/L (10-42) H 02/21/23 19:59 ALT 21 IU/L (10-60) 02/21/23 19:59 Alkaline Phosphatase 338 IU/L (42-121) H 02/21/23 19:59 Troponin I High Sens 17.6 ng/L (2.3-14.8) H* 02/22/23 09:12 C-Reactive Protein 5.3 mg/dL (0-1.0) H 02/21/23 19:55 B-Natriuretic Peptide 1986 pg/mL (5-100) H 02/21/23 21:36 Total Protein 6.5 g/dL (6.4-8.9) 02/21/23 19:59 Albumin 2.0 g/dL (3.2-5.5) L 02/21/23 19:59 Globulin 4.5 g/dL (2.1-4.2) H 02/21/23 19:59 Albumin/Globulin Ratio 0.4 (1.0-2.2) L 02/21/23 19:59 Lipase 50 U/L (11-82) 02/21/23 19:59 TSH 10.87 uIU/mL (0.34-5.60) H 02/22/23 00:29 Urine Color DARK YELLOW 02/21/23 21:13 Urine Clarity HAZY (CLEAR) 02/21/23 21:13 Urine pH 6.5 PH (5.0-7.5) 02/21/23 21:13 Ur Specific Vincent 1.025 (1.002-1.030) 02/21/23 21:13 Urine Protein TRACE mg/dL (NEGATIVE) 02/21/23 21:13 Urine Glucose (UA) NEGATIVE mg/dL (NEGATIVE) 02/21/23 21:13 Urine Ketones TRACE mg/dL (NEGATIVE) 02/21/23 21:13 Urine Occult Blood TRACE-INTA (NEGATIVE) 02/21/23 21:13 Urine Nitrite NEGATIVE (NEGATIVE) 02/21/23 21:13 Urine Bilirubin MODERATE (NEGATIVE) H 02/21/23 21:13 Urine Urobilinogen 1 (NORMAL) E.U./dL (NORMAL) 02/21/23 21:13 Ur Leukocyte Esterase NEGATIVE (NEGATIVE) 02/21/23 21:13 Urine RBC 0-5 /HPF (0-5) 02/21/23 21:13 Urine WBC 4-5 /HPF (0-5) 02/21/23 21:13 Ur Squamous Epith Cells FEW Squamous (<= Few) 02/21/23 21:13 Urine Bacteria Rare /HPF (None Seen) 02/21/23 21:13 Ur Microscopic Review INDICATED 02/21/23 21:13 Urine Culture Comments NOT INDICATED 02/21/23 21:13 Blood Type O POSITIVE 02/21/23 19:59 Antibody Screen NEGATIVE 02/21/23 19:59 - Procedures Procedures: Procedures EXCISION OF CECUM, ENDO (06/06/19) EXCISION OF DUODENUM, ENDO, DIAGN (06/06/19) EXCISION OF STOMACH, PYLORUS, ENDO, DIAGN (04/26/22) EXCISION OF TRANSVERSE COLON, ENDO (06/06/19) INTRODUCTION OF OTHER THERAPEUTIC SUBSTANCE INTO UP GI, ENDO (04/26/22) TRANSFUSE NONAUT RED BLOOD CELLS IN PERIPH VEIN, PERC (04/26/22)
[2023-02-22] MEDS: PANTOPRAZOLE 40 MG TABLET PO SCH (15:58)
[2023-02-22] MEDS: IBUPROFEN 200 MG/10 ML UDC PO SCH (16:48)
[2023-02-22] MEDS: MAGNESIUM OXIDE 400 MG TABLET PO SCH (16:49)
[2023-02-23] MEDS: SODIUM CHLORIDE FLUSH 0.9% 10 ML SYRINGE IVP SCH ×3 (02:35→17:12)
[2023-02-23 04:44] LABS: BASOPHILS % (AUTO) 0.3 %; EOSINOPHILS # (AUTO) 0.1 10^3/uL (0.0-0.7); EOSINOPHILS % (AUTO) 1.4 %; HCT - HEMATOCRIT 24.2 % (37.0-47.0); LYMPHOCYTES # (AUTO) 0.9 10^3/uL (1.5-3.5); LYMPHOCYTES % (AUTO) 13.6 %; MEAN CORPUSCULAR HEMOGLOBIN 33.2 pg (27.0-31.0); MEAN CORPUSCULAR HGB CONC 33.1 g/dL (32.0-36.0); MEAN CORPUSCULAR VOLUME 100.4 fL (81.0-99.0); MEAN PLATELET VOLUME 9.3 fL (7.9-10.8); MONOCYTES % (AUTO) 16.1 %; NEUTROPHILS # (AUTO) 4.2 10^3/uL (1.5-6.6); NEUTROPHILS % (AUTO) 67.5 %; PLT - PLATELET COUNT 166 10^3/uL (130-450); RED BLOOD COUNT 2.41 10^6/uL (4.20-5.40); RED CELL DISTRIBUTION WIDTH 20.7 % (12.0-15.0); WHITE BLOOD COUNT 6.3 x10^3/uL (4.8-10.8)
[2023-02-23 04:47] LABS: SLIDE REVIEW? Indicated
[2023-02-23 04:59] LABS: BILIRUBIN,DIRECT 1.49 mg/dL (0.03-0.18); BILIRUBIN,TOTAL 2.6 mg/dL (0.2-1.0); CALCIUM 8.1 mg/dL (8.5-10.3); MAGNESIUM 1.1 mg/dL (1.7-2.3); PHOSPHORUS 2.9 mg/dL (2.5-5.0); POTASSIUM 3.6 mmol/L (3.5-4.5); TOTAL PROTEIN 6.3 g/dL (6.4-8.9)
[2023-02-23 05:01] LABS: PLATELET ESTIMATE, MANUAL NORMAL (130-450,000) (NORMAL); PLATELET MORPHOLOGY NORMAL APPEARANCE (NORMAL); WBC MORPHOLOGY (MULTIPLE) NORMAL APPEARANCE (NORMAL)
[2023-02-23] MEDS: FUROSEMIDE 20 MG/2 ML VIAL IVP SCH ×2 (06:20→13:18)
[2023-02-23] MEDS: SODIUM CHLORIDE FLUSH 0.9% 10 ML SYRINGE IVP PRN (06:20)
[2023-02-23] MEDS: IBUPROFEN 200 MG/10 ML UDC PO SCH ×3 (08:20→17:12)
[2023-02-23] MEDS: SULFAMETH/TRIMETH DS 800/160 MG TABLET PO SCH ×2 (08:21→20:27)
[2023-02-23] MEDS: diltiaZEM CD 180 MG CAPSULE PO SCH (08:21)
[2023-02-23] MEDS: MAGNESIUM OXIDE 400 MG TABLET PO SCH ×2 (08:21→17:12)
[2023-02-23] MEDS: FERROUS GLUCONATE 324 MG TABLET PO SCH (08:21)
[2023-02-23] MEDS: PANTOPRAZOLE 40 MG TABLET PO SCH ×2 (08:21→16:18)
[2023-02-23] MEDS: THIAMINE 100 MG TABLET PO SCH (08:21)
[2023-02-23] MEDS: POTASSIUM CHLORIDE 10 MEQ CAPSULE PO SCH (08:21)
[2023-02-23] MEDS ORDERED: PANTOPRAZOLE 40 MG TABLET PO SCH (09:00)
[2023-02-23] MEDS ORDERED: DILTIAZEM HCL 180 MG PO SCH (09:00)
--- NOTE | 2023-02-23 12:44 | PROVIDER PROGRESS NOTE ---
Assessment/Plan - Problem List (1) Acute respiratory failure with hypoxia Assessment/Plan: Etiology appears to be pulmonary edema Plan: Continue with supplemental O2, target saturation to be 92% or above 2. Pulm edema She presents with a BNP of 1500. She has never had a BNP at this hospital before. There is no Hx of documented syst heart failure, but she has been a longstanding alcoholic and may have an alcoholic cardiomyopathy. Troponins were checked and she has ruled out for an ACS to explain the pulmonary edema. She is not tachycardic. She does have chronic anemia which may give her high-output failure. Since she presented with leg edema as well, Dopplers were ordered to rule out DVT. These were done today and there are no DVTs bilaterally Plan: Continue with IV twice daily diuretics, which are helping, she is not orthopneic or tachypneic today Obtain an Echo (we have had no Tint Layer here since she was admitted, none until , today is Sun). 3. Ascites This is chronic, related to her liver failure from alcohol abuse. [place] has [place] stroenterologist Plan: The Lasix will also help her ascites We will also resume her daily thiamine 4. Alcoholic hepatitis As per history. She has mild elevation of LFTs. According to her sister, who told me today, the pt has not had alcohol in about 10 days Plan: Avoid hepatotoxins 5. Blood loss anemia We suspected peptic ulcer disease due to alcoholism, with a Hx of heme pos stool. S/p 1 unit of PRBC transfusion during previous hospital Observation admission, 2 days ago Pt does not describe black BMs Plan: Continue with her iron replacement Follow CBC daily, transfuse if hemoglobin goes under 7 I ordered NSAID to be given with meals for treating gout (see #8), so will monitor carefully 6. Left foot abscess Status post I&D in ER 4 days ago. That fluid was sent for culture and has shown only skin organisms. Patient was discharged on Bactrim after that Observation hospital stay Plan: Daily dressing changes by RN Continue with p.o. Bactrim for an empiric 7 day course. 7. Hypertension As per Hx. She was on carvedilol and Cardizem Plan: We will begin her BP meds 1 at a time, To avoid hypotension, since the Lasix she is getting is also providing BP control 8. Gouty attack Since yesterday 02/22, she complains of swelling of her right distal index finger joint. It is red and swollen and consistent with gout. She knows she has Gout She takes an [id number] medicine for this. She reports to pharmacist and to me that colchicine is too hard on her stomach Plan: I start her on Motrin oral suspension 3 times daily with meals for 4-days then TID prn I will check her uric acid level to see if she needs Allopurinol - Current Meds Current Meds: Current Medications Generic Name Dose Route Start Last Admin Trade Name Freq PRN Reason Stop Dose Admin Diltiazem HCl 180 mg 02/22/23 09:00 02/23/23 08:21 Diltiazem Cd 180 Mg Capsule PO 180 mg DAILY PEDRO Administration Ferrous Gluconate 324 mg 02/23/23 08:00 02/23/23 08:21 Ferrous Gluconate 324 Mg Tablet PO 324 mg DAILYWM PEDRO Administration Furosemide 20 mg 02/22/23 06:00 02/23/23 06:20 Furosemide 20 Mg/2 Ml Vial IVP 20 mg BIDDIURETIC PEDRO Administration Ibuprofen 100 mg 02/22/23 17:00 02/23/23 08:20 Ibuprofen 200 Mg/10 Ml Udc PO 100 mg TIDWM PEDRO Administration Magnesium Oxide 400 mg 02/22/23 17:00 02/23/23 08:21 Magnesium Oxide 400 Mg Tablet PO 400 mg BIDWM PEDRO Administration Pantoprazole Sodium 40 mg 02/22/23 16:00 02/23/23 08:21 Pantoprazole 40 Mg Tablet PO 40 mg BIDAC PEDRO Administration Potassium Chloride 20 meq 02/22/23 08:00 02/23/23 08:21 Potassium Chloride 10 Meq Capsule PO 20 meq DAILYWM PEDRO Administration Sodium Chloride 10 ml 02/22/23 00:32 02/23/23 06:20 Sodium Chloride Flush 0.9% 10 Ml Syringe IVP 10 ml PRN PRN Administration NEEDED PER PROVIDER ORDERS Sodium Chloride 10 ml 02/22/23 01:00 02/23/23 08:22 Sodium Chloride Flush 0.9% 10 Ml Syringe IVP 10 ml 0100,0900,1700 PEDRO Administration Thiamine HCl 100 mg 02/22/23 12:00 02/23/23 08:21 Thiamine 100 Mg Tablet PO 100 mg DAILY PEDRO Administration Trimethoprim/Sulfamethoxazole 1 tab 02/22/23 09:00 02/23/23 08:21 Sulfameth/Trimeth Ds 800/160 Mg Tablet PO 02/25/23 00:01 1 tab BID PEDRO Administration - Lab Result Fish Bone Diagrams: 02/23/23 04:36 02/23/23 04:36 - Additional Planning My Orders: My Active Orders 02/22/23 12:00 Thiamine [Vitamin B-1] 100 mg PO DAILY 02/22/23 17:00 Ibuprofen Oral Susp [Motrin Oral Susp] 100 mg PO TIDWM Magnesium Oxide [Mag Ox] 400 mg PO BIDWM 02/23/23 08:00 Ferrous Gluconate [Fergon] 324 mg PO DAILYWM 02/24/23 05:00 BMP - BASIC METABOLIC PANEL [CHEM] DAILYLAB BNP - B-NATRIURETIC PEPTIDE [CHEM] DAILYLAB CBC - COMP BLD CT W/AUTO DIFF [HEME] DAILYLAB FREE T4 (FREE THYROXINE) [CHEM] DAILYLAB LIVER PANEL [CHEM] DAILYLAB MAGNESIUM [CHEM] DAILYLAB 02/25/23 05:00 BMP - BASIC METABOLIC PANEL [CHEM] DAILYLAB BNP - B-NATRIURETIC PEPTIDE [CHEM] DAILYLAB CBC - COMP BLD CT W/AUTO DIFF [HEME] DAILYLAB LIVER PANEL [CHEM] DAILYLAB MAGNESIUM [CHEM] DAILYLAB Subjective - Subjective Patient Reports: Feeling Better Objective Vital Signs: Vital Signs - 24 hr 02/22/23 02/22/23 02/22/23 13:00 15:49 18:31 Temperature 36.4 C L 36.6 C Heart Rate [ 87 85 Brachial] Respiratory 18 20 Rate Blood Pressure 129/70 104/66 [Right Brachial artery] O2 Saturation 100 99 96 If not protocol 2 2 1 : Oxygen Flow, liters/minute 02/22/23 02/22/23 02/23/23 20:56 23:14 00:05 Temperature 36.6 C 36.5 C Heart Rate [ 74 80 Brachial] Respiratory 16 16 Rate Blood Pressure 112/60 114/58 L [Right Brachial artery] O2 Saturation 97 95 If not protocol 1 1 1 : Oxygen Flow, liters/minute 02/23/23 02/23/23 05:10 08:45 Temperature 36.8 C 36.8 C Heart Rate [ 89 88 Brachial] Respiratory 16 16 Rate Blood Pressure 110/97 H 105/64 [Right Brachial artery] O2 Saturation 92 95 If not protocol 1 1 : Oxygen Flow, liters/minute Oxygen O2 Source Nasal cannula I&O (Last 24 Hrs): Intake and Output Totals x24h 02/21/23 02/22/23 02/23/23 23:59 23:59 23:59 Intake Total 350 540 120 Output Total 3350 600 Balance 350 -2810 -480 General: Alert, Oriented x3 HEENT: Mucous membr. moist/pink, Other (Pale) Neck: Supple, No JVD Neuro: Alert, Non Focal Cardiovascular: Regular rate Respiratory: No respiratory distress, Breath sounds nml Abdomen: Soft, Other (Mildly distended, probable fluid wave and hepatomegaly) Extremities: No clubbing, Other (1+ edema to below knees) - Results Results: Laboratory Results WBC 6.3 x10^3/uL (4.8-10.8) 02/23/23 04:36 RBC 2.41 10^6/uL (4.20-5.40) L 02/23/23 04:36 Hgb 8.0 g/dL (12.0-16.0) L 02/23/23 04:36 Hct 24.2 % (37.0-47.0) L 02/23/23 04:36 MCV 100.4 fL (81.0-99.0) H 02/23/23 04:36 MCH 33.2 pg (27.0-31.0) H 02/23/23 04:36 MCHC 33.1 g/dL (32.0-36.0) 02/23/23 04:36 RDW 20.7 % (12.0-15.0) H 02/23/23 04:36 Plt Count 166 10^3/uL (130-450) 02/23/23 04:36 MPV 9.3 fL (7.9-10.8) 02/23/23 04:36 Neut # (Auto) 4.2 10^3/uL (1.5-6.6) 02/23/23 04:36 Lymph # (Auto) 0.9 10^3/uL (1.5-3.5) L 02/23/23 04:36 [place] # (Auto) 1.0 10^3/uL (0.0-1.0) 02/23/23 04:36 Eos # (Auto) 0.1 10^3/uL (0.0-0.7) 02/23/23 04:36 Baso # (Auto) 0.0 10^3/uL (0.0-0.1) 02/23/23 04:36 Absolute Nucleated RBC 0.00 x10^3/uL 02/23/23 04:36 Nucleated RBC % 0.0 /100WBC 02/23/23 04:36 Manual Slide Review Indicated 02/23/23 04:36 WBC Morphology NORMAL APPEARANCE (NORMAL) 02/23/23 04:36 Platelet Estimate NORMAL (130-450,000) (NORMAL) 02/23/23 04:36 Platelet Morphology NORMAL APPEARANCE (NORMAL) 02/23/23 04:36 RBC Morph Micro Appear 1+ ANISOCYTOSIS (NORMAL) 1+ MACROCYTOSIS (NORMAL) 02/23/23 04:36 RBC Morph Micro Appear 1+ ANISOCYTOSIS (NORMAL) 1+ MACROCYTOSIS (NORMAL) 02/23/23 04:36 ESR < 140 mm/Hr (0-30) H 02/22/23 09:12 PT 16.4 secs (9.9-12.6) H 02/21/23 19:59 INR 1.6 (0.8-1.2) H 02/21/23 19:59 D-Dimer 554.6 ng/mL (200.0-255.0) H 02/21/23 19:59 Sodium 136 mmol/L (135-145) 02/23/23 04:36 Potassium 3.6 mmol/L (3.5-4.5) 02/23/23 04:36 Chloride 102 mmol/L (101-111) 02/23/23 04:36 Carbon Dioxide 27 mmol/L (21-32) 02/23/23 04:36 Anion Gap 7.0 (6-13) 02/23/23 04:36 BUN 9 mg/dL (6-20) 02/23/23 04:36 Creatinine 1.0 mg/dL (0.6-1.3) 02/23/23 04:36 Estimated GFR (MDRD) 55 (>89) L 02/23/23 04:36 Glucose 92 mg/dL (74-104) 02/23/23 04:36 Uric Acid 10.6 mg/dL (2.3-6.6) H 02/22/23 09:12 Calcium 8.1 mg/dL (8.5-10.3) L 02/23/23 04:36 Phosphorus 2.9 mg/dL (2.5-5.0) 02/23/23 04:36 Magnesium 1.1 mg/dL (1.7-2.3) L 02/23/23 04:36 Total Bilirubin 2.6 mg/dL (0.2-1.0) H 02/23/23 04:36 Direct Bilirubin 1.49 mg/dL (0.03-0.18) H 02/23/23 04:36 AST 64 IU/L (10-42) H 02/23/23 04:36 ALT 20 IU/L (10-60) 02/23/23 04:36 Alkaline Phosphatase 300 IU/L (42-121) H 02/23/23 04:36 Troponin I High Sens 17.6 ng/L (2.3-14.8) H* 02/22/23 09:12 C-Reactive Protein 5.3 mg/dL (0-1.0) H 02/21/23 19:55 B-Natriuretic Peptide 1429 pg/mL (5-100) H 02/23/23 04:36 Total Protein 6.3 g/dL (6.4-8.9) L 02/23/23 04:36 Albumin 2.0 g/dL (3.2-5.5) L 02/23/23 04:36 Globulin 4.3 g/dL (2.1-4.2) H 02/23/23 04:36 Albumin/Globulin Ratio 0.4 (1.0-2.2) L 02/21/23 19:59 Lipase 50 U/L (11-82) 02/21/23 19:59 TSH 10.87 uIU/mL (0.34-5.60) H 02/22/23 00:29 Urine Color DARK YELLOW 02/21/23 21:13 Urine Clarity HAZY (CLEAR) 02/21/23 21:13 Urine pH 6.5 PH (5.0-7.5) 02/21/23 21:13 Ur Specific Levasy 1.025 (1.002-1.030) 02/21/23 21:13 Urine Protein TRACE mg/dL (NEGATIVE) 02/21/23 21:13 Urine Glucose (UA) NEGATIVE mg/dL (NEGATIVE) 02/21/23 21:13 Urine Ketones TRACE mg/dL (NEGATIVE) 02/21/23 21:13 Urine Occult Blood TRACE-INTA (NEGATIVE) 02/21/23 21:13 Urine Nitrite NEGATIVE (NEGATIVE) 02/21/23 21:13 Urine Bilirubin MODERATE (NEGATIVE) H 02/21/23 21:13 Urine Urobilinogen 1 (NORMAL) E.U./dL (NORMAL) 02/21/23 21:13 Ur Leukocyte Esterase NEGATIVE (NEGATIVE) 02/21/23 21:13 Urine RBC 0-5 /HPF (0-5) 02/21/23 21:13 Urine WBC 4-5 /HPF (0-5) 02/21/23 21:13 Ur Squamous Epith Cells FEW Squamous (<= Few) 02/21/23 21:13 Urine Bacteria Rare /HPF (None Seen) 02/21/23 21:13 Ur Microscopic Review INDICATED 02/21/23 21:13 Urine Culture Comments NOT INDICATED 02/21/23 21:13 Blood Type O POSITIVE 02/21/23 19:59 Antibody Screen NEGATIVE 02/21/23 19:59 - Procedures Procedures: Procedures EXCISION OF CECUM, ENDO (06/06/19) EXCISION OF DUODENUM, ENDO, DIAGN (06/06/19) EXCISION OF STOMACH, PYLORUS, ENDO, DIAGN (04/26/22) EXCISION OF TRANSVERSE COLON, ENDO (06/06/19) INTRODUCTION OF OTHER THERAPEUTIC SUBSTANCE INTO UP GI, ENDO (04/26/22) TRANSFUSE NONAUT RED BLOOD CELLS IN PERIPH VEIN, PERC (04/26/22)
--- NOTE | 2023-02-23 13:29 | Ultrasound Report ---
PROCEDURE: Duplex Venous Limited INDICATIONS: rule out DVT bilateral TECHNIQUE: Real-time imaging, as well as color and pulse Doppler interrogation, were performed of the bilateral lower extremity deep veins from the inguinal ligament to the popliteal fossa. Attempted visualization of the calf veins was performed. COMPARISON: None. FINDINGS: The deep veins are normally compressible, and free of intraluminal thrombus. Color and pu lse Doppler demonstrate normal phasic intraluminal flow. There is normal augmentation response to di stal compression maneuver. IMPRESSION: No evidence of deep venous thrombosis, bilateral lower extremities Reviewed by: Amos Becerril MD on 02/23/2023 12:27 PM [facility] Approved by: Amos Becerril MD on 02/23/2023 12:27 PM [facility] Station ID: [id number]
[2023-02-23] MEDS: MIDODRINE 2.5 MG TABLET PO SCH (17:12)
[2023-02-23] MEDS: carvediloL 12.5 MG TABLET PO SCH (20:28)
[2023-02-24] MEDS: SODIUM CHLORIDE FLUSH 0.9% 10 ML SYRINGE IVP SCH ×3 (00:02→17:11)
[2023-02-24 06:18] LABS: BASOPHILS % (AUTO) 0.5 %; EOSINOPHILS # (AUTO) 0.1 10^3/uL (0.0-0.7); EOSINOPHILS % (AUTO) 1.6 %; HCT - HEMATOCRIT 23.4 % (37.0-47.0); HGB - HEMOGLOBIN 7.5 g/dL (12.0-16.0); LYMPHOCYTES # (AUTO) 1.2 10^3/uL (1.5-3.5); LYMPHOCYTES % (AUTO) 18.8 %; MEAN CORPUSCULAR HEMOGLOBIN 32.5 pg (27.0-31.0); MEAN CORPUSCULAR HGB CONC 32.1 g/dL (32.0-36.0); MEAN CORPUSCULAR VOLUME 101.3 fL (81.0-99.0); MEAN PLATELET VOLUME 10.1 fL (7.9-10.8); MONOCYTES # (AUTO) 0.8 10^3/uL (0.0-1.0); MONOCYTES % (AUTO) 12.7 %; NEUTROPHILS # (AUTO) 4.2 10^3/uL (1.5-6.6); NEUTROPHILS % (AUTO) 65.3 %; PLATELET ESTIMATE, MANUAL NORMAL (130-450,000) (NORMAL); PLATELET MORPHOLOGY NORMAL APPEARANCE (NORMAL); PLT - PLATELET COUNT 198 10^3/uL (130-450); RED BLOOD COUNT 2.31 10^6/uL (4.20-5.40); RED CELL DISTRIBUTION WIDTH 20.7 % (12.0-15.0); SLIDE REVIEW? Indicated; WHITE BLOOD COUNT 6.4 x10^3/uL (4.8-10.8)
[2023-02-24 06:19] LABS: WBC MORPHOLOGY (MULTIPLE) NORMAL APPEARANCE (NORMAL)
[2023-02-24] MEDS: PANTOPRAZOLE 40 MG TABLET PO SCH ×2 (06:26→16:05)
[2023-02-24 08:02] LABS: ALBUMIN 1.9 g/dL (3.2-5.5); BILIRUBIN,DIRECT 1.4 mg/dL (0.03-0.18); BILIRUBIN,TOTAL 2.3 mg/dL (0.2-1.0); CALCIUM 7.9 mg/dL (8.5-10.3); CREATININE 1.3 mg/dL (0.6-1.3); MAGNESIUM 1.1 mg/dL (1.7-2.3); POTASSIUM 4.1 mmol/L (3.5-4.5); TOTAL PROTEIN 6.1 g/dL (6.4-8.9)
[2023-02-24] MEDS: SULFAMETH/TRIMETH DS 800/160 MG TABLET PO SCH ×2 (08:49→20:43)
[2023-02-24] MEDS: carvediloL 12.5 MG TABLET PO SCH (08:49)
[2023-02-24] MEDS: FERROUS GLUCONATE 324 MG TABLET PO SCH (08:49)
[2023-02-24] MEDS: POTASSIUM CHLORIDE 10 MEQ CAPSULE PO SCH (08:49)
[2023-02-24] MEDS: THIAMINE 100 MG TABLET PO SCH (08:49)
[2023-02-24] MEDS: MAGNESIUM OXIDE 400 MG TABLET PO SCH ×2 (08:49→17:10)
[2023-02-24] MEDS: IBUPROFEN 200 MG/10 ML UDC PO SCH ×3 (08:50→17:07)
[2023-02-24] MEDS: MIDODRINE 2.5 MG TABLET PO SCH ×3 (08:50→17:10)
--- NOTE | 2023-02-24 08:53 | PROVIDER PROGRESS NOTE ---
Assessment/Plan - Problem List (1) Hypotension Assessment/Plan: Since yesterday afternoon she has been hypotensive (BPs 70-90 syst, labs all reviewed). With this, she is mildly dizzy but mostly we notice she is more confused and appears tired. I had to stop Lasix, stop diltiazem and I was about to start carvedilol which will be on hold Yesterday midodrine 2.5mg TID with meals was started Plan: I ordered an Echo several days ago to evaluate her new CHF with BNP 1500. We have had no broadcast technician here all the days of her admission. (manufacturing lab technician here only Friday through ). Based on her Echo result, we can adjust her meds for heart failure and for low BP Continue Midodrine Follow hemoglobin daily to see if she needs another blood transfusion and W/U of her severe anemia Her standing blood pressure needs to be stable before she can be discharged for rehab at a SNF. (2) Acute respiratory failure with hypoxia Assessment/Plan: Etiology appears to be pulmonary edema Plan: Continue with supplemental O2, target saturation to be 92% or above (3) Pulm edema She presents with a BNP of 1500. She has never had a BNP at this hospital before. There is no Hx of documented syst heart failure, but she has been a longstanding alcoholic and may have an alcoholic cardiomyopathy. Troponins were checked and she has ruled out for an ACS to explain the pulmonary edema. She is not tachycardic. She does have chronic anemia which may give her high-output failure. Since she presented with leg edema as well, Dopplers were ordered to rule out DVT. These were done 02/23 and there are no DVTs bilaterally Plan: Her lungs are clear on exam and I have to stop Lasix because of persistent hypotension Obtain an Echo (we have had no Radiographic Technologist here since she was admitted, none until , today is Mon). (4) Ascites This is chronic, related to her liver failure from alcohol abuse. She has a residential support worker Plan: The Lasix may have helped her ascites We also resumeed her daily thiamine, MVI and Folate (5) Alcoholic hepatitis As per history. She has mild elevation of LFTs. According to her sister, who told mein person, the pt has not had alcohol in about 10 days Plan: Avoid hepatotoxins Patient has started to work with PT and OT, and today she was more confused because of the hypotension we presume. She does wish to go to a SNF for rehab (6) Blood loss anemia We suspected peptic ulcer disease due to alcoholism, with her Hx of guaic pos stool. S/p 1 unit of PRBC transfusion during previous hospital Observation admission, which was just several days ago Pt does not describe black BMs Plan: Continue with her iron replacement Follow CBC daily, transfuse if hemoglobin goes under 7 I ordered NSAID to be given with meals for treating gout (see #8), so will monitor carefully (7) Left foot abscess Status post I&D in ER several days ago (before the last, not this current, admission). That fluid was sent for culture and has shown only skin organisms. Patient was discharged on Bactrim after that Observation hospital stay Plan: Daily dressing changes by RN Continue with p.o. Bactrim for an empiric 7 day course. (8) Gouty attack Since 02/22, she complains of swelling of her right distal index finger joint and her shoulders. The finger is red and swollen and consistent with gout. She kno ws she has Gout She takes an [id number] medicine for this. She reported to our pharmacist and to me that colchicine is too hard on her stomach. I checked her uric acid level to see if she needs Allopurinol. The uric acid level is 10.9. Plan: I started her on Motrin oral suspension 3 times daily with meals for 4-days then TID prn Will add Allopurinol (9) Hx of Hypertension As per Hx. She was on Carvedilol and Cardizem. Possibly there was A-fib since these are 2 heart rate-slowing meds These are both on hold now - Current Meds Current Meds: Current Medications Generic Name Dose Route Start Last Admin Trade Name Freq PRN Reason Stop Dose Admin Ferrous Gluconate 324 mg 02/23/23 08:00 02/24/23 08:49 Ferrous Gluconate 324 Mg Tablet PO 324 mg DAILYWM PEDRO Administration Ibuprofen 100 mg 02/22/23 17:00 02/24/23 08:50 Ibuprofen 200 Mg/10 Ml Udc PO 100 mg TIDWM PEDRO Administration Magnesium Oxide 400 mg 02/22/23 17:00 02/24/23 08:49 Magnesium Oxide 400 Mg Tablet PO 400 mg BIDWM PEDRO Administration Midodrine 2.5 mg 02/23/23 17:00 02/24/23 08:50 Midodrine 2.5 Mg Tablet PO 2.5 mg TIDWM PEDRO Administration Pantoprazole Sodium 40 mg 02/22/23 16:00 02/24/23 06:26 Pantoprazole 40 Mg Tablet PO 40 mg BIDAC PEDRO Administration Potassium Chloride 20 meq 02/22/23 08:00 02/24/23 08:49 Potassium Chloride 10 Meq Capsule PO 20 meq DAILYWM PEDRO Administration Sodium Chloride 10 ml 02/22/23 00:32 02/23/23 06:20 Sodium Chloride Flush 0.9% 10 Ml Syringe IVP 10 ml PRN PRN Administration NEEDED PER PROVIDER ORDERS Sodium Chloride 10 ml 02/22/23 01:00 02/24/23 08:50 Sodium Chloride Flush 0.9% 10 Ml Syringe IVP 10 ml 0100,0900,1700 PEDRO Administration Thiamine HCl 100 mg 02/22/23 12:00 02/24/23 08:49 Thiamine 100 Mg Tablet PO 100 mg DAILY PEDRO Administration Trimethoprim/Sulfamethoxazole 1 tab 02/22/23 09:00 02/24/23 08:49 Sulfameth/Trimeth Ds 800/160 Mg Tablet PO 02/25/23 00:01 1 tab BID PEDRO Administration - Lab Result Fish Bone Diagrams: 02/24/23 05:49 02/24/23 05:49 - Additional Planning My Orders: My Active Orders 02/23/23 08:00 Ferrous Gluconate [Fergon] 324 mg PO DAILYWM 02/23/23 17:00 Midodrine [ProAmatine] 2.5 mg PO TIDWM 02/24/23 05:49 FOLATE [CHEM] Routine VITAMIN B12 [CHEM] Routine 02/25/23 05:00 BMP - BASIC METABOLIC PANEL [CHEM] DAILYLAB BNP - B-NATRIURETIC PEPTIDE [CHEM] DAILYLAB CBC - COMP BLD CT W/AUTO DIFF [HEME] DAILYLAB LIVER PANEL [CHEM] DAILYLAB MAGNESIUM [CHEM] DAILYLAB Subjective - Subjective Patient Reports: Resting Comfortably, Dizzines Objective Vital Signs: Vital Signs - 24 hr 02/23/23 02/23/23 02/23/23 13:00 15:04 15:06 Temperature 36.6 C Heart Rate [ 73 74 71 Brachial] Heart Rate [ Monitoring electrodes] Respiratory 18 16 16 Rate Blood Pressure [Left Brachial artery] Blood Pressure 84/57 L 76/44 L 84/57 L [Right Brachial artery] O2 Saturation 98 If not protocol 1 1 1 : Oxygen Flow, liters/minute 02/23/23 02/23/23 02/23/23 15:51 20:08 21:07 Temperature 36.6 C 36.6 C Heart Rate [ 72 70 Brachial] Heart Rate [ Monitoring electrodes] Respiratory 20 20 Rate Blood Pressure 98/57 L [Left Brachial artery] Blood Pressure 96/57 L 88/44 L [Right Brachial artery] O2 Saturation 96 97 90 L If not protocol 0.5 0.5 : Oxygen Flow, liters/minute 02/23/23 02/24/23 02/24/23 22:34 02:07 05:45 Temperature 36.7 C 36.6 C Heart Rate [ 76 Brachial] Heart Rate [ 73 Monitoring electrodes] Respiratory 16 16 Rate Blood Pressure [Left Brachial artery] Blood Pressure 87/47 L 99/62 [Right Brachial artery] O2 Saturation 94 94 91 L If not protocol 0.5 0.5 0.5 : Oxygen Flow, liters/minute 02/24/23 07:44 Temperature 36.9 C Heart Rate [ 73 Brachial] Heart Rate [ Monitoring electrodes] Respiratory 14 Rate Blood Pressure 86/44 L [Left Brachial artery] Blood Pressure [Right Brachial artery] O2 Saturation 92 If not protocol 0.5 : Oxygen Flow, liters/minute Oxygen O2 Source Nasal cannula I&O (Last 24 Hrs): Intake and Output Totals x24h 02/22/23 02/23/23 02/24/23 23:59 23:59 23:59 Intake Total 540 890 Output Total 3350 850 125 Balance -2810 40 -125 General: Alert, Oriented x3, Other (Pale, is stoic and is slow to answer questions) HEENT: Mucous membr. moist/pink Neck: Supple, No JVD Neuro: Alert, Non Focal, Other (Weak, slow to answer, no tremor or nystagmus) Cardiovascular: Regular rate, No murmurs Respiratory: No respiratory distress, Breath sounds nml Abdomen: Soft, Other (Mild distension, probable fluid wave) Extremities: No clubbing, Other (1+ ankle edema) - Results Results: Laboratory Results WBC 6.4 x10^3/uL (4.8-10.8) 02/24/23 05:49 RBC 2.31 10^6/uL (4.20-5.40) L 02/24/23 05:49 Hgb 7.5 g/dL (12.0-16.0) L 02/24/23 05:49 Hct 23.4 % (37.0-47.0) L 02/24/23 05:49 MCV 101.3 fL (81.0-99.0) H 02/24/23 05:49 MCH 32.5 pg (27.0-31.0) H 02/24/23 05:49 MCHC 32.1 g/dL (32.0-36.0) 02/24/23 05:49 RDW 20.7 % (12.0-15.0) H 02/24/23 05:49 Plt Count 198 10^3/uL (130-450) 02/24/23 05:49 MPV 10.1 fL (7.9-10.8) 02/24/23 05:49 Neut # (Auto) 4.2 10^3/uL (1.5-6.6) 02/24/23 05:49 Lymph # (Auto) 1.2 10^3/uL (1.5-3.5) L 02/24/23 05:49 [place] # (Auto) 0.8 10^3/uL (0.0-1.0) 02/24/23 05:49 Eos # (Auto) 0.1 10^3/uL (0.0-0.7) 02/24/23 05:49 Baso # (Auto) 0.0 10^3/uL (0.0-0.1) 02/24/23 05:49 Absolute Nucleated RBC 0.00 x10^3/uL 02/24/23 05:49 Nucleated RBC % 0.0 /100WBC 02/24/23 05:49 Manual Slide Review Indicated 02/24/23 05:49 WBC Morphology NORMAL APPEARANCE (NORMAL) 02/24/23 05:49 Platelet Estimate NORMAL (130-450,000) (NORMAL) 02/24/23 05:49 Platelet Morphology NORMAL APPEARANCE (NORMAL) 02/24/23 05:49 RBC Morph Micro Appear 2+ ANISOCYTOSIS (NORMAL) 1+ MACROCYTOSIS (NORMAL) 02/24/23 05:49 RBC Morph Micro Appear 2+ ANISOCYTOSIS (NORMAL) 1+ MACROCYTOSIS (NORMAL) 02/24/23 05:49 ESR < 140 mm/Hr (0-30) H 02/22/23 09:12 PT 16.4 secs (9.9-12.6) H 02/21/23 19:59 INR 1.6 (0.8-1.2) H 02/21/23 19:59 D-Dimer 554.6 ng/mL (200.0-255.0) H 02/21/23 19:59 Sodium 134 mmol/L (135-145) L 02/24/23 05:49 Potassium 4.1 mmol/L (3.5-4.5) 02/24/23 05:49 Chloride 101 mmol/L (101-111) 02/24/23 05:49 Carbon Dioxide 27 mmol/L (21-32) 02/24/23 05:49 Anion Gap 6.0 (6-13) 02/24/23 05:49 BUN 12 mg/dL (6-20) 02/24/23 05:49 Creatinine 1.3 mg/dL (0.6-1.3) 02/24/23 05:49 Estimated GFR (MDRD) 41 (>89) L 02/24/23 05:49 Glucose 79 mg/dL (74-104) 02/24/23 05:49 Uric Acid 10.6 mg/dL (2.3-6.6) H 02/22/23 09:12 Calcium 7.9 mg/dL (8.5-10.3) L 02/24/23 05:49 Phosphorus 2.9 mg/dL (2.5-5.0) 02/23/23 04:36 Magnesium 1.1 mg/dL (1.7-2.3) L 02/24/23 05:49 Total Bilirubin 2.3 mg/dL (0.2-1.0) H 02/24/23 05:49 Direct Bilirubin 1.40 mg/dL (0.03-0.18) H 02/24/23 05:49 AST 62 IU/L (10-42) H 02/24/23 05:49 ALT 19 IU/L (10-60) 02/24/23 05:49 Alkaline Phosphatase 276 IU/L (42-121) H 02/24/23 05:49 Troponin I High Sens 17.6 ng/L (2.3-14.8) H* 02/22/23 09:12 C-Reactive Protein 5.3 mg/dL (0-1.0) H 02/21/23 19:55 B-Natriuretic Peptide 1011 pg/mL (5-100) H 02/24/23 05:49 Total Protein 6.1 g/dL (6.4-8.9) L 02/24/23 05:49 Albumin 1.9 g/dL (3.2-5.5) L 02/24/23 05:49 Globulin 4.2 g/dL (2.1-4.2) 02/24/23 05:49 Albumin/Globulin Ratio 0.4 (1.0-2.2) L 02/21/23 19:59 Lipase 50 U/L (11-82) 02/21/23 19:59 TSH 10.87 uIU/mL (0.34-5.60) H 02/22/23 00:29 Free T4 Direct 1.19 ng/dL (0.58-1.64) 02/24/23 05:49 Urine Color DARK YELLOW 02/21/23 21:13 Urine Clarity HAZY (CLEAR) 02/21/23 21:13 Urine pH 6.5 PH (5.0-7.5) 02/21/23 21:13 Ur Specific [place] 1.025 (1.002-1.030) 02/21/23 21:13 Urine Protein TRACE mg/dL (NEGATIVE) 02/21/23 21:13 Urine Glucose (UA) NEGATIVE mg/dL (NEGATIVE) 02/21/23 21:13 Urine Ketones TRACE mg/dL (NEGATIVE) 02/21/23 21:13 Urine Occult Blood TRACE-INTA (NEGATIVE) 02/21/23 21:13 Urine Nitrite NEGATIVE (NEGATIVE) 02/21/23 21:13 Urine Bilirubin MODERATE (NEGATIVE) H 02/21/23 21:13 Urine Urobilinogen 1 (NORMAL) E.U./dL (NORMAL) 02/21/23 21:13 Ur Leukocyte Esterase NEGATIVE (NEGATIVE) 02/21/23 21:13 Urine RBC 0-5 /HPF (0-5) 02/21/23 21:13 Urine WBC 4-5 /HPF (0-5) 02/21/23 21:13 Ur Squamous Epith Cells FEW Squamous (<= Few) 02/21/23 21:13 Urine Bacteria Rare /HPF (None Seen) 02/21/23 21:13 Ur Microscopic Review INDICATED 02/21/23 21:13 Urine Culture Comments NOT INDICATED 02/21/23 21:13 Blood Type O POSITIVE 02/21/23 19:59 Antibody Screen NEGATIVE 02/21/23 19:59 - Procedures Procedures: Procedures EXCISION OF CECUM, ENDO (06/06/19) EXCISION OF DUODENUM, ENDO, DIAGN (06/06/19) EXCISION OF STOMACH, PYLORUS, ENDO, DIAGN (04/26/22) EXCISION OF TRANSVERSE COLON, ENDO (06/06/19) INTRODUCTION OF OTHER THERAPEUTIC SUBSTANCE INTO UP GI, ENDO (04/26/22) TRANSFUSE NONAUT RED BLOOD CELLS IN PERIPH VEIN, PERC (04/26/22)
[2023-02-24] MEDS: allopurinoL 100 MG TABLET PO SCH (12:53)
[2023-02-24] MEDS: PRENATAL VITAMIN TABLET PO SCH (12:53)
[2023-02-24] MEDS: FOLIC ACID 1 MG TABLET PO SCH (12:53)
[2023-02-25] MEDS: SODIUM CHLORIDE FLUSH 0.9% 10 ML SYRINGE IVP SCH ×3 (00:09→17:14)
[2023-02-25 05:13] LABS: BASOPHILS % (AUTO) 0.6 %; EOSINOPHILS # (AUTO) 0.1 10^3/uL (0.0-0.7); EOSINOPHILS % (AUTO) 1.8 %; HCT - HEMATOCRIT 22.7 % (37.0-47.0); HGB - HEMOGLOBIN 7.5 g/dL (12.0-16.0); LYMPHOCYTES # (AUTO) 1.2 10^3/uL (1.5-3.5); LYMPHOCYTES % (AUTO) 18.5 %; MEAN CORPUSCULAR HEMOGLOBIN 33.2 pg (27.0-31.0); MEAN CORPUSCULAR VOLUME 100.4 fL (81.0-99.0); MEAN PLATELET VOLUME 9.9 fL (7.9-10.8); MONOCYTES # (AUTO) 0.6 10^3/uL (0.0-1.0); MONOCYTES % (AUTO) 9.6 %; NEUTROPHILS # (AUTO) 4.5 10^3/uL (1.5-6.6); NEUTROPHILS % (AUTO) 67.9 %; PLT - PLATELET COUNT 205 10^3/uL (130-450); RED BLOOD COUNT 2.26 10^6/uL (4.20-5.40); RED CELL DISTRIBUTION WIDTH 20.4 % (12.0-15.0); WHITE BLOOD COUNT 6.7 x10^3/uL (4.8-10.8)
[2023-02-25 05:19] LABS: SLIDE REVIEW? Indicated
[2023-02-25 05:29] LABS: ALBUMIN 1.9 g/dL (3.2-5.5); BILIRUBIN,DIRECT 1.09 mg/dL (0.03-0.18); BILIRUBIN,TOTAL 1.8 mg/dL (0.2-1.0); CALCIUM 7.8 mg/dL (8.5-10.3); CREATININE 1.7 mg/dL (0.6-1.3); MAGNESIUM 1.3 mg/dL (1.7-2.3); POTASSIUM 4.5 mmol/L (3.5-4.5)
[2023-02-25 05:40] LABS: PLATELET ESTIMATE, MANUAL NORMAL (130-450,000) (NORMAL)
[2023-02-25] MEDS: PANTOPRAZOLE 40 MG TABLET PO SCH ×2 (07:13→17:14)
[2023-02-25 08:06] LABS: GLUCOSE, URINE (UA) NEGATIVE (NEGATIVE); KETONES,URINE (UA) NEGATIVE (NEGATIVE); LEUKOCYTE ESTERASE, URINE NEGATIVE (NEGATIVE); NITRITE,URINE NEGATIVE (NEGATIVE); OCCULT BLOOD,URINE NEGATIVE (NEGATIVE); PH,URINE 6.5 PH (5.0-7.5); PROTEIN,URINE NEGATIVE (NEGATIVE); UROBILINOGEN,URINE 0.2 (NORMAL) E.U./dL (NORMAL)
[2023-02-25 08:18] LABS: BACTERIA,URINE Rare /HPF (None Seen); BILIRUBIN,URINE SMALL (NEGATIVE); CLARITY,URINE CLEAR (CLEAR); ICTOTEST,URINE POSITIVE; RBC,URINE None Seen /HPF (0-5); SQUAMOUS EPITHELIAL CELL,UR FEW Squamous (<= Few); WBC,URINE 0-3 /HPF (0-5)
[2023-02-25 08:19] LABS: YEAST,URINE PRESENT
[2023-02-25 08:20] LABS: CREATININE,URINE 89.9 mg/dL; SODIUM, URINE 37.4 mmol/L
[2023-02-25] MEDS: FERROUS GLUCONATE 324 MG TABLET PO SCH (08:32)
[2023-02-25] MEDS: FOLIC ACID 1 MG TABLET PO SCH (08:32)
[2023-02-25] MEDS: MAGNESIUM OXIDE 400 MG TABLET PO SCH ×2 (08:32→17:14)
[2023-02-25] MEDS: MIDODRINE 2.5 MG TABLET PO SCH ×3 (08:32→17:14)
[2023-02-25] MEDS: THIAMINE 100 MG TABLET PO SCH (08:32)
[2023-02-25] MEDS: PRENATAL VITAMIN TABLET PO SCH (08:32)
[2023-02-25] MEDS: POTASSIUM CHLORIDE 10 MEQ CAPSULE PO SCH (08:32)
[2023-02-25] MEDS: allopurinoL 100 MG TABLET PO SCH (08:32)
--- NOTE | 2023-02-25 10:30 | PROVIDER PROGRESS NOTE ---
Subjective - Prog Note Date Prog Note Date: 02/25/23 - Subjective Subjective: She denies feeling shortness of breath. Feels like her leg edema is better. She is having diarrhea today and is complaining of some abdominal cramping and discomfort which began yesterday. Current Medications - Current Medications Current Medications: Active Medications Allopurinol (Allopurinol 100 Mg Tablet) [address] [facility] Last Admin: 02/25/23 08:32 Dose: 100 mg Ferrous Gluconate (Ferrous Gluconate 324 Mg Tablet) [address] [facility] Last Admin: 02/25/23 08:32 Dose: 324 mg Folic Acid (Folic Acid 1 Mg Tablet) [address] [facility] Last Admin: 02/25/23 08:32 Dose: 1 mg Magnesium Oxide (Magnesium Oxide 400 Mg Tablet) [address] [facility] Last Admin: 02/25/23 08:32 Dose: 400 mg Midodrine (Midodrine 2.5 Mg Tablet) 2.[address] [facility] Last Admin: 02/25/23 08:32 Dose: 2.5 mg Ondansetron HCl (Ondansetron 4 Mg/2 Ml Vial) 4 mg IVP Q6HR PRN PRN Reason: Nausea / Vomiting Pantoprazole Sodium (Pantoprazole 40 Mg Tablet) [address] [facility] Last Admin: 02/25/23 07:13 Dose: 40 mg Potassium Chloride (Potassium Chloride 10 Meq Capsule) [address] [facility] Last Admin: 02/25/23 08:32 Dose: 20 meq Multivit/Folic Acid/Iron ( Vitamin Tablet) [address] [facility] Last Admin: 02/25/23 08:32 Dose: 1 tab Sodium Chloride (Sodium Chloride Flush 0.9% 10 Ml Syringe) 10 ml IVP PRN PRN PRN Reason: NEEDED PER PROVIDER ORDERS Last Admin: 02/23/23 06:20 Dose: 10 ml Sodium Chloride (Sodium Chloride Flush 0.9% 10 Ml Syringe) 10 ml IVP 0100,0900,1700 [facility] Last Admin: 02/25/23 08:32 Dose: 10 ml Thiamine HCl (Thiamine 100 Mg Tablet) [address] [facility] Last Admin: 02/25/23 08:32 Dose: 100 mg carvediloL [Carvedilol] 12.5 mg PO BID 04/22/18 dilTIAZem HCL [Diltiazem 24Hr ER (Xr)] 180 mg PO DAILY 04/27/22 Ferrous Gluconate 324 mg PO DAILY 02/19/23 Objective - Vital Signs/Intake & Output Reviewed Vital Signs: Yes Vital Signs: Vital Signs x48h Temp Pulse Resp BP BP Pulse Ox O2 Flow Rate 02/25/23 07:32 37 C 93 16 116/65 94 0.5 02/25/23 04:49 36.8 C 79 20 101/56 L 92 0.5 Intake & Output: Intake & Output 02/22/23 02/23/23 02/24/23 02/25/23 23:59 23:59 23:59 23:59 Intake Total 672 721 6151 120 Output Total 3350 850 225 300 Balance -2810 40 1125 -180 - Objective General Appearance: positive: No acute distress, Alert Eyes Bilateral: positive: Other (conjuctival pallor) ENT: positive: ENT inspection nml Neck: positive: Nml inspection Respiratory: positive: No respiratory distress. negative: Wheezes, Rales Cardiovascular: positive: Regular rate & rhythm. negative: Tachycardia, Systolic murmur Abdomen: positive: Non-tender, No distention. negative: Tenderness Skin: positive: Warm, Dry, Pallor Extremities: positive: Pedal edema (trace bilaterally) Neurologic/Psychiatric: positive: Other (No focal deficits.). negative: Disoriented to person, Disoriented to place, Disoriented to time - Lab Results Fish Bones: 02/25/23 04:50 02/25/23 04:50 Other Labs: Lab Results x24hrs 02/25/23 02/25/23 02/25/23 Range/Units 07:55 07:55 07:23 WBC (4.8-10.8) x10^3/uL RBC (4.20-5.40) 10^6/uL Hgb (12.0-16.0) g/dL Hct (37.0-47.0) % MCV (81.0-99.0) fL MCH (27.0-31.0) pg MCHC (32.0-36.0) g/dL RDW (12.0-15.0) % Plt Count (130-450) 10^3/uL MPV (7.9-10.8) fL Neut # (Auto) (1.5-6.6) 10^3/uL Lymph # (Auto) (1.5-3.5) 10^3/uL [place] # (Auto) (0.0-1.0) 10^3/uL Eos # (Auto) (0.0-0.7) 10^3/uL Baso # (Auto) (0.0-0.1) 10^3/uL Absolute Nucleated RBC x10^3/uL Nucleated RBC % /100WBC Manual Slide Review Platelet Estimate (NORMAL) RBC Morph Micro Appear (NORMAL) Sodium (135-145) mmol/L Potassium (3.5-4.5) mmol/L Chloride (101-111) mmol/L Carbon Dioxide (21-32) mmol/L Anion Gap (6-13) BUN (6-20) mg/dL Creatinine (0.6-1.3) mg/dL Estimated GFR (MDRD) (>89) Glucose (74-104) mg/dL POC Whole Bld Glucose 72 (70 - 100) mg/dL Calcium (8.5-10.3) mg/dL Magnesium (1.7-2.3) mg/dL Total Bilirubin (0.2-1.0) mg/dL Direct Bilirubin (0.03-0.18) mg/dL AST (10-42) IU/L ALT (10-60) IU/L Alkaline Phosphatase (42-121) IU/L B-Natriuretic Peptide (5-100) pg/mL Total Protein (6.4-8.9) g/dL Albumin (3.2-5.5) g/dL Globulin (2.1-4.2) g/dL Urine Color DARK YELLOW Urine Clarity CLEAR (CLEAR) Urine pH 6.5 (5.0-7.5) PH Ur Specific [place] 1.010 (1.002-1.030) Urine Protein NEGATIVE (NEGATIVE) mg/dL Urine Glucose (UA) NEGATIVE (NEGATIVE) mg/dL Urine Ketones NEGATIVE (NEGATIVE) mg/dL Urine Occult Blood NEGATIVE (NEGATIVE) Urine Nitrite NEGATIVE (NEGATIVE) Urine Bilirubin SMALL H (NEGATIVE) Urine Urobilinogen 0.2 (NORMAL) (NORMAL) E.U./dL Ur Leukocyte Esterase NEGATIVE (NEGATIVE) Urine RBC None Seen (0-5) /HPF Urine WBC 0-3 (0-5) /HPF Ur Squamous Epith Cells FEW Squamous (<= Few) Urine Bacteria Rare (None Seen) /HPF Urine Yeast PRESENT Urine Culture Comments NOT INDICATED Urine Creatinine 89.9 mg/dL Urine Sodium 37.4 mmol/L 02/25/23 02/25/23 02/25/23 Range/Units 04:50 04:50 04:50 WBC 6.7 (4.8-10.8) x10^3/uL RBC 2.26 L (4.20-5.40) 10^6/uL Hgb 7.5 L (12.0-16.0) g/dL Hct 22.7 L (37.0-47.0) % MCV 100.4 H (81.0-99.0) fL MCH 33.2 H (27.0-31.0) pg MCHC 33.0 (32.0-36.0) g/dL RDW 20.4 H (12.0-15.0) % Plt Count 205 (130-450) 10^3/uL MPV 9.9 (7.9-10.8) fL Neut # (Auto) 4.5 (1.5-6.6) 10^3/uL Lymph # (Auto) 1.2 L (1.5-3.5) 10^3/uL [place] # (Auto) 0.6 (0.0-1.0) 10^3/uL Eos # (Auto) 0.1 (0.0-0.7) 10^3/uL Baso # (Auto) 0.0 (0.0-0.1) 10^3/uL Absolute Nucleated RBC 0.00 x10^3/uL Nucleated RBC % 0.0 /100WBC Manual Slide Review Indicated Platelet Estimate NORMAL (130-450,000) (NORMAL) RBC Morph Micro Appear 1+ TARGET CELLS (NORMAL) Sodium 133 L (135-145) mmol/L Potassium 4.5 (3.5-4.5) mmol/L Chloride 100 L (101-111) mmol/L Carbon Dioxide 27 (21-32) mmol/L Anion Gap 6.0 (6-13) BUN 15 (6-20) mg/dL Creatinine 1.7 H (0.6-1.3) mg/dL Estimated GFR (MDRD) 30 L (>89) Glucose 80 (74-104) mg/dL POC Whole Bld Glucose (70 - 100) mg/dL Calcium 7.8 L (8.5-10.3) mg/dL Magnesium 1.3 L (1.7-2.3) mg/dL Total Bilirubin 1.8 H (0.2-1.0) mg/dL Direct Bilirubin 1.09 H (0.03-0.18) mg/dL AST 60 H (10-42) IU/L ALT 19 (10-60) IU/L Alkaline Phosphatase 260 H (42-121) IU/L B-Natriuretic Peptide 1103 H (5-100) pg/mL Total Protein 6.0 L (6.4-8.9) g/dL Albumin 1.9 L (3.2-5.5) g/dL Globulin 4.1 (2.1-4.2) g/dL Urine Color Urine Clarity (CLEAR) Urine pH (5.0-7.5) PH Ur Specific [place] (1.002-1.030) Urine Protein (NEGATIVE) mg/dL Urine Glucose (UA) (NEGATIVE) mg/dL Urine Ketones (NEGATIVE) mg/dL Urine Occult Blood (NEGATIVE) Urine Nitrite (NEGATIVE) Urine Bilirubin (NEGATIVE) Urine Urobilinogen (NORMAL) E.U./dL Ur Leukocyte Esterase (NEGATIVE) Urine RBC (0-5) /HPF Urine WBC (0-5) /HPF Ur Squamous Epith Cells (<= Few) Urine Bacteria (None Seen) /HPF Urine Yeast Urine Culture Comments Urine Creatinine mg/dL Urine Sodium mmol/L ABX Reporting Has patient been on IV antibiotics over the past 48 hours?: No Assessment/Plan - Problem List (1) Hypotension Impression: She was hypotensive yesterday with systolics in the 70s to 90s. Diltiazem and carvedilol were discontinued as well as diuretics. She started on midodrine. Blood pressure is improved now with systolics greater than 100. Echocardiogram has been ordered and is pending. At this time we will continue midodrine and will uptitrate this as needed. Follow-up echocardiogram. Hold off on further diuresis and continue to hold antihypertensives. We will hold off on further IV fluids given that she is edematous and initial chest x-ray was concerning for pulmonary edema. (2) Acute respiratory failure with hypoxia Impression: She is on half liter of oxygen and concerned that this may be due to pulmonary edema given initial chest x-ray suggested pulmonary edema and her BNP was elevated at 1500. Diuresis was discontinued due to hypotension. Her oxygen requirements are currently stable. We will follow-up the echocardiogram today and repeat chest x-ray. If blood pressure stable will consider resuming IV diuresis if there is evidence of pulmonary edema on imaging. Trend BNP. (3) Pulmonary edema Impression: Initial chest x-ray was reviewed and does appear consistent with pulmonary edema. She has hypoxia requiring half liter of oxygen. BNP was elevated at 1500. Echocardiogram has been ordered and is pending. Diuresis has been difficult due to the hypotension. May need to consider gentle diuresis if she remains hypoxic and blood pressure is stable. (4) HAROON (acute kidney injury) Impression: Her creatinine has increased to 1.7 from baseline of 1.0. This may have been due to the Bactrim she was on as well as potentially ATN given she was hypotensive. She had also been started on ibuprofen given concern for gout. Bactrim has since been discontinued and she has been started on midodrine with improvement in her blood pressure. We will check urine sodium and urine cr eatinine as well as repeat a urinalysis to evaluate for potential granular casts. Ibuprofen will be discontinued. Avoid nephrotoxins. Hold off on IV hydration at this time. We will repeat labs this evening. Consider renal ultrasound if renal functions continues to decline. (5) Diarrhea Impression: She has been on antibiotics recently concern of potential C. difficile versus a viral gastroenteritis. We will check C. difficile PCR and if negative will start Imodium as needed. She does have mild abdominal tenderness and will consider a CT scan of her abdomen. (6) Gout Impression: She was started on ibuprofen for concern of gout flare Of the right index finger. Uric acid was elevated at greater than 10. She has not tolerated colchicine in the past. Was started on ibuprofen but this is now discontinued due to her acute kidney injury. We could potentially consider steroids but there has been concern for potential upper GI bleed. (7) Ascites Impression: This is chronic and secondary to her liver cirrhosis. Lasix has been stopped due to the hypotension. Consider paracentesis as needed and resumption of diuresis depending on her blood pressure. (8) Alcoholic hepatitis Impression: Her LFTs are elevated and this is stable. This is secondary to her history of alcoholic liver cirrhosis. Continue to monitor at this time. (9) Anemia Impression: She likely has anemia of chronic disease. Has received a unit of packed red blood cells during her most recent hospitalization. Hemoglobin at this time is stable at 7.5 and her baseline appears to vary from 7-8. Folate was noted to be decreased. She has been started on folate supplementation. (10) Foot infection Impression: There was concern for potential left foot infection. Culture from 02/18 had no organisms grown. She completed treatment with Bactrim which has since been d iscontinued. Hold off on further antibiotics at this time.
--- NOTE | 2023-02-25 11:16 | XRAY Report ---
PROCEDURE: Chest 1 View X-Ray INDICATIONS: follow up hypoxia. TECHNIQUE: One view of the chest was acquired. COMPARISON: None. FINDINGS: Surgical changes and devices: None. Lungs and pleura: Diffuse interstitial opacities. Small left pleural effusion versus scar. Mediastinum: Dilated main pulmonary arteries. Bones and chest wall: No suspicious bony lesions. Overlying soft tissues appear unremarkable. IMPRESSION: Diffuse interstitial opacities and dilated pulmonary arteries, suggestive of pulmonary edema. Small left pleural effusion versus scar. Reviewed by: Sagar Rahman on 02/25/2023 11:15 AM PDT Approved by: Sagar Rahman on 02/25/2023 11:15 AM PDT Station ID: [id number]
[2023-02-25] MEDS ORDERED: LOPERAMIDE 2 MG CAPSULE PO PRN (18:34)
[2023-02-25] MEDS: VANCOMYCIN 125 MG CAPSULE PO SCH (22:08)
[2023-02-26] MEDS: SODIUM CHLORIDE FLUSH 0.9% 10 ML SYRINGE IVP SCH ×3 (05:30→16:44)
[2023-02-26 06:01] LABS: BASOPHILS % (AUTO) 0.5 %; EOSINOPHILS # (AUTO) 0.1 10^3/uL (0.0-0.7); EOSINOPHILS % (AUTO) 1.5 %; HCT - HEMATOCRIT 25.6 % (37.0-47.0); HGB - HEMOGLOBIN 8.3 g/dL (12.0-16.0); LYMPHOCYTES % (AUTO) 12.4 %; MEAN CORPUSCULAR HEMOGLOBIN 33.3 pg (27.0-31.0); MEAN CORPUSCULAR HGB CONC 32.4 g/dL (32.0-36.0); MEAN CORPUSCULAR VOLUME 102.8 fL (81.0-99.0); MEAN PLATELET VOLUME 9.9 fL (7.9-10.8); MONOCYTES # (AUTO) 0.6 10^3/uL (0.0-1.0); MONOCYTES % (AUTO) 7.2 %; NEUTROPHILS # (AUTO) 6.2 10^3/uL (1.5-6.6); NEUTROPHILS % (AUTO) 77.3 %; PLT - PLATELET COUNT 218 10^3/uL (130-450); RED BLOOD COUNT 2.49 10^6/uL (4.20-5.40); RED CELL DISTRIBUTION WIDTH 20.3 % (12.0-15.0)
[2023-02-26] MEDS: PANTOPRAZOLE 40 MG TABLET PO SCH ×2 (06:02→16:44)
[2023-02-26 06:10] LABS: BUN - BLOOD UREA NITROGEN 13 mg/dL (6-20); CALCIUM 8.2 mg/dL (8.5-10.3); CARBON DIOXIDE - CO2 27 mmol/L (21-32); CHLORIDE 101 mmol/L (101-111); CREATININE 1.4 mg/dL (0.6-1.3); GFR - MDRD 37 (>89); GLUCOSE 76 mg/dL (74-104); IRON 53 ug/dL (50-212); POTASSIUM 4.4 mmol/L (3.5-4.5); SODIUM 134 mmol/L (135-145); TRANSFERRIN < 75 mg/dL (203-362)
[2023-02-26 06:14] LABS: SLIDE REVIEW? Indicated
[2023-02-26 06:27] LABS: PLATELET ESTIMATE, MANUAL NORMAL (130-450,000) (NORMAL)
[2023-02-26 06:43] LABS: FERRITIN 358.8 ng/mL (11.0-306.8)
[2023-02-26] MEDS: MAGNESIUM OXIDE 400 MG TABLET PO SCH ×2 (08:03→16:44)
[2023-02-26] MEDS: POTASSIUM CHLORIDE 10 MEQ CAPSULE PO SCH (08:03)
[2023-02-26] MEDS: FERROUS GLUCONATE 324 MG TABLET PO SCH (08:03)
[2023-02-26] MEDS: VANCOMYCIN 125 MG CAPSULE PO SCH ×4 (08:04→20:25)
[2023-02-26] MEDS: allopurinoL 100 MG TABLET PO SCH (08:04)
[2023-02-26] MEDS: THIAMINE 100 MG TABLET PO SCH (08:04)
[2023-02-26] MEDS: MIDODRINE 2.5 MG TABLET PO SCH ×3 (08:04→16:44)
[2023-02-26] MEDS: PRENATAL VITAMIN TABLET PO SCH (08:04)
--- NOTE | 2023-02-26 18:18 | PROVIDER PROGRESS NOTE ---
Progress Note February 26, 2023 6:14 PM Exhausted. Having numerous bowel movements in the subsequent feeling of being dehydrated makes her very sleepy. She was identified as having C. difficile colitis last night. C. difficile toxin was positive on stool. Started on p.o. vancomycin last night. Still having numerous stools today. Active Medications Allopurinol (Allopurinol 100 Mg Tablet) 100 mg PO DAILY [facility] Last Admin: 02/26/23 08:04 Dose: 100 mg Ferrous Gluconate (Ferrous Gluconate 324 Mg Tablet) 324 mg PO DAILYWM [facility] Last Admin: 02/26/23 08:03 Dose: 324 mg Magnesium Oxide (Magnesium Oxide 400 Mg Tablet) 400 mg PO BIDWM [facility] Last Admin: 02/26/23 16:44 Dose: 400 mg Midodrine (Midodrine 2.5 Mg Tablet) 2.5 mg PO TIDWM [facility] Last Admin: 02/26/23 16:44 Dose: 2.5 mg Ondansetron HCl (Ondansetron 4 Mg/2 Ml Vial) 4 mg IVP Q6HR PRN PRN Reason: Nausea / Vomiting Pantoprazole Sodium (Pantoprazole 40 Mg Tablet) 40 mg PO BIDAC [facility] Last Admin: 02/26/23 16:44 Dose: 40 mg Potassium Chloride (Potassium Chloride 10 Meq Capsule) 20 meq PO DAILYWM [facility] Last Admin: 02/26/23 08:03 Dose: 20 meq Multivit/Folic Acid/Iron ( Vitamin Tablet) 1 tab PO DAILYWM [facility] Last Admin: 02/26/23 08:04 Dose: 1 tab Sodium Chloride (Sodium Chloride Flush 0.9% 10 Ml Syringe) 10 ml IVP PRN PRN PRN Reason: NEEDED PER PROVIDER ORDERS Last Admin: 02/23/23 06:20 Dose: 10 ml Sodium Chloride (Sodium Chloride Flush 0.9% 10 Ml Syringe) 10 ml IVP 0100,0900,1700 [facility] Last Admin: 02/26/23 16:44 Dose: 10 ml Thiamine HCl (Thiamine 100 Mg Tablet) 100 mg PO DAILY [facility] Last Admin: 02/26/23 08:04 Dose: 100 mg Vancomycin HCl (Vancomycin 125 Mg Capsule) 125 mg PO QID [facility] Last Admin: 02/26/23 16:44 Dose: 125 mg carvediloL [Carvedilol] 12.5 mg PO BID 04/22/18 dilTIAZem HCL [Diltiazem 24Hr ER (Xr)] 180 mg PO DAILY 04/27/22 Ferrous Gluconate 324 mg PO DAILY 02/19/23 Exam: Temp 36.9, heart rate 86, blood pressure 113/63, respirations 20, 95% on room air. Very pale, fatigued appearing elderly female who is 5 feet 2 inches tall, 74.5 kg.While she is awake and speaking to me, she has a very flat affect, withdrawn. Minimally responsive with one-word answers. Diminished breath sounds at the bases but otherwise clear lungs without respiratory distress. I do not hear crackles. Regular rate and rhythm Abdomen is soft, hyperactive bowel sounds, diffusely achy with palpation but nontender. No rebound or guarding. Extremities with trace edema. Lab: Sodium 134, potassium 4.4, creatinine 1.4. Her baseline creatinine appears to be 0.8-0.9. On admission she was 1.0. She peaked at 1.7 yesterday. Today has improved. White cell count is stable and normal at 8.0. Hemoglobin is 8.3 with stable ongoing anemia since 2018. At that point in time her hemoglobin dropped as low as 4.1. Iron is 53, transferrin less than 75, ferritin high at 358.8. Bili is 1.8. TSH 10.87 and free T4 is 1.19. B12 is high at 2637, folate is low at 3.5. Reticulocyte count is not noted. Blood cultures are negative on February 21 Positive C. difficile on February 25, 2023 stool Assessment/Plan - Problem List (1) Hypotension Impression: Hypotension developed in February 24. She came down to the 70s or 90s and diltiaz em and carvedilol were discontinued. Diuretics were discontinued. Started on midodrine. Blood pressure is better and she was in the 100s on February 25. Echocardiogram was ordered and done on the . Technically difficult study to do because of limited views due to body habitus. Ejection fraction was normal at 55 to 60% with normal LV wall thickness. Right ventricle normal. Moderate increase in left atrial size. Mild to moderate right atrial size increased. No valvular heart disease. Abnormal right heart pressures with RVSP 44 mmHg. Balance of fluid intake has been ongoing. On the one hand she needed to be diuresed for edema on exam and a chest x-ray that showed pulmonary edema. On the other hand she may have been over diuresed and became hypotensive and intravascularly depleted especially in the face of diarrhea. As such her blood pressure medicines were discontinued and her IV fluids were held. Today's blood pressure is 137 systolic. 125 systolic. And 113 systolic. She states that she feels better. Plan: Other than encourage her to take free water, I am not can to be giving her IV fluids or resuming her medications today. I feel she is achieved a tentative balance with regards to fluid intake/outtake and blood pressure. (2) Acute respiratory failure with hypoxia resolved Impression: She is on half liter of oxygen and concerned that this may be due to pulmonary edema given initial chest x-ray suggested pulmonary edema and her BNP was elevated at 1500. Diuresis was discontinued due to hypotension. She has been o n room air since the afternoon of the . O2 sat is 91% early this morning but it has been normal for the rest of the day. Follow-up echocardiogram showed possible right-sided heart failure due to elevated pulmonary pressures. But no evidence of left-sided heart failure. Now that she has been diuresed, hypoxia appears to have resolved. In view of the acceptable echo, and adequate O2, no oxygen for now. (3) Pulmonary edema resolved Impression: Initial chest x-ray was reviewed and does appear consistent with pulmonary edema. She was hypoxic and requiring half liter of oxygen. BNP was elevated at 1500. Diuresis stopped due to hypotension. I will not be resuming diuresis since oxygen is okay and blood pressure is okay. Echo shows mild right-sided heart failure. (4) HAROON (acute kidney injury) Impression: Her creatinine had increased to 1.7 from baseline of 1.0. Today 1.4. So she is slowly improving. This may have been due to the Bactrim she was on as well as potentially ATN given she was hypotensive. She had also been started on ibuprofen given concern for gout. Ibuprofen was discontinued yesterday. Bactrim has since been discontinued and she has been started on midodrine with improvement in her blood pressure. Her urine creatinine was 89.9, urine spot sodium was 37.4. Urine was dark yellow but clear and no granular casts. Plan: Avoid nephrotoxins. Hold off on IV hydration at this time. No renal ultrasound since she is improving. (5) C dif diarrhea Impression: She has been on antibiotics recently concern of potential C. difficile versus a viral gastroenteritis. On examWe did consider doing a CT of the abdomen because of mild abdominal tenderness. Today she does not have any tenderness so I will not be ordering a CT. Today is day #2 of vancomycin that was started last night. Plan: P.o. vancomycin for 14 days (6) Gout Impression: She was started on ibuprofen for concern of gout flare Of the right index finger. Uric acid was elevated at greater than 10. She has not tolerated colchicine in the past. Was started on ibuprofen but this is now discontinued due to her acute kidney injury. We could potentially consider steroids but there has been concern for potential upper GI bleed. She is not complaining very much of her finger today. Plan: Treat symptomatically if needed (7) Ascites Impression: This is chronic and secondary to her liver cirrhosis. Lasix has been stopped due to the hypotension. Consider paracentesis as needed and resumption of diuresis depending on her blood pressure. So far she has not needed a paracentesis (8) Alcoholic hepatitis Impression: Her LFTs are elevated and this is stable. This is secondary to her history of alcoholic liver cirrhosis. Continue to monitor at this time. (9) Anemia Impression: She likely has anemia of chronic disease. Has received a unit of packed red blood cells during her most recent hospitalization. Hemoglobin at this time is stable at 7.5 and her baseline appears to vary from 7-8. Folate was noted to be decreased. She has been started on folate supplementation. (10) Foot infection Impression: There was concern for potential left foot infection. Culture from 02/18 had no organisms grown. She completed treatment with Bactrim which has since been discontinued. Hold off on further antibiotics at this time. (11) generalized weakness due to illness She is working with physical therapy and Occupational Therapy. They noted that she had improved in February 25 and was able to do 2 rounds of 20 feet of walking. Her walking and endurance was limited by numerous bowel movements. They do feel that her endurance is impacted. They are recommending residential facility with PT and OT.
[2023-02-27] MEDS: SODIUM CHLORIDE FLUSH 0.9% 10 ML SYRINGE IVP SCH ×3 (00:48→16:33)
[2023-02-27] MEDS: SODIUM CHLORIDE FLUSH 0.9% 10 ML SYRINGE IVP PRN (04:27)
[2023-02-27 05:33] LABS: BASOPHILS # (AUTO) 0.1 10^3/uL (0.0-0.1); BASOPHILS % (AUTO) 0.5 %; EOSINOPHILS # (AUTO) 0.1 10^3/uL (0.0-0.7); EOSINOPHILS % (AUTO) 1.3 %; HCT - HEMATOCRIT 25.2 % (37.0-47.0); HGB - HEMOGLOBIN 7.9 g/dL (12.0-16.0); LYMPHOCYTES % (AUTO) 10.4 %; MEAN CORPUSCULAR HEMOGLOBIN 31.9 pg (27.0-31.0); MEAN CORPUSCULAR HGB CONC 31.3 g/dL (32.0-36.0); MEAN CORPUSCULAR VOLUME 101.6 fL (81.0-99.0); MEAN PLATELET VOLUME 9.5 fL (7.9-10.8); MONOCYTES # (AUTO) 0.7 10^3/uL (0.0-1.0); MONOCYTES % (AUTO) 7.8 %; NEUTROPHILS # (AUTO) 7.2 10^3/uL (1.5-6.6); NEUTROPHILS % (AUTO) 78.5 %; PLT - PLATELET COUNT 205 10^3/uL (130-450); RED BLOOD COUNT 2.48 10^6/uL (4.20-5.40); WHITE BLOOD COUNT 9.2 x10^3/uL (4.8-10.8)
[2023-02-27 05:49] LABS: CALCIUM 8.2 mg/dL (8.5-10.3); CREATININE 1.1 mg/dL (0.6-1.3); POTASSIUM 4.4 mmol/L (3.5-4.5)
[2023-02-27] MEDS: PANTOPRAZOLE 40 MG TABLET PO SCH ×2 (06:36→16:32)
[2023-02-27] MEDS: MIDODRINE 2.5 MG TABLET PO SCH ×2 (08:52→13:02)
[2023-02-27] MEDS: MAGNESIUM OXIDE 400 MG TABLET PO SCH ×2 (08:52→16:33)
[2023-02-27] MEDS: POTASSIUM CHLORIDE 10 MEQ CAPSULE PO SCH (08:52)
[2023-02-27] MEDS: VANCOMYCIN 125 MG CAPSULE PO SCH ×4 (08:52→21:09)
[2023-02-27] MEDS: allopurinoL 100 MG TABLET PO SCH (08:52)
[2023-02-27] MEDS: FERROUS GLUCONATE 324 MG TABLET PO SCH (08:52)
[2023-02-27] MEDS: PRENATAL VITAMIN TABLET PO SCH (08:53)
[2023-02-27] MEDS: THIAMINE 100 MG TABLET PO SCH (08:53)
[2023-02-27] MEDS: SACCHAROMYCES BOULARDII 250 MG CAPSULE PO SCH ×2 (13:03→16:32)
--- NOTE | 2023-02-27 13:54 | PROVIDER PROGRESS NOTE ---
Subjective - Prog Note Date Prog Note Date: 02/27/23 Prog Note Time: 13:52 - Subjective Pt reports feeling: No change Subjective: She is able to walk to the bathroom and back using her walker. Slowly but able to do it. She is very fatigued and needs a 1 person assist. She continues to complain of left arm and left finger pain. The finger pain is from her gout. Yesterday she had blood on her pad. Nursing has carefully wiped her today and they feel that it is vaginal bleeding. She has been on midodrine for low blood pressure but her blood pressure has slowly rebounded over the last couple of days. Yesterday she was normotensive with a high of 143 systolic at 3:45 in the morning. Today she has been 126 systolic and 137 systolic. Oral input is anywhere between 580 to 1350 cc. She is eating 25 to 50% of her food. She tells me that she is exhausted. Has no appetite. She continues to have frequent bowel movements of anywhere from 3-12 voids shift of liquid stool. The vancomycin that was started (today is day 3) has not helped. Current Medications - Current Medications Current Medications: Active Medications Allopurinol (Allopurinol 100 Mg Tablet) 100 mg PO DAILY [facility] Last Admin: 02/27/23 08:52 Dose: 100 mg Ferrous Gluconate (Ferrous Gluconate 324 Mg Tablet) 324 mg PO DAILYWM [facility] Last Admin: 02/27/23 08:52 Dose: 324 mg Magnesium Oxide (Magnesium Oxide 400 Mg Tablet) 400 mg PO BIDWM [facility] Last Admin: 02/27/23 08:52 Dose: 400 mg Midodrine (Midodrine 2.5 Mg Tablet) 2.5 mg PO TIDWM [facility] Last Admin: 02/27/23 13:02 Dose: Not Given Ondansetron HCl (Ondansetron 4 Mg/2 Ml Vial) 4 mg IVP Q6HR PRN PRN Reason: Nausea / Vomiting Last Admin: 02/27/23 04:27 Dose: 4 mg Pantoprazole Sodium (Pantoprazole 40 Mg Tablet) 40 mg PO BIDAC [facility] Last Admin: 02/27/23 06:36 Dose: 40 mg Potassium Chloride (Potassium Chloride 10 Meq Capsule) 20 meq PO DAILYWM [facility] Last Admin: 02/27/23 08:52 Dose: 20 meq Multivit/Folic Acid/Iron ( Vitamin Tablet) 1 tab PO DAILYWM [facility] Last Admin: 02/27/23 08:53 Dose: 1 tab Saccharomyces Boulardii (Saccharomyces Boulardii 250 Mg Capsule) 500 mg PO BIDWM [facility] Last Admin: 02/27/23 13:03 Dose: 500 mg Sodium Chloride (Sodium Chloride Flush 0.9% 10 Ml Syringe) 10 ml IVP PRN PRN PRN Reason: NEEDED PER PROVIDER ORDERS Last Admin: 02/27/23 04:27 Dose: 10 ml Sodium Chloride (Sodium Chloride Flush 0.9% 10 Ml Syringe) 10 ml IVP 0 100,0900,1700 [facility] Last Admin: 02/27/23 08:52 Dose: 10 ml Thiamine HCl (Thiamine 100 Mg Tablet) 100 mg PO DAILY [facility] Last Admin: 02/27/23 08:53 Dose: 100 mg Vancomycin HCl (Vancomycin 125 Mg Capsule) 125 mg PO QID [facility] Last Admin: 02/27/23 13:03 Dose: 125 mg carvediloL [Carvedilol] 12.5 mg PO BID 04/22/18 dilTIAZem HCL [Diltiazem 24Hr ER (Xr)] 180 mg PO DAILY 04/27/22 Ferrous Gluconate 324 mg PO DAILY 02/19/23 Objective - Vital Signs/Intake & Output Reviewed Vital Signs: Yes Vital Signs: Vital Signs x48h Temp Pulse Resp BP Pulse Ox 02/27/23 13:07 36.3 C L 89 16 137/79 H 97 02/27/23 08:04 36.7 C 88 16 126/72 91 L Intake & Output: Intake & Output 02/24/23 02/25/23 02/26/23 02/27/23 23:59 23:59 23:59 23:59 Intake Total 1350 790 580 400 Output Total 225 300 Balance 1125 490 580 400 - Objective General Appearance: positive: Alert, Other (Very pale, fatigued appearing white female who looks older than stated age. Affect is flat, muted. Low voice, almost murmuring.) Eyes Bilateral: positive: PERRL, EOMI ENT: positive: No signs of dehydration Neck: positive: No JVD. negative: Stiff neck Respiratory: positive: No respiratory distress. negative: Wheezes, Rales, Rhonchi Cardiovascular: positive: Regular rate & rhythm Abdomen: positive: Non-tender, No organomegaly, Nml bowel sounds, No distention Skin: positive: Warm, Dry, Pallor, Other Extremities: positive: Full ROM, No pedal edema, Other (DIP of gout finger is red, swollen, exq tender, white areas appearing) Neurologic/Psychiatric: positive: Oriented x3, CN's nml (2-12), Motor nml (But weak and easily tired out.) - Lab Results Fish Bones: 02/27/23 05:15 02/27/23 05:15 Other Labs: Lab Results x24hrs 02/27/23 02/27/23 02/27/23 Range/Units 05:15 05:15 05:15 WBC 9.2 (4.8-10.8) x10^3/uL RBC 2.48 L (4.20-5.40) 10^6/uL Hgb 7.9 L (12.0-16.0) g/dL Hct 25.2 L (37.0-47.0) % MCV 101.6 H (81.0-99.0) fL MCH 31.9 H (27.0-31.0) pg MCHC 31.3 L (32.0-36.0) g/dL RDW 20.0 H (12.0-15.0) % Plt Count 205 (130-450) 10^3/uL MPV 9.5 (7.9-10.8) fL Neut # (Auto) 7.2 H (1.5-6.6) 10^3/uL Lymph # (Auto) 1.0 L (1.5-3.5) 10^3/uL Harvey # (Auto) 0.7 (0.0-1.0) 10^3/uL Eos # (Auto) 0.1 (0.0-0.7) 10^3/uL Baso # (Auto) 0.1 (0.0-0.1) 10^3/uL Absolute Nucleated RBC 0.00 x10^3/uL Nucleated RBC % 0.0 /100WBC Sodium 133 L (135-145) mmol/L Potassium 4.4 (3.5-4.5) mmol/L Chloride 102 (101-111) mmol/L Carbon Dioxide 26 (21-32) mmol/L Anion Gap 5.0 L (6-13) BUN 11 (6-20) mg/dL Creatinine 1.1 (0.6-1.3) mg/dL Estimated GFR (MDRD) 49 L (>89) Glucose 84 (74-104) mg/dL Calcium 8.2 L (8.5-10.3) mg/dL Magnesium 1.4 L (1.7-2.3) mg/dL ABX Reporting Has patient been on IV antibiotics over the past 48 hours?: Yes Assessment/Plan - Problem List (1) Clostridioides difficile diarrhea Impression: She has been on antibiotics recently and there was a concern of potential C. difficile versus a viral gastroenteritis because of continued, frequent loose stools. No blood. On exam she had mild abdominal tenderness and we did consider doing a CT of the abdomen because of that. We started the vancomycin and no abd pain on 02/26, she does not have any tenderness so I did not order a CT. Today is day #3 of vancomycin that was started the evening of 02/24. Plan: P.o. vancomycin for 14 days The diarrhea is leaving her very weak. And I will continue have her work with PT and OT. (2) generalized weakness due to illness She is working with physical therapy and Occupational Therapy. They noted that she had improved in February 25 and was able to do 2 rounds of 20 feet of walking. Her walking and endurance was limited by numerous bowel movements. They do feel that her endurance is impacted. She was seen again today. They continue to recommend nursing home facility with PT and OT. She agrees to placement when medical issues stable (3) postmenopausal vaginal bleeding Pelvic and vaginal ultrasound ordered (4) Hypotension Impression: Hypotension developed in February 24. She came down to the 70s or 90s and diltiazem and carvedilol were discontinued. Diuretics were discontinued. Started on midodrine. Blood pressure is better and she was in the 100s on February 25. Echocardiogram was ordered and done on the . Technically difficult study to do because of limited views due to body habitus. Ejection fraction was normal at 55 to 60% with normal LV wall thickness. Right ventricle normal. Moderate increase in left atrial size. Mild to moderate right atrial size increased. No valvular heart disease. Abnormal right heart pressures with RVSP 44 mmHg. Balance of fluid intake has been ongoing. On the one hand she needed to be diuresed for edema on exam and a chest x-ray that showed pulmonary edema. On t he other hand she may have been over diuresed and became hypotensive and intravascularly depleted especially in the face of diarrhea. As such her blood pressure medicines were discontinued and her IV fluids were held. She states that she feels better. I am incouraging water intake to 1750 cc. Selected Entries 02/27/23 02/27/23 02/27/23 00:55 03:49 08:04 Blood Pressure 139/77 H 143/81 H 126/72 [Right Brachial artery] 02/27/23 13:07 Blood Pressure 137/79 H [Right Brachial artery] Plan: stop midodrine and watch BP to see if BP meds need to be resumed. (5) Acute respiratory failure with hypoxia resolved Impression: She was on half liter of oxygen and concerned that this may be due to pulmonary edema given initial chest x-ray suggested pulmonary edema and her BNP was elevated at 1500. Diuresis was discontinued due to hypotension. She has been on room air since the afternoon of the . O2 sat was 91% yesterday cupola melter helper and early this morning but it has been normal for the rest of the day. Follow-up echocardiogram showed possible right-sided heart failure due to elevated pulmonary pressures. But no evidence of left-sided heart failure. Now that she has been diuresed, hypoxia appears to have resolved. In view of the acceptable echo, and adequate O2, no oxygen for now. (6) Pulmonary edema resolved Impression: Initial chest x-ray was reviewed and does appear consistent with pulmonary edema. She was hypoxic and requiring half liter of oxygen. BNP was elevated at 1500. Diuresis stopped due to hypotension. I will not be resuming diuresis since oxygen is okay and blood pressure is okay. Echo shows mild right-sided heart failure. (7) HAROON (acute kidney injury) Impression: Her creatinine had increased to 1.7 from baseline of 1.0. Today she is 1.0 from 1.4 and the 1.7. So she iis now at baseline. This may have been due to the Bactrim she was on as well as potentially ATN given she was hypotensive. She had also been started on ibuprofen given concern for gout. Ibuprofen was discontinued 02/24. Bactrim has since been discontinued and she has been started on midodrine with improvement in her blood pressure. Her urine creatinine was 89.9, urine spot sodium was 37.4. Urine was dark yellow but clear and no granular casts. Plan: Avoid nephrotoxins. Hold off on IV hydration at this time. No renal ultrasound since she is improving. (8) Gout Impression: She was started on ibuprofen for concern of gout flare Of the right index fi nger. Uric acid was elevated at greater than 10. She has not tolerated colchicine in the past. Was started on ibuprofen but this is now discontinued due to her acute kidney injury. We could potentially consider steroids but there has been concern for potential upper GI bleed. Today the finger is red, hot, swollen. White gouty arthropathy nodes are starting to pop up over the top of the finger because it is under pressure. Red. Exquisitely tender Plan: I cannot give her colchicine because the diarrhea. I will give her Solu- Medrol. 4 doses only. Already on Protonix 40 twice daily. We will add Carafate to see if I can protect her stomach better. (9) Ascites Impression: This is chronic and secondary to her liver cirrhosis. Lasix has been stopped due to the hypotension. Consider paracentesis as needed and resumption of diuresis depending on her blood pressure. So far she has not needed a paracentesis (10) Alcoholic hepatitis Impression: Her LFTs are elevated and this is stable. This is secondary to her history of alcoholic liver cirrhosis. Continue to monitor at this time. (11) Anemia Impression: She likely has anemia of chronic disease. Has received a unit of packed red blood cells during her most recent hospitalization. Hemoglobin at this time is stable at 7.5 and her baseline appears to vary from 7-8. Folate was noted to be decreased. She has been started on folate supplementation. (12) Foot infection Impression: There was concern for potential left foot infection. Culture from 02/18 had no organisms grown. She completed treatment with Bactrim which has since been discontinued. Hold off on further antibiotics at this time. I am asking RN to document wound today since last photos 7 days ago.
[2023-02-27] MEDS: methylPREDNISolone SUCCINATE 40 MG/ML VIAL IVP SCH ×2 (15:14→21:09)
[2023-02-27] MEDS: SUCRALFATE 1 GM/10 ML UDC PO SCH ×2 (16:32→21:09)
[2023-02-28] MEDS: SODIUM CHLORIDE FLUSH 0.9% 10 ML SYRINGE IVP SCH ×2 (00:02→08:44)
[2023-02-28 05:30] LABS: BASOPHILS % (AUTO) 0.1 %; HCT - HEMATOCRIT 24.3 % (37.0-47.0); HGB - HEMOGLOBIN 7.7 g/dL (12.0-16.0); LYMPHOCYTES # (AUTO) 0.7 10^3/uL (1.5-3.5); LYMPHOCYTES % (AUTO) 7.8 %; MEAN CORPUSCULAR HEMOGLOBIN 32.6 pg (27.0-31.0); MEAN CORPUSCULAR HGB CONC 31.7 g/dL (32.0-36.0); MEAN PLATELET VOLUME 9.9 fL (7.9-10.8); MONOCYTES # (AUTO) 0.2 10^3/uL (0.0-1.0); NEUTROPHILS # (AUTO) 7.4 10^3/uL (1.5-6.6); NEUTROPHILS % (AUTO) 88.8 %; PLT - PLATELET COUNT 219 10^3/uL (130-450); RED BLOOD COUNT 2.36 10^6/uL (4.20-5.40); RED CELL DISTRIBUTION WIDTH 19.4 % (12.0-15.0); WHITE BLOOD COUNT 8.3 x10^3/uL (4.8-10.8)
[2023-02-28 05:42] LABS: CALCIUM 8.6 mg/dL (8.5-10.3); CREATININE 1.1 mg/dL (0.6-1.3); POTASSIUM 5.1 mmol/L (3.5-4.5)
[2023-02-28] MEDS: methylPREDNISolone SUCCINATE 40 MG/ML VIAL IVP SCH (06:22)
[2023-02-28] MEDS: PANTOPRAZOLE 40 MG TABLET PO SCH (06:23)
[2023-02-28] MEDS: SUCRALFATE 1 GM/10 ML UDC PO SCH ×2 (06:23→12:44)
[2023-02-28 08:36] VITALS: O2SAT 95
[2023-02-28] MEDS: MAGNESIUM OXIDE 400 MG TABLET PO SCH (08:44)
[2023-02-28] MEDS: VANCOMYCIN 125 MG CAPSULE PO SCH (08:44)
[2023-02-28] MEDS: SACCHAROMYCES BOULARDII 250 MG CAPSULE PO SCH (08:45)
[2023-02-28] MEDS: PRENATAL VITAMIN TABLET PO SCH (08:45)
[2023-02-28] MEDS: allopurinoL 100 MG TABLET PO SCH (08:45)
[2023-02-28] MEDS: FERROUS GLUCONATE 324 MG TABLET PO SCH (08:45)
[2023-02-28] MEDS: THIAMINE 100 MG TABLET PO SCH (08:45)
--- NOTE | 2023-02-28 11:34 | Discharge Plan ---
"Discharge Plan for SNF / [facility] - Discharge Plan And Transition Orders Problem Reviewed?: Yes Disposition: 03 SNF DC/Xfer Condition: Serious Allergies and Adverse Reactions: Allergies Allergy/AdvReac Type Severity Reaction Status Date / Time TIARA Inhibitors Allergy Severe Respiratory Verified 02/18/23 21:55 lisinopril Allergy Severe Respiratory Verified 02/18/23 21:55 - SNF / [facility] Transition Orders Admit to (Facility): [facility] Discharge Diagnosis: (1) Hypotension - Resolved (2) Acute respiratory failure with hypoxia resolved (3) Pulmonary edema resolved (4) HAROON (acute kidney injury) - Resolved (5) C dif diarrhea Stable P.o. vancomycin for 14 days (6) Gout Improved (7) Ascites Impression: Stable (8) Alcoholic hepatitis Impression: Her LFTs are elevated and this is Stable (9) Anemia Impression: Chronic - stable Will need outpt workup (pt with vaginal bleeding, U/S pending) (10) Left Foot Chronic Wound Impression: Stable Chronic wound Completed Bactrim (11) generalized weakness due to illness Stable Medicare Certification Statement: I certify that Post Hospital residential care is medically necessary on a continuing basis for any of the conditions for which she/he is receiving care during hospitalization. Notify PCP of admission and forward orders to primary provider for signature. Weight on admission and: Weekly Other Notification Orders: Call PCP immediately if patient develops dyspnea, chest pain/tightness or edema. House Bowel Program: Yes Additional Bowel Program Orders: If no BM after 2 days, nurse may give M.O.M. 30ml PO PRN and/or ducolax Supp 1 ND and/or EDMUND 250mg P.O., and/or senna 1-2 tabs PO. On day 3 nurse may give repeat above order until residents constipation is resolved. Annual Influenza Vaccine (between Mar 07 and October 04): Yes Two-step PPD per [facility] [phone] or approved exception documents: Yes Treatments & Other Orders: Wound care - per facility protocol, L foot wound Medication Orders: PLEASE REFER TO THE DISCHARGE MEDICATION LIST. Insulin Orders?: No - Medications New Prescriptions: Magnesium Oxide [Mag Ox] 400 mg PO BIDWM 30 Days #60 tab Vancomycin [Vancocin] 250 mg PO QID 10 Days #80 cap allopurinoL [Zyloprim] 100 mg PO DAILY 30 Days #30 tab - Diet Type: No added salt Texture: Regular May have monthly special meal: Yes - Therapies | Activity Therapy: Evaluation | Treat if indicated: PT Rehabilitation Potential: Return to independent living Activity: Activity as Tolerated Weight Bearing: Full Weight Additional Instructions: Wound care L foot wound Follow Up: Follow up with PCP Evaluate post menopausal bleeding Review med changes due to HAROON and hypotension"
[2023-02-28] MEDS ORDERED: VANCOMYCIN 125 MG CAPSULE PO SCH (11:47)
[2023-02-28 13:33] VITALS: BP 135/82
--- NOTE | 2023-02-28 14:07 | DISCHARGE SUMMARY ---
Discharge Summary Admit Date: 02/22/23 Discharge Date: 02/28/23 Discharging Provider: Dr Ranulfo Snowden Condition at Discharge: Serious Discharge Disposition: 03 [facility] DC/Xfer - DIAGNOSES Admission Diagnoses: 1. Acute respiratory failure with hypoxia 2. Suspected acute congestive heart failure, systolic 3. Ascites 4. Recent history of alcoholic hepatitis 5. Blood loss anemiasuspected peptic ulcer disease due to alcoholism. S/p 1 unit of PRBC transfusion before 2 days 6. Left foot abscess status post I&D. Patient was discharged on Bactrim for 2 days 7. Hypertension Discharge Diagnoses with Status of Each Condition: (1) Hypotension - Resolved (2) Acute respiratory failure with hypoxia resolved (3) Pulmonary edema resolved (4) HAROON (acute kidney injury) - Resolved (5) C dif diarrhea Stable P.o. vancomycin for 14 days (6) Gout Improved (7) Ascites Impression: Stable (8) Alcoholic hepatitis Impression: Her LFTs are elevated and this is Stable (9) Anemia Impression: Chronic - stable Will need outpt workup (pt with vaginal bleeding, U/S pending) (10) Left Foot Chronic Wound Impression: Stable Chronic wound - HPI History of Present Illness: 67-year-old female who was recently discharged from the hospital after being treated for suspected acute blood loss anemia due to GI bleed and left foot infection status post incision and drainage was seen in the emergency room due to generalized weakness and shortness of breath. Patient does not use any oxygen at home but in the emergency room she required at least 2 L oxygen to keep her oxygen saturation above 90%.. She is alert and oriented at this time. Patient's sister is present at the bedside who mentioned that since the discharge, she progressively worsen as far as her weakness is concerned. She did not have any oral intake. She has bilateral lower extremity swelling as well as abdominal distention. She did not have any fever or chills. No cough or dysuria. She denies any chest pain. She denies any diaphoresis. Patient has previous history of alcoholism. She did not have any alcohol since last 10 days. In the emergency room earlier she was started on IV fluid but then pulmonary edema was seen in the chest x-ray therefore IV fluid was stopped and she was given 60 mg of IV Lasix. Hemoglobin is stable. - HOSPITAL COURSE Hospital Course: - Problem List (1) Clostridioides difficile diarrhea Impression: She has been on antibiotics recently and there was a concern of potential C. difficile versus a viral gastroenteritis because of continued, frequent loose stools. No blood. On exam she had mild abdominal tenderness and we did consider doing a CT of the abdomen because of that. We started the vancomycin and no abd pain on 02/26, she does not have any tenderness so I did not order a CT. Today is day #3 of vancomycin that was started the evening of 02/24. Plan: P.o. vancomycin for 14 days (2) generalized weakness due to illness She is working with physical therapy and Occupational Therapy. They noted that she had improved in February 25 and was able to do 2 rounds of 20 feet of walking. Her walking and endurance was limited by numerous bowel movements. They do feel that her endurance is impacted. She was seen again today. They continue to recommend custodial facility with PT and OT. She agrees to placement when medical issues stable (3) postmenopausal vaginal bleeding Pelvic and vaginal ultrasound ordered (4) Hypotension Impression: Hypotension developed in February 24. She came down to the 70s or 90s and diltiazem and carvedilol were discontinued. Diuretics were discontinued. Started on midodrine. Blood pressure is better and she was in the 100s on February 25. Echocardiogram was ordered and done on the . Technically difficult study to do because of limited views due to body habitus. Ejection fraction was normal at 55 to 60% with normal LV wall thickness. Right ventricle normal. Moderate increase in left atrial size. Mild to moderate right atrial size increased. No valvular heart disease. Abnormal right heart pressures with RVSP 44 mmHg. Balance of fluid intake has been ongoing. On the one hand she needed to be diuresed for edema on exam and a chest x-ray that showed pulmonary edema. On the other hand she may have been over diuresed and became hypotensive and intrav ascularly depleted especially in the face of diarrhea. As such her blood pressure medicines were discontinued and her IV fluids were held. She states that she feels better. I am incouraging water intake to 1750 cc. Plan: stop midodrine (5) Acute respiratory failure with hypoxia resolved Impression: She was on half liter of oxygen and concerned that this may be due to pulmonary edema given initial chest x-ray suggested pulmonary edema and her BNP was e levated at 1500. Diuresis was discontinued due to hypotension. She has been on room air since the afternoon of the . O2 sat was 91% yesterday safety trainer and early this morning but it has been normal for the rest of the day. Follow-up echocardiogram showed possible right-sided heart failure due to elevated pulmonary pressures. But no evidence of left-sided heart failure. Now that she has been diuresed, hypoxia appears to have resolved. In view of the acceptable echo, and adequate O2, no oxygen for now. (6) Pulmonary edema resolved Impression: Initial chest x-ray was reviewed and does appear consistent with pulmonary edema. She was hypoxic and requiring half liter of oxygen. BNP was elevated at 1500. Diuresis stopped due to hypotension. I will not be resuming diuresis since oxygen is okay and blood pressure is okay. Echo shows mild right-sided heart failure. (7) HAROON (acute kidney injury) Impression: Her creatinine had increased to 1.7 from baseline of 1.0. Today she is 1.0 from 1.4 and the 1.7. So she iis now at baseline. This may have been due to the Bactrim she was on as well as potentially ATN given she was hypotensive. She had also been started on ibuprofen given concern for gout. Ibuprofen was discontinued 02/24. Bactrim has since been discontinued and she has been started on midodrine with improvement in her blood pressure. Her urine creatinine was 89.9, urine spot sodium was 37.4. Urine was dark yellow but clear and no granular casts. Plan: Avoid nephrotoxins. (8) Gout Impression: She was started on ibuprofen for concern of gout flare Of the right index finger. Uric acid was elevated at greater than 10. She has not tolerated colchicine in the past. Was started on ibuprofen but this is now discontinued due to her acute kidney injury. We could potentially consider steroids but there has been concern for potential upper GI bleed. Today the finger is red, hot, swollen. White gouty arthropathy nodes are starting to pop up over the top of the finger because it is under pressure. Red. Exquisitely tender Plan: Cannot give her colchicine because the diarrhea. Was given solu-medrol x 4 doses only. Already on Protonix 40 twice daily. Started on Allopurinol (9) Ascites Impression: This is chronic and secondary to her liver cirrhosis. Lasix has been stopped due to the hypotension. Consider paracentesis as needed and resumption of diuresis depending on her blood pressure. So far she has not needed a paracentesis (10) Alcoholic hepatitis Impression: Her LFTs are elevated and this is stable. This is secondary to her history of alcoholic liver cirrhosis. Continue to monitor at this time. (11) Anemia Impression: She likely has anemia of chronic disease. Has received a unit of packed red blood cells during her most recent hospitalization. Hemoglobin at this time is stable at 7.5 and her baseline appears to vary from 7-8. Folate was noted to be decreased. She has been started on folate supplementation. (12) Foot infection Impression: There was concern for potential left foot infection. Culture from 02/18 had no organisms grown. She completed treatment with Bactrim which has since been discontinued. Hold off on further antibiotics at this time. I am asking RN to document wound today since last photos 7 days ago. - ALLERGIES Allergies/Adverse Reactions: Allergies Allergy/AdvReac Type Severity Reaction Status Date / Time TIARA Inhibitors Allergy Severe Respiratory Verified 02/18/23 21:55 lisinopril Allergy Severe Respiratory Verified 02/18/23 21:55 - MEDICATIONS Home Medications: Ambulatory Orders Medication Instructions Recorded Confirmed Pantoprazole [Protonix] 40 mg PO DAILY #60 tablet 05/01/22 02/22/23 Thiamine [Vitamin B-1] 100 mg PO DAILY tab 05/01/22 02/22/23 Calcium Citrate 200 mg PO BID #15 tablet 02/07/23 02/22/23 Magnesium Oxide [Mag Ox] 400 mg PO BID #20 tablet 02/07/23 02/22/23 Ferrous Gluconate 324 mg PO DAILY 02/19/23 02/22/23 Magnesium Oxide [Mag Ox] 400 mg PO BIDWM 30 Days #60 tab 02/28/23 Vancomycin [Vancocin] 250 mg PO QID 10 Days #80 cap 02/28/23 allopurinoL [Zyloprim] 100 mg PO DAILY 30 Days #30 tab 02/28/23 - PHYSICAL EXAM AT DISCHARGE General Appearance: positive: No acute distress Eyes Bilateral: positive: Normal inspection Respiratory: positive: Chest non-tender, No respiratory distress, Breath sounds nml Cardiovascular: positive: Regular rate & rhythm, No murmur, No gallop Abdomen: positive: Non-tender, No organomegaly Neurologic/Psychiatric: positive: CN's nml (2-12), Motor nml, Disoriented to person, Disoriented to place - LABS Result Diagrams: 02/28/23 04:59 02/28/23 04:59 - TIME SPENT Time Spent in Discharge (Minutes): 35
== END 2023-02-28 15:20 | DRG 189 ==
LOC: EDUNIT# → ED 19:06 → MS2 02-22 00:32
PROVIDERS: ADMIT Internal Medicine; ATTEND Family Medicine Sports Medicine
DX: J96.01 Acute respiratory failure with hypoxia (principal); I50.9 Heart failure, unspecified; S91.302A Unspecified open wound, left foot, initial encounter; R53.1 Weakness; D64.9 Anemia, unspecified; R09.02 Hypoxemia; F17.200 Nicotine dependence, unspecified, uncomplicated; I50.21 Acute systolic (congestive) heart failure; L02.612 Cutaneous abscess of left foot; A04.72 Enterocolitis due to Clostridium difficile, not specified as recurrent; N17.9 Acute kidney failure, unspecified; K70.31 Alcoholic cirrhosis of liver with ascites; D50.0 Iron deficiency anemia secondary to blood loss (chronic); K27.9 Peptic ulcer, site unspecified, unspecified as acute or chronic, without hemorrhage or perforation; F10.20 Alcohol dependence, uncomplicated; I11.0 Hypertensive heart disease with heart failure; M10.9 Gout, unspecified; I95.9 Hypotension, unspecified; K70.11 Alcoholic hepatitis with ascites; N95.0 Postmenopausal bleeding; E78.00 Pure hypercholesterolemia, unspecified; K21.9 Gastro-esophageal reflux disease without esophagitis; Z82.49 Family history of ischemic heart disease and other diseases of the circulatory system
CPT/HCPCS: 36415; 71045; 80048; 80053; 80076; 81001; 82570; 82607; 82728; 82746; 83540; 83690; 83735; 83880; 84100; 84300; 84439; 84443; 84466; 84484; 84550; 85025; 85027; 85379; 85610; 85651; 86140; 86850; 86900; 86901; 87040; 87493; 93005; 93306; 93971; 96365; 97162; 97166; 97530; 97535; 99285; A9270; J8499; 81003; 87086

== ENCOUNTER 2023-03-12 13:03 | Outpatient (CLI) | payer MEDICARE, OTHER ==
[2023-03-12 13:11] LABS: BASOPHILS % (AUTO) 0.4 %; EOSINOPHILS # (AUTO) 0.2 10^3/uL (0.0-0.7); EOSINOPHILS % (AUTO) 2.1 %; HCT - HEMATOCRIT 26.6 % (37.0-47.0); HGB - HEMOGLOBIN 8.5 g/dL (12.0-16.0); LYMPHOCYTES # (AUTO) 1.2 10^3/uL (1.5-3.5); LYMPHOCYTES % (AUTO) 14.3 %; MEAN CORPUSCULAR HEMOGLOBIN 33.1 pg (27.0-31.0); MEAN CORPUSCULAR VOLUME 103.5 fL (81.0-99.0); MEAN PLATELET VOLUME 9.9 fL (7.9-10.8); MONOCYTES # (AUTO) 0.8 10^3/uL (0.0-1.0); MONOCYTES % (AUTO) 9.7 %; NEUTROPHILS % (AUTO) 73.1 %; PLT - PLATELET COUNT 261 10^3/uL (130-450); RED BLOOD COUNT 2.57 10^6/uL (4.20-5.40); RED CELL DISTRIBUTION WIDTH 17.3 % (12.0-15.0); WHITE BLOOD COUNT 8.2 x10^3/uL (4.8-10.8)
[2023-03-12 13:25] LABS: ALBUMIN 2.5 g/dL (3.2-5.5); ALBUMIN/GLOBULIN RATIO 0.6 (1.0-2.2); BILIRUBIN,TOTAL 1.1 mg/dL (0.2-1.0); CALCIUM 8.8 mg/dL (8.5-10.3); CREATININE 0.9 mg/dL (0.6-1.3); POTASSIUM 3.4 mmol/L (3.5-4.5); TOTAL PROTEIN 6.6 g/dL (6.4-8.9)
== END 2023-03-12 13:04 | disposition home or self-care (01) ==
LOC: LAB.R 13:03
PROVIDERS: ATTEND Registered Nurse
DX: D62 Acute posthemorrhagic anemia (principal)
CPT/HCPCS: 80053; 85025

== ENCOUNTER 2023-03-18 10:43 | Outpatient (CLI) | payer MEDICARE, OTHER | END 2023-03-18 10:44 | disposition home or self-care (01) | LOC: LAB.R 10:43 | PROVIDERS: ATTEND Registered Nurse | DX: A04.72 Enterocolitis due to Clostridium difficile, not specified as recurrent (principal) | CPT/HCPCS: 87493 ==

== ENCOUNTER 2023-03-23 08:00 | Outpatient (CLI) | payer MEDICARE, OTHER | END 2023-03-23 23:59 | disposition home or self-care (01) | LOC: LAB.R 08:00 | PROVIDERS: ATTEND Registered Nurse | DX: M1A.9XX0 Chronic gout, unspecified, without tophus (tophi) (principal); K70.11 Alcoholic hepatitis with ascites | CPT/HCPCS: 84550 ==

== ENCOUNTER 2023-03-27 17:34 | Emergency (ER) | payer MEDICARE, OTHER ==
[2023-03-27] MEDS ORDERED: SODIUM CHLORIDE 0.9% 1,000 ML IV STA (18:12)
[2023-03-27] MEDS ORDERED: ONDANSETRON 4 MG/2 ML VIAL IVP STA ×2 (18:12→20:03)
[2023-03-27] MEDS ORDERED: HYDROmorphone 1 MG/ML CARPUJECT IVP STA (18:12)
--- NOTE | 2023-03-27 18:12 | ED Physician Documentation ---
History of Present Illness - Stated complaint Stated Complaint: N/V LUQ PX - Chief complaint Chief Complaint: Abd Pain - Additonal information Additional information: 67-year-old female who resides at [facility] was brought to the emergency department for evaluation of nausea vomiting and diarrhea. Symptoms began this AM. She recently had C. difficile colitis and completed treatment of this about 2 weeks ago. She denies bloody stools. She is not anticoagulated. No fevers. Review of Systems Constitutional: denies: Fever Cardiac: reports: Reviewed and negative Respiratory: reports: Reviewed and negative GI: reports: Abdominal Pain, Nausea, Vomiting, Diarrhea : reports: Reviewed and negative Skin: reports: Reviewed and negative PD PAST MEDICAL HISTORY - Past Medical History Cardiovascular: Hypertension, High cholesterol, Atrial fibrillation Respiratory: Asthma Neuro: None Endocrine/Autoimmune: None GI: GERD, GI bleed, Ulcers, C.difficile : None Psych: None Musculoskeletal: Gout, Chronic back pain Derm: Rosacea - Past Surgical History Past Surgical History: Yes General: 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 HEENT: Tonsil/Adenoidectomy - Present Medications Home Medications: Ambulatory Orders Medication Instructions Recorded Confirmed Pantoprazole [Protonix] 40 mg PO DAILY #60 tablet 05/01/22 02/22/23 Thiamine [Vitamin B-1] 100 mg PO DAILY tab 05/01/22 02/22/23 Calcium Citrate 200 mg PO BID #15 tablet 02/07/23 02/22/23 Magnesium Oxide [Mag Ox] 400 mg PO BID #20 tablet 02/07/23 02/22/23 Ferrous Gluconate 324 mg PO DAILY 02/19/23 02/22/23 Magnesium Oxide [Mag Ox] 400 mg PO BIDWM 30 Days #60 tab 02/28/23 Vancomycin [Vancocin] 250 mg PO QID 10 Days #80 cap 02/28/23 allopurinoL [Zyloprim] 100 mg PO DAILY 30 Days #30 tab 02/28/23 Ondansetron Odt [Zofran] 4 mg TL Q6H PRN #10 tablet 03/27/23 - Allergies Allergies/Adverse Reactions: Allergies Allergy/AdvReac Type Severity Reaction Status Date / Time TIARA Inhibitors Allergy Severe Respiratory Verified 03/27/23 17:41 lisinopril Allergy Severe Respiratory Verified 03/27/23 17:41 - Social History Does the pt smoke?: Yes Smoking Status: Current every day smoker Does the pt drink ETOH?: No Does the pt have substance abuse?: No - Immunizations Immunizations are current?: Yes - POLST Patient has POLST: No PD ED PE NORMAL - General General: Alert and oriented X 3 - HEENT HEENT: PERRL - Neck Neck: Supple, no meningeal sign - Cardiac Cardiac: RRR, No murmur - Respiratory Respiratory: No respiratory distress, Clear bilaterally - Abdomen Abdomen: Normal bowel sounds, Soft. 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 Eye Opening: Spontaneous Motor: Obeys Commands Verbal: Oriented GCS Score: 15 Results - Vitals Vitals: Vital Signs - 24 hr 03/27/23 03/27/23 17:42 19:44 Temperature 36.5 C Heart Rate 65 116 H Respiratory 18 18 Rate Blood Pressure 172/109 H 162/107 H O2 Saturation 97 99 Oxygen O2 Source Room air - Labs Labs: Laboratory Tests 03/27/23 03/27/23 03/27/23 18:12 18:12 19:48 WBC 7.7 RBC 3.22 L Hgb 10.1 L Hct 32.5 L MCV 100.9 H MCH 31.4 H MCHC 31.1 L RDW 14.7 Plt Count 248 MPV 9.1 Neut # (Auto) 6.1 Lymph # (Auto) 1.0 L [place] # (Auto) 0.6 Eos # (Auto) 0.0 Baso # (Auto) 0.0 Absolute Nucleated RBC 0.00 Nucleated RBC % 0.0 Sodium 137 Potassium 3.2 L Chloride 102 Carbon Dioxide 26 Anion Gap 9.0 BUN 21 H Creatinine 0.8 Estimated GFR (MDRD) 71 L Glucose 170 H Calcium 9.5 Total Bilirubin 1.0 AST 33 ALT 8 L Alkaline Phosphatase 244 H Total Protein 7.6 Albumin 2.9 L Globulin 4.7 H Albumin/Globulin Ratio 0.6 L Lipase 68 Urine Color YELLOW Urine Clarity CLEAR Urine pH 7.0 Ur Specific Combs 1.015 Urine Protein 30 H Urine Glucose (UA) NEGATIVE Urine Ketones NEGATIVE Urine Occult Blood NEGATIVE Urine Nitrite NEGATIVE Urine Bilirubin NEGATIVE Urine Urobilinogen 0.2 (NORMAL) Ur Leukocyte Esterase NEGATIVE Urine RBC None Seen Urine WBC 0-3 Ur Squamous Epith Cells MOD Squamous H Urine Bacteria Rare Ur Microscopic Review INDICATED Urine Culture Comments NOT INDICATED - Rads (name of study) CT abd Relevant Findings:: Final report received (Enlarged edematous appearance of the pancreas primarily pancreatic tail with peripancreatic inflammation concerning f or acute pancreatitis. Again seen is enlarged and heterogeneous liver mildly decreased in conspicuity compared to prior) PD Medical Decision Making - ED course Complexity details: reviewed results Reviewed Lab Results: 67-year-old female presents emergency department for evaluation of cute onset of vomiting and diarrhea. Symptoms began this AM. Patient is currently residing at [facility]. She is there because she is very deconditioned. She did have a history of recent C. difficile for which she completed a full course of treatment and was cleared from isolation about 2 weeks ago. Presentation the emergency department she was alert. Initial vital signs showed some mild tachycardia but no hypotension. She was afebrile. On exam she had some generalized nonfocal, nonperitoneal abdominal tenderness. I did obtain CBC, electrolytes and urinalysis. Per my interpretation there is no leukocytosis. She does have a modest anemia with a hemoglobin of 10.1 but improved from most recent which was 8.5. Her electrolytes reveal a mildly low potassium 3.2. She did receive 50 mill equivalents of potassium bicarbonate. She has normal renal function. Lipase was 68. Urine showed no signs of infection. Given the history of recent C. difficile colitis and new onset vomiting and diarrhea I did obtain a CT of the abdomen which suggested some edema of the pancreas possibly acute pancreatitis. I reevaluated the patient after she received IV fluids, Zofran and Dilaudid. She is feeling better. Now tolerating p.o.'s. Her abdominal exam remains unchanged. I did attempt to get a stool but patient was unable to provide a sample here in the ER. Clinically she presents with vomiting and diarrhea the etiology is unclear and C. difficile at this time cannot be ruled out though she has no fever or leukocytosis and the CT of the abdomen did not show a diffuse colitis. She feels better and desires to be discharged back to [facility]. I am writing a prescription for some Zofran. I encouraging clear liquids for the next 24 to 48 hours. If abdominal pain does not improve or she has persistent uncontrolled vomiting she will return to the ER. I have made the recommendation that the care providers at [facility] obtain her neck stool sample for C. difficile testing as we were unable to do today in the ER. Departure - Departure Disposition: 01 Home, Self Care Clinical Impression: Nausea vomiting and diarrhea, History of Clostridioides difficile colitis Condition: Stable Prescriptions: Ondansetron Odt [Zofran] 4 mg TL Q6H PRN #10 tablet PRN Reason: Nausea / Vomiting Comments: You are seen today in the emergency department because you have had some vomiting and diarrhea that began this morning. You do have a history of recent C. difficile infection for which you were cleared from isolation. You were unable to provide a stool sample today in the ER. It is important that your providers at [facility] order C. difficile testing on your next stool sample. Your labs today in the emergency department did not show any worrisome findings though you do have a mild anemia. Her hemoglobin is 10.1 but this is improved from your most recent testing. We did do a CT of the abdomen today. It does suggest some mild inflammation around the pancreas but your lipase is normal. This makes acute pancreatitis unlikely. However over the next 24 to 48 hours I would like you to consume a clear liquid diet only. I have written a prescription for Zofran and nausea medicine that can be used 2-3 times a day. If despite the Zofran you continue to have uncontrolled vomiting or you find that your belly pain worsens, you develop fevers or have worsening stools you do need to return to the ER for repeat evaluation. Forms: PCP List
[2023-03-27 18:17] LABS: BASOPHILS % (AUTO) 0.4 %; EOSINOPHILS % (AUTO) 0.4 %; HCT - HEMATOCRIT 32.5 % (37.0-47.0); HGB - HEMOGLOBIN 10.1 g/dL (12.0-16.0); LYMPHOCYTES % (AUTO) 12.3 %; MEAN CORPUSCULAR HEMOGLOBIN 31.4 pg (27.0-31.0); MEAN CORPUSCULAR HGB CONC 31.1 g/dL (32.0-36.0); MEAN CORPUSCULAR VOLUME 100.9 fL (81.0-99.0); MEAN PLATELET VOLUME 9.1 fL (7.9-10.8); MONOCYTES # (AUTO) 0.6 10^3/uL (0.0-1.0); MONOCYTES % (AUTO) 7.8 %; NEUTROPHILS # (AUTO) 6.1 10^3/uL (1.5-6.6); NEUTROPHILS % (AUTO) 78.7 %; PLT - PLATELET COUNT 248 10^3/uL (130-450); RED BLOOD COUNT 3.22 10^6/uL (4.20-5.40); RED CELL DISTRIBUTION WIDTH 14.7 % (12.0-15.0); WHITE BLOOD COUNT 7.7 x10^3/uL (4.8-10.8)
[2023-03-27 18:30] LABS: ALBUMIN 2.9 g/dL (3.2-5.5); ALBUMIN/GLOBULIN RATIO 0.6 (1.0-2.2); CALCIUM 9.5 mg/dL (8.5-10.3); CREATININE 0.8 mg/dL (0.6-1.3); POTASSIUM 3.2 mmol/L (3.5-4.5); TOTAL PROTEIN 7.6 g/dL (6.4-8.9)
[2023-03-27] MEDS ORDERED: POTASSIUM BICARB 25 MEQ TABLET PO STA (18:40)
--- NOTE | 2023-03-27 19:57 | CT Report ---
PROCEDURE: ABDOMEN/PELVIS W INDICATIONS: n/v/d; recent c-diff CONTRAST: 100mL Omni 300 TECHNIQUE: After the administration of intravenous contrast, 5 mm thick sections acquired from the diaphragms to the symphysis. 5 mm thick coronal and sagittal reformats were acquired. For radiation dose reducti on, the following was used: automated exposure control, adjustment of mA and/or kV according to libra ent size. COMPARISON: CT abdomen pelvis 02/07/2023 FINDINGS: Image quality: Excellent. Lung bases and heart: Unremarkable. Liver: Redemonstration of enlarged heterogeneous appearance to the liver. Gallbladder and biliary tree: Distended gallbladder. No calcified stones. No intra or extrahepatic bi le duct dilatation. Spleen: Splenic calcifications are again noted. Pancreas: Enlarged edematous appearance of primarily tail of the pancreas with peripancreatic inflamm ation. Area of hypoattenuation within the tail of pancreas measuring 1.4 cm. Adrenals: No adrenal nodule. Kidneys and ureters: No hydronephrosis. No renal cystic lesion which requires follow up. No solid mas s. Bowel and peritoneum: No bowel distension. No pathologic free fluid. Diverticulosis without evidence of diverticulitis. Lymph nodes: No central or retroperitoneal adenopathy. Vessels: No infrarenal aortic aneurysm. Moderate to heavy atherosclerotic vascular calcifications. PELVIS Reproductive organs: Unremarkable. Bladder: No abnormal wall thickening, accounting for underdistension. Pelvic lymph nodes: No pelvic adenopathy by size criteria. Bones: No aggressive osseous abnormality. Degenerative changes of the spine and decreased osseous min eralization. L4 compression deformity with vertebroplasty cement. Other: No significant ventral or inguinal hernia. IMPRESSION: 1.Enlarged edematous appearance of the pancreas, primarily the tail with peripancreatic inflammation, concerning for acute pancreatitis. Recommend correlation with symptoms and lipase. Hypoattenuating r egion within the tail of pancreas, may be sequela of pancreatitis, developing collection is not exclu ded. 2.Again seen is enlarged and heterogeneous liver, mildly decreased in conspicuity compared to prior. Findings are concerning for diffuse inflammatory process such as hepatitis. Reviewed by: Bo Gardner MD on 03/27/2023 7:56 PM PDT Approved by: Bo Gardner MD on 03/27/2023 7:56 PM PDT Station ID: [id number]
[2023-03-27 20:00] LABS: BILIRUBIN,URINE NEGATIVE (NEGATIVE); GLUCOSE, URINE (UA) NEGATIVE (NEGATIVE); KETONES,URINE (UA) NEGATIVE (NEGATIVE); LEUKOCYTE ESTERASE, URINE NEGATIVE (NEGATIVE); NITRITE,URINE NEGATIVE (NEGATIVE); OCCULT BLOOD,URINE NEGATIVE (NEGATIVE); PROTEIN,URINE 30 mg/dL (NEGATIVE); UROBILINOGEN,URINE 0.2 (NORMAL) E.U./dL (NORMAL)
[2023-03-27 20:01] LABS: CLARITY,URINE CLEAR (CLEAR)
[2023-03-27 20:12] LABS: BACTERIA,URINE Rare /HPF (None Seen); RBC,URINE None Seen /HPF (0-5); SQUAMOUS EPITHELIAL CELL,UR MOD Squamous (<= Few); WBC,URINE 0-3 /HPF (0-5)
[2023-03-27 22:15] VITALS: BP 157/67; O2SAT 98
[2023-03-28] MEDS ORDERED: iohexoL-300 100 ML VIAL IVP ONE (00:29)
== END 2023-03-27 22:23 | disposition home or self-care (01) ==
LOC: EDUNIT# → ED 17:34
DX: R11.2 Nausea with vomiting, unspecified (principal); I10 Essential (primary) hypertension; I48.91 Unspecified atrial fibrillation; F17.200 Nicotine dependence, unspecified, uncomplicated; Z86.19 Personal history of other infectious and parasitic diseases
CPT/HCPCS: 36415; 74177; 80053; 81001; 83690; 85025; 96374; 99284; A9270; J1170; Q9967; 81003; 87086

== ENCOUNTER 2023-05-12 16:25 | Emergency (ER) | payer MEDICARE, OTHER ==
[2023-05-12 17:10] VITALS: BP 120/70; O2SAT 100
--- NOTE | 2023-05-12 18:49 | ED Physician Documentation ---
History of Present Illness - Stated complaint Stated Complaint: - Chief complaint Chief Complaint: Wound - Additonal information Additional information: 67-year-old female was referred to the emergency department for evaluation of the left groin/inguinal abscess. She was discharged from [facility] after prolonged stay about 2 weeks ago. Home health has been evaluating her and have been following an area of redness within the inguinal area that has gotten markedly larger over the last several weeks. Her doctor's office asked her to come to the ER. The patient is denying pain, fevers or any discomfort in this region. She was recently treated for C. difficile colitis. 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 HEENT: Tonsil/Adenoidectomy - Present Medications Home Medications: Ambulatory Orders Medication Instructions Recorded Confirmed Pantoprazole [Protonix] 40 mg PO DAILY #60 tablet 05/01/22 02/22/23 Thiamine [Vitamin B-1] 100 mg PO DAILY tab 05/01/22 02/22/23 Calcium Citrate 200 mg PO BID #15 tablet 02/07/23 02/22/23 Magnesium Oxide [Mag Ox] 400 mg PO BID #20 tablet 02/07/23 02/22/23 Ferrous Gluconate 324 mg PO DAILY 02/19/23 02/22/23 Magnesium Oxide [Mag Ox] 400 mg PO BIDWM 30 Days #60 tab 02/28/23 Vancomycin [Vancocin] 250 mg PO QID 10 Days #80 cap 02/28/23 allopurinoL [Zyloprim] 100 mg PO DAILY 30 Days #30 tab 02/28/23 Ondansetron Odt [Zofran] 4 mg TL Q6H PRN #10 tablet 03/27/23 - Allergies Allergies/Adverse Reactions: Allergies Allergy/AdvReac Type Severity Reaction Status Date / Time TIARA Inhibitors Allergy Severe Respiratory Verified 05/12/23 17:02 lisinopril Allergy Severe Respiratory Verified 05/12/23 17:02 - Social History Does the pt smoke?: Yes Smoking Status: Current every day smoker Does the pt drink ETOH?: No Does the pt have substance abuse?: No - Immunizations Immunizations are current?: Yes - POLST Patient has POLST: No PD ED PE NORMAL - General General: Alert and oriented X 3, No acute distress - Cardiac Cardiac: RRR, No murmur - Respiratory Respiratory: No respiratory distress, Clear bilaterally - Abdomen Abdomen: Normal bowel sounds, Soft - Female Female : Other (1 x 3 cm area of firm swelling within the left inguinal fold adjacent to the mons. 2+ femoral pulse. No surrounding erythema moderate amount of serous drainage. No fluctuant abscess was palpated) Results - Vitals Vitals: Vital Signs - 24 hr 05/12/23 16:56 Temperature 36.3 C L Heart Rate 92 Respiratory 17 Rate Blood Pressure 120/70 O2 Saturation 100 Oxygen O2 Source Room air - Labs Labs: Laboratory Tests 05/12/23 05/12/23 18:56 18:56 WBC 7.1 RBC 3.46 L Hgb 10.3 L Hct 33.2 L MCV 96.0 MCH 29.8 MCHC 31.0 L RDW 14.5 Plt Count 181 MPV 8.9 Neut # (Auto) 4.3 Lymph # (Auto) 1.7 [place] # (Auto) 0.7 Eos # (Auto) 0.3 Baso # (Auto) 0.0 Absolute Nucleated RBC 0.00 Nucleated RBC % 0.0 Sodium 134 L Potassium 3.1 L Chloride 103 Carbon Dioxide 25 Anion Gap 6.0 BUN 20 Creatinine 0.9 Estimated GFR (MDRD) 62 L Glucose 102 Calcium 9.0 - Rads (name of study) pelvic US soft tissue limited Relevant Findings:: Other (Per nuclear medicine technologist there is a linear hyperva scular hypoechoic palpable lesion within the left groin measuring 3.6 x 1.2 cm questionable early abscess though not amenable to drainage. There is a left groin associated lymph node as well is palpable at 0.8 mm.) PD Medical Decision Making - ED course Complexity details: d/w patient ED course: 67-year-old female is referred to the emergency department by her home health nurse for evaluation of a left inguinal lesion. For several weeks she has had a small lump in this area that is gotten progressively larger. Patient reports that it intermittently will drain some blood. On evaluation she has a 1 x 4 cm palpable lesion that is firm and does not feel fluctuant. I did obtain a CBC and a BMP. Per my interpretation no leukocytosis. No worrisome electrolyte abnormality. Patient presents without fever or pain within this region. We did obtain a limited soft tissue ultrasound of the pelvic region and per the nuclear medicine technologist there is a 3.6 x 1.2 cm hypervascular hypoechoic lesion that may be an early abscess but not amenable to drainage. There is also an associated lymph node. Patient has a long recent history of C. difficile infection which was difficult to resolve and she is hesitant to start antibiotics at this juncture. Given that the patient reports that this has intermittently drained I feel at this point it would be okay to defer antibiotics in the setting of no fever or leukocytosis. She is advised warm compress to the lesion 3 times a day. She will return if she has failure of this to resolve, develops fevers or increased surrounding redness but at this time the patient would like to defer antibiotics unless this fails to improve which I think given her clinical appearance labs and ultrasound imaging is reasonable. Departure - Departure Disposition: 01 Home, Self Care Clinical Impression: Left groin mass Condition: Stable Record reviewed to determine appropriate education?: Yes Comments: Snehal you have had a lesion or skin change in your left groin that is been getting larger for several weeks and he reports that intermittently drains. Your labs today did not show any worrisome findings like an elevated white blood cell count or worrisome electrolytes. However the ultrasound suggests may be an early abscess in this region but nothing that we could drain at this time. Because of your recent C. difficile infection and your wish to avoid antibiotics which I think is reasonable I would like you to apply a very warm compress to this for 10 minutes 3 times a day. Continue to photograph it daily. If you find that despite the warm compresses it is growing in size, becomes painful, you develop fevers or have significant surrounding redness then please return immediately to the ER for a repeat evaluation. Forms: PCP List
[2023-05-12 19:00] LABS: BASOPHILS % (AUTO) 0.3 %; EOSINOPHILS # (AUTO) 0.3 10^3/uL (0.0-0.7); EOSINOPHILS % (AUTO) 3.8 %; HCT - HEMATOCRIT 33.2 % (37.0-47.0); HGB - HEMOGLOBIN 10.3 g/dL (12.0-16.0); LYMPHOCYTES # (AUTO) 1.7 10^3/uL (1.5-3.5); LYMPHOCYTES % (AUTO) 24.3 %; MEAN CORPUSCULAR HEMOGLOBIN 29.8 pg (27.0-31.0); MEAN PLATELET VOLUME 8.9 fL (7.9-10.8); MONOCYTES # (AUTO) 0.7 10^3/uL (0.0-1.0); MONOCYTES % (AUTO) 10.5 %; NEUTROPHILS # (AUTO) 4.3 10^3/uL (1.5-6.6); NEUTROPHILS % (AUTO) 60.7 %; PLT - PLATELET COUNT 181 10^3/uL (130-450); RED BLOOD COUNT 3.46 10^6/uL (4.20-5.40); RED CELL DISTRIBUTION WIDTH 14.5 % (12.0-15.0); WHITE BLOOD COUNT 7.1 x10^3/uL (4.8-10.8)
[2023-05-12 19:15] LABS: CREATININE 0.9 mg/dL (0.6-1.3); POTASSIUM 3.1 mmol/L (3.5-4.5)
--- NOTE | 2023-05-12 20:33 | Ultrasound Report ---
PROCEDURE: Pelvic Limited or F/U INDICATIONS: left groin lump; ? abscess vs lymphnode TECHNIQUE: Real-time transabdominal scanning was performed of the pelvis, with image documentation. COMPARISON: CT of abdomen and pelvis dated 03/27/2023. FINDINGS: Focused ultrasound examination of left inguinal region at patient's reported area of palpable lump sh ows a 3.6 x 0.6 x 1.2 cm hypoechoic area within subcutaneous soft tissue with peripheral hypervascula rity and internal low-level echoes. Benign-appearing lymph nodes are seen in left inguinal region lisy sures less than a millimeter in size. IMPRESSION: Finding is concerning for a 3.6 x 0.6 x 1.2 cm abscess collection within subcutaneous soft tissue in left inguinal region at patient's reported area of palpable lump. Subcentimeter lymph nodes seen in l eft inguinal region. Reviewed by: Aguilar Collins MD on 05/12/2023 8:32 PM PST Approved by: Aguilar Collins MD on 05/12/2023 8:32 PM PST Station ID: [id number]
== END 2023-05-12 21:18 | disposition home or self-care (01) ==
LOC: ED 16:25
DX: R22.2 Localized swelling, mass and lump, trunk (principal); I10 Essential (primary) hypertension; I48.91 Unspecified atrial fibrillation; F17.200 Nicotine dependence, unspecified, uncomplicated
CPT/HCPCS: 36415; 80048; 85025; 99283; 99284

== ENCOUNTER 2024-01-09 18:59 | Outpatient (CLI) | payer MEDICARE, OTHER | END 2024-01-09 19:00 | disposition EMS.NT | LOC: EMS 18:59 | DX: Z03.89 Encounter for observation for other suspected diseases and conditions ruled out (principal) ==

== ENCOUNTER 2024-03-15 20:04 | Outpatient (CLI) | payer MEDICARE, OTHER | END 2024-03-15 23:59 | disposition critical access hospital (66) | LOC: EMS 20:04 | DX: R53.1 Weakness (principal); R21 Rash and other nonspecific skin eruption | CPT/HCPCS: A0425; A0427 ==

== ENCOUNTER 2024-03-15 20:15 | Emergency (ER) | payer MEDICARE, OTHER ==
--- NOTE | 2024-03-15 20:32 | ED Physician Documentation ---
PD HPI SKIN - Stated complaint Stated Complaint: WEAKNESS, RT LEG SWELLING - Chief complaint Chief Complaint: General - History obtained from History obtained from: Patient - History of Present Illness Timing - onset: Today Timing - duration: Hours Timing - details: Abrupt onset, Still present Location: RLE Quality / character: Discolored (red), Swelling, Draining (minimal clear drainage.) Associated symptoms: Fever (onset of feeling fever/chills, shaking earlier today. Nausea. Has not had URI symptoms, dyspuria, diarrhea. Had chronic skin lesion right lower leg for 6-7 months, not improving with topical abx ointment,etc. Now with redness and swelling up anterior leg the past couple of days.) Contributing factors: No: Recent illness Similar symptoms before: Has not had sx before Review of Systems Skin: reports: Rash (local demarcated rounded rash right anterior lower leg for 6-7 months, increasing in size slowly. Scaly at edges. Had been to PCP with Rx topical ointments antibiotic. No steroids or other meds. No biopsy. 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 HEENT: Tonsil/Adenoidectomy - Present Medications Home Medications: Ambulatory Orders Medication Instructions Recorded Confirmed Pantoprazole [Protonix] 40 mg PO DAILY #60 tablet 05/01/22 02/22/23 Thiamine [Vitamin B-1] 100 mg PO DAILY tab 05/01/22 02/22/23 Calcium Citrate 200 mg PO BID #15 tablet 02/07/23 02/22/23 Magnesium Oxide [Mag Ox] 400 mg PO BID #20 tablet 02/07/23 02/22/23 Ferrous Gluconate 324 mg PO DAILY 02/19/23 02/22/23 Magnesium Oxide [Mag Ox] 400 mg PO BIDWM 30 Days #60 tab 02/28/23 Vancomycin [Vancocin] 250 mg PO QID 10 Days #80 cap 02/28/23 allopurinoL [Zyloprim] 100 mg PO DAILY 30 Days #30 tab 02/28/23 Ondansetron Odt [Zofran] 4 mg TL Q6H PRN #10 tablet 03/27/23 Doxycycline Hyclate 100 mg PO BID 7 Days #14 cap 03/16/24 Lidocaine 4 % TP DAILY PRN #20 patch 03/16/24 cephALEXin [Keflex] 500 mg PO TID #20 cap 03/16/24 - Allergies Allergies/Adverse Reactions: Allergies Allergy/AdvReac Type Severity Reaction Status Date / Time TIARA Inhibitors Allergy Severe Respiratory Verified 03/15/24 20:27 lisinopril Allergy Severe Respiratory Verified 03/15/24 20:27 Rrtgbto-[id number] Reductase Allergy Respiratory Verified 03/15/24 20:27 Inhibitor - Social History Does the pt smoke?: Yes Smoking Status: Current every day smoker Does the pt drink ETOH?: No Does the pt have substance abuse?: No - Immunizations Immunizations are current?: Yes - POLST Patient has POLST: No PD ED PE NORMAL - Vitals Vital signs reviewed: Yes - General General: Alert and oriented X 3, Well developed/nourished - HEENT HEENT: Pharynx benign - Neck Neck: Supple, no meningeal sign, No adenopathy - Cardiac Cardiac: RRR, No murmur - Respiratory Respiratory: No respiratory distress, Clear bilaterally - Abdomen Abdomen: Normal bowel sounds, Soft, Non tender - Derm Derm: Normal color, Warm and dry, Other (rounded rash about 6-8 cm diameter anterior lower leg with some hyperkeratotic edges. Superficial erosion. No deep section. Faint wetness among the dried skin lower aspect, swabbed for culture but not clearly purulent.Red and warm with some swelling proximal to it up to the lower thigh. No calf ten ) - Neuro Neuro: Alert and oriented X 3, No motor deficit, No sensory deficit Results - Vitals Vitals: Vital Signs - 24 hr 03/15/24 03/15/24 03/15/24 20:23 20:26 21:17 Temperature 37.6 C Heart Rate 88 70 85 Respiratory 18 15 15 Rate Blood Pressure 122/71 116/68 104/89 H O2 Saturation 99 97 96 03/15/24 03/15/24 03/15/24 21:47 22:17 22:47 Temperature Heart Rate 83 83 77 Respiratory 16 15 14 Rate Blood Pressure 104/89 H 119/67 107/63 O2 Saturation 97 96 96 03/15/24 03/15/24 03/16/24 23:00 23:30 01:35 Temperature 37.6 C 36.8 C Heart Rate 64 72 84 Respiratory 12 12 16 Rate Blood Pressure 91/61 96/68 103/68 O2 Saturation 97 97 98 Oxygen O2 Source Room air - Labs Labs: Microbiology 03/15/24 21:38 Blood Culture - Preliminary Blood 03/15/24 21:38 Blood Culture (PCR) - Final Blood 03/15/24 20:59 Wound Culture - Preliminary Leg - Right Laboratory Tests 03/15/24 03/15/24 03/15/24 21:34 21:38 21:38 WBC 14.8 H RBC 2.63 L Hgb 7.4 L Hct 22.8 L MCV 86.7 MCH 28.1 MCHC 32.5 RDW 17.4 H Plt Count 181 MPV 8.5 Neut # (Auto) 12.4 H Lymph # (Auto) 1.5 [place] # (Auto) 0.8 Eos # (Auto) 0.0 Baso # (Auto) 0.0 Absolute Nucleated RBC 0.00 Nucleated RBC % 0.0 Sodium 130 L Potassium 3.5 Chloride 106 Carbon Dioxide 15 L Anion Gap 9.0 BUN 32 H Creatinine 1.4 H Estimated GFR (MDRD) 37 L Glucose 206 H Lactic Acid Calcium 8.3 L Magnesium 1.3 L Total Bilirubin 0.7 AST 25 ALT 11 Alkaline Phosphatase 150 H Total Protein 7.1 Albumin 2.7 L Globulin 4.4 H Albumin/Globulin Ratio 0.6 L Nasal Adenovirus (PCR) NOT DETECTED Nasal B. parapertussis DNA (PCR) NOT DETECTED Nasal Coronavir 229E PCR NOT DETECTED Nasal Coronavir HKU1 PCR NOT DETECTED Nasal Coronavir NL63 PCR NOT DETECTED Nasal Coronavir OC43 PCR NOT DETECTED Nasal Enterovir/Rhinovir PCR NOT DETECTED Nasal Influenza B PCR NOT DETECTED Nasal Influenza A PCR NOT DETECTED Nasal Parainfluen 1 PCR NOT DETECTED Nasal Parainfluen 2 PCR NOT DETECTED Nasal Parainfluen 3 PCR NOT DETECTED Nasal Parainfluen 4 PCR NOT DETECTED Nasal RSV (PCR) NOT DETECTED Nasal B.pertussis DNA PCR NOT DETECTED Nasal C.pneumoniae (PCR) NOT DETECTED Herbert Human Metapneumo PCR NOT DETECTED Nasal M.pneumoniae (PCR) NOT DETECTED Nasal SARS-CoV-2 (PCR) NOT DETECTED 03/15/24 21:38 WBC RBC Hgb Hct MCV MCH MCHC RDW Plt Count MPV Neut # (Auto) Lymph # (Auto) [place] # (Auto) Eos # (Auto) Baso # (Auto) Absolute Nucleated RBC Nucleated RBC % Sodium Potassium Chloride Carbon Dioxide Anion Gap BUN Creatinine Estimated GFR (MDRD) Glucose Lactic Acid 1.9 Calcium Magnesium Total Bilirubin AST ALT Alkaline Phosphatase Total Protein Albumin Globulin Albumin/Globulin Ratio Nasal Adenovirus (PCR) Nasal B. parapertussis DNA (PCR) Nasal Coronavir 229E PCR Nasal Coronavir HKU1 PCR Nasal Coronavir NL63 PCR Nasal Coronavir OC43 PCR Nasal Enterovir/Rhinovir PCR Nasal Influenza B PCR Nasal Influenza A PCR Nasal Parainfluen 1 PCR Nasal Parainfluen 2 PCR Nasal Parainfluen 3 PCR Nasal Parainfluen 4 PCR Nasal RSV (PCR) Nasal B.pertussis DNA PCR Nasal C.pneumoniae (PCR) Herbert Human Metapneumo PCR Nasal M.pneumoniae (PCR) Nasal SARS-CoV-2 (PCR) PD Medical Decision Making - ED course Complexity details: considered differential (consider other causes of fever/chills/rigors, with the cellulitis of the right leg being the most obvious cause. Obtained blood cultures and labs. Will assess for viral, UTI, etc as well.), d/w patient Reviewed Lab Results: Viral panel is negative. Did not give urine. CXR clear. WBC is elevated but normal lactate. She is feeling improved with fluids and toradol here. Most likely is the cellulitis of course, but concern for bacteremia if that is the cause for her shaking/weakness. However, does not have markers of sepsis, nromal vitals, and neg lactate. Criteria would suggest trying outpt treatment initially. Given IV dose Ancef and PO DOxycycline. Would assume more likely strep than staph, but cover both initially. Departure - Departure Disposition: 01 Home, Self Care Clinical Impression: Chills, Weakness, Cellulitis, Anemia, Elevated serum creatinine, Wound of right leg Condition: Stable Record reviewed to determine appropriate education?: Yes Follow-Up: MONICA HARPER DO [Primary Care Provider] - [facility] [Provider Group] Prescriptions: Doxycycline Hyclate 100 mg PO BID 7 Days #14 cap cephALEXin [Keflex] 500 mg PO TID #20 cap Lidocaine 4 % TP DAILY PRN #20 patch PRN Reason: Pain 1-4 Comments: No signs of pneumonia on your x-ray. Your viral respiratory panel is negative for the major viruses such as flu, rhinovirus, COVID and several others. You do have the redness and swelling into the leg which looks like an infection of the skin called cellulitis. I presume this is the cause for your feeling of chills weakness etc. Will treat for the skin infection with double antibiotic coverage initially targ eted at staph and strep as the most common causes. We did do a culture off of some of the fluid on the wound. Given its from the surface of the wound, it may not grow the germs that are down under. If there is not growth of bacteria on the topical culture, would need to continue with 2 antibiotics. If it is becomes more targeted towards of identified germ then we may be able to decrease to just one of the antibiotics or another or different 1. Otherwise we also did blood cultures to see if there is any bacteria in the bloodstream and if this identifies any particular germ. Meanwhile go with some Tylenol 500 to 650 mg regularly for the next several days to week. Add lidocaine patches to the skin lesion to see if that helps with the pain. Cephalexin and doxycycline antibiotics as directed over the next week. We will call you with culture results if positive and couple of days. Meanwhile if you are feeling worse despite initiating the antibiotics and medication and not improving readily over the next 2 to 3 days and return to us. I sent your prescriptions to your preferred pharmacy. I provided name of dermatology clinic in [place]. It would be good to have specialist see the skin lesion and get better diagnosis and treatment for it. Otherwise your blood test showed some elevation of the white cell count which is indicative of infection. Your heart rate and blood pressure and lactic acid level are good so not having indications of sepsis. Kidney function is diminished at baseline and still little bit low so I would not do too much anti- inflammatory such as ibuprofen or naproxen. Your blood count is low again but not quite low enough to require transfusion. You will want to follow-up with your primary care in the next few days for reevaluation of this generally and also likely repeat some blood tests. Forms: PCP List Discharge Date/Time: 03/16/24 01:35
[2024-03-15] MEDS: HYDROmorphone 0.5 MG/0.5 ML SYRINGE IVP STA (21:30)
[2024-03-15] MEDS: KETOROLAC 15 MG/ML VIAL IVP STA (21:30)
[2024-03-15] MEDS: SODIUM CHLORIDE 0.9% 1,000 ML IV STA (21:30)
[2024-03-15] MEDS ORDERED: ceFAZolin 2 GM VIAL ONE (21:31)
[2024-03-15] MEDS: ceFAZolin (2G) 2 GM in SODIUM CHLORIDE 0.9% 100ML 100 ML IV STA (21:32)
[2024-03-15 22:02] LABS: ALBUMIN 2.7 g/dL (3.2-5.5); ALBUMIN/GLOBULIN RATIO 0.6 (1.0-2.2); BILIRUBIN,TOTAL 0.7 mg/dL (0.2-1.0); CALCIUM 8.3 mg/dL (8.5-10.3); CREATININE 1.4 mg/dL (0.6-1.3); MAGNESIUM 1.3 mg/dL (1.7-2.3); POTASSIUM 3.5 mmol/L (3.5-4.5); TOTAL PROTEIN 7.1 g/dL (6.4-8.9)
[2024-03-15 22:07] LABS: BASOPHILS % (AUTO) 0.2 %; EOSINOPHILS % (AUTO) 0.3 %; HCT - HEMATOCRIT 22.8 % (37.0-47.0); HGB - HEMOGLOBIN 7.4 g/dL (12.0-16.0); LYMPHOCYTES # (AUTO) 1.5 10^3/uL (1.5-3.5); MEAN CORPUSCULAR HEMOGLOBIN 28.1 pg (27.0-31.0); MEAN CORPUSCULAR HGB CONC 32.5 g/dL (32.0-36.0); MEAN CORPUSCULAR VOLUME 86.7 fL (81.0-99.0); MEAN PLATELET VOLUME 8.5 fL (7.9-10.8); MONOCYTES # (AUTO) 0.8 10^3/uL (0.0-1.0); MONOCYTES % (AUTO) 5.1 %; NEUTROPHILS # (AUTO) 12.4 10^3/uL (1.5-6.6); NEUTROPHILS % (AUTO) 83.9 %; PLT - PLATELET COUNT 181 10^3/uL (130-450); RED BLOOD COUNT 2.63 10^6/uL (4.20-5.40); RED CELL DISTRIBUTION WIDTH 17.4 % (12.0-15.0); WHITE BLOOD COUNT 14.8 x10^3/uL (4.8-10.8)
--- NOTE | 2024-03-15 22:23 | XRAY Report ---
PROCEDURE: Chest 1V INDICATIONS: Sepsis TECHNIQUE: One view of the chest was acquired. COMPARISON: CXR 02/25/2023. FINDINGS: Surgical changes and devices: None. Lungs and pleura: No significant pleural effusions or pneumothorax. No consolidation. Prominent pulm onary markings bilaterally. Mediastinum: Mediastinal contours appear normal. Heart size is normal. Bones and chest wall: No suspicious bony lesions. Overlying soft tissues appear unremarkable. IMPRESSION: Suspect fluid overload/CHF. Reviewed by: Obie Real MD on 03/15/2024 10:21 PM PDT Approved by: Obie Real MD on 03/15/2024 10:21 PM PDT Station ID: [id number]
[2024-03-15 22:35] LABS: B. PARAPERTUSSIS- RESP PCR PAN NOT DETECTED; B. PERTUSSIS- RESP PCR PANEL NOT DETECTED; C. PNEUMONIAE- RESP PCR PANEL NOT DETECTED; CORONAVIRUS 229E-RESP PCR NOT DETECTED; CORONAVIRUS HKU1-RESP PCR NOT DETECTED; CORONAVIRUS NL63-RESP PCR NOT DETECTED; CORONAVIRUS OC43-RESP PCR NOT DETECTED; HUMAN METAPNEUMOVIRUS NOT DETECTED; INFLUENZA A- RESP PCR PANEL NOT DETECTED; INFLUENZA B - RESP PCR PANEL NOT DETECTED; M. PNEUMONIAE- RESP PCR PANEL NOT DETECTED; PARAINFLUENZA VIRUS 1 NOT DETECTED; PARAINFLUENZA VIRUS 2 NOT DETECTED; PARAINFLUENZA VIRUS 3 NOT DETECTED; PARAINFLUENZA VIRUS 4 NOT DETECTED; RHINOVIRUS/ENTEROVIRUS NOT DETECTED; RSV- RESP PCR PANEL NOT DETECTED; SARS-CoV-2 -RESP PCR PANEL NOT DETECTED
[2024-03-16] MEDS: DOXYCYCLINE 100 MG TABLET PO STA (01:06)
[2024-03-16] MEDS: LIDOCAINE PATCH 4% TOP STA (01:06)
[2024-03-16] MEDS: SODIUM CHLORIDE 0.9% 500 ML IV STA (01:12)
[2024-03-16 01:49] VITALS: BP 103/68; O2SAT 98
--- NOTE | 2024-03-16 11:28 | ED Physician Documentation ---
ED Addendum - Addendum Addendum: 03/16/24 11:28 Nurse reported to me that she has gram-negative rods in 1 blood culture. I asked the nurse, Jessica, to call the patient and have her return to the emergency department for reevaluation.
== END 2024-03-16 01:35 | disposition home or self-care (01) ==
LOC: EDUNIT# → ED 20:15
DX: L03.115 Cellulitis of right lower limb (principal); D64.9 Anemia, unspecified; R94.4 Abnormal results of kidney function studies; R53.1 Weakness; I10 Essential (primary) hypertension; E78.00 Pure hypercholesterolemia, unspecified; I48.91 Unspecified atrial fibrillation; M10.9 Gout, unspecified; Z79.899 Other long term (current) drug therapy; F17.200 Nicotine dependence, unspecified, uncomplicated
CPT/HCPCS: 36415; 71045; 80053; 83605; 83735; 85025; 87040; 87070; 87077; 87154; 87181; 87205; 87633; 96365; 96375; 99284; A9270; J1170

== ENCOUNTER 2024-03-16 16:55 | Inpatient (IN) | payer MEDICARE, OTHER ==
[2024-03-16 18:11] LABS: BASOPHILS % (AUTO) 0.2 %; EOSINOPHILS # (AUTO) 0.2 10^3/uL (0.0-0.7); EOSINOPHILS % (AUTO) 2.3 %; HCT - HEMATOCRIT 24.9 % (37.0-47.0); HGB - HEMOGLOBIN 7.5 g/dL (12.0-16.0); LYMPHOCYTES # (AUTO) 1.8 10^3/uL (1.5-3.5); LYMPHOCYTES % (AUTO) 17.5 %; MEAN CORPUSCULAR HEMOGLOBIN 27.1 pg (27.0-31.0); MEAN CORPUSCULAR HGB CONC 30.1 g/dL (32.0-36.0); MEAN CORPUSCULAR VOLUME 89.9 fL (81.0-99.0); MEAN PLATELET VOLUME 8.2 fL (7.9-10.8); MONOCYTES # (AUTO) 0.7 10^3/uL (0.0-1.0); MONOCYTES % (AUTO) 6.4 %; NEUTROPHILS # (AUTO) 7.6 10^3/uL (1.5-6.6); NEUTROPHILS % (AUTO) 73.1 %; PLT - PLATELET COUNT 163 10^3/uL (130-450); RED BLOOD COUNT 2.77 10^6/uL (4.20-5.40); RED CELL DISTRIBUTION WIDTH 17.4 % (12.0-15.0); WHITE BLOOD COUNT 10.4 x10^3/uL (4.8-10.8)
[2024-03-16 18:23] LABS: ALBUMIN 2.8 g/dL (3.2-5.5); ALBUMIN/GLOBULIN RATIO 0.6 (1.0-2.2); BILIRUBIN,TOTAL 0.5 mg/dL (0.2-1.0); CALCIUM 8.4 mg/dL (8.5-10.3); CREATININE 1.5 mg/dL (0.6-1.3); TOTAL PROTEIN 7.5 g/dL (6.4-8.9)
--- NOTE | 2024-03-16 18:40 | ED Physician Documentation ---
History of Present Illness - Stated complaint Stated Complaint: ABNORMAL LABS - Chief complaint Chief Complaint: General - Additonal information Additional information: 68-year-old female with history of hypertension, hypercholesterolemia, A-fib, asthma, alcoholic cirrhosis, C. difficile, appendectomy, oophorectomy presents emergency department for gram-negative rods. Patient was seen in the emergency department yesterday where blood cultures were collected as patient was having increased generalized weakness, right lower extremity swelling and pain. She has been having this ongoing recurrent rash to her right lower extremity now for about 7 months with little to no improvement and over the last several days has gotten significantly more ill. She was started on Keflex and Doxy has not taken any of the doses yet. She was notified via phone today to come back to the emergency department for further evaluation as her labs are growing gram- negative rods. Since yesterday patient says that she is feeling more ill no improvement of symptoms but says that she has not gotten to start antibiotics thus far. 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 HEENT: Tonsil/Adenoidectomy - Present Medications Home Medications: Ambulatory Orders Medication Instructions Recorded Confirmed Pantoprazole [Protonix] 40 mg PO DAILY #60 tablet 05/01/22 02/22/23 Thiamine [Vitamin B-1] 100 mg PO DAILY tab 05/01/22 02/22/23 Calcium Citrate 200 mg PO BID #15 tablet 02/07/23 02/22/23 Magnesium Oxide [Mag Ox] 400 mg PO BID #20 tablet 02/07/23 02/22/23 Ferrous Gluconate 324 mg PO DAILY 02/19/23 02/22/23 Magnesium Oxide [Mag Ox] 400 mg PO BIDWM 30 Days #60 tab 02/28/23 Vancomycin [Vancocin] 250 mg PO QID 10 Days #80 cap 02/28/23 allopurinoL [Zyloprim] 100 mg PO DAILY 30 Days #30 tab 02/28/23 Ondansetron Odt [Zofran] 4 mg TL Q6H PRN #10 tablet 09/21/23 Doxycycline Hyclate 100 mg PO BID 7 Days #14 cap 03/16/24 Lidocaine 4 % TP DAILY PRN #20 patch 03/16/24 cephALEXin [Keflex] 500 mg PO TID #20 cap 03/16/24 - Allergies Allergies/Adverse Reactions: Allergies Allergy/AdvReac Type Severity Reaction Status Date / Time TIARA Inhibitors Allergy Severe Respiratory Verified 03/16/24 17:04 lisinopril Allergy Severe Respiratory Verified 03/16/24 17:04 Hmzuvmx-[id number]-[id number] Reductase Allergy Respiratory Verified 03/16/24 17:04 Inhibitor - Social History Does the pt smoke?: Yes Smoking Status: Current every day smoker Does the pt drink ETOH?: No Does the pt have substance abuse?: No - Immunizations Immunizations are current?: Yes - POLST Patient has POLST: No PD ED PE NORMAL - Vitals Vital signs reviewed: Yes - General General: Alert and oriented X 3, No acute distress, Well developed/nourished - HEENT HEENT: Atraumatic - Derm Derm: Other (Flaky rash to right lateral ankle and what appears to be a possible purpura rash to the right lateral knee region.) - Extremities Extremities: Other (RLE: Swelling up to knee.) Results - Vitals Vitals: Vital Signs - 24 hr 03/16/24 03/16/24 17:04 19:12 Temperature 36.1 C L 36.5 C Heart Rate 65 63 Respiratory 18 16 Rate Blood Pressure 122/67 126/71 O2 Saturation 100 100 Oxygen O2 Source Room air - Labs Labs: Laboratory Tests 03/16/24 03/16/24 03/16/24 18:05 18:05 18:05 WBC 10.4 RBC 2.77 L Hgb 7.5 L Hct 24.9 L MCV 89.9 MCH 27.1 MCHC 30.1 L RDW 17.4 H Plt Count 163 MPV 8.2 Neut # (Auto) 7.6 H Lymph # (Auto) 1.8 [place] # (Auto) 0.7 Eos # (Auto) 0.2 Baso # (Auto) 0.0 Absolute Nucleated RBC 0.00 Nucleated RBC % 0.0 Sodium 133 L Potassium 4.0 Chloride 109 Carbon Dioxide 17 L Anion Gap 7.0 BUN 32 H Creatinine 1.5 H Estimated GFR (MDRD) 34 L Glucose 106 H Lactic Acid 1.2 Calcium 8.4 L Total Bilirubin 0.5 AST 26 ALT 10 Alkaline Phosphatase 163 H Total Protein 7.5 Albumin 2.8 L Globulin 4.7 H Albumin/Globulin Ratio 0.6 L PD Medical Decision Making - ED course ED course: 68-year-old female is called back to the emergency department for gram-negative rods found in blood cultures. This is most likely due to an infection she has on her right lower extremity. Repeat labs do not reveal any leukocytosis she does have ongoing anemia, hemoglobin 7.5 hemoglobin yesterday was 7.4 no obvious source of bleeding no dark black bowel movements no hematemesis. BUN elevated at 32 creatinine 1.5, GFR 34 most likely prerenal patient says that she has not been drinking much fluid. I called the on-call telemetry hospitalist Dr. Damon who is graciously agreed to admit the patient for further hospitalizations well blood cultures are pending and to start her on IV antibiotics. Patient is here with her sister and she is agreeable to stay for hospitalization. Departure - Departure Disposition: [facility] Clinical Impression: Sepsis Discharge Date/Time: 03/16/24 20:27
[2024-03-16] MEDS: CEFEPIME 1 GM in SODIUM CHLORIDE 0.9% MINIBAG 100 ML IV STA (19:49)
[2024-03-16] MEDS: SODIUM CHLORIDE 0.9% 1,000 ML IV ONE (19:51)
[2024-03-16] MEDS ORDERED: ONDANSETRON 4 MG/2 ML VIAL IVP PRN (19:56)
[2024-03-16] MEDS ORDERED: SODIUM CHLORIDE FLUSH 0.9% 10 ML SYRINGE IVP PRN (19:56)
--- NOTE | 2024-03-16 20:11 | HISTORY & PHYSICAL EXAMINATION ---
Chief Complaint - Chief Complaint Chief Complaint: right ankle and foot redness and pain History of Present Illness - Admitted From Admitted From:: ED - History Obtained From Records Reviewed: EMR History obtained from: Patient Exam Limitations: Tele medicine - History of Present Illness HPI Comment/Other: 68F p/w right ankle and foot redness and pain. She states she has noted ankle redness since August early this year but only within the past 1.5 wks has the redness start spreading and there is pain. She denies known trauma. She reports assoc sxs of weakness and chills. She did not notice fever. No URIs sxs. No n/v/d. No dysuria. She was in the ED yesterday and was discharged with Keflex and Doxycycline. She was noted for gram negative rossy positive on blood culture and was asked by ED to come back in for admission. Patient has just picked up her antibiotics and has not started. 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 She from a myocardial infarction. Living Situation: With family Social History Notes: She is currently retired but was previously employed at a [employer] plant. She lives at home with her . They have 1 dog. She reports smoking a pack a day for nearly 50 years. Denies alcohol use. - Substance History Use: Uses substance without health or social issues: Tobacco - POLST Patient has POLST: No Meds/Allgy - Home Medications Home Medications: Ambulatory Orders Medication Instructions Recorded Confirmed Pantoprazole [Protonix] 40 mg PO DAILY #60 tablet 05/01/22 02/22/23 Thiamine [Vitamin B-1] 100 mg PO DAILY tab 05/01/22 02/22/23 Calcium Citrate 200 mg PO BID #15 tablet 02/07/23 02/22/23 Magnesium Oxide [Mag Ox] 400 mg PO BID #20 tablet 02/07/23 02/22/23 Ferrous Gluconate 324 mg PO DAILY 02/19/23 02/22/23 Magnesium Oxide [Mag Ox] 400 mg PO BIDWM 30 Days #60 tab 02/28/23 Vancomycin [Vancocin] 250 mg PO QID 10 Days #80 cap 02/28/23 allopurinoL [Zyloprim] 100 mg PO DAILY 30 Days #30 tab 02/28/23 Ondansetron Odt [Zofran] 4 mg TL Q6H PRN #10 tablet 03/27/23 Doxycycline Hyclate 100 mg PO BID 7 Days #14 cap 03/16/24 Lidocaine 4 % TP DAILY PRN #20 patch 03/16/24 cephALEXin [Keflex] 500 mg PO TID #20 cap 03/16/24 - Allergies Allergies/Adverse Reactions: Allergies Allergy/AdvReac Type Severity Reaction Status Date / Time TIARA Inhibitors Allergy Severe Respiratory Verified 03/16/24 17:04 lisinopril Allergy Severe Respiratory Verified 03/16/24 17:04 [id number]-HuW Reductase Allergy Respiratory Verified 03/16/24 17:04 Inhibitor Review of Systems - Other Findings Other Findings: negative unless mentioned differently. Exam - Vital Signs Reviewed Vital Signs: Yes Vital Signs: Vital Signs x48h Temp Pulse Resp BP Pulse Ox 03/16/24 17:04 36.1 C L 65 18 122/67 100 - Physical Exam General Appearance: positive: No acute distress, Alert Eyes Bilateral: positive: Normal inspection ENT: positive: ENT inspection nml Neck: positive: Nml inspection Skin: positive: Skin rash (RLE per ED note) Conclusion/Plan - Problem List (1) Bacteremia Conclusion/Plan: call back into the ED for GNR bacteremia. no dysuria. no n/v/d. no abdominal pain. only source of infection is RLE. has not started on abx. will proceed with Ancef for now and if stable consider transition to oral coverage x 2wks. followup MRSA swab. followup cultures. (2) Cellulitis Conclusion/Plan: empiric abx Ancef. followup MRSA and blood cultures. pain control. (3) Gout Conclusion/Plan: stable. no flare on presentation. allopurinol home med. (4) Asthma Conclusion/Plan: stable. no acute flare on presentation. prn duoneb (5) Hypertension Conclusion/Plan: managed. no antihypertensives noted on med rec. prn hydralazine for sbp>160. monitor blood pressure with repeat vitals check (6) Paroxysmal atrial fibrillation Conclusion/Plan: rate controlled. no rate controlling medication noted. monitor on tele and intervene as needed. no on anticoagulation likely 2/2 hx of GIB. monitor tele. - Lab Results Lab results reviewed: Yes Eliseo Bones: 03/16/24 18:05 03/16/24 18:05 Core Measures - Anticipated LOS I expect patient to be DC'd or transferred within 96 hours.: Yes - Issues Hospital Issues and Management Plan: The patient consented to receive this telemedicine service, which I performed via live two-way audiovisual equipment. The patient is at ([facility]) and I am physically in [facility]. A nurse assisted me in the visit. Full code Sister SCDs, Heparin Observation Brandy Pretty DO Internal Medicine [facility] [employer] Manager - DVT/VTE - Prophylaxis VTE/DVT Device ordered at admit?: Yes Telemedicine Consult Details - Provider Location & Consult Time Telemedicine consultation conducted via videoconferencing?: Yes List names and roles of persons who participated in consult:: ED and Patient Telemedicine provider location:: [facility] Time Telemedicine consult began:: 19:42 Time Telemedicine consult completed:: 20:42
[2024-03-16] MEDS ORDERED: IPRATROPIUM/ALBUTEROL 3 ML NEB INH PRN (20:34)
[2024-03-16] MEDS ORDERED: hydrALAZINE INJ 20 MG/ML VIAL IVP PRN (20:34)
[2024-03-16] MEDS ORDERED: VANCOMYCIN INJ 1 GM in SODIUM CHLORIDE 0.9% 250 ML IV SCH (21:00)
[2024-03-16] MEDS ORDERED: SODIUM CHLORIDE 0.9% MINIBAG 100 ML IV ONE (21:46)
[2024-03-16] MEDS: ceFAZolin (2G) 2 GM in SODIUM CHLORIDE 0.9% MINIBAG 100 ML IV ONE (21:46)
[2024-03-16] MEDS: HEPARIN 5,000 UNIT/ML VIAL SUBQ SCH (21:52)
[2024-03-16] MEDS: MAGNESIUM OXIDE 400 MG TABLET PO SCH (21:53)
[2024-03-17 01:02] LABS: BILIRUBIN,URINE NEGATIVE (NEGATIVE); GLUCOSE, URINE (UA) NEGATIVE (NEGATIVE); KETONES,URINE (UA) NEGATIVE (NEGATIVE); LEUKOCYTE ESTERASE, URINE TRACE (NEGATIVE); NITRITE,URINE NEGATIVE (NEGATIVE); OCCULT BLOOD,URINE TRACE-LYSE (NEGATIVE); PROTEIN,URINE NEGATIVE (NEGATIVE); UROBILINOGEN,URINE 0.2 (NORMAL) E.U./dL (NORMAL)
[2024-03-17 01:11] LABS: CLARITY,URINE CLEAR (CLEAR)
[2024-03-17 01:12] LABS: BACTERIA,URINE Few /HPF (None Seen); RBC,URINE 0-5 /HPF (0-5); SQUAMOUS EPITHELIAL CELL,UR FEW Squamous (<= Few)
[2024-03-17 06:23] LABS: HGB - HEMOGLOBIN 7.1 g/dL (12.0-16.0); MEAN CORPUSCULAR HEMOGLOBIN 28.3 pg (27.0-31.0); MEAN CORPUSCULAR HGB CONC 32.3 g/dL (32.0-36.0); MEAN CORPUSCULAR VOLUME 87.6 fL (81.0-99.0); MEAN PLATELET VOLUME 8.7 fL (7.9-10.8); RED BLOOD COUNT 2.51 10^6/uL (4.20-5.40); RED CELL DISTRIBUTION WIDTH 17.6 % (12.0-15.0)
[2024-03-17] MEDS: PANTOPRAZOLE 40 MG TABLET PO SCH (06:36)
[2024-03-17] MEDS: SODIUM CHLORIDE FLUSH 0.9% 10 ML SYRINGE IVP SCH (06:36)
[2024-03-17 06:38] LABS: CALCIUM 8.1 mg/dL (8.5-10.3); CREATININE 1.2 mg/dL (0.6-1.3); MAGNESIUM 1.3 mg/dL (1.7-2.3); PHOSPHORUS 3.6 mg/dL (2.5-5.0); POTASSIUM 3.6 mmol/L (3.5-4.5)
[2024-03-17] MEDS: FERROUS GLUCONATE 324 MG TABLET PO SCH (09:18)
[2024-03-17] MEDS: THIAMINE 100 MG TABLET PO SCH (09:18)
[2024-03-17] MEDS: allopurinoL 100 MG TABLET PO SCH (09:18)
--- NOTE | 2024-03-17 09:28 | PROVIDER PROGRESS NOTE ---
Subjective - Prog Note Date Prog Note Date: 03/17/24 Prog Note Time: 09:26 - Subjective Pt reports feeling: Improved Subjective: She has had a rough year. Idiopathic pancreatitis with onset in May leading to weight loss of about 17 kg over a year. This is 22% of her body weight. She denies a history of alcohol use. She has a [id number] smoking history but quit in 2018/2018 prior to the pandemic. This was following a tracheostomy for an anaphylactic reaction with angioedema to lisinopril. She has had a wound on the right anterior ankle area for several months. She has been following with her primary care physician regarding this wound which seems to get better and worse. However, over the last several days the wound has gotten worse she has had increasing pain increasing drainage. She was seen in the emergency department prescribed outpatient oral antibiotics and blood cultures were sent. She was called back to the emergency department last night for positive blood cultures this was gram-negative rods in 1 of 2 bottles. The PCR testing was negative. We are awaiting speciation. She was admitted and started on Ancef. She has been feeling tired and worn out she has had subjective fever she has had increasing pain in her right lower extremity She is currently getting home health services with PT OT RN and home health aide. Her primary care physician is with the [facility] in [place]. She has had disruptions in her primary care because the personnel there changes quite frequently. Current Medications - Current Medications Current Medications: Medications Acetaminophen (Acetaminophen 325 Mg Tablet) 650 mg PO Q4HR PRN PRN Reason: Pain 1 to 4, or Fever Albuterol/Ipratropium (Ipratropium/Albuterol 3 Ml Neb) 3 ml INH Q4HR PRN PRN Reason: Wheezing Allopurinol (Allopurinol 100 Mg Tablet) 100 mg PO DAILY [facility] Last Admin: 03/17/24 09:18 Dose: 100 mg Amiodarone HCl (Amiodarone 200 Mg Tablet) 200 mg PO DAILY [facility] Last Admin: 03/17/24 12:12 Dose: 200 mg Lipase/Protease/Amylase (Lipase/Protease/Amylase Capsule) 3 cap PO TIDWM [facility] Last Admin: 03/17/24 12:10 Dose: 3 cap Thiamine HCl (Thiamine 100 Mg Tablet) 100 mg PO DAILY [facility] Last Admin: 03/17/24 09:18 Dose: 100 mg Cefepime HCl 2 gm/ Sodium (Chloride) 100 mls @ 200 mls/hr IV BID [facility] Last Admin: 03/17/24 10:45 Dose: Infused Ferrous Gluconate (Ferrous Gluconate 324 Mg Tablet) 324 mg PO DAILYWM [facility] Last Admin: 03/17/24 09:18 Dose: 324 mg Heparin Sodium (Porcine) (Heparin 5,000 Unit/Ml Vial) 5,000 unit SUBQ BID [facility] Last Admin: 03/17/24 09:18 Dose: 5,000 unit Hydralazine HCl (Hydralazine Inj 20 Mg/Ml Vial) 10 mg IVP DAILY PRN PRN Reason: sbp>160 Magnesium Oxide (Magnesium Oxide 400 Mg Tablet) 400 mg PO BID [facility] Last Admin: 03/17/24 09:18 Dose: 400 mg Ondansetron HCl (Ondansetron 4 Mg/2 Ml Vial) 4 mg IVP Q6HR PRN PRN Reason: Nausea / Vomiting Oxycodone HCl (Oxycodone 5 Mg Tablet) 5 mg PO Q4HR PRN PRN Reason: Moderate Pain (Level 4-6) Pantoprazole Sodium (Pantoprazole 40 Mg Tablet) 40 mg PO DAILY [facility] Last Admin: 03/17/24 09:18 Dose: Not Given Multivit/Folic Acid/Iron ( Vitamin Tablet) 1 tab PO DAILYWM [facility] Sodium Chloride (Sodium Chloride Flush 0.9% 10 Ml Syringe) 10 ml IVP PRN PRN PRN Reason: NEEDED PER PROVIDER ORDERS Sodium Chloride (Sodium Chloride Flush 0.9% 10 Ml Syringe) 10 ml IVP 0100,0900,1700 [facility] Last Admin: 03/17/24 09:19 Dose: 10 ml Spironolactone (Spironolactone 25 Mg Tablet) 25 mg PO DAILY [facility] Objective - Vital Signs/Intake & Output Vital Signs: Vital Signs x48h Temp Pulse Resp BP Pulse Ox 03/17/24 07:56 36.9 C 84 16 111/53 L 94 03/17/24 06:28 36.6 C 78 16 116/65 94 Intake & Output: Intake & Output 03/14/24 03/15/24 03/16/24 03/17/24 23:59 23:59 23:59 23:59 Intake Total 300 150 Output Total 650 Balance -350 150 - Objective General Appearance: positive: No acute distress, Alert Eyes Bilateral: positive: Normal inspection ENT: positive: ENT inspection nml Neck: positive: Nml inspection Respiratory: positive: No respiratory distress, Breath sounds nml Cardiovascular: positive: Regular rate & rhythm Peripheral Pulses: 1+ Dorsalis pedis (R), 1+ Dorsalis pedis (L), 1+ Posterior tibialis (R), 1+ Posterior tibialis (L) Abdomen: positive: Non-tender, No distention Skin: positive: Skin rash (Right anterior ankle diffuse area with scaling and skin breakdown underlying erythema and tenderness.) Extremities: positive: No pedal edema Neurologic/Psychiatric: positive: Oriented x3 - Lab Results Fish Bones: 03/17/24 05:38 03/17/24 05:38 Other Labs: Lab Results x24hrs 03/17/24 03/17/24 03/17/24 Range/Units 05:38 05:38 00:00 WBC 7.0 (4.8-10.8) x10^3/uL RBC 2.51 L (4.20-5.40) 10^6/uL Hgb 7.1 L (12.0-16.0) g/dL Hct 22.0 L (37.0-47.0) % MCV 87.6 (81.0-99.0) fL MCH 28.3 (27.0-31.0) pg MCHC 32.3 (32.0-36.0) g/dL RDW 17.6 H (12.0-15.0) % Plt Count 155 (130-450) 10^3/uL MPV 8.7 (7.9-10.8) fL Neut # (Auto) (1.5-6.6) 10^3/uL Lymph # (Auto) (1.5-3.5) 10^3/uL [place] # (Auto) (0.0-1.0) 10^3/uL Eos # (Auto) (0.0-0.7) 10^3/uL Baso # (Auto) (0.0-0.1) 10^3/uL Absolute Nucleated RBC x10^3/uL Nucleated RBC % /100WBC Sodium 136 (135-145) mmol/L Potassium 3.6 (3.5-4.5) mmol/L Chloride 114 H (101-111) mmol/L Carbon Dioxide 15 L (21-32) mmol/L Anion Gap 7.0 (6-13) BUN 28 H (6-20) mg/dL Creatinine 1.2 (0.6-1.3) mg/dL Estimated GFR (MDRD) 44 L (>89) Glucose 88 (74-104) mg/dL Lactic Acid (0.5-2.2) mmol/L Calcium 8.1 L (8.5-10.3) mg/dL Phosphorus 3.6 (2.5-5.0) mg/dL Magnesium 1.3 L (1.7-2.3) mg/dL Total Bilirubin (0.2-1.0) mg/dL AST (10-42) IU/L ALT (10-60) IU/L Alkaline Phosphatase (42-121) IU/L Total Protein (6.4-8.9) g/dL Albumin (3.2-5.5) g/dL Globulin (2.1-4.2) g/dL Albumin/Globulin Ratio (1.0-2.2) Urine Color YELLOW Urine Clarity CLEAR (CLEAR) Urine pH 6.0 (5.0-7.5) PH Ur Specific [place] 1.015 (1.002-1.030) Urine Protein NEGATIVE (NEGATIVE) mg/dL Urine Glucose (UA) NEGATIVE (NEGATIVE) mg/dL Urine Ketones NEGATIVE (NEGATIVE) mg/dL Urine Occult Blood TRACE-LYSE (NEGATIVE) Urine Nitrite NEGATIVE (NEGATIVE) Urine Bilirubin NEGATIVE (NEGATIVE) Urine Urobilinogen 0.2 (NORMAL) (NORMAL) E.U./dL Ur Leukocyte Esterase TRACE H (NEGATIVE) Urine RBC 0-5 (0-5) /HPF Urine WBC 4-5 (0-5) /HPF Ur Squamous Epith Cells FEW Squamous (<= Few) Urine Bacteria Few (None Seen) /HPF Ur Microscopic Review INDICATED Urine Culture Comments INDICATED Nasal Screen MRSA (PCR) (NEGATIVE) 03/16/24 03/16/24 03/16/24 Range/Units 22:45 18:05 18:05 WBC (4.8-10.8) x10^3/uL RBC (4.20-5.40) 10^6/uL Hgb (12.0-16.0) g/dL Hct (37.0-47.0) % MCV (81.0-99.0) fL MCH (27.0-31.0) pg MCHC (32.0-36.0) g/dL RDW (12.0-15.0) % Plt Count (130-450) 10^3/uL MPV (7.9-10.8) fL Neut # (Auto) (1.5-6.6) 10^3/uL Lymph # (Auto) (1.5-3.5) 10^3/uL [place] # (Auto) (0.0-1.0) 10^3/uL Eos # (Auto) (0.0-0.7) 10^3/uL Baso # (Auto) (0.0-0.1) 10^3/uL Absolute Nucleated RBC x10^3/uL Nucleated RBC % /100WBC Sodium 133 L (135-145) mmol/L Potassium 4.0 (3.5-4.5) mmol/L Chloride 109 (101-111) mmol/L Carbon Dioxide 17 L (21-32) mmol/L Anion Gap 7.0 (6-13) BUN 32 H (6-20) mg/dL Creatinine 1.5 H (0.6-1.3) mg/dL Estimated GFR (MDRD) 34 L (>89) Glucose 106 H (74-104) mg/dL Lactic Acid 1.2 (0.5-2.2) mmol/L Calcium 8.4 L (8.5-10.3) mg/dL Phosphorus (2.5-5.0) mg/dL Magnesium (1.7-2.3) mg/dL Total Bilirubin 0.5 (0.2-1.0) mg/dL AST 26 (10-42) IU/L ALT 10 (10-60) IU/L Alkaline Phosphatase 163 H (42-121) IU/L Total Protein 7.5 (6.4-8.9) g/dL Albumin 2.8 L (3.2-5.5) g/dL Globulin 4.7 H (2.1-4.2) g/dL Albumin/Globulin Ratio 0.6 L (1.0-2.2) Urine Color Urine Clarity (CLEAR) Urine pH (5.0-7.5) PH Ur Specific [place] (1.002-1.030) Urine Protein (NEGATIVE) mg/dL Urine Glucose (UA) (NEGATIVE) mg/dL Urine Ketones (NEGATIVE) mg/dL Urine Occult Blood (NEGATIVE) Urine Nitrite (NEGATIVE) Urine Bilirubin (NEGATIVE) Urine Urobilinogen (NORMAL) E.U./dL Ur Leukocyte Esterase (NEGATIVE) Urine RBC (0-5) /HPF Urine WBC (0-5) /HPF Ur Squamous Epith Cells (<= Few) Urine Bacteria (None Seen) /HPF Ur Microscopic Review Urine Culture Comments Nasal Screen MRSA (PCR) NEGATIVE (NEGATIVE) 03/16/24 Range/Units 18:05 WBC 10.4 (4.8-10.8) x10^3/uL RBC 2.77 L (4.20-5.40) 10^6/uL Hgb 7.5 L (12.0-16.0) g/dL Hct 24.9 L (37.0-47.0) % MCV 89.9 (81.0-99.0) fL MCH 27.1 (27.0-31.0) pg MCHC 30.1 L (32.0-36.0) g/dL RDW 17.4 H (12.0-15.0) % Plt Count 163 (130-450) 10^3/uL MPV 8.2 (7.9-10.8) fL Neut # (Auto) 7.6 H (1.5-6.6) 10^3/uL Lymph # (Auto) 1.8 (1.5-3.5) 10^3/uL [place] # (Auto) 0.7 (0.0-1.0) 10^3/uL Eos # (Auto) 0.2 (0.0-0.7) 10^3/uL Baso # (Auto) 0.0 (0.0-0.1) 10^3/uL Absolute Nucleated RBC 0.00 x10^3/uL Nucleated RBC % 0.0 /100WBC Sodium (135-145) mmol/L Potassium (3.5-4.5) mmol/L Chloride (101-111) mmol/L Carbon Dioxide (21-32) mmol/L Anion Gap (6-13) BUN (6-20) mg/dL Creatinine (0.6-1.3) mg/dL Estimated GFR (MDRD) (>89) Glucose (74-104) mg/dL Lactic Acid (0.5-2.2) mmol/L Calcium (8.5-10.3) mg/dL Phosphorus (2.5-5.0) mg/dL Magnesium (1.7-2.3) mg/dL Total Bilirubin (0.2-1.0) mg/dL AST (10-42) IU/L ALT (10-60) IU/L Alkaline Phosphatase (42-121) IU/L Total Protein (6.4-8.9) g/dL Albumin (3.2-5.5) g/dL Globulin (2.1-4.2) g/dL Albumin/Globulin Ratio (1.0-2.2) Urine Color Urine Clarity (CLEAR) Urine pH (5.0-7.5) PH Ur Specific [place] (1.002-1.030) Urine Protein (NEGATIVE) mg/dL Urine Glucose (UA) (NEGATIVE) mg/dL Urine Ketones (NEGATIVE) mg/dL Urine Occult Blood (NEGATIVE) Urine Nitrite (NEGATIVE) Urine Bilirubin (NEGATIVE) Urine Urobilinogen (NORMAL) E.U./dL Ur Leukocyte Esterase (NEGATIVE) Urine RBC (0-5) /HPF Urine WBC (0-5) /HPF Ur Squamous Epith Cells (<= Few) Urine Bacteria (None Seen) /HPF Ur Microscopic Review Urine Culture Comments Nasal Screen MRSA (PCR) (NEGATIVE) - Diagnostic Imaging Diagnostic Imaging Results: positive: Final report reviewed Diagnostic Imaging Comments: Lower extremity arterial duplex obtained bilaterally. There are no areas of sig nificant stenosis. - Other Results/Comments Other Results/Comments: This afternoon I did mechanical debridement of the patient's right ankle wound with Betadine surgical scrub brush, forceps and scissors. The area was gently mechanically debrided and Xeroform gauze dressing was placed 10 x 10 cm area was debrided. ABX Reporting Has patient been on IV antibiotics over the past 48 hours?: Yes Assessment/Plan - Problem List (1) Bacteremia Impression: call back into the ED for GNR bacteremia. no dysuria. no n/v/d. no abdominal pain. only source of infection is RLE. No I have not done home for him intact we will started Ancef on the time of admission. Her blood cultures have shown gram negative rods in 1 out of 2 bottles. Her PCR was negative. I have switched her antibiotics from Ancef to cefepime. Her white blood cell count is 7.0 she has not run any fevers. We will continue with wound care to the right lower extremity. (2) Cellulitis Conclusion/Plan: empiric Cefepime for gram-negative rods seen in 1 out of 2 bottles. I have debrided the right lower extremity wound today. The cellulitis is better the pain is better (3) Protein calorie malnutrition Patient is experienced a 22% body weight loss over the last year. This is a 17 kg weight loss. This is likely due to her pain with eating and her chronic pancreatitis. This is an idiopathic pancreatitis. She is getting workup with Nona Haley for this. She has had endoscopic ultrasound. She is due for a colonoscopy which is scheduled about 9 days from now. (4) Chronic pancreatitis. continue home Creon. (5) Gout Conclusion/Plan: stable. no flare on presentation. allopurinol home med. (6) Asthma Conclusion/Plan: stable. no acute flare on presentation. prn duoneb (7) Hypertension Conclusion/Plan: managed. no antihypertensives noted on med rec. prn hydralazine for sbp>160. With the weight loss she has experienced over the last several months it is likely that her hypertension requires no medication. Selected Entries 03/17/24 03/17/24 03/17/24 06:28 07:56 11:00 Blood Pressure 116/65 111/53 L 111/53 L [Right Brachial artery] 03/17/24 15:47 Blood Pressure 109/60 [Right Brachial artery] (7) Paroxysmal atrial fibrillation Conclusion/Plan: Selected Entries 03/17/24 03/17/24 03/17/24 06:28 07:56 11:00 Heart Rate [ 78 84 84 Brachial] 03/17/24 15:47 Heart Rate [ 77 Brachial] rate controlled. no rate controlling medication noted. monitor on tele and intervene as needed. no on anticoagulation likely 2/2 hx of GIB. monitor tele.
[2024-03-17] MEDS: CEFEPIME 2 GM in SODIUM CHLORIDE 0.9% MINIBAG 100 ML IV SCH (10:11)
[2024-03-17 11:45] LABS: ESTIMATED AVERAGE GLUCOSE 126 mg/dL (70-100)
[2024-03-17] MEDS: LIPASE/PROTEASE/AMYLASE CAPSULE PO SCH (12:10)
[2024-03-17] MEDS: AMIODARONE 200 MG TABLET PO SCH (12:12)
--- NOTE | 2024-03-17 14:36 | PHARMACY PROGRESS NOTE ---
- Best Possible Medication History Admit Date and Time: 03/17/24 1121 Processed by: Pharmacy (Medication Reconcilation completed by Platform Material Handler Manager, Joan) Medications reviewed in ED?: No Medication History completed: Yes Patient Interview: Completed Secondary Source(s): Pharmacy records, Insurance records As the person ultimately responsible for medication therapy, providers are able to order a medication from an existing home medication list in [facility] via the "Reconcile Routine" prior to Confirmation of that medication by it desktop support technician. Such practice is discouraged except when the physician, in their clinical judgment, deems that a medical need exists for a medication without regard to previous use.
--- NOTE | 2024-03-17 14:40 | Ultrasound Report ---
PROCEDURE: Arterial Duplex Lwr Ext BL INDICATIONS: right lower extremity wound with cellulitis TECHNIQUE: Color and pulse Doppler interrogation was performed of both lower extremity arterial systems, with im age documentation. COMPARISON: CT 04/26/2023 FINDINGS: Right lower extremity: Common femoral artery: 100 cm/sec, with biphasic flow. Deep femoral artery: 52 cm/sec, with monophasic flow. Proximal superficial femoral artery: 144 cm/sec, with biphasic flow. Mid superficial femoral artery: 131 cm/sec, with biphasic flow. Distal superficial femoral artery: 190 cm/sec, with biphasic flow. Popliteal artery: 97 cm/sec, with triphasic flow. Posterior tibial artery: 44 cm/sec, with biphasic flow. Anterior tibial artery/dorsalis pedis: 123/87 cm/sec, with biphasic flow. Montoya-scale imaging description: Diffuse atherosclerotic plaque. Left lower extremity: Common femoral artery: 109 cm/sec, with triphasic flow. Deep femoral artery: 63 cm/sec, with biphasic flow. Proximal superficial femoral artery: 123 cm/sec, with triphasic flow. Mid superficial femoral artery: 109 cm/sec, with triphasic flow. Distal superficial femoral artery: 106 cm/sec, with triphasic flow. Popliteal artery: 75 cm/sec, with triphasic flow. Posterior tibial artery: 102 cm/sec, with triphasic flow. Anterior tibial artery/dorsalis pedis: 42/76 cm/sec, with biphasic flow. Montoya-scale imaging description: Mild diffuse atherosclerotic disease. IMPRESSION: Patent lower extremity vasculature without hemodynamically significant stenosis. Reviewed by: Sagar Rahman MD on 03/17/2024 2:39 PM PDT Approved by: Sagar Rahman MD on 03/17/2024 2:39 PM PDT Station ID: [id number]
[2024-03-18] MEDS: oxyCODONE 5 MG TABLET PO PRN (00:08)
[2024-03-18] MEDS: ACETAMINOPHEN 325 MG TABLET PO PRN (00:09)
[2024-03-18 05:13] LABS: BASOPHILS % (AUTO) 0.3 %; EOSINOPHILS # (AUTO) 0.3 10^3/uL (0.0-0.7); EOSINOPHILS % (AUTO) 4.7 %; HCT - HEMATOCRIT 21.3 % (37.0-47.0); LYMPHOCYTES # (AUTO) 1.8 10^3/uL (1.5-3.5); MEAN CORPUSCULAR HGB CONC 31.9 g/dL (32.0-36.0); MEAN CORPUSCULAR VOLUME 87.7 fL (81.0-99.0); MEAN PLATELET VOLUME 8.5 fL (7.9-10.8); MONOCYTES # (AUTO) 0.6 10^3/uL (0.0-1.0); MONOCYTES % (AUTO) 8.7 %; NEUTROPHILS # (AUTO) 3.6 10^3/uL (1.5-6.6); NEUTROPHILS % (AUTO) 56.7 %; PLT - PLATELET COUNT 158 10^3/uL (130-450); RED BLOOD COUNT 2.43 10^6/uL (4.20-5.40); RED CELL DISTRIBUTION WIDTH 17.7 % (12.0-15.0); WHITE BLOOD COUNT 6.3 x10^3/uL (4.8-10.8)
[2024-03-18 05:45] LABS: CALCIUM 8.4 mg/dL (8.5-10.3); CREATININE 1.2 mg/dL (0.6-1.3); POTASSIUM 4.2 mmol/L (3.5-4.5)
[2024-03-18 05:48] LABS: HGB - HEMOGLOBIN 6.8 g/dL (12.0-16.0)
[2024-03-18] MEDS: PRENATAL VITAMIN TABLET PO SCH (08:17)
[2024-03-18] MEDS: SPIRONOLACTONE 25 MG TABLET PO SCH (08:18)
[2024-03-18] MEDS ORDERED: MAGNESIUM SULFATE 1 GM in SODIUM CHLORIDE 0.9% 50 ML IV ONE (10:35)
[2024-03-18] MEDS: diphenhydrAMINE INJ 50 MG/ML VIAL IVP ONE (10:57)
[2024-03-18] MEDS: ACETAMINOPHEN 500 MG TABLET PO ONE (10:58)
--- NOTE | 2024-03-18 13:31 | PROVIDER PROGRESS NOTE ---
Subjective - Prog Note Date Prog Note Date: 03/18/24 Prog Note Time: 07:45 - Subjective Pt reports feeling: Worse Subjective: She has had a rough year. Idiopathic pancreatitis with onset in May leading to weight loss of about 17 kg over a year. This is 22% of her body weight. She denies a history of alcohol use. She has a [id number] smoking history but quit in 2018/2018 prior to the pandemic. This was following a tracheostomy for an anaphylactic reaction with angioedema to lisinopril. She is currently getting home health services with PT OT RN and home health aide. She has had a wound on the right anterior ankle area for several months. She has been following with her primary care physician regarding this wound which seems to get better and worse. However, over the last several days before admission the wound has gotten worse she has had increasing pain increasing drainage. She was seen in the emergency department prescribed outpatient oral antibiotics and blood cultures were sent. She was called back to the emergency department last night for positive blood cultures this was gram-negative rods in 1 of 2 bottles which grew pasteurella multocida. Wound cultures grew staphylococcus epidermidis. The PCR testing was negative. She was admitted and started on Ancef but switched to cefepime yesterday to broaden coverage. She has been feeling tired and worn out. She has had subjective fever and has had increasing pain in her right lower extremity. Today, she reports increasing pain overnight in her right lower leg extending to her knee, 5/10, increased with palpation. Her right knee is swollen and erythematous and exquisitely tender to touch. She is mildly SOB with exertion, fatigue, and complains of a mild headache. This is a new development overnight and raises concerns for a septic joint. She also has chronic RUQ and epigastric pain related to her chronic pancreatitis and chronic bilateral shoulder pain. She denies c/p, nausea/vomiting, diarrhea, fever/chills or dysuria. I have or dered a CT of the knee and treatment will depend on the results. She may need a knee aspiration but this would be painful and may not be needed depending on the CT. She is already on cefepime which covers the two cultures she has grown recently. She is also anemic with an hbg of 6.7 so she will be transfused today. The anemia may be the cause of her SOB and fatigue. She reports multiple prior tra nsfusions and has had a transfusion reaction once. I will premedicate her before the transfusion to reduce the risk of a reaction. Current Medications - Current Medications Current Medications: Active Medications Generic Name Dose Route Start Last Admin Trade Name Freq PRN Reason Stop Dose Admin Acetaminophen 650 mg 03/16/24 19:56 03/18/24 00:09 Acetaminophen 325 Mg Tablet PO 650 mg Q4HR PRN Administration Pain 1 to 4, or Fever Albuterol/Ipratropium 3 ml 03/16/24 20:34 Ipratropium/Albuterol 3 Ml Neb INH Q4HR PRN Wheezing Allopurinol 100 mg 03/17/24 09:00 03/18/24 08:17 Allopurinol 100 Mg Tablet PO 100 mg DAILY PEDRO Administration Amiodarone HCl 200 mg 03/17/24 12:00 03/18/24 08:17 Amiodarone 200 Mg Tablet PO 200 mg DAILY PEDRO Administration Lipase/Protease/Amylase 3 cap 03/17/24 12:00 03/18/24 12:02 Lipase/Protease/Amylase Capsule PO 3 cap TIDWM PEDRO Administration Ferrous Gluconate 324 mg 03/17/24 08:00 03/18/24 08:17 Ferrous Gluconate 324 Mg Tablet PO 324 mg DAILYWM PEDRO Administration Heparin Sodium (Porcine) 5,000 unit 03/16/24 21:00 03/18/24 08:58 Heparin 5,000 Unit/Ml Vial SUBQ Not Given BID PEDRO Hydralazine HCl 10 mg 03/16/24 20:34 Hydralazine Inj 20 Mg/Ml Vial IVP DAILY PRN sbp>160 Cefepime HCl 2 gm/ Sodium 100 mls @ 200 mls/hr 03/17/24 10:00 03/18/24 08:18 Chloride IV 200 mls/hr BID PEDRO Administration Magnesium Sulfate 1 gm/ Sodium 52 mls @ 54 mls/hr 03/18/24 14:00 03/18/24 13:52 Chloride IV 03/18/24 14:57 54 mls/hr ONCE ONE Administration Magnesium Oxide 400 mg 03/16/24 21:00 03/18/24 08:17 Magnesium Oxide 400 Mg Tablet PO 400 mg BID PEDRO Administration Ondansetron HCl 4 mg 03/16/24 19:56 Ondansetron 4 Mg/2 Ml Vial IVP Q6HR PRN Nausea / Vomiting Oxycodone HCl 5 mg 03/17/24 09:26 03/18/24 13:52 Oxycodone 5 Mg Tablet PO 5 mg Q4HR PRN Administration Moderate Pain (Level 4-6) Pantoprazole Sodium 40 mg 03/17/24 07:00 03/18/24 08:18 Pantoprazole 40 Mg Tablet PO 40 mg DAILY PEDRO Administration Multivit/Folic Acid/Iron 1 tab 03/18/24 08:00 03/18/24 08:17 Vitamin Tablet PO 1 tab DAILYWM PEDRO Administration Sodium Chloride 10 ml 03/16/24 19:56 Sodium Chloride Flush 0.9% 10 Ml Syringe IVP PRN PRN NEEDED PER PROVIDER ORDERS Sodium Chloride 10 ml 03/17/24 01:00 03/18/24 08:18 Sodium Chloride Flush 0.9% 10 Ml Syringe IVP 10 ml 0100,[id number],1700 PEDRO Administration Spironolactone 25 mg 03/18/24 09:00 03/18/24 08:18 Spironolactone 25 Mg Tablet PO 25 mg DAILY PEDRO Administration Thiamine HCl 100 mg 03/17/24 09:00 03/18/24 08:17 Thiamine 100 Mg Tablet PO 100 mg DAILY PEDRO Administration Albuterol Sulf [Ventolin Hfa] 2 puffs INH Q4HR PRN 03/17/24 Amiodarone [Pacerone] 100 mg PO DAILY 03/17/24 Lipase/Protease/Amylase [Lyn Davalos 12,000 Unit Capsule] 1 each PO TIDWM 03/17/24 Multivit-Min/FA/Lycopen/Lutein [Adults 50 Plus Multivitamin] 1 each PO DAILY 03/17/24 Pantoprazole [Protonix] 40 mg PO PRN PRN 03/17/24 Spironolactone [Aldactone] 25 mg PO DAILY 03/17/24 Objective - Vital Signs/Intake & Output Reviewed Vital Signs: Yes Vital Signs: Vital Signs x48h Temp Pulse Resp BP Pulse Ox 03/18/24 11:51 36.7 C 70 16 110/65 97 03/18/24 09:12 36.7 C 18 119/64 97 03/18/24 08:52 36.5 C 79 20 119/65 98 03/18/24 08:08 36.6 C 79 16 109/61 95 Intake & Output: Intake & Output 03/15/24 03/16/24 03/17/24 03/18/24 23:59 23:59 23:59 23:59 Intake Total 300 2019 Output Total 650 Balance -350 2019 780 - Objective General Appearance: positive: Mild distress, Other (68 y/o female, reclined in bed, appears uncomfortable, alert and conversant) Eyes Bilateral: positive: Normal inspection ENT: positive: ENT inspection nml Neck: positive: Nml inspection Respiratory: positive: Chest non-tender, No respiratory distress, Breath sounds nml. negative: Wheezes, Rales, Rhonchi Cardiovascular: positive: Regular rate & rhythm, No murmur, No gallop Peripheral Pulses: 2+ Radial (R), 2+ Radial (L), 2+ Dorsalis pedis (L) Abdomen: positive: Nml bowel sounds, No distention, Tenderness (RUQ and upper abdomen). negative: Guarding, Rebound Back: positive: Nml inspection Skin: positive: No rash, Warm, Dry, Pallor Extremities: positive: Calf tenderness (Mildly swollen right lower extremity tender to touch), Joint swelling (Right knee swollen medially with erythema, tenderness, and warmth), Other (10 x 10 wound anterior ankle, minimal exudate, minimal surrounding erythema) Neurologic/Psychiatric: positive: Oriented x3, CN's nml (2-12), Motor nml, Sensation nml, Mood/affect nml - Lab Results Fish Bones: 03/18/24 04:37 03/18/24 04:37 Other Labs: Lab Results x24hrs 03/18/24 03/18/24 03/18/24 Range/Units 07:18 04:37 04:37 WBC 6.3 (4.8-10.8) x10^3/uL RBC 2.43 L (4.20-5.40) 10^6/uL Hgb 6.8 L* (12.0-16.0) g/dL Hct 21.3 L (37.0-47.0) % MCV 87.7 (81.0-99.0) fL MCH 28.0 (27.0-31.0) pg MCHC 31.9 L (32.0-36.0) g/dL RDW 17.7 H (12.0-15.0) % Plt Count 158 (130-450) 10^3/uL MPV 8.5 (7.9-10.8) fL Neut # (Auto) 3.6 (1.5-6.6) 10^3/uL Lymph # (Auto) 1.8 (1.5-3.5) 10^3/uL [place] # (Auto) 0.6 (0.0-1.0) 10^3/uL Eos # (Auto) 0.3 (0.0-0.7) 10^3/uL Baso # (Auto) 0.0 (0.0-0.1) 10^3/uL Absolute Nucleated RBC 0.00 x10^3/uL Nucleated RBC % 0.0 /100WBC Sodium 137 (135-145) mmol/L Potassium 4.2 (3.5-4.5) mmol/L Chloride 115 H (101-111) mmol/L Carbon Dioxide 16 L (21-32) mmol/L Anion Gap 6.0 (6-13) BUN 25 H (6-20) mg/dL Creatinine 1.2 (0.6-1.3) mg/dL Estimated GFR (MDRD) 44 L (>89) Glucose 87 (74-104) mg/dL Calcium 8.4 L (8.5-10.3) mg/dL Vitamin B12 (180-914) pg/mL Folate (5.90 - >24.8) ng/mL Blood Type O POSITIVE Antibody Screen NEGATIVE Crossmatch IS Only See Detail 03/17/24 Range/Units 05:38 WBC (4.8-10.8) x10^3/uL RBC (4.20-5.40) 10^6/uL Hgb (12.0-16.0) g/dL Hct (37.0-47.0) % MCV (81.0-99.0) fL MCH (27.0-31.0) pg MCHC (32.0-36.0) g/dL RDW (12.0-15.0) % Plt Count (130-450) 10^3/uL MPV (7.9-10.8) fL Neut # (Auto) (1.5-6.6) 10^3/uL Lymph # (Auto) (1.5-3.5) 10^3/uL [place] # (Auto) (0.0-1.0) 10^3/uL Eos # (Auto) (0.0-0.7) 10^3/uL Baso # (Auto) (0.0-0.1) 10^3/uL Absolute Nucleated RBC x10^3/uL Nucleated RBC % /100WBC Sodium (135-145) mmol/L Potassium (3.5-4.5) mmol/L Chloride (101-111) mmol/L Carbon Dioxide (21-32) mmol/L Anion Gap (6-13) BUN (6-20) mg/dL Creatinine (0.6-1.3) mg/dL Estimated GFR (MDRD) (>89) Glucose (74-104) mg/dL Calcium (8.5-10.3) mg/dL Vitamin B12 803 (180-914) pg/mL Folate 33.1 (5.90 - >24.8) ng/mL Blood Type Antibody Screen Crossmatch IS Only - Other Results/Comments Other Results/Comments: Blood cultures grew pasteurella multocida and wound grew staphylococcus epidermidis. ABX Reporting Has patient been on IV antibiotics over the past 48 hours?: Yes Sepsis Event Note (H) - Evaluation Current Stage of Sepsis: Ruled out Assessment/Plan - Problem List (1) Bacteremia Impression: Called back into the ED for GNR bacteremia on 03/16. She presented with subjective fevers, no dysuria, no n/v/d. She was admitted on Ancef which was switched to cefepime yesterday to broaden coverage. Her white blood cell count is 6.3 and she has not run any fevers since admission. Her blood cultures grew pasteurella multocida. I considered switching her back to ancef with a plan to send her home on keflex, but will defer this as she has an acutely swollen knee with concerns for a possible septic joint until the cause is determined. We will continue with wound care to the right lower extremity and monitor her vitals for recurrent infection. (2) Cellulitis of right ankle Impression: She has a long standing wound on her anterior right ankle, cause undetermined, not consistent with venous or anterior ulcer presentation, with cellulitis. She is on empiric Cefepime for gram-negative rods seen in 1 out of 2 bottles for her bacteremia. Her wound cultures grew staphylococcus epidermidis. I debrided the right lower extremity wound yesterday. Today, the wound looks better but she has developed worsening pain. The pain appears related to a knee effusion and not an worsening of the cellulitis. I will continue wound care and cefepime. (3) Effusion, right knee Impression: She developed an acutely swollen, erythematous, and tender knee which is warm to the touch. The calf is mildy swollen compared to the left. No palpable cords. The pain is 5/10, worse with movement or touch. Differentials include gout flare, septic joint and DVT. CT of the right lower extremity has been ordered. Aspiration has been deferred as it will be painful and she is already on cefepime which covers both organisms grown in her cultures. It may be necessary if the CT does not help narrow the differentials. I will continue to monitor her for fevers, tachycardia and hypotension. ESR and CRP were not ordered as she already has known inflammatory conditions and would be of little prognostic and diagnostic value. I will order a lactate if she develops new signs of systemic infection. She has PRN pain medication if needed. (4) Protein calorie malnutrition Impression: Patient is experienced a 22% body weight loss over the last year. This is a 17 kg weight loss. This is likely due to her pain with eating and her chronic pancreatitis. This is an idiopathic pancreatitis. She is getting workup with Nona Haley for this. She has had endoscopic ultrasound. She is due for a colonoscopy which is scheduled about 8 days from now. (5) Chronic pancreatitis Impression: Continue home Creon. (6) Gout Impression: On allopurinol per her home medications. It is possible her right knee effusion is a gouty flare. I have ordered a CT and am waiting on the results. (7) Asthma Impression: stable. No acute flare on presentation. PRN duoneb. (8) Hypertension Impression: Managed. No antihypertensives noted on med rec. PRN hydralazine for sbp>160. With the weight loss she has experienced over the last several months it is likely that her hypertension requires no medication. (9) Paroxysmal atrial fibrillation Impression: Rate controlled. No rate controlling medication noted. Monitor on tele and int ervene as needed. Tele shows afib and NSR, no tachycardia. Not on anticoagulation likely 2/2 hx of GIB.
[2024-03-18] MEDS ORDERED: SODIUM CHLORIDE 0.9% 50 ML IV ONE (13:47)
[2024-03-18] MEDS: MAGNESIUM SULFATE 1 GM in SODIUM CHLORIDE 0.9% 50 ML IV ONE (13:52)
[2024-03-18 15:06] LABS: BASOPHILS % (AUTO) 0.1 %; EOSINOPHILS # (AUTO) 0.2 10^3/uL (0.0-0.7); EOSINOPHILS % (AUTO) 2.1 %; HCT - HEMATOCRIT 28.6 % (37.0-47.0); HGB - HEMOGLOBIN 8.6 g/dL (12.0-16.0); LYMPHOCYTES # (AUTO) 0.8 10^3/uL (1.5-3.5); MEAN CORPUSCULAR HEMOGLOBIN 27.2 pg (27.0-31.0); MEAN CORPUSCULAR HGB CONC 30.1 g/dL (32.0-36.0); MEAN CORPUSCULAR VOLUME 90.5 fL (81.0-99.0); MONOCYTES # (AUTO) 0.7 10^3/uL (0.0-1.0); MONOCYTES % (AUTO) 9.9 %; NEUTROPHILS # (AUTO) 5.4 10^3/uL (1.5-6.6); NEUTROPHILS % (AUTO) 76.2 %; PLT - PLATELET COUNT 155 10^3/uL (130-450); RED BLOOD COUNT 3.16 10^6/uL (4.20-5.40); RED CELL DISTRIBUTION WIDTH 17.2 % (12.0-15.0); WHITE BLOOD COUNT 7.1 x10^3/uL (4.8-10.8)
--- NOTE | 2024-03-18 22:04 | CT Report ---
PROCEDURE: Lower Extremity RT WO INDICATIONS: right knee pain and swelling TECHNIQUE: Noncontrast 3-mm axial sections acquired from the distal tibial shaft to the talar dome, with coronal and sagittal reformats. For radiation dose reduction, the following was used: automated exposure c ontrol, adjustment of mA and/or kV according to patient size. COMPARISON: None. FINDINGS: Image quality: Excellent. Bones: Osteopenia. No acute fracture or dislocation from the knee to the ankle. Mild medial joint sp casimiro narrowing of the knee. Soft tissues: Small knee effusion. Subcutaneous edema of the leg, most pronounced in the medial leg, extending into the ankle. No drainable fluid collection. No soft tissue air to suggest necrotizing f asciitis. Moderate vascular calcification in the leg. IMPRESSION: 1.Diffuse subcutaneous edema of the right leg, extending to the ankle, nonspecific but can be seen as cending cellulitis. No soft tissue air to suggest necrotizing fasciitis. No drainable fluid collectio n. 2.No acute osseous finding in the right leg. Reviewed by: Chiara England MD on 03/18/2024 10:02 PM PDT Approved by: Chiara England MD on 03/18/2024 10:02 PM PDT Station ID: [id number]
[2024-03-19 07:32] LABS: BASOPHILS % (AUTO) 0.6 %; EOSINOPHILS # (AUTO) 0.3 10^3/uL (0.0-0.7); EOSINOPHILS % (AUTO) 4.9 %; HCT - HEMATOCRIT 26.5 % (37.0-47.0); HGB - HEMOGLOBIN 8.3 g/dL (12.0-16.0); LYMPHOCYTES # (AUTO) 1.7 10^3/uL (1.5-3.5); LYMPHOCYTES % (AUTO) 24.2 %; MEAN CORPUSCULAR HEMOGLOBIN 27.9 pg (27.0-31.0); MEAN CORPUSCULAR HGB CONC 31.3 g/dL (32.0-36.0); MEAN CORPUSCULAR VOLUME 88.9 fL (81.0-99.0); MEAN PLATELET VOLUME 8.6 fL (7.9-10.8); MONOCYTES # (AUTO) 0.7 10^3/uL (0.0-1.0); MONOCYTES % (AUTO) 10.6 %; NEUTROPHILS # (AUTO) 4.1 10^3/uL (1.5-6.6); NEUTROPHILS % (AUTO) 58.8 %; PLT - PLATELET COUNT 149 10^3/uL (130-450); RED BLOOD COUNT 2.98 10^6/uL (4.20-5.40); RED CELL DISTRIBUTION WIDTH 17.2 % (12.0-15.0); WHITE BLOOD COUNT 6.9 x10^3/uL (4.8-10.8)
[2024-03-19 07:51] LABS: CALCIUM 8.6 mg/dL (8.5-10.3); CREATININE 1.3 mg/dL (0.6-1.3); POTASSIUM 4.9 mmol/L (3.5-4.5)
--- NOTE | 2024-03-19 10:54 | PROVIDER PROGRESS NOTE ---
Subjective - Prog Note Date Prog Note Date: 03/19/24 Prog Note Time: 10:51 - Subjective Pt reports feeling: No change Subjective: continues to have right knee pain. She has been ambulatory in the room. But, has not walked in the hallway. She has been eating well while here. Current Medications - Current Medications Current Medications: Medications Heparin Sodium (Porcine) (Heparin 5,000 Unit/Ml Vial) 5,000 unit SUBQ BID [facility] Last Admin: 03/19/24 08:47 Dose: 5,000 unit Hydralazine HCl (Hydralazine Inj 20 Mg/Ml Vial) 10 mg IVP DAILY PRN PRN Reason: sbp>160 Acetaminophen (Acetaminophen 325 Mg Tablet) 650 mg PO Q4HR PRN PRN Reason: Pain 1 to 4, or Fever Last Admin: 03/18/24 00:09 Dose: 650 mg Albuterol/Ipratropium (Ipratropium/Albuterol 3 Ml Neb) 3 ml INH Q4HR PRN PRN Reason: Wheezing Allopurinol (Allopurinol 100 Mg Tablet) 100 mg PO DAILY [facility] Last Admin: 03/19/24 08:45 Dose: 100 mg Amiodarone HCl (Amiodarone 200 Mg Tablet) 200 mg PO DAILY [facility] Last Admin: 03/19/24 08:45 Dose: 200 mg Lipase/Protease/Amylase (Lipase/Protease/Amylase Capsule) 3 cap PO TIDWM [facility] Last Admin: 03/19/24 08:45 Dose: 3 cap Cefepime HCl 2 gm/ Sodium (Chloride) 100 mls @ 200 mls/hr IV BID [facility] Last Admin: 03/19/24 08:53 Dose: 200 mls/hr Ferrous Gluconate (Ferrous Gluconate 324 Mg Tablet) 324 mg PO DAILYWM [facility] Last Admin: 03/19/24 08:45 Dose: 324 mg Magnesium Oxide (Magnesium Oxide 400 Mg Tablet) 400 mg PO BID [facility] Last Admin: 03/19/24 08:45 Dose: 400 mg Ondansetron HCl (Ondansetron 4 Mg/2 Ml Vial) 4 mg IVP Q6HR PRN PRN Reason: Nausea / Vomiting Oxycodone HCl (Oxycodone 5 Mg Tablet) 5 mg PO Q4HR PRN PRN Reason: Moderate Pain (Level 4-6) Last Admin: 03/19/24 04:45 Dose: 5 mg Pantoprazole Sodium (Pantoprazole 40 Mg Tablet) 40 mg PO DAILY [facility] Last Admin: 03/19/24 08:45 Dose: 40 mg Multivit/Folic Acid/Iron ( Vitamin Tablet) 1 tab PO DAILYWM [facility] Last Admin: 03/19/24 08:45 Dose: 1 tab Spironolactone (Spironolactone 25 Mg Tablet) 25 mg PO DAILY [facility] Last Admin: 03/19/24 08:45 Dose: 25 mg Thiamine HCl (Thiamine 100 Mg Tablet) 100 mg PO DAILY [facility] Last Admin: 03/19/24 08:45 Dose: 100 mg Objective - Vital Signs/Intake & Output Vital Signs: Vital Signs x48h Temp Pulse Resp BP Pulse Ox 03/19/24 08:31 36.5 C 87 18 118/70 96 03/19/24 04:43 36.7 C 88 20 105/64 96 Intake & Output: Intake & Output 03/16/24 03/17/24 03/18/24 03/19/24 23:59 23:59 23:59 23:59 Intake Total 300 2019 1422 300 Output Total 650 Balance -350 2019 1422 300 - Objective General Appearance: positive: No acute distress Eyes Bilateral: positive: Normal inspection ENT: positive: ENT inspection nml Neck: positive: Nml inspection Respiratory: positive: No respiratory distress, Breath sounds nml Cardiovascular: positive: Regular rate & rhythm Peripheral Pulses: 2+ Dorsalis pedis (R), 2+ Dorsalis pedis (L) Abdomen: positive: No distention Back: positive: Nml inspection Skin: positive: Skin rash (right ankle is vastly improved. Dressing was changed. right knee remains warm with effusion. attempted to sample fluid from the right knee, using aseptic technique with 18gu needle, no fluid was returned.) Extremities: positive: No pedal edema Neurologic/Psychiatric: positive: Oriented x3 - Lab Results Fish Bones: 03/19/24 07:22 03/19/24 07:22 Other Labs: Lab Results x24hrs 03/19/24 03/19/24 03/18/24 Range/Units 07:22 07:22 15:02 WBC 6.9 (4.8-10.8) x10^3/uL RBC 2.98 L (4.20-5.40) 10^6/uL Hgb 8.3 L (12.0-16.0) g/dL Hct 26.5 L (37.0-47.0) % MCV 88.9 (81.0-99.0) fL MCH 27.9 (27.0-31.0) pg MCHC 31.3 L (32.0-36.0) g/dL RDW 17.2 H (12.0-15.0) % Plt Count 149 (130-450) 10^3/uL MPV 8.6 (7.9-10.8) fL Neut # (Auto) 4.1 (1.5-6.6) 10^3/uL Lymph # (Auto) 1.7 (1.5-3.5) 10^3/uL [place] # (Auto) 0.7 (0.0-1.0) 10^3/uL Eos # (Auto) 0.3 (0.0-0.7) 10^3/uL Baso # (Auto) 0.0 (0.0-0.1) 10^3/uL Absolute Nucleated RBC 0.00 x10^3/uL Nucleated RBC % 0.0 /100WBC Sodium 134 L (135-145) mmol/L Potassium 4.9 H (3.5-4.5) mmol/L Chloride 111 (101-111) mmol/L Carbon Dioxide 19 L (21-32) mmol/L Anion Gap 4.0 L (6-13) BUN 28 H (6-20) mg/dL Creatinine 1.3 (0.6-1.3) mg/dL Estimated GFR (MDRD) 40 L (>89) Glucose 119 H (74-104) mg/dL Calcium 8.6 (8.5-10.3) mg/dL Magnesium 1.8 (1.7-2.3) mg/dL Crossmatch IS Only 03/18/24 03/18/24 Range/Units 15:02 07:18 WBC 7.1 (4.8-10.8) x10^3/uL RBC 3.16 L (4.20-5.40) 10^6/uL Hgb 8.6 L (12.0-16.0) g/dL Hct 28.6 L (37.0-47.0) % MCV 90.5 (81.0-99.0) fL MCH 27.2 (27.0-31.0) pg MCHC 30.1 L (32.0-36.0) g/dL RDW 17.2 H (12.0-15.0) % Plt Count 155 (130-450) 10^3/uL MPV 8.0 (7.9-10.8) fL Neut # (Auto) 5.4 (1.5-6.6) 10^3/uL Lymph # (Auto) 0.8 L (1.5-3.5) 10^3/uL [place] # (Auto) 0.7 (0.0-1.0) 10^3/uL Eos # (Auto) 0.2 (0.0-0.7) 10^3/uL Baso # (Auto) 0.0 (0.0-0.1) 10^3/uL Absolute Nucleated RBC 0.00 x10^3/uL Nucleated RBC % 0.0 /100WBC Sodium (135-145) mmol/L Potassium (3.5-4.5) mmol/L Chloride (101-111) mmol/L Carbon Dioxide (21-32) mmol/L Anion Gap (6-13) BUN (6-20) mg/dL Creatinine (0.6-1.3) mg/dL Estimated GFR (MDRD) (>89) Glucose (74-104) mg/dL Calcium (8.5-10.3) mg/dL Magnesium (1.7-2.3) mg/dL Crossmatch IS Only See Detail ABX Reporting Has patient been on IV antibiotics over the past 48 hours?: Yes Sepsis Event Note (H) - Evaluation Current Stage of Sepsis: Ruled out Assessment/Plan - Problem List (1) Bacteremia Impression: Called back into the ED for GNR bacteremia on 03/16. She presented with subjective fevers, no dysuria, no n/v/d. She was admitted on Ancef which was switched to cefepime to broaden coverage. Her white blood cell count is 6.9 and she has not run any fevers since admission. Her blood cultures grew pasteurella multocida. I considered switching her back to ancef with a plan to send her home on keflex, but will defer this as she has an acutely swollen knee with concerns for a possible septic joint until the cause is determined. We will continue with wound care to the right lower extremity and monitor her vitals for recurrent infection. (2) Cellulitis of right ankle Impression: She has a long standing wound on her anterior right ankle, cause undetermined, not consistent with venous or anterior ulcer presentation, with cellulitis. She is on empiric Cefepime for gram-negative rods seen in 1 out of 2 bottles for her bacteremia. Her wound cultures grew staphylococcus epidermidis. These were surface cultures and this is a likely contaminant. I debrided the right lower extremity wound. Today, the wound looks better. I will continue wound care and cefepime. (3) Effusion, right knee Impression: She developed an acutely swollen, erythematous, and tender knee which is warm to the touch. The calf is mildy swollen compared to the left. No palpable cords. The pain is 5/10, worse with movement or touch. Differentials include gout flar e, septic joint and DVT. CT of the right lower extremity is overall unremarkable. Aspiration has been attempted, as I do see a fluid collection medial to the patella on review of the images. I was not able to withdraw fluid. and she is already on cefepime which covers both organisms grown in her cultures. I will continue to monitor her for fevers, tachycardia and hypotension. ESR and CRP were not ordered as she already has known inflammatory conditions and would be of little prognostic and diagnostic value. I will order a lactate if she develops new signs of systemic infection. She has PRN pain medication if needed. (4) Protein calorie malnutrition Impression: Patient is experienced a 22% body weight loss over the last year. This is a 17 kg weight loss. This is likely due to her pain with eating and her chronic pancreatitis. This is an idiopathic pancreatitis. She is getting workup with Nona Haley for this. She has had endoscopic ultrasound. She is due for a colonoscopy which is scheduled about 8 days from now. (5) Chronic pancreatitis Impression: Continue home Creon. (6) Gout Impression: On allopurinol per her home medications. It is possible her right knee effusion is a gouty flare. I was not able to draw from the fluid collection visible on CT. (7) Asthma Impression: stable. No acute flare on presentation. PRN duoneb. (8) Hypertension Impression: Managed. No antihypertensives noted on med rec. PRN hydralazine for sbp>160. With the weight loss she has experienced over the last several months it is likely that her hypertension requires no medication. (9) Paroxysmal atrial fibrillation Impression: Rate controlled. No rate controlling medication noted. Monitor on tele and intervene as needed. Tele shows afib and NSR, no tachycardia. Not on anticoagulation likely 2/2 hx of GIB.
[2024-03-19] MEDS: LIDOCAINE-MPF 1% 10 ML AMP SUBQ ONE (12:53)
[2024-03-20 08:59] VITALS: BP 119/69; O2SAT 94
--- NOTE | 2024-03-20 09:02 | PROVIDER PROGRESS NOTE ---
Subjective - Prog Note Date Prog Note Date: 03/20/24 - Subjective Pt reports feeling: Improved ( still reporting tenderness on right knee) Objective - Vital Signs/Intake & Output Reviewed Vital Signs: Yes Vital Signs: Vital Signs x48h Temp Pulse Resp BP Pulse Ox 03/20/24 08:50 36.7 C 79 16 119/69 94 Intake & Output: Intake & Output 03/17/24 03/18/24 03/19/24 03/20/24 23:59 23:59 23:59 23:59 Intake Total 2019 1422 950 480 Balance 2019 1422 950 480 - Objective General Appearance: positive: No acute distress, Alert Eyes Bilateral: positive: Normal inspection Respiratory: positive: Chest non-tender, No respiratory distress Cardiovascular: positive: No murmur, Irregularly irregular Abdomen: positive: Non-tender Skin: positive: Color nml Neurologic/Psychiatric: positive: Oriented x3 - Lab Results Fish Bones: 03/19/24 07:22 03/19/24 07:22 - Diagnostic Imaging Diagnostic Imaging Results: positive: Final report reviewed Diagnostic Imaging Comments: CT lower extremity with no fluid collection large enough for aspiration ABX Reporting Has patient been on IV antibiotics over the past 48 hours?: Yes Sepsis Event Note (H) - Evaluation Current Stage of Sepsis: Ruled out Assessment/Plan - Problem List (1) Bacteremia Impression: (1) Bacteremia Impression: Called back into the ED for GNR bacteremia on 03/16. She presented with subjective fevers, no dysuria, no n/v/d. She was admitted on Ancef which was switched to cefepime to broaden coverage. WBC not elevated, afebrile since admission. Her blood cultures grew pasteurella multocida. De-escalate to Keflex today and likely discharge (2) Cellulitis of right ankle Impression: She has a long standing wound on her anterior right ankle, cause undetermined, not consistent with venous or anterior ulcer presentation, with cellulitis.She was placed on cefepime empirically for gram-negative rods which are now known to be pasteurella multocida. She was continued on cefepime for concern for septic arthritis as below. Wound cultures with likely contaminant Staphylococcus epidermis (3) Effusion, right knee Impression: She developed an acutely swollen, erythematous, and tender knee which is warm to the touch. The calf is mildy swollen compared to the left. No palpable cords. CT was performed which was overall unremarkable. Lower extremity ultrasound negative for DVT. Aspiration was attempted yesterday, but was unsuccessful. ESR, CRP not ordered given known inflammatory conditions. One-time dose Toradol. Likely secondary to gout or cellulitis. (4) Protein calorie malnutrition Impression: Patient is experienced a 22% body weight loss over the last year. This is a 17 kg weight loss. This is likely due to her pain with eating and her chronic pancreatitis. This is an idiopathic pancreatitis. She is getting workup with Nona Haley for this. She has had endoscopic ultrasound. She is due for a colonoscopy which is scheduled about 8 days from now. (5) Chronic pancreatitis Impression: Continue home Creon. (6) Gout Impression: On allopurinol per her home medications. It is possible her right knee effusion is a gouty flare. Toradol IV (7) Asthma Impression: stable. No acute flare on presentation. PRN duoneb. (8) Hypertension Impression: Managed. No antihypertensives noted on med rec. PRN hydralazine for sbp>160. With the weight loss she has experienced over the last several months it is likely that her hypertension requires no medication. (9) Paroxysmal atrial fibrillation Impression: Rate controlled. No rate controlling medication noted. Monitor on tele and intervene as needed. Tele shows afib and NSR, no tachycardia. Not on anticoagulation likely 2/2 hx of GIB.
--- NOTE | 2024-03-20 10:54 | Discharge Plan ---
Discharge Plan Problem Reviewed?: Yes Disposition: Home, Self Care Condition: Fair Prescriptions: Ferrous Gluconate [Fergon] 324 mg PO DAILYWM #30 tab allopurinoL [Zyloprim] 100 mg PO DAILY #30 tab Diet: Regular Activity Restrictions: Activity as Tolerated Instruction Topics: Gout Attack Tx, Cellulitis Dc Health Concerns: URI 68-year-old female who presented to the ER as directed for positive blood cultures. You were started on antibiotics for this. While in the hospital, he started to have some swelling in your right knee. CT scan was performed and aspiration was attempted to rule out septic arthritis. This is likely inflammation from your skin infection combined with gout. Plan of Treatment: You were treated with IV antibiotics in the hospital. I would like you to continue oral antibiotics at home. I am continuing your allopurinol for gout. I would encourage caution with pain medications as you have history of GI b leeding. I caution you against high doses of nonsteroidal anti-inflammatories such as Toradol, Motrin, naproxen. I would encourage you to be as active as you can, and make sure you are eating and drinking plenty of water Care Goals: some goals for you would be to be as mobile as possible, and to keep your dressing on your foot clean Follow-Up Care: Home Health - RN, Home Health - PT, Home Health - OT No Smoking: If you smoke, Please STOP! Call for help. Follow-up with: NELLY RIVERA MD [Primary Care Provider] -
--- NOTE | 2024-03-20 11:04 | DISCHARGE SUMMARY ---
"Discharge Summary Admit Date: 03/16/24 Discharge Date: 03/20/24 Discharging Provider: Kimo Nova NP Code Status: Attempt Resuscitation Condition at Discharge: Fair Discharge Disposition: 01 Home, Self Care - DIAGNOSES Admission Diagnoses: bacteremia Cellulitis Protein calorie malnutrition Discharge Diagnoses with Status of Each Condition: bacteremiaongoing Cellulitisongoing Goutchronic, with active flare Asthmachronic Hypertensionchronic Paroxysmal A-fibchronic Protein calorie malnutritionchronic - HPI History of Present Illness: 68-year-old female who has had ongoing ankle redness since August, worsening over 2 weeks. Presented to ER, and was sent home with antibiotics for cellulitis. She was called back into the ER due to positive blood cultures. While in the hospital, she experienced swelling and redness around her right knee. Joint aspiration was attempted but was unsuccessful. CT lower extremity showed soft tissue swelling. Ultrasound negative for DVT. - CONSULTS | PROCEDURES Procedures: CT, ultrasound, attempted joint aspiration - HOSPITAL COURSE Hospital Course: admitted for bacteremia, developed right knee swelling. CT, ultrasound performed to rule out DVT and septic arthritis. Joint aspiration was attempted but was unsuccessful. - ALLERGIES Allergies/Adverse Reactions: Allergies Allergy/AdvReac Type Severity Reaction Status Date / Time TIARA Inhibitors Allergy Severe Respiratory Verified 03/16/24 17:04 lisinopril Allergy Severe Respiratory Verified 03/16/24 17:04 Rglgduo-[id number]-ZoH Reductase Allergy Respiratory Verified 03/16/24 17:04 Inhibitor - MEDICATIONS Home Medications: Ambulatory Orders Medication Instructions Recorded Confirmed Ondansetron Odt [Zofran Odt] 4 mg TL Q6H PRN #10 tablet 03/27/23 03/17/24 Doxycycline Hyclate 100 mg PO BID 7 Days #14 cap 03/16/24 03/17/24 cephALEXin [Keflex] 500 mg PO TID #20 cap 03/16/24 03/17/24 Albuterol Sulf [Ventolin Hfa 2 puffs INH Q4HR PRN 03/17/24 03/17/24 Inhaler] Amiodarone [Pacerone] 100 mg PO DAILY 03/17/24 03/17/24 Lipase/Protease/Amylase [Lyn Dr 1 each PO TIDWM 03/17/24 03/17/24 12,000 Unit Capsule] Multivit-Min/FA/Lycopen/Lutein 1 each PO DAILY 03/17/24 03/17/24 [Adults 50 Plus Multivitamin] Pantoprazole [Protonix] 40 mg PO PRN PRN 03/17/24 03/17/24 Spironolactone [Aldactone] 25 mg PO DAILY 03/17/24 03/17/24 Ferrous Gluconate [Fergon] 324 mg PO DAILYWM #30 tab 03/20/24 allopurinoL [Zyloprim] 100 mg PO DAILY #30 tab 03/20/24 - PHYSICAL EXAM AT DISCHARGE General Appearance: positive: No acute distress Eyes Bilateral: positive: Normal inspection Respiratory: positive: Chest non-tender Cardiovascular: positive: Irregularly irregular Abdomen: positive: Non-tender Skin: positive: Skin rash Extremities: positive: Joint swelling ( Knee) Neurologic/Psychiatric: positive: Oriented x3 - LABS Result Diagrams: 03/19/24 07:22 03/19/24 07:22 - DIAGNOSTIC IMAGING Diagnostic Imaging Results: Final report reviewed Diagnostic Imaging Results Comments: venous ultrasound negative for DVT CT lower extremity with edema, no fluid pockets or gas. - SEPSIS Current Stage of Sepsis: Ruled out - FOLLOW UP Follow Up: Follow-up with PCP - TIME SPENT Time Spent in Discharge (Minutes): 25"
[2024-03-20] MEDS ORDERED: cephALEXin 250 MG CAPSULE PO SCH (12:00)
== END 2024-03-20 13:30 | disposition home or self-care (01) | DRG 603 ==
LOC: ED 16:55 → MS2 19:56 → OBSVTOIN 03-17 11:21
PROVIDERS: ADMIT Internal Medicine; ATTEND Nurse Practitioner Acute Care
PROC: 30233N1 Transfusion of Nonautologous Red Blood Cells into Peripheral Vein, Percutaneous Approach (ICD-10-PCS; principal; 2024-03-18)
DX: A41.50 Gram-negative sepsis, unspecified (principal); L03.115 Cellulitis of right lower limb; R78.81 Bacteremia; E46 Unspecified protein-calorie malnutrition; K86.1 Other chronic pancreatitis; M10.9 Gout, unspecified; J45.909 Unspecified asthma, uncomplicated; F17.200 Nicotine dependence, unspecified, uncomplicated; I10 Essential (primary) hypertension; I48.0 Paroxysmal atrial fibrillation; R94.4 Abnormal results of kidney function studies; R53.1 Weakness; E78.00 Pure hypercholesterolemia, unspecified; K21.9 Gastro-esophageal reflux disease without esophagitis; M25.461 Effusion, right knee; R73.9 Hyperglycemia, unspecified; D64.9 Anemia, unspecified; B96.89 Other specified bacterial agents as the cause of diseases classified elsewhere; Z68.20 Body mass index [BMI] 20.0-20.9, adult; Z79.899 Other long term (current) drug therapy; Z82.49 Family history of ischemic heart disease and other diseases of the circulatory system; Z82.5 Family history of asthma and other chronic lower respiratory diseases; Z87.891 Personal history of nicotine dependence
CPT/HCPCS: 36415; 71045; 73700; 80048; 80053; 81001; 82607; 82746; 83036; 83605; 83735; 84100; 85025; 85027; 86850; 86900; 86901; 86920; 87040; 87070; 87077; 87086; 87154; 87181; 87205; 87633; 87640; 93925; 96365; 96375; 99284; 99285; A9270; G0378; J1170; J1200; J7040; P9016; 81003